=== PATIENT | male | born 1980 | race Caucasian/White ===

== ENCOUNTER 2020-05-07 02:21 | Emergency (ER) | payer OTHER ==
[2020-05-07 02:29] VITALS: BP 142/92; PULSE 74; RESP 22; TEMP 98.6
[2020-05-07] MEDS ORDERED: ACET/COD 300 MG/30 MG STARTER PACK 6 TAB BTL PO STA (02:42)
[2020-05-07] MEDS ORDERED: KETOROLAC 15 MG/ML 1 ML VIAL IM STA (02:42)
--- NOTE | 2020-05-07 02:54 | ED ---
Upper Extremity HPI - General Chief Complaint: Extremity Injury, Upper Stated Complaint: Rt shoulder pain Time Seen by Provider: 05/07/20 02:35 Source: patient, family Mode of arrival: ambulatory Limitations: no limitations - History of Present Illness Initial Comments: 39 year-old male patient presents to the emergency department for evaluation of increased right shoulder pain. Patient states he had a dislocation on 04/26/20 and has been having pain since. He states that tonight while at work he suddenly started having worse pain. States that he has been wearing the sling and not using it much. Denies numbness or tingling to the hand. He denies any new injury. States that he has not been able to get his pain medications filled due to his working hours. Has not been able to follow up with orthopedics because he is waiting for a referral. Patient denies any headache, neck pain, back pain, chest pain, shortness of breath, dizziness, weakness, abdominal pain, nausea, vomiting, or difficulties with bowel movements or urination. - Related Data Home Medications Medication Instructions Recorded Confirmed Acetaminophen Tab [Tylenol Tab] 1,500 mg PO Q6HR PRN 03/18/20 03/18/20 Dm/Acetaminophen/Doxylamine [Vicks 30 ml PO Q8H PRN 03/18/20 03/18/20 Nyquil Cold-Flu Liquid] Previous Rx's Medication Instructions Recorded Ondansetron Odt [Zofran Odt] 4 mg PO Q8HR PRN #20 tab 03/18/20 Allergies Allergy/AdvReac Type Severity Reaction Status Date / Time hydromorphone [From Dilaudid] Allergy Rash/Hives Verified 05/07/20 02:29 meperidine [From Demerol] Allergy Rash/Hives Verified 05/07/20 02:29 Review of Systems ROS Statement: Those systems with pertinent positive or pertinent negative responses have been documented in the HPI. ROS Other: All systems not noted in ROS Statement are negative. Past Medical History Additional Past Medical History / Comment(s): multiple dislocation of rt shoulder History of Any Multi-Drug Resistant Organisms: None Reported Past Surgical History: Orthopedic Surgery Additional Past Surgical History / Comment(s): rt shoulder Past Psychological History: No Psychological Hx Reported Smoking Status: Never smoker Past Alcohol Use History: None Reported Past Drug Use History: None Reported General Exam Limitations: no limitations General appearance: alert, in no apparent distress, other (This is a well- developed, well-nourished adult male patient in no acute distress. Vital signs upon presentation are temperature 98.6F, pulse 74, respirations 22, blood pressure 142/92, pulse ox 97% on room air.) Respiratory exam: Present: normal lung sounds bilaterally. Absent: respiratory distress, wheezes, rales, rhonchi, stridor Cardiovascular Exam: Present: regular rate, normal rhythm, normal heart sounds. Absent: systolic murmur, diastolic murmur, rubs, gallop, clicks Extremities exam: Present: normal inspection, tenderness (Right shoulder), normal capillary refill, other (Skin to the right arm is pink, warm, dry. Cap refills less than 3 seconds. Radial pulses 2)). Absent: full ROM (decreased due to pain), pedal edema, joint swelling, calf tenderness Neurological exam: Present: alert, oriented X3, CN II-XII intact Psychiatric exam: Present: normal affect, normal mood Skin exam: Present: warm, dry, intact, normal color. Absent: rash Course Vital Signs 05/07/20 02:25 Temperature 98.6 F Pulse Rate 74 Respiratory 22 Rate Blood Pressure 142/92 O2 Sat by Pulse 97 Oximetry Medical Decision Making - Medical Decision Making 39-year-old male patient presents to the emergency department today for evaluation of pain to the right shoulder. Patient had a dislocation on 06/2020 and did have successful reduction. Has not yet been able to follow-up with orthopedics due to referral issues also has not picked up his prescription from the pharmacy for pain. Patient states his shoulder started to hurt worse tonight. Physical examination is unremarkable. He has good neurovascular status. X-rays negative for acute abnormalities. He will be discharged after receiving pain medication in the emergency department. He is instructed to follow-up is as possible with orthopedics. We did discuss range of motion of the shoulder while using the sling to prevent frozen shoulder. Return parameters were discussed in detail. He verbalizes understanding and agrees with this plan. - Radiology Data Radiology results: report reviewed, image reviewed Two-view x-ray of the right shoulder is obtained. Report was reviewed in its entirety. Impression by Dr. Elmore shows no acute osseous abnormalities. Disposition Clinical Impression: Shoulder pain, right Disposition: HOME SELF-CARE Condition: Good Instructions (If sedation given, give patient instructions): Shoulder Pain (ED) Additional Instructions: Take medications as directed. Follow-up with your primary care physician and product development specialist for further evaluation as soon as possible. Return to the emergency department for any new, worsening, or concerning symptoms. Is patient prescribed a controlled substance at d/c from ED?: No Referrals: Huma Soria MD [Primary Care Provider] - 1-2 days Time of Disposition: 03:23
--- NOTE | 2020-05-07 03:14 | XR ---
EXAM: XR Right Shoulder Complete, 2 or More Views CLINICAL HISTORY: ITS.REASON XR Reason: Right shoulder pain TECHNIQUE: Two or more views of the right shoulder. COMPARISON: 04/26/2020 FINDINGS: Bones/joints: No acute fracture. No dislocation. Arthroplasty hardware. Soft tissues: Unremarkable. IMPRESSION: No acute osseous abnormalities.
== END 2020-05-07 03:37 | disposition home or self-care (01) ==
LOC: EC 02:21 → MERGE 02:21 → EC 03:37
DX: M25.511 Pain in right shoulder (principal); Z88.5 Allergy status to narcotic agent
CPT/HCPCS: 73030; 99283; 96372; J1885

== ENCOUNTER → 2020-08-06 | Outpatient (CLI) | payer OTHER ==
--- NOTE | 2020-08-06 12:54 | ECHOS ---
STRESS ECHOCARDIOGRAM LUMASON: N/A Vial INDICATIONS: Chest pain. MEDICATIONS: BASELINE HEART RATE: 89 BASELINE BLOOD PRESSURE: 130/73 MAXIMUM HEART RATE: 154 MAXIMUM BLOOD PRESSURE: 175/98 85% MPHR: 153 100% MPHR: 180 METS: 10 MAXIMUM STAGE REACHED: IV TOTAL EXERCISE TIME: 9 minutes CLINICAL INFORMATION: Baseline EKG shows sinus rhythm, normal axis, normal intervals. Patient exercised on Jean-Claude protocol for a total of 9 minutes achieving 10 METs, 85% of predicted maximal heart rate without chest pain or diagnostic ST-segment depression. Baseline echo shows normal left ventricular size, wall motion and systolic function. Postexercise, there is normal hyperdynamic response of all segments of myocardium noted. CONCLUSIONS: 1. Good exercise tolerance. 2. Negative stress test by EKG criteria. 3. Negative stress echo. MMODL / IJN: [id number] /
== END | disposition home or self-care (01) ==
LOC: RADNMMAIN 09:47 → MERGE 10:00
PROVIDERS: ATTEND Family Medicine
DX: R07.9 Chest pain, unspecified (principal)
CPT/HCPCS: 93351

== ENCOUNTER → 2020-08-18 | Outpatient (CLI) | payer OTHER ==
--- NOTE | 2020-08-18 15:03 | US ---
EXAMINATION TYPE: US abdomen complete DATE OF EXAM: 08/18/2020 COMPARISON: NONE CLINICAL HISTORY: Hepatic colic w/o cholangitis K80.50. RUQ pain, nausea and bloating x 1 month EXAM MEASUREMENTS: Liver Length: 14.7 cm Gallbladder Wall: 0.3 cm CBD: 0.3 cm Spleen: 11.1 cm Right Kidney: 9.9 x 6.1 x 4.8 cm Left Kidney: 10.6 x 5.7 x 5.6 cm Pancreas: obscured by overlying midline bowel gas Liver: limited visualization, scanned intercostally Gallbladder: 1.8cm stone Evidence for sonographic Wharton's sign: no CBD: visualized portions wnl Spleen: wnl Right Kidney: wnl Left Kidney: wnl Upper IVC: limited visualization Abd Aorta: prox portion obscured by overlying midline bowel gas, mid and distal appear wnl The visualized liver is heterogeneously hyperechoic. Evaluation for focal masses suboptimal due to th e heterogeneity. The intrahepatic portion of the IVC and visualized mid and distal abdominal aorta a re within normal limits. There is large shadowing 1.8 cm calculus. No pericholecystic fluid or abno rmal gallbladder wall thickening. Common bile duct is within normal limits. Suboptimal evaluation of pancreas on initial images saved due to shadowing from overlying bowel gas. The spleen is unremarkab le. Kidneys are symmetric and free of hydronephrosis. No renal lesions are seen on images saved. IMPRESSION: Large gallstone without secondary ultrasound evidence for acute cholecystitis. Heterogene ous hyperechoic appearance of liver is likely on basis of diffuse fatty infiltration.
== END | disposition home or self-care (01) ==
LOC: RADUSWWP 14:06
PROVIDERS: ATTEND Family Medicine
DX: K80.20 Calculus of gallbladder without cholecystitis without obstruction (principal)
CPT/HCPCS: 76700

== ENCOUNTER → 2020-08-25 | Outpatient (CLI) | payer OTHER ==
--- NOTE | 2020-08-25 16:30 | NM ---
EXAMINATION TYPE: NM hepatobiliary w EF DATE OF EXAM: 08/25/2020 COMPARISON: Abdominal ultrasound 08/18/2020 HISTORY: Hepatic colic with cholangitis TECHNIQUE: After the intravenous administration of 4.86 mCi Tc 99m Mebrofenin hepatobiliary scintigra phy is performed. Immediate images post injection. FINDINGS: There is satisfactory initial accumulation of tracer by the liver. The gallbladder is visualized wit hin 6 minutes. The small bowel activity is noted within extending minutes. At one hour 8 ounces of oral ensure plus is given to mimic CCK and gallbladder ejection fraction is calculated at 75 %, in th e normal range. Therefore there is no scintigraphic evidence of cystic or common bile duct obstructi on, no acute or chronic cholecystitis, and no evidence of biliary dyskinesia. IMPRESSION: Exam is within normal limits.
== END | disposition home or self-care (01) ==
LOC: RADNMMAIN 12:52
PROVIDERS: ATTEND Family Medicine
DX: K80.30 Calculus of bile duct with cholangitis, unspecified, without obstruction (principal)
CPT/HCPCS: 78226; A9537

== ENCOUNTER → 2020-09-08 | Outpatient (CLI) | payer OTHER | END | disposition home or self-care (01) | LOC: LABPAT 10:10 | PROVIDERS: ATTEND Surgery | DX: Z01.818 Encounter for other preprocedural examination (principal); Z11.52 Encounter for screening for COVID-19 | CPT/HCPCS: 93005; U0003; C9803; U0005 ==

== ENCOUNTER 2020-09-10 11:54 | Emergency (ER) | payer OTHER ==
[2020-09-10 12:03] VITALS: RESP 18; TEMP 97.7
[2020-09-10] MEDS ORDERED: MORPHINE SULFATE 4 MG/ML SYRINGE IV STA (13:26)
--- NOTE | 2020-09-10 13:28 | ED ---
General Adult HPI - General Chief complaint: Abdominal Pain Stated complaint: Chest Pain, Abd Pain Time Seen by Provider: 09/10/20 13:14 Source: patient Mode of arrival: ambulatory Limitations: no limitations - History of Present Illness Initial comments: Dictation was produced using [email or web address] dictation software. please excuse any grammatical, word or spelling errors. This patient was cared for during a federal and state declared state of emergenc y secondary to Covid 19 Chief Complaint: 39-year-old male with past medical history of gallstone presents with gallstone pain. History of Present Illness: It is a 39-year-old male he was recently diagnosed with a large gallstone. 5 days he is scheduled to have a laparoscopic cholecystectomy performed by Dr. Beltran. Patient for the last 2-3 days has been having increasing pain to his right upper quadrant. His pain rates up into his chest. Call his primary care doctor and PCP told to come to the emergency department. Patient denies any fever. He had some eggs prior to the onset of his symptoms. Denies any chills or any other constitutional symptoms. The ROS documented in this emergency department record has been reviewed and confirmed by me. Those systems with pertinent positive or negative responses have been documented in the HPI. All other systems are other negative and/or noncontributory. PHYSICAL EXAM: General Impression: Alert and oriented x3, not in acute distress HEENT: Normocephalic atraumatic, extra-ocular movements intact, pupils equal and reactive to light bilaterally, mucous membranes moist. Cardiovascular: Heart regular rate and rhythm Chest: Able to complete full sentences, no retractions, no tachypnea Abdomen: abdomen soft, non-tender, non-distended, no organomegaly, negative Wharton sign Musculoskeletal: Pulses present and equal in all extremities, no peripheral edema Motor: no focal deficits noted Neurological: CN II-XII grossly intact, no focal motor or sensory deficits noted Skin: Intact with no visualized rashes Psych: Normal affect and mood ED course: 39-year-old male presents to emergency department for symptomatic cholelithiasis. Vital signs upon arrival are within acceptable limits. Laboratory evaluation obtained showing no acute processes. No concern for acute cholecystitis or choledocholithiasis.. Patient appears improved. Patient will be discharged. Clinical presentation consistent with symptomatic cholelithiasis. - Related Data Home Medications Medication Instructions Recorded Confirmed Acetaminophen Tab [Tylenol Tab] 1,500 mg PO Q6HR PRN 03/18/20 03/18/20 Dm/Acetaminophen/Doxylamine [Vicks 30 ml PO Q8H PRN 03/18/20 03/18/20 Nyquil Cold-Flu Liquid] Previous Rx's Medication Instructions Recorded Ondansetron Odt [Zofran Odt] 4 mg PO Q8HR PRN #20 tab 03/18/20 Allergies Allergy/AdvReac Type Severity Reaction Status Date / Time hydromorphone [From Dilaudid] Allergy Rash/Hives Verified 09/10/20 12:03 meperidine [From Demerol] Allergy Rash/Hives Verified 09/10/20 12:03 Review of Systems ROS Statement: Those systems with pertinent positive or pertinent negative responses have been documented in the HPI. ROS Other: All systems not noted in ROS Statement are negative. Past Medical History Additional Past Medical History / Comment(s): multiple dislocation of rt vishnu ulder History of Any Multi-Drug Resistant Organisms: None Reported Past Surgical History: Orthopedic Surgery Additional Past Surgical History / Comment(s): rt shoulder Past Psychological History: No Psychological Hx Reported Smoking Status: Never smoker Past Alcohol Use History: None Reported Past Drug Use History: None Reported General Exam Limitations: no limitations Course Vital Signs 09/10/20 12:00 Temperature 97.7 F Pulse Rate 92 Respiratory 18 Rate Blood Pressure 137/100 O2 Sat by Pulse 95 Oximetry Medical Decision Making - Lab Data Result diagrams: 09/10/20 13:29 09/10/20 13:29 Lab Results 09/10/20 09/10/20 Range/Units 13:29 13:29 WBC 8.7 (3.8-10.6) k/uL RBC 5.06 (4.30-5.90) m/uL Hgb 15.8 (13.0-17.5) gm/dL Hct 45.5 (39.0-53.0) % MCV 90.0 (80.0-100.0) fL MCH 31.2 (25.0-35.0) pg MCHC 34.6 (31.0-37.0) g/dL RDW 12.7 (11.5-15.5) % Plt Count 256 (150-450) k/uL MPV 7.4 Neutrophils % 62 % Lymphocytes % 27 % Monocytes % 6 % Eosinophils % 2 % Basophils % 1 % Neutrophils # 5.4 (1.3-7.7) k/uL Lymphocytes # 2.4 (1.0-4.8) k/uL Monocytes # 0.5 (0-1.0) k/uL Eosinophils # 0.2 (0-0.7) k/uL Basophils # 0.1 (0-0.2) k/uL Sodium 140 (137-145) mmol/L Potassium 4.7 (3.5-5.1) mmol/L Chloride 105 (98-107) mmol/L Carbon Dioxide 26 (22-30) mmol/L Anion Gap 9 mmol/L BUN 14 (9-20) mg/dL Creatinine 0.80 (0.66-1.25) mg/dL Est GFR (CKD-EPI)AfAm >90 (>60 ml/min/1.73 sqM) Est GFR (CKD-EPI)NonAf >90 (>60 ml/min/1.73 sqM) Glucose 86 (74-99) mg/dL Calcium 10.0 (8.4-10.2) mg/dL Total Bilirubin 0.2 (0.2-1.3) mg/dL AST 23 (17-59) U/L ALT 34 (4-49) U/L Alkaline Phosphatase 58 (38-126) U/L Total Protein 7.3 (6.3-8.2) g/dL Albumin 4.4 (3.5-5.0) g/dL Lipase 227 (23-300) U/L Disposition Clinical Impression: Cholelithiasis Disposition: HOME SELF-CARE Condition: Good Is patient prescribed a controlled substance at d/c from ED?: No Referrals: Huma Soria MD [Primary Care Provider] - 1-2 days Time of Disposition: 14:28
[2020-09-10 13:52] LABS: Basophils # (A) 0.1 k/uL (0-0.2); Basophils % (A) 1 %; Eosinophils # (A) 0.2 k/uL (0-0.7); Eosinophils % (A) 2 %; HCT 45.5 % (39.0-53.0); HGB 15.8 gm/dL (13.0-17.5); Lymphocytes # (A) 2.4 k/uL (1.0-4.8); Lymphocytes % (A) 27 %; MCH 31.2 pg (25.0-35.0); MCHC 34.6 g/dL (31.0-37.0); Mean Platelet Volume 7.4; Monocytes # (A) 0.5 k/uL (0-1.0); Monocytes % (A) 6 %; Neutrophils # (A) 5.4 k/uL (1.3-7.7); Neutrophils % (A) 62 %; Platelet Count 256 k/uL (150-450); RBC 5.06 m/uL (4.30-5.90); RDW 12.7 % (11.5-15.5); WBC 8.7 k/uL (3.8-10.6)
[2020-09-10 13:56] LABS: ALT 34 U/L (4-49); AST 23 U/L (17-59); African American GFR (CKD) >90 (>60 ml/min/1.73 sqM); Albumin 4.4 g/dL (3.5-5.0); Alkaline Phosphatase 58 U/L (38-126); Anion Gap 9 mmol/L; Blood Urea Nitrogen 14 mg/dL (9-20); Carbon Dioxide 26 mmol/L (22-30); Chloride 105 mmol/L (98-107); Glucose 86 mg/dL (74-99); Lipase 227 U/L (23-300); Non-African American GFR(CKD) >90 (>60 ml/min/1.73 sqM); Potassium 4.7 mmol/L (3.5-5.1); Sodium 140 mmol/L (137-145); Total Bilirubin 0.2 mg/dL (0.2-1.3); Total Protein 7.3 g/dL (6.3-8.2)
[2020-09-10] MEDS ORDERED: ACET/COD 300 MG/30 MG STARTER PACK 6 TAB BTL PO STA (14:36)
--- NOTE | 2020-09-10 14:57 | ED ---
Medical Decision Making - Lab Data Result diagrams: 09/10/20 13:29 09/10/20 13:29 Lab Results 09/10/20 09/10/20 Range/Units 13:29 13:29 WBC 8.7 (3.8-10.6) k/uL RBC 5.06 (4.30-5.90) m/uL Hgb 15.8 (13.0-17.5) gm/dL Hct 45.5 (39.0-53.0) % MCV 90.0 (80.0-100.0) fL MCH 31.2 (25.0-35.0) pg MCHC 34.6 (31.0-37.0) g/dL RDW 12.7 (11.5-15.5) % Plt Count 256 (150-450) k/uL MPV 7.4 Neutrophils % 62 % Lymphocytes % 27 % Monocytes % 6 % Eosinophils % 2 % Basophils % 1 % Neutrophils # 5.4 (1.3-7.7) k/uL Lymphocytes # 2.4 (1.0-4.8) k/uL Monocytes # 0.5 (0-1.0) k/uL Eosinophils # 0.2 (0-0.7) k/uL Basophils # 0.1 (0-0.2) k/uL Sodium 140 (137-145) mmol/L Potassium 4.7 (3.5-5.1) mmol/L Chloride 105 (98-107) mmol/L Carbon Dioxide 26 (22-30) mmol/L Anion Gap 9 mmol/L BUN 14 (9-20) mg/dL Creatinine 0.80 (0.66-1.25) mg/dL Est GFR (CKD-EPI)AfAm >90 (>60 ml/min/1.73 sqM) Est GFR (CKD-EPI)NonAf >90 (>60 ml/min/1.73 sqM) Glucose 86 (74-99) mg/dL Calcium 10.0 (8.4-10.2) mg/dL Total Bilirubin 0.2 (0.2-1.3) mg/dL AST 23 (17-59) U/L ALT 34 (4-49) U/L Alkaline Phosphatase 58 (38-126) U/L Total Protein 7.3 (6.3-8.2) g/dL Albumin 4.4 (3.5-5.0) g/dL Lipase 227 (23-300) U/L Disposition Clinical Impression: Cholelithiasis Disposition: HOME SELF-CARE Condition: Good Instructions (If sedation given, give patient instructions): Gallstones (ED) Is patient prescribed a controlled substance at d/c from ED?: No Referrals: Huma Soria MD [Primary Care Provider] - 1-2 days
[2020-09-10 15:05] VITALS: BP 116/87; PULSE 78
== END 2020-09-10 15:06 | disposition home or self-care (01) ==
LOC: EC 11:54
DX: K80.20 Calculus of gallbladder without cholecystitis without obstruction (principal); Z88.5 Allergy status to narcotic agent
CPT/HCPCS: 36415; 80053; 83690; 85025; 99284; 96374; J2270; 93005

== ENCOUNTER 2020-09-15 11:04 | Day surgery (SDC) | payer OTHER ==
[2020-09-10 15:44] VITALS: BMI 36.5
[~2020-09-15 11:04] MED LIST: DEXAMETHASONE SOD PHOSPHATE 4 MG/ML 1 ML VIAL IV ONE; HEPARIN SODIUM,PORCINE/PF 5,000 UNIT/0.5 ML SYRINGE SQ PRN; LACTATED RINGERS 1,000 ML IV SCH; LIDOCAINE 1% (10MG/ML) FOR IV START INTRADERMA PRN; MIDAZOLAM 2 MG/2 ML VIAL IV PRN
[2020-09-15 11:30] VITALS: RESP 16
[2020-09-15] MEDS ORDERED: LIDOCAINE 1% (10MG/ML) FOR IV START INTRADERMA ONE (11:45)
[2020-09-15] MEDS: ONDANSETRON 4 MG/2 ML VIAL IVP ONE ×2 (11:59→13:54)
[2020-09-15] MEDS ORDERED: GLYCOPYRROLATE 0.2 MG/ML 2 ML VIAL ONE (12:04)
[2020-09-15] MEDS ORDERED: fentaNYL (PF) 50 MCG/ML 2 ML AMP ONE (12:04)
[2020-09-15] MEDS ORDERED: INDOCYANINE GREEN 25 MG VIAL IV ONE (12:04)
[2020-09-15] MEDS ORDERED: PROPOFOL 10 MG/ML 20 ML VIAL IV ONE (12:04)
[2020-09-15] MEDS ORDERED: LIDOCAINE 1% INJ 10MG/ML (20 ML MDV) ONE (12:04)
[2020-09-15] MEDS ORDERED: MIDAZOLAM 2 MG/2 ML VIAL ONE (12:04)
[2020-09-15] MEDS ORDERED: ROCURONIUM 10 MG/ML (5 ML VIAL) IV ONE (12:04)
[2020-09-15] MEDS ORDERED: KETOROLAC 15 MG/ML 1 ML VIAL ONE (12:04)
[2020-09-15] MEDS ORDERED: SUCCINYLCHOLINE CHLORIDE 100 MG/5 ML SYR IV ONE (12:04)
[2020-09-15] MEDS ORDERED: NEOSTIGMINE 1 MG/ML 10 ML VIAL ONE (12:04)
[2020-09-15] MEDS ORDERED: LIDOCAINE 1%-EPI 1:100,000 20 ML VIAL SQ ONE (12:22)
--- NOTE | 2020-09-15 13:25 | P.OP ---
Date of Procedure: 09/15/20 Preoperative Diagnosis: Symptomatic cholelithiasis Postoperative Diagnosis: Symptomatic cholelithiasis Procedure(s) Performed: Robotic cholecystectomy Anesthesia: KENYON Surgeon: Erica Beltran Pathology: other (Gallbladder and contents) Condition: stable Disposition: same day Indications for Procedure: 40-year-old male presented to the surgery clinic with complaints of right upper quadrant pain, on workup he was found to have cholelithiasis. Based on clinical picture, he was diagnosed with symptomatically cholelithiasis. He has opted for robotic cholecystectomy. Risks, benefits and alternatives were provided to the patient. He did provide consent prior to attending the operating suite. Operative Findings: Cholelithiasis Description of Procedure: The patient is brought into the operating suite and placed in supine position on the operating table. Sedation was provided by anesthesia and the patient underwent endotracheal intubation. The patient was then prepped and draped in regular sterile fashion. An infra umbilical incision was made dissection was carried to the fascia. The fascia was incised in 8 mm trocar was placed. Pneumoperitoneum was achieved. Once pneumoperitoneum was achieved, the patient was placed in appropriate position of reverse Trendelenburg and rotated to the left. 3 additional 8 mm trochars were placed. 2 were placed in the right lower quadrant and one was placed in the left upper quadrant. The robot was then docked. The gallbladder was grasped and elevated and dissection was carried along the infundibulum, revealing both the cystic duct and cystic artery. Both the cystic duct and cystic artery were skeletonized. The cystic duct was clearly visualized using ICG technology. 2 clips were placed proximally and the cystic duct and one was placed distally and the cystic duct was ligated. 2 cl ips were placed proximally on the artery and 2 clips were placed distally and the cystic artery was ligated. Hemostasis was noted to be maintained and cautery was used to dissect the gallbladder from the gallbladder fossa. The gallbladder was then placed in an Endo Catch bag and removed from the abdomen. Copious muss of suction and irrigation were used in the right upper quadrant. Hemostasis was noted to be maintained. At this point, the infraumbilical incision site fascia was closed using 0 Vicryl suture under direct visualization using a Isael-Jassi device. Pneumoperitoneum was then released and all ports removed from the abdomen. All skin incisions were closed with 4-0 Vicryl subcuticular suture. The patient was awakened in the operating suite and taken to postanesthesia care unit in stable condition.
[2020-09-15 13:28] VITALS: TEMP 97.3
[2020-09-15] MEDS ORDERED: LACTATED RINGERS 1,000 ML IV ONE (13:32)
[2020-09-15] MEDS: fentaNYL (PF) 50 MCG/ML 2 ML AMP IVP ONE ×4 (13:51→14:17)
[2020-09-15] MEDS ORDERED: diphenhydrAMINE 50 MG/ML 1 ML VIAL IVP ONE (14:19)
[2020-09-15] MEDS ORDERED: SIMETHICONE 40 MG/0.6 ML DROPS 2,000 MG/30 ML BOTTLE PO ONE (15:10)
[2020-09-15 17:25] VITALS: BP 136/79; PULSE 72
== END 2020-09-15 17:51 | disposition home or self-care (01) ==
LOC: OR 11:04
PROVIDERS: ATTEND Surgery
DX: K80.10 Calculus of gallbladder with chronic cholecystitis without obstruction (principal); Z88.5 Allergy status to narcotic agent; Z91.040 Latex allergy status; E78.00 Pure hypercholesterolemia, unspecified
CPT/HCPCS: 47562; S2900; 88304

== ENCOUNTER 2020-11-19 04:44 | Emergency (ER) | payer OTHER ==
[2020-11-19 04:51] VITALS: PULSE 75; TEMP 97.9
--- NOTE | 2020-11-19 05:06 | ED ---
Back Pain HPI - General Chief Complaint: Back Pain/Injury Stated Complaint: Lower Back Pain Time Seen by Provider: 11/19/20 04:46 Source: patient, RN notes reviewed, old records reviewed Limitations: no limitations - History of Present Illness Initial Comments: 40 male to the ER for evaluation of recurrent back injury. Patient has some pain down his right leg. History of back surgery and fusion. Injury occurred at work with heavy lifting. Patient is without fevers, bleeding he may be urinating more than normal. No modifying factors for symptoms at home no loss of bowel or bladder. Patient is able to amply without difficulty MD Complaint: back pain, back injury -: hour(s) Similar Symptoms Previously: Yes Place: home Radiation: none Severity: severe Severity scale (1-10): 8 Quality: sharp Consistency: constant Improves With: none Worsens With: none Context: while lifting, turning/twisting Associated Symptoms: denies other symptoms - Related Data Previous Rx's Medication Instructions Recorded HYDROcodone/APAP 5-325MG [[place] 1 tab PO Q6HR PRN 3 Days #12 tab 09/15/20 5-325] Ibuprofen [Motrin] 600 mg PO Q8HR PRN #24 tab 09/15/20 Allergies Allergy/AdvReac Type Severity Reaction Status Date / Time hydromorphone [From Dilaudid] Allergy Rash/Hives Verified 11/19/20 04:51 latex Allergy Rash/Hives Verified 11/19/20 04:51 meperidine [From Demerol] Allergy Rash/Hives Verified 11/19/20 04:51 Review of Systems ROS Statement: Those systems with pertinent positive or pertinent negative responses have been documented in the HPI. ROS Other: All systems not noted in ROS Statement are negative. Past Medical History Additional Past Medical History / Comment(s): multiple dislocation of rt shoulder, back pain History of Any Multi-Drug Resistant Organisms: None Reported Past Surgical History: Back Surgery Additional Past Surgical History / Comment(s): rt shoulder Past Psychological History: No Psychological Hx Reported Smoking Status: Never smoker Past Alcohol Use History: None Reported Past Drug Use History: None Reported General Exam Limitations: no limitations General appearance: alert, in no apparent distress Head exam: Present: atraumatic, normocephalic, normal inspection Eye exam: Present: normal appearance, PERRL, EOMI. Absent: scleral icterus, conjunctival injection, periorbital swelling ENT exam: Present: normal exam, mucous membranes moist Neck exam: Present: normal inspection. Absent: tenderness, meningismus, lymphadenopathy Respiratory exam: Present: normal lung sounds bilaterally. Absent: respiratory distress, wheezes, rales, rhonchi, stridor Cardiovascular Exam: Present: regular rate, normal rhythm, normal heart sounds. Absent: systolic murmur, diastolic murmur, rubs, gallop, clicks GI/Abdominal exam: Present: soft, normal bowel sounds. Absent: distended, tenderness, guarding, rebound, rigid Extremities exam: Present: normal inspection, full ROM, normal capillary refill. Absent: tenderness, pedal edema, joint swelling, calf tenderness Back exam: Present: normal inspection Neurological exam: Present: alert, oriented X3, CN II-XII intact Psychiatric exam: Present: normal affect, normal mood Skin exam: Present: warm, dry, intact, normal color. Absent: rash Course Vital Signs 11/19/20 04:46 Temperature 97.9 F Pulse Rate 75 Respiratory 20 Rate Blood Pressure 151/91 O2 Sat by Pulse 100 Oximetry - Reevaluation(s) Reevaluation #1: 11/19/20 05:59 Medical record is reviewed Reevaluation #2: 11/19/20 05:59 Patient's back pain is improved Reevaluation #3: 11/19/20 06:00 Patient is informed of results and questions have been answered Medical Decision Making - Medical Decision Making 40 male to the ER for evaluation of acute on chronic back pain. Back pain improved currently, Motrin and Tylenol pain at home when he can be discharged home - Lab Data Lab Results 11/19/20 Range/Units 05:36 POC Glucose (mg/dL) 97 (75-99) mg/dL POC Glu Resort Host ID Gwendolyn Matson - Radiology Data Radiology results: report reviewed (X-ray lumbar spine is negative for traumatic injury, prior surgery looks in place), image reviewed Disposition Clinical Impression: Mechanical back pain, Strain of lumbar region, Sciatica, Lumbar radiculopathy Disposition: HOME SELF-CARE Condition: Good Instructions (If sedation given, give patient instructions): Acute Low Back Pain (ED) Is patient prescribed a controlled substance at d/c from ED?: No Referrals: Huma Soria MD [Primary Care Provider] - 1-2 days Ciara Singer DO [Doctor of Osteopathic Medicine] - 1-2 days
[2020-11-19] MEDS ORDERED: ACET/COD 300 MG/30 MG STARTER PACK 6 TAB BTL PO STA (05:12)
[2020-11-19] MEDS ORDERED: Acetaminophen-Codeine 300-30mg TAB PO STA (05:12)
[2020-11-19] MEDS ORDERED: dexAMETHasone 2 MG TAB PO STA (05:12)
[2020-11-19] MEDS ORDERED: IBUPROFEN 600 MG STARTER PACK 4 TAB BTL PO STA (05:12)
[2020-11-19] MEDS ORDERED: KETOROLAC 15 MG/ML 1 ML VIAL IM STA (05:12)
[2020-11-19 05:37] LABS: Glucose,Whole Blood 97 mg/dL (75-99)
--- NOTE | 2020-11-19 05:37 | XR ---
EXAMINATION TYPE: XR lumbar spine 2 or 3V DATE OF EXAM: 11/19/2020 COMPARISON: NONE HISTORY: Low back pain TECHNIQUE: 3 views FINDINGS: Lumbar vertebra have normal alignment. There is posterior fusion surgery at L5-S1 with disc prosthesis. There is no compression fracture. Sacroiliac joints are intact. I see no bony destructiv e process. IMPRESSION: Previous surgery. No acute abnormality of the lumbar spine. No fracture.
[2020-11-19 06:42] VITALS: BP 124/88; RESP 16
== END 2020-11-19 06:42 | disposition home or self-care (01) ==
LOC: EC 04:44
DX: S39.012A Strain of muscle, fascia and tendon of lower back, initial encounter (principal); X50.0XXA Overexertion from strenuous movement or load, initial encounter; Y99.0 Civilian activity done for income or pay
CPT/HCPCS: 36415; 72100; 99283; 96372; J8540; J1885

== ENCOUNTER 2020-11-22 14:12 | Emergency (ER) | payer OTHER ==
[2020-11-22 14:16] VITALS: TEMP 97.8
[2020-11-22] MEDS ORDERED: diphenhydrAMINE 50 MG/ML 1 ML VIAL IM STA (14:45)
[2020-11-22] MEDS ORDERED: HYDROmorphone 1 MG/ML 1 ML SYRINGE IM STA (14:45)
[2020-11-22] MEDS ORDERED: LIDOCAINE 5% PATCH TOPICAL STA (14:48)
--- NOTE | 2020-11-22 15:36 | ED ---
Back Pain HPI - General Chief Complaint: Back Pain/Injury Stated Complaint: Revisit Back Pain, Diarrhea Time Seen by Provider: 11/22/20 14:20 Source: patient Limitations: no limitations - History of Present Illness Initial Comments: 40-year-old male presents to the emergency department with a chief complaint of back pain. He reports history of chronic back pain with fusion of L5 and S1. States he was here several days ago with the same back pain which she believes is secondary to strain while he is at work. States the pain is located in the right lumbosacral region with radiation along the posterior aspect of her right lower extremity. States his symptoms improved while he was here but then they began to return. States is also developed one episode of diarrhea but no nausea or vomiting or abdominal pain. He denies any fevers or chills. Denies any saddle anesthesia, urinary retention with overflow or bowel incontinence. - Related Data Home Medications Medication Instructions Recorded Confirmed Cyclobenzaprine [Flexeril] 10 mg PO BID PRN 11/22/20 11/22/20 dexAMETHasone [Dexamethasone] 4 mg PO BID 11/22/20 11/22/20 Allergies Allergy/AdvReac Type Severity Reaction Status Date / Time hydromorphone [From Dilaudid] Allergy Rash/Hives Verified 11/22/20 16:12 latex Allergy Rash/Hives Verified 11/22/20 16:12 meperidine [From Demerol] Allergy Rash/Hives Verified 11/22/20 16:12 Review of Systems ROS Statement: Those systems with pertinent positive or pertinent negative responses have been documented in the HPI. ROS Other: All systems not noted in ROS Statement are negative. Past Medical History Additional Past Medical History / Comment(s): multiple dislocation of rt shoulder, back pain History of Any Multi-Drug Resistant Organisms: None Reported Past Surgical History: Back Surgery Additional Past Surgical History / Comment(s): rt shoulder Past Psychological History: No Psychological Hx Reported Smoking Status: Never smoker Past Alcohol Use History: None Reported Past Drug Use History: None Reported General Exam Limitations: no limitations General appearance: alert, in no apparent distress Head exam: Present: atraumatic, normocephalic, normal inspection Eye exam: Present: normal appearance, PERRL, EOMI Pupils: Present: normal accommodation ENT exam: Present: normal exam, normal oropharynx, mucous membranes moist Neck exam: Present: normal inspection, full ROM. Absent: tenderness Respiratory exam: Present: normal lung sounds bilaterally. Absent: respiratory distress, wheezes, rales, rhonchi, stridor, chest wall tenderness, accessory muscle use Cardiovascular Exam: Present: regular rate, normal rhythm, normal heart sounds. Absent: systolic murmur Extremities exam: Present: normal inspection, full ROM, normal capillary refill. Absent: tenderness Back exam: Present: normal inspection, full ROM, paraspinal tenderness (Right- sided paraspinal tenderness in the lumbar sacral region.). Absent: tenderness, CVA tenderness (R), CVA tenderness (L), muscle spasm Neurological exam: Present: alert, oriented X3, normal gait Psychiatric exam: Present: normal affect, normal mood Skin exam: Present: warm, dry, intact, normal color Course Vital Signs 11/22/20 11/22/20 11/22/20 14:13 15:24 16:49 Temperature 97.8 F Pulse Rate 92 83 82 Respiratory 16 18 16 Rate Blood Pressure 148/90 134/84 134/78 O2 Sat by Pulse 100 97 98 Oximetry Medical Decision Making - Medical Decision Making 40-year-old male presents to the emergency department with a chief complaint of back pain. On physical examination, right-sided paraspinal tenderness in the lumbosacral region with radiating to the right lower leg. Likely sciatica type symptoms. This is acute on chronic back pain. No cauda equina. Patient was given analgesia and a Lidoderm patch. On Reevaluation, he reports improvement in symptoms. CT imaging of the lumbar spine shows no acute findings. I will discharge the patient with Tylenol 3 starter pack. Advised to follow-up with an cardiac specialist. Return parameters were thoroughly discussed patient is understanding and agreeable. Case discussed with physician. Disposition Clinical Impression: Mechanical back pain, Strain of lumbar region Disposition: HOME SELF-CARE Condition: Stable Instructions (If sedation given, give patient instructions): Acute Low Back Pain (ED) Additional Instructions: Follow with cardiac specialist. Return to emergency department if symptoms worsen. Is patient prescribed a controlled substance at d/c from ED?: No Referrals: Huma Soria MD [Primary Care Provider] - 1-2 days Galo Powers DO [Doctor of Osteopathic Medicine] - 1-2 days Time of Disposition: 16:32
--- NOTE | 2020-11-22 16:20 | CT ---
EXAMINATION TYPE: CT lumbar spine wo con DATE OF EXAM: 11/22/2020 3:10 PM COMPARISON: Lumbar spine radiograph 11/19/2020 HISTORY: Low back pain, no injury. History of L5-S1 fusion. CT DLP: 1625.6 mGycm Automated exposure control for dose reduction was used. TECHNIQUE: Unenhanced CT of the lumbar spine was performed. Bone and soft tissue window settings are submitted as well as coronal and sagittal reconstructions. Postsurgical changes consistent with posterior fusion at L5-S1 with intervertebral disc spacer. Lumba r vertebral body heights are maintained. Mild multilevel degenerative changes with anterior osteophyt es and Schmorl's nodes most pronounced in the upper lumbar and lower thoracic spines. L1-L2: Normal disc space height. No disc herniation protrusion or central stenosis. No facet joint arthropathy. No evidence for foraminal encroachment. L2-L3: Normal disc space height. No disc herniation protrusion or central stenosis. No facet joint arthropathy. No evidence for foraminal encroachment. L3-L4: Normal disc space height. No disc herniation protrusion or central stenosis. No facet joint arthropathy. No evidence for foraminal encroachment. L4-L5: Normal disc space height. Mild disc bulge. No central stenosis. No facet joint arthropathy. No evidence for foraminal encroachment. L5-S1: Intervertebral disc spacer is present. No disc herniation protrusion or central stenosis. No facet joint arthropathy. No evidence for foraminal encroachment. IMPRESSION: 1. Posterior fusion L5-S1 with intervertebral disc spacer. Hardware appears intact. 2. No acute fracture or traumatic subluxation. 3. No spinal canal stenosis or neural foraminal narrowing.
[2020-11-22] MEDS ORDERED: ACET/COD 300 MG/30 MG STARTER PACK 6 TAB BTL PO STA (16:31)
[2020-11-22 16:50] VITALS: BP 134/78; PULSE 82; RESP 16
== END 2020-11-22 16:45 | disposition home or self-care (01) ==
LOC: EC 14:12
DX: S39.012A Strain of muscle, fascia and tendon of lower back, initial encounter (principal); X58.XXXA Exposure to other specified factors, initial encounter
CPT/HCPCS: 93005; 72131; 99283; J1200; J1170

== ENCOUNTER 2020-11-25 15:49 | Inpatient (IN) | payer OTHER ==
[2020-11-25] MEDS ORDERED: NITROGLYCERIN OINT 1 INCH/GM PACKET TOPICAL STA (17:12)
[2020-11-25] MEDS ORDERED: MORPHINE SULFATE 2 MG/ML SYRINGE IVP STA (17:12)
[2020-11-25] MEDS ORDERED: ASPIRIN 81 MG PO STA (17:12)
[2020-11-25 17:28] LABS: Basophils # (A) 0.1 k/uL (0-0.2); Basophils % (A) 0 %; Eosinophils # (A) 0.1 k/uL (0-0.7); Eosinophils % (A) 0 %; HCT 47.9 % (39.0-53.0); Lymphocytes # (A) 1.9 k/uL (1.0-4.8); Lymphocytes % (A) 12 %; MCH 31.4 pg (25.0-35.0); MCHC 33.4 g/dL (31.0-37.0); MCV 93.9 fL (80.0-100.0); Monocytes # (A) 0.6 k/uL (0-1.0); Monocytes % (A) 4 %; Neutrophils # (A) 12.9 k/uL (1.3-7.7); Neutrophils % (A) 83 %; Platelet Count 356 k/uL (150-450); RDW 14.2 % (11.5-15.5); WBC 15.6 k/uL (3.8-10.6)
[2020-11-25 17:32] LABS: ALT 36 U/L (4-49); AST 30 U/L (17-59); African American GFR (CKD) >90 (>60 ml/min/1.73 sqM); Albumin 4.1 g/dL (3.5-5.0); Alkaline Phosphatase 59 U/L (38-126); Anion Gap 9 mmol/L; Blood Urea Nitrogen 23 mg/dL (9-20); Calcium 9.5 mg/dL (8.4-10.2); Carbon Dioxide 22 mmol/L (22-30); Chloride 103 mmol/L (98-107); Glucose 121 mg/dL (74-99); Magnesium 2.2 mg/dL (1.6-2.3); Non-African American GFR(CKD) >90 (>60 ml/min/1.73 sqM); Potassium 4.8 mmol/L (3.5-5.1); Sodium 134 mmol/L (137-145); Total Bilirubin 0.3 mg/dL (0.2-1.3)
--- NOTE | 2020-11-25 17:32 | ED ---
General Adult HPI - General Chief complaint: Chest Pain Stated complaint: Chest Pain Time Seen by Provider: 11/25/20 16:00 Source: patient, RN notes reviewed, old records reviewed Mode of arrival: wheelchair Limitations: no limitations - History of Present Illness Initial comments: This is a 40-year-old male presents emergency Department stating since this morning he's been having left-sided chest pain. Patient states it feels like someone sitting on his chest per patient also states he is a little bit short of breath. Patient denies any diaphoretic episodes. Patient states the pain is radiating down his left arm.. Patient states she's been dealing with pre- significant lower back pain on the right side he is diagnosed with sciatica and that is also not allowing him to sleep very well but he is here today because of the chest pain. Patient states this pain is increased with movement and it is difficult to get a comfortable position. Patient states chest pain however is not associated with any movement. Patient denies being a diabetic and high blood pressure or high cholesterol. Patient denies any smoking history patient is a family history of heart disease. Patient denies abdominal pain patient denies nausea vomiting diarrhea. Patient denies reproducible pain. Patient states he had a job for about a month where he was doing a lot of heavy lifting because his back injury they let him go. Patient denies headache patient denies numbness weakness. - Related Data Home Medications Medication Instructions Recorded Confirmed Cyclobenzaprine [Flexeril] 10 mg PO BID PRN 11/22/20 11/25/20 dexAMETHasone [Dexamethasone] 4 mg PO BID 11/22/20 11/25/20 Allergies Allergy/AdvReac Type Severity Reaction Status Date / Time hydromorphone [From Dilaudid] Allergy Rash/Hives Verified 11/25/20 17:53 latex Allergy Rash/Hives Verified 11/25/20 17:53 meperidine [From Demerol] Allergy Rash/Hives Verified 11/25/20 17:53 Review of Systems ROS Statement: Those systems with pertinent positive or pertinent negative responses have been documented in the HPI. ROS Other: All systems not noted in ROS Statement are negative. Past Medical History Past Medical History: No Reported History Additional Past Medical History / Comment(s): multiple dislocation of rt shoulder, back pain History of Any Multi-Drug Resistant Organisms: None Reported Past Surgical History: Back Surgery, Orthopedic Surgery Additional Past Surgical History / Comment(s): rt shoulder Past Psychological History: No Psychological Hx Reported Smoking Status: Never smoker Past Alcohol Use History: None Reported Past Drug Use History: None Reported General Exam - General Exam Comments Initial Comments: GENERAL: Patient is well-developed and well-nourished. Patient is nontoxic and well- hydrated and is in mild distress. ENT: Neck is soft and supple. No significant lymphadenopathy is noted. Oropharynx is clear. Moist mucous membranes. Neck has full range of motion without eliciting any pain. EYES: The sclera were anicteric and conjunctiva were pink and moist. Extraocular movements were intact and pupils were equal round and reactive to light. Eyelids were unremarkable. PULMONARY: Unlabored respirations. Good breath sounds bilaterally. No audible rales rhonchi or wheezing was noted. CARDIOVASCULAR: There is a regular rate and rhythm without any murmurs gallops or rubs. ABDOMEN: Soft and nontender with normal bowel sounds. SKIN: Skin is clear with no lesions or rashes and otherwise unremarkable. NEUROLOGIC: Patient is alert and oriented x3. Cranial nerves II through XII are grossly intact. Motor and sensory are also intact. Normal speech, volume and content. Symmetrical smile. MUSCULOSKELETAL: Normal extremities with adequate strength and full range of motion. No lower extremity swelling or edema. No calf tenderness. LYMPHATICS: No significant lymphadenopathy is noted PSYCHIATRIC: Normal psychiatric evaluation. Limitations: no limitations Course Vital Signs 11/25/20 11/25/20 15:57 18:49 Temperature 98.0 F Pulse Rate 94 86 Respiratory 20 16 Rate Blood Pressure 123/84 120/80 O2 Sat by Pulse 96 99 Oximetry Medical Decision Making - Medical Decision Making EKG shows normal sinus rhythm at 86 bpm [place] interval is 172 QRS is 74 QT interval 340 QTC is 406 per patient's EKG shows no ST segment elevation or depression. Chest x-ray shows no acute abnormality. I will begin the room to reevaluate the patient he continued to state that he was having both lower back pain and chest pain in the chest pain was radiating down his left arm. Patient appeared to be very anxious I gave him an Ativan as well as Toradol this point time. I spoke with Dr. Quiroga he agreed to admit the patient admitted the patient wrote admitting orders. - Lab Data Result diagrams: 11/25/20 17:14 11/25/20 17:14 Lab Results 11/25/20 11/25/20 11/25/20 Range/Units 17:14 17:14 17:14 WBC 15.6 H (3.8-10.6) k/uL RBC 5.10 (4.30-5.90) m/uL Hgb 16.0 (13.0-17.5) gm/dL Hct 47.9 (39.0-53.0) % MCV 93.9 (80.0-100.0) fL MCH 31.4 (25.0-35.0) pg MCHC 33.4 (31.0-37.0) g/dL RDW 14.2 (11.5-15.5) % Plt Count 356 (150-450) k/uL MPV 7.0 Neutrophils % 83 % Lymphocytes % 12 % Monocytes % 4 % Eosinophils % 0 % Basophils % 0 % Neutrophils # 12.9 H (1.3-7.7) k/uL Lymphocytes # 1.9 (1.0-4.8) k/uL Monocytes # 0.6 (0-1.0) k/uL Eosinophils # 0.1 (0-0.7) k/uL Basophils # 0.1 (0-0.2) k/uL PT 10.6 (9.0-12.0) sec INR 1.0 (<1.2) APTT 22.7 (22.0-30.0) sec Sodium 134 L (137-145) mmol/L Potassium 4.8 (3.5-5.1) mmol/L Chloride 103 (98-107) mmol/L Carbon Dioxide 22 (22-30) mmol/L Anion Gap 9 mmol/L BUN 23 H (9-20) mg/dL Creatinine 0.79 (0.66-1.25) mg/dL Est GFR (CKD-EPI)AfAm >90 (>60 ml/min/1.73 sqM) Est GFR (CKD-EPI)NonAf >90 (>60 ml/min/1.73 sqM) Glucose 121 H (74-99) mg/dL Calcium 9.5 (8.4-10.2) mg/dL Magnesium 2.2 (1.6-2.3) mg/dL Total Bilirubin 0.3 (0.2-1.3) mg/dL AST 30 (17-59) U/L ALT 36 (4-49) U/L Alkaline Phosphatase 59 (38-126) U/L Troponin I (0.000-0.034) ng/mL Total Protein 7.0 (6.3-8.2) g/dL Albumin 4.1 (3.5-5.0) g/dL 11/25/20 Range/Units 17:14 WBC (3.8-10.6) k/uL RBC (4.30-5.90) m/uL Hgb (13.0-17.5) gm/dL Hct (39.0-53.0) % MCV (80.0-100.0) fL MCH (25.0-35.0) pg MCHC (31.0-37.0) g/dL RDW (11.5-15.5) % Plt Count (150-450) k/uL MPV Neutrophils % % Lymphocytes % % Monocytes % % Eosinophils % % Basophils % % Neutrophils # (1.3-7.7) k/uL Lymphocytes # (1.0-4.8) k/uL Monocytes # (0-1.0) k/uL Eosinophils # (0-0.7) k/uL Basophils # (0-0.2) k/uL PT (9.0-12.0) sec INR (<1.2) APTT (22.0-30.0) sec Sodium (137-145) mmol/L Potassium (3.5-5.1) mmol/L Chloride (98-107) mmol/L Carbon Dioxide (22-30) mmol/L Anion Gap mmol/L BUN (9-20) mg/dL Creatinine (0.66-1.25) mg/dL Est GFR (CKD-EPI)AfAm (>60 ml/min/1.73 sqM) Est GFR (CKD-EPI)NonAf (>60 ml/min/1.73 sqM) Glucose (74-99) mg/dL Calcium (8.4-10.2) mg/dL Magnesium (1.6-2.3) mg/dL Total Bilirubin (0.2-1.3) mg/dL AST (17-59) U/L ALT (4-49) U/L Alkaline Phosphatase (38-126) U/L Troponin I <0.012 (0.000-0.034) ng/mL Total Protein (6.3-8.2) g/dL Albumin (3.5-5.0) g/dL Disposition Clinical Impression: Chest pain, Sciatica Disposition: ADMITTED IP TO THIS HOSP Referrals: Huma Soria MD [Primary Care Provider] - 1-2 days Time of Disposition: 19:20
[2020-11-25 17:33] LABS: Partial Thromboplastin Time 22.7 sec (22.0-30.0); Prothrombin Time 10.6 sec (9.0-12.0)
--- NOTE | 2020-11-25 18:01 | XR ---
EXAMINATION TYPE: XR chest 2V DATE OF EXAM: 11/25/2020 COMPARISON: NONE HISTORY: Chest pain TECHNIQUE: FINDINGS: Heart and mediastinum are normal. There is some small linear density in the left midlung an d apparent left lung surgery. There is no evidence of a pulmonary mass. There is no pleural effusion. There are no hilar masses. There is right shoulder prosthesis. IMPRESSION: No active cardiopulmonary disease. There is some minimal scarring or subsegmental atelect asis in the left lung without change compared to chest CT scan of 03/18/2020.
[2020-11-25] MEDS ORDERED: LORazepam 2 MG/ML INJ IV STA (19:03)
[2020-11-25] MEDS ORDERED: KETOROLAC 15 MG/ML 1 ML VIAL IVP STA (19:03)
[2020-11-25] MEDS ORDERED: NITROGLYCERIN SL TABS 0.4 MG TAB SUBLINGUAL PRN (19:22)
[2020-11-25] MEDS ORDERED: MORPHINE SULFATE 4 MG/ML SYRINGE IVP STA (20:13)
[2020-11-25] MEDS: MORPHINE SULFATE 2 MG/ML SYRINGE IVP PRN (22:14)
[2020-11-26] MEDS: NITROGLYCERIN OINT 1 INCH/GM PACKET TOPICAL SCH ×2 (01:46→08:24)
[2020-11-26] MEDS: MORPHINE SULFATE 2 MG/ML SYRINGE IVP PRN (02:27)
[2020-11-26] MEDS: MORPHINE SULFATE 4 MG/ML SYRINGE IVP PRN ×5 (05:04→23:35)
--- NOTE | 2020-11-26 05:12 | CT ---
EXAMINATION TYPE: CT angio chest DATE OF EXAM: 11/26/2020 COMPARISON: 11/16/2019 HISTORY: Chest pain CT DLP: 595.3 mGycm Automated exposure control for dose reduction was used. CONTRAST: Performed with IV Contrast, patient injected with 100 mL of Isovue 370. There are 3-D post processed images. The lungs are clear of consolidation. There is some mild atelectasis left posterior lung base. There is no pleural effusion. There is no pericardial effusion. Heart size is normal. There is no mediastin al adenopathy. There are no hilar masses. Thoracic aorta is intact. There is no evidence of aneurysm or dissection. There is no evidence of filling defect in the pulmonary arteries. The thoracic spine is intact. Sternum is intact. There is small hiatal hernia. IMPRESSION: No evidence of pulmonary embolism. There is some mild scarring and atelectasis left lung base similar to old exam. No suspicious pulmonary mass. Normal heart.
[2020-11-26] MEDS ORDERED: ASPIRIN 325 MG TAB PO SCH (09:00)
--- NOTE | 2020-11-26 09:58 | CONS ---
CONSULTATION ATTENDING PHYSICIAN: Dr. Soria. HISTORY OF PRESENT ILLNESS: Mr. Collier is a 40-year-old male with no cardiac history who presented with chest heaviness on the left side. The discomfort has been going on throughout the day yesterday, respirophasic in pattern and positional. He has a history of back discomfort and prior fusion. He has underwent a stress echocardiogram in July of this year that revealed no evidence of inducible ischemia with preserved left ventricular size and systolic function. The patient's activity is limited at times because of his back. Because of the persistent symptoms, he came into the emergency room. He continues to have discomfort in the chest. The discomfort continues to have the same pattern, respirophasic and positional. He has some tingling in the left arm. He has no prior history of myocardial infarction, angina pectoris, or documented congestive heart failure. He has no clear PND, orthopnea, or peripheral edema. His coronary risk factors negative for smoking or diabetes mellitus. He is not hypertensive. He has no history of documented hyperlipidemia. MEDICATION: His medications at home include: Dexamethasone and Flexeril. REVIEW OF SYSTEMS: RESPIRATORY system: He has no documented history of asthma, emphysema or bronchitis. GI system: No recent GI bleeding. No peptic ulcer disease. system: No dysuria or hematuria. NERVOUS SYSTEM: No stroke or seizure. PHYSICAL EXAMINATION: He is a 40-year-old male, alert, oriented, in no apparent distress. Blood pressure 115/80 with a heart rate in the 70s. HEAD: Normocephalic. Eyes sclerae anicteric. NECK: Good carotid upstroke. No bruit. No jugular venous distention. LUNGS: Clear to auscultation. HEART: Regular rate and rhythm S1, S2. No S3. No S4. No murmur or rub. ABDOMEN: Soft, nontender. Positive bowel sounds. No megaly. EXTREMITIES: No edema. Intact distal pulses. Chest discomfort reproducible by palpation and change with position as well as deep breathing. LAB DATA: Lab data revealed troponin less than 0.012 for 3 samples. BUN and creatinine 23 and 0.79. Hemoglobin of 16, white blood cell of 15.6. EKG revealed a sinus mechanism, normal axis and intervals, QS in the 3 and AVF that was noted in the past, unchanged with RS prime. His CT angiogram of the chest that revealed no evidence of pulmonary embolism. IMPRESSION: 1. Chest discomfort, has atypical features for ischemic heart disease probably noncardiac with recent stress echocardiogram that revealed no evidence of inducible ischemia. 2. Musculoskeletal chest discomfort. RECOMMENDATIONS: From the cardiac standpoint, I see no evidence to suggest acute coronary syndrome in view of the most recent stress test. I see no indication to undergo any further cardiac workup at this time. We will see him on as-needed basis. Please feel free to call us for any questions. MMODL / IJN: [id number] /
[2020-11-26] MEDS: LEVOFLOXACIN 500MG-D5W PMX 500 MG in DEXTROSE/WATER 1 100ML.BAG IVPB SCH (11:13)
[2020-11-26 11:16] LABS: Chol/HDL Ratio 3.19; LDL Cholesterol,Calculated 88.4 mg/dL (0.0-131.0); VLDL Calculation 38.6 mg/dL (5.00-40.00)
[2020-11-26] MEDS: KETOROLAC 15 MG/ML 1 ML VIAL IVP SCH ×3 (12:38→23:31)
[2020-11-26] MEDS: metroNIDAZOLE-NS PMX 500 MG in SALINE 1 100ML.BAG IVPB SCH ×3 (12:40→23:31)
--- NOTE | 2020-11-26 13:04 | P.HPIM ---
History of Present Illness H&P Date: 11/26/20 HISTORY OF PRESENT ILLNESS This is a 40-year-old male patient of Dr. Soria with past medical history of chronic back pain with lumbar fusion 4 years ago. He was seen in the ER on November 19 and November 22 for back pain and diarrhea. On November 19, back x-ray showed no acute abnormalities of the lumbar spine. CAT scan of the lumbar spine on November 22 revealed posterior fusion L5-S1 with intravertebral disc spacer. Hardware appears intact. No acute fracture or traumatic subluxation. No spinal canal stenosis or neural foraminal narrowing. Patient was given Tylenol 3 and dex amethasone. Patient now presented on November 25 due to chest pain that was on the left side radiating to his left shoulder and arm as well as left upper quadrant bulge. Patient states he cannot get his left arm to relax. He contacted Dr. Soria and had an EKG done that showed changes and patient was sent into the ER. He states he was up crying all night due to pain. Regarding diarrhea, he has estrada d this for 7 days. He denies any blood in his stools. He denies any sick contacts he states that every time he eats or drinks something or goes right through him. He does relate to being under a lot of stress. Patient did undergo stress echocardiogram in July of this year which revealed no evidence of inducible ischemia with preserved left ventricular size and systolic function. Patient presented to [facility] emergency center. He was afebrile, heart rate in the 80s and 90s, blood pressure 123/84, pulse ox 96% on room air. EKG was a sinus rhythm. WBC 15.6, hemoglobin 16, platelet count 356. Sodium 134, potassium 4.8, chloride 103, CO2 22, BUN 23 and creatinine 0.79. Blood sugar 121. Magnesium 2.2, liver function tests were normal. Troponins negative on 3 draws. Triglycerides 193, cholesterol 185, LDL 88, HDL 58. Chest x-ray showed no cardiopulmonary disease. CTA of the chest was negative for pulmonary embolism. Mild scarring and atelectasis in the left lung base similar to old exam. No suspicious pulmonary mass. Normal heart. Patient has been seen by cardiology and was atypical chest pain for heart disease, while musculoskeletal chest pain and cardiology has signed off. Due to patient's left upper quadrant tenderness and ongoing diarrhea for 1 week, CT of the abdomen and pelvis ordered which is delayed until tomorrow due to earlier contrast. Patient started on IV antibiotics for suspected colitis REVIEW OF SYSTEMS Constitutional: No fever, no chills, no night sweats. No weight change. No weakness, fatigue or lethargy. No daytime sleepiness. EENT: No headache. No blurred vision or double vision, no loss of vision. No loss of Hearing, no ringing in the ears, no dizziness. No nasal drainage or congestion. No epistaxis. No sore throat. Lungs: No shortness of breath, cough, no sputum production. No wheezing. Cardiovascular: Reports chest pain, no lower extremity edema. No palpitations. No paroxysmal nocturnal dyspnea. No orthopnea. No lightheadedness or dizziness. No syncopal episodes. Abdominal: Reports abdominal pain. No nausea, vomiting. Reports diarrhea. No constipation. No bloody or tarry stools. Reports loss of appetite. Genitourinary: No dysuria, increased frequency, urgency. No urinary retention. Musculoskeletal: No myalgias. No muscle weakness, no gait dysfunction, no frequ ent falls. No back pain. No neck pain. Integumentary: No wounds, no lesions. No rash or pruritus. No unusual bruising. No change in hair or nails. Neurologic: No aphasia. No facial droop. No change in mentation. No head injury. No headache. No paralysis. No paresthesia. Psychiatric: No depression. Reports anxiety. No mood swings. Endocrine: No abnormal blood sugars. No weight change. No excessive sweating or thirst. No cold intolerance. SOCIAL HISTORY Patient is a lifelong nonsmoker, no illicit drug use, marijuana use or alcohol use. Patient is and lives alone. FAMILY HISTORY Mother at age 59 from lupus. Patient does not know his father. Patient has one brother with autoimmune disorder. Patient does not have any sisters. PHYSICAL EXAMINATION Gen: This carlie 40-year-old obese male seen sitting on the ER stretcher, eating eggs but states he does not have any appetite. EENT: Head is atraumatic, normocephalic. Pupils equal, round. Sclerae is anicteric. NECK: Supple. No JVD. No lymphadenopathy. No thyromegaly. LUNGS: Clear to auscultation. No wheezes or rhonchi. No intercostal retractions. HEART: Regular rate and rhythm. No murmur. ABDOMEN: Soft. Bowel sounds are present. No masses. Low left rib and left upper quadrant tenderness. EXTREMITIES: No pedal edema. No calf tenderness. NEUROLOGICAL: Patient is awake, alert and oriented x3. Cranial nerves 2 through 12 are grossly intact. ASSESSMENT AND PLAN 1. left upper quadrant pain and tenderness with diarrhea, possible colitis. Patient started on Levaquin 500 mg IV piggyback daily and Flagyl 500 mg every 8 hours, continue morphine as needed for pain, Zofran as needed for nausea, CT of the abdomen and pelvis with contrast tomorrow. Toradol 15 mg IV push every 6 hours as needed for pain control. 2. Chest pain, musculoskeletal. Cardiology consult appreciated. Cardiology has signed off. 3. Chronic low back pain with previous lumbar fusion. Continue Flexeril 10 mg twice daily as needed. 4. Leukocytosis most likely secondary to steroid use. Repeat CBC tomorrow. 5. Generalized anxiety disorder. 6. GI prophylaxis. Protonix 40 mg IV push daily. 7. DVT prophylaxis. Lovenox daily. Patient will be admitted to the hospital for a minimum of 2 night stay. DISCHARGE PLAN Home. Impression and plan of care have been directed as dictated by the signing physician. Madhuri Steele nurse practitioner acting as scribe for signing physician. Past Medical History Past Medical History: No Reported History Additional Past Medical History / Comment(s): multiple dislocation of rt shoulder, back pain History of Any Multi-Drug Resistant Organisms: None Reported Past Surgical History: Back Surgery, Orthopedic Surgery Additional Past Surgical History / Comment(s): rt shoulder Past Psychological History: No Psychological Hx Reported Smoking Status: Never smoker Past Alcohol Use History: None Reported Past Drug Use History: None Reported Medications and Allergies Home Medications Medication Instructions Recorded Confirmed Type Cyclobenzaprine [Flexeril] 10 mg PO BID PRN 11/22/20 11/25/20 History dexAMETHasone [Dexamethasone] 4 mg PO BID 11/22/20 11/25/20 History Allergies Allergy/AdvReac Type Severity Reaction Status Date / Time hydromorphone [From Dilaudid] Allergy Rash/Hives Verified 11/25/20 17:53 latex Allergy Rash/Hives Verified 11/25/20 17:53 meperidine [From Demerol] Allergy Rash/Hives Verified 11/25/20 17:53 Physical Exam Vitals: Vital Signs Temp Pulse Resp BP Pulse Ox 11/26/20 09:09 73 18 115/85 98 11/26/20 06:28 96.9 F L 60 16 122/73 96 11/26/20 05:03 65 16 131/87 95 11/26/20 01:49 71 16 112/80 97 11/25/20 20:12 130/79 11/25/20 20:02 131/84 11/25/20 19:56 82 16 115/83 94 L 11/25/20 18:49 86 16 120/80 99 11/25/20 15:57 98.0 F 94 20 123/84 96 Intake and Output 11/25/20 11/26/20 11/26/20 22:59 06:59 14:59 Other: Weight 111.13 kg Results CBC & Chem 7: 11/25/20 17:14 11/25/20 17:14 Labs: Abnormal Lab Results - Last 24 Hours (Table) 11/25/20 11/25/20 Range/Units 17:14 17:14 WBC 15.6 H (3.8-10.6) k/uL Neutrophils # 12.9 H (1.3-7.7) k/uL Sodium 134 L (137-145) mmol/L BUN 23 H (9-20) mg/dL Glucose 121 H (74-99) mg/dL
[2020-11-26] MEDS: CYCLOBENZAPRINE 10 MG TAB PO PRN (16:55)
[2020-11-26] MEDS: HYDROcodone/APAP 5-325MG 1 EACH TAB PO PRN (20:42)
[2020-11-26] MEDS ORDERED: dexAMETHasone 4 MG TAB PO SCH (21:00)
[2020-11-27] MEDS: HYDROcodone/APAP 5-325MG 1 EACH TAB PO PRN ×3 (04:22→20:58)
[2020-11-27] MEDS: MORPHINE SULFATE 4 MG/ML SYRINGE IVP PRN ×4 (04:23→19:27)
[2020-11-27] MEDS: KETOROLAC 15 MG/ML 1 ML VIAL IVP SCH ×4 (05:51→23:22)
[2020-11-27 07:26] LABS: African American GFR (CKD) >90 (>60 ml/min/1.73 sqM); Blood Urea Nitrogen 24 mg/dL (9-20); Non-African American GFR(CKD) >90 (>60 ml/min/1.73 sqM)
[2020-11-27] MEDS: ASPIRIN 81 MG PO SCH (07:41)
[2020-11-27] MEDS: CYCLOBENZAPRINE 10 MG TAB PO PRN (07:41)
[2020-11-27] MEDS: ENOXAPARIN 40 MG/0.4 ML SYRINGE SQ SCH (07:42)
[2020-11-27] MEDS: metroNIDAZOLE-NS PMX 500 MG in SALINE 1 100ML.BAG IVPB SCH ×3 (07:42→23:22)
[2020-11-27] MEDS: PANTOPRAZOLE 40 MG/10 ML VIAL IVP SCH (07:42)
[2020-11-27] MEDS: IOPAMIDOL CONTRAST (ORAL USE) VIAL PO PRN ×2 (09:08→10:09)
[2020-11-27] MEDS: LEVOFLOXACIN 500MG-D5W PMX 500 MG in DEXTROSE/WATER 1 100ML.BAG IVPB SCH (09:10)
[2020-11-27] MEDS: ONDANSETRON 4 MG/2 ML VIAL IVP PRN ×3 (09:17→21:48)
[2020-11-27 11:47] LABS: Appearance,Urine Clear (Clear); Bilirubin,Urine Negative (Negative); Blood,Urine Negative (Negative); Color,Urine Yellow; Glucose,Urine (UA) Negative (Negative); Ketones,Urine Negative (Negative); Leukocyte Esterase,Urine Negative (Negative); Nitrite,Urine Negative (Negative); Protein,Urine Negative (Negative); Urobilinogen,Urine <2.0 mg/dL (<2.0)
[2020-11-27 11:50] LABS: Specific Gravity,Urine >1.050 (1.001-1.035)
--- NOTE | 2020-11-27 15:09 | CT ---
EXAMINATION TYPE: CT abdomen pelvis w con DATE OF EXAM: 11/27/2020 COMPARISON: 03/18/2020 HISTORY: 40-year-old male LUQ pain, tenderness, diarrhea. TECHNIQUE: Contiguous axial scanning of the abdomen and pelvis following administration of 100 ml Iso fara 300 IV contrast. Delayed images through the kidneys and coronal/sagittal reconstructions perform ed. CT DLP: 2036 mGycm Automated exposure control for dose reduction was used. FINDINGS: Heart normal size without pericardial effusion. Some surgical material noted at the GE junction. There appears to be a moderate-sized hiatal hernia. Left posterior thoracotomy change. Some surgical material here. Subpleural areas of strandy atelectas is/scarring of the lung bases, particularly on the left. More focal nodular area posterolateral left base, axial image 13 measures 2.1 x 1.1 cm, unchanged from 03/18/2020 suggesting some probable scarri ng. No pleural effusion. Liver enlarged at 18.6 cm. Diffuse low-attenuation. Portal venous system is patent. No biliary ductal dilatation. Gallbladder surgically absent. Adrenal glands, kidneys, spleen, pancreas within normal limits. No dilated small bowel, free fluid, or free air. No mesenteric or retroperitoneal lymphadenopathy. Mild overall stool burden. No pericolonic inflammatory change. Bladder is urine distended. Prostate gland measures 3.5 cm wide. No abnormal fluid collection in the pelvis or pelvic lymphadenopathy. Bones: Post surgical change of L5-S1 posterior and interbody fusion. IMPRESSION: 1. THERE IS A MODERATE-SIZED HIATAL HERNIA. POSSIBLE SURGICAL MATERIAL AT THE GE JUNCTION. QUERY A FA ILED GILL FUNDOPLICATION. 2. HEPATOMEGALY (18.6 CM) WITH HEPATIC STEATOSIS. 3. REDEMONSTRATED LEFT LOWER POSTERIOR THORACOTOMY CHANGE WITH SOME UNDERLYING PLEURAL PARENCHYMAL SC ARRING.
--- NOTE | 2020-11-27 15:10 | P.PN ---
Subjective Progress Note Date: 11/27/20 HISTORY OF PRESENT ILLNESS This is a 40-year-old male patient of Dr. Soria with past medical history of chronic back pain with lumbar fusion 4 years ago. He was seen in the ER on November 19 and November 22 for back pain and diarrhea. On November 19, back x-ray showed no acute abnormalities of the lumbar spine. CAT scan of the lumbar spine on November 22 revealed posterior fusion L5-S1 with intravertebral disc spacer. Hardware appears intact. No acute fracture or traumatic subluxation. No spinal canal stenosis or neural foraminal narrowing. Patient was given Tylenol 3 and dexamethasone. Patient now presented on November 25 due to chest pain that was on the left side radiating to his left shoulder and arm as well as left upper quadrant bulge. Patient states he cannot get his left arm to relax. He contacted Dr. Soria and had an EKG done that showed changes and patient was sent into the ER. He states he was up crying all night due to pain. Regarding diarrhea, he has had this for 7 days. He denies any blood in his stools. He denies any sick contacts he states that every time he eats or drinks something or goes right through him. He does relate to being under a lot of stress. Patient did undergo stress echocardiogram in July of this year which revealed no evidence of inducible ischemia with preserved left ventricular size and systolic function. Patient presented to [facility] emergency center. He was afebrile, heart rate in the 80s and 90s, blood pressure 123/84, pulse ox 96% on room air. EKG was a sinus rhythm. WBC 15.6, hemoglobin 16, platelet count 356. Sodium 134, potassium 4.8, chloride 103, CO2 22, BUN 23 and creatinine 0.79. Blood sugar 121. Magnesium 2.2, liver function tests were normal. Troponins negative on 3 draws. Triglycerides 193, cholesterol 185, LDL 88, HDL 58. Chest x-ray showed no cardiopulmonary disease. CTA of the chest was negative for pulmonary embolism. Mild scarring and atelectasis in the left lung base similar to old exam. No suspicious pulmonary mass. Normal heart. Patient has been seen by cardiology and was atypical chest pain for heart disease, while musculoskeletal chest pain and cardiology has signed off. Due to patient's left upper quadrant tenderness and ongoing diarrhea for 1 week, CT of the abdomen and pelvis ordered which is delayed until tomorrow due to earlier contrast. Patient started on IV antibiotics for suspected colitis 11/27: Patient states that his left upper quadrant abdominal pain is not any better. His last bowel movement was before he came into the hospital. MiraLAX started daily. CAT scan of the abdomen and pelvis will be completed today. Repeat blood work reveals BUN 24 and creatinine 0.75. Repeat CBC and CMP ordered for tomorrow. Patient has been afebrile, heart rate 74, blood pressure 133/85, pulse ox 95% on room air. REVIEW OF SYSTEMS Constitutional: No fever, no chills, no night sweats. No weight change. No weakness, fatigue or lethargy. No daytime sleepiness. EENT: No headache. No blurred vision or double vision, no loss of vision. No loss of Hearing, no ringing in the ears, no dizziness. No nasal drainage or congestion. No epistaxis. No sore throat. Lungs: No shortness of breath, cough, no sputum production. No wheezing. Cardiovascular: Reports chest pain, no lower extremity edema. No palpitations. No paroxysmal nocturnal dyspnea. No orthopnea. No lightheadedness or dizziness. No syncopal episodes. Abdominal: Reports abdominal pain 10 years. No nausea, vomiting. Reports diarrhea. No constipation. No bloody or tarry stools. Reports loss of appetite. Genitourinary: No dysuria, increased frequency, urgency. No urinary retention. Musculoskeletal: No myalgias. No muscle weakness, no gait dysfunction, no frequent falls. No back pain. No neck pain. Integumentary: No wounds, no lesions. No rash or pruritus. No unusual bruising. No change in hair or nails. Neurologic: No aphasia. No facial droop. No change in mentation. No head injury. No headache. No paralysis. No paresthesia. Psychiatric: No depression. Reports anxiety. No mood swings. Endocrine: No abnormal blood sugars. No weight change. No excessive sweating or thirst. No cold intolerance. PHYSICAL EXAMINATION Gen: This carlie 40-year-old obese male seen sitting on the ER stretcher, eating eggs but states he does not have any appetite. EENT: Head is atraumatic, normocephalic. Pupils equal, round. Sclerae is anicteric. NECK: Supple. No JVD. No lymphadenopathy. No thyromegaly. LUNGS: Clear to auscultation. No wheezes or rhonchi. No intercostal retractions. HEART: Regular rate and rhythm. No murmur. ABDOMEN: Soft. Bowel sounds are present. No masses. Low left rib and left upper quadrant tenderness. EXTREMITIES: No pedal edema. No calf tenderness. NEUROLOGICAL: Patient is awake, alert and oriented x3. Cranial nerves 2 through 12 are grossly intact. ASSESSMENT AND PLAN 1. left upper quadrant pain and tenderness with diarrhea, possible colitis. Co ntinue Levaquin 500 mg IV piggyback daily and Flagyl 500 mg every 8 hours, continue morphine as needed for pain, Zofran as needed for nausea, CT of the abdomen and pelvis with contrast today. Toradol 15 mg IV push every 6 hours as needed for pain control. 2. Chest pain, musculoskeletal. Cardiology consult appreciated. Cardiology has signed off. 3. Chronic low back pain with previous lumbar fusion. Continue Flexeril 10 mg twice daily as needed. 4. Leukocytosis most likely secondary to steroid use. Repeat CBC tomorrow. 5. Generalized anxiety disorder. 6. GI prophylaxis. Protonix 40 mg IV push daily. 7. DVT prophylaxis. Lovenox daily. DISCHARGE PLAN Home. Impression and plan of care have been directed as dictated by the signing physician. Madhuri Steele nurse practitioner acting as scribe for signing physician. Past Medical History Objective - Vital Signs Vital signs: Vital Signs Temp 97.9 F 11/27/20 05:00 Pulse 74 11/27/20 05:00 Resp 18 11/27/20 05:00 BP 133/85 11/27/20 05:00 Pulse Ox 95 11/27/20 05:00 Intake & Output 11/26/20 11/27/20 11/27/20 18:59 06:59 18:59 Intake Total 1080 Balance 1080 Weight 111.13 kg Intake: Intake, IV Titration 100 Amount metroNIDAZOLE-NS PMX 500 100 mg In Saline 1 100ml.bag @ 100 mls/hr IVPB Q8HR SANDI Rx#:[id number] Oral 980 Other: # Voids 1 2 - Labs CBC & Chem 7: 11/25/20 17:14 11/27/20 06:28 Labs: Abnormal Lab Results - Last 24 Hours (Table) 08/04/21 08/06/21 Range/Units 16:16 06:28 BUN 24 H (9-20) mg/dL Triglycerides 193.0 H (0.0-149.0) mg/dL
[2020-11-27] MEDS: polyethylene glycoL 3350 17 GM POWD.PACK PO SCH (17:41)
[2020-11-28] MEDS: MORPHINE SULFATE 4 MG/ML SYRINGE IVP PRN (02:31)
[2020-11-28] MEDS: KETOROLAC 15 MG/ML 1 ML VIAL IVP SCH ×4 (05:33→23:30)
[2020-11-28 07:07] LABS: HCT 49.2 % (39.0-53.0); HGB 16.3 gm/dL (13.0-17.5); MCH 31.6 pg (25.0-35.0); MCHC 33.1 g/dL (31.0-37.0); MCV 95.5 fL (80.0-100.0); Mean Platelet Volume 6.7; Platelet Count 224 k/uL (150-450); RBC 5.15 m/uL (4.30-5.90)
[2020-11-28] MEDS: ENOXAPARIN 40 MG/0.4 ML SYRINGE SQ SCH (08:34)
[2020-11-28] MEDS: PANTOPRAZOLE 40 MG/10 ML VIAL IVP SCH (08:37)
[2020-11-28] MEDS: metroNIDAZOLE-NS PMX 500 MG in SALINE 1 100ML.BAG IVPB SCH ×3 (08:37→23:31)
[2020-11-28] MEDS: ASPIRIN 81 MG PO SCH (08:38)
[2020-11-28] MEDS: HYDROcodone/APAP 5-325MG 1 EACH TAB PO PRN ×3 (08:38→21:16)
[2020-11-28] MEDS: polyethylene glycoL 3350 17 GM POWD.PACK PO SCH (08:39)
--- NOTE | 2020-11-28 10:26 | P.GSCN ---
History of Present Illness Consult date: 11/28/20 History of present illness: 40-year-old male presented to the emergency department with complaints of left- sided chest pain and left arm numbness. Concern was for cardiac issue. Patient also complained of left upper quadrant abdominal pain. Denied any significant nausea or vomiting. He has been nothing by mouth and states that he is hungry at this time. On workup, patient did have a CT of the abdomen and pelvis. This did reveal a hiatal hernia with possible failed previous Hunter fundoplication. After discussion with the patient, the patient states that he did have a paraesophageal hernia repaired approximately 6 or 7 years ago in [facility]. He states this was done through a posterior approach. He does not recall the physician that did perform this. He states that at that time, this was performed secondary to significant hernia that involved 'stomach in his chest and wrapped around the esophagus'. Review of Systems All systems: negative Past Medical History Past Medical History: No Reported History Additional Past Medical History / Comment(s): multiple dislocation of rt shoulder, back pain History of Any Multi-Drug Resistant Organisms: None Reported Past Surgical History: Back Surgery, Orthopedic Surgery Additional Past Surgical History / Comment(s): rt shoulder Past Psychological History: No Psychological Hx Reported Smoking Status: Never smoker Past Alcohol Use History: None Reported Past Drug Use History: None Reported - Past Family History Mother Additional Family Medical History / Comment(s): lupus, Father History Unknown: Yes Brother(s) Additional Family Medical History / Comment(s): autoimmune disorder Medications and Allergies Home Medications Medication Instructions Recorded Confirmed Type Cyclobenzaprine [Flexeril] 10 mg PO BID PRN 11/22/20 11/25/20 History dexAMETHasone [Dexamethasone] 4 mg PO BID 11/22/20 11/25/20 History Allergies Allergy/AdvReac Type Severity Reaction Status Date / Time hydromorphone [From Dilaudid] Allergy Rash/Hives Verified 11/25/20 17:53 latex Allergy Rash/Hives Verified 11/25/20 17:53 meperidine [From Demerol] Allergy Rash/Hives Verified 11/25/20 17:53 Surgical - Exam Osteopathic Statement: *. No significant issues noted on an osteopathic structural exam other than those noted in the History and Physical/Consult. Vital Signs Temp Pulse Resp BP Pulse Ox 98.0 F 94 20 123/84 96 11/25/20 15:57 11/25/20 15:57 11/25/20 15:57 11/25/20 15:57 11/25/20 15:57 - General well developed, well nourished, no distress - Eyes normal ocular movement - ENT no hearing loss - Neck trachea midline - Respiratory normal respiratory effort - Abdomen Abdomen: soft, non tender - Psychiatric oriented to time, oriented to person, oriented to place Results - Labs 11/28/20 06:18 11/27/20 06:28 Abnormal Lab Results - Last 24 Hours (Table) 11/27/20 Range/Units 11:05 Ur Specific [place] >1.050 H (1.001-1.035) Microbiology - Last 24 Hours (Table) 11/27/20 18:20 Stool Culture - Preliminary Stool Assessment and Plan Plan: 40-year-old male with complaints of left upper quadrant and left chest pain. On abdominal workup, patient appears to have a recurrent hiatal hernia with failed previous repair. After further discussion with the patient, does appear that he did have a repair 6 or 7 years ago. Due to failed repair, I would recommend a foregut specialist for further evaluation and repair as an outpatient. Currently there is no evidence of strangulation of the stomach or any nausea or vomiting. I would recommend pain control and outpatient follow-up for evaluation for repeat Hunter fundoplication with a foregut specialist in the [facility] area.
[2020-11-28 10:36] LABS: African American GFR (CKD) 107.9 (60.0-200.0); Albumin 4.2 g/dL (3.80-4.90); Albumin/Globulin Ratio 1.62 (1.60-3.17); Anion Gap 7.5 mmol/L (4.00-12.00); Calcium 8.8 mg/dL (8.7-10.3); Carbon Dioxide 28.5 mmol/L (21.6-31.8); Globulin 2.6 g/dL (1.6-3.3); Non-African American GFR(CKD) 93.1 (60.0-200.0); Potassium 4.1 mmol/L (3.5-5.5); Total Bilirubin 0.9 mg/dL (0.3-1.2); Total Protein 6.8 g/dL (6.2-8.2)
--- NOTE | 2020-11-28 11:51 | P.PN ---
Subjective Progress Note Date: 11/28/20 HISTORY OF PRESENT ILLNESS This is a 40-year-old male patient of Dr. Soria with past medical history of chronic back pain with lumbar fusion 4 years ago. He was seen in the ER on November 19 and November 22 for back pain and diarrhea. On November 19, back x-ray showed no acute abnormalities of the lumbar spine. CAT scan of the lumbar spine on November 22 revealed posterior fusion L5-S1 with intravertebral disc spacer. Hardware appears intact. No acute fracture or traumatic subluxation. No spinal canal stenosis or neural foraminal narrowing. Patient was given Tylenol 3 and dexamethasone. Patient now presented on November 25 due to chest pain that was on the left side radiating to his left shoulder and arm as well as left upper quadrant bulge. Patient states he cannot get his left arm to relax. He contacted Dr. Soria and had an EKG done that showed changes and patient was sent into the ER. He states he was up crying all night due to pain. Regarding diarrhea, he has had this for 7 days. He denies any blood in his stools. He denies any sick contacts he states that every time he eats or drinks something or goes right through him. He does relate to being under a lot of stress. Patient did undergo stress echocardiogram in July of this year which revealed no evidence of inducible ischemia with preserved left ventricular size and systolic function. Patient presented to [facility] emergency center. He was afebrile, heart rate in the 80s and 90s, blood pressure 123/84, pulse ox 96% on room air. EKG was a sinus rhythm. WBC 15.6, hemoglobin 16, platelet count 356. Sodium 134, potassium 4.8, chloride 103, CO2 22, BUN 23 and creatinine 0.79. Blood sugar 121. Magnesium 2.2, liver function tests were normal. Troponins negative on 3 draws. Triglycerides 193, cholesterol 185, LDL 88, HDL 58. Chest x-ray showed no cardiopulmonary disease. CTA of the chest was negative for pulmonary embolism. Mild scarring and atelectasis in the left lung base similar to old exam. No suspicious pulmonary mass. Normal heart. Patient has been seen by cardiology and was atypical chest pain for heart disease, while musculoskeletal chest pain and cardiology has signed off. Due to patient's left upper quadrant tenderness and ongoing diarrhea for 1 week, CT of the abdomen and pelvis ordered which is delayed until tomorrow due to earlier contrast. Patient started on IV antibiotics for suspected colitis 11/27: Patient states that his left upper quadrant abdominal pain is not any better. His last bowel movement was before he came into the hospital. MiraLAX started daily. CAT scan of the abdomen and pelvis will be completed today. Repeat blood work reveals BUN 24 and creatinine 0.75. Repeat CBC and CMP ordered for tomorrow. Patient has been afebrile, heart rate 74, blood pressure 133/85, pulse ox 95% on room air. 11/28: Continues to have significant amount of left upper quadrant pain. Still has not had a bowel movement. CT of the abdomen and pelvis impression: Moderate size hiatal hernia. Possible surgical material at the GE junction. Possible failed Hunter fundoplication. Hepatomegaly 18.6 cm's with hepatic steatosis. Redemonstrated left lower posterior thoracotomy change with some underlying pleural parenchymal scarring. Surgical consult ordered. Discussed with the patient that he may need to be transferred if surgical intervention is required. REVIEW OF SYSTEMS Constitutional: No fever, no chills, no night sweats. No weight change. No weakness, fatigue or lethargy. No daytime sleepiness. EENT: No headache. No blurred vision or double vision, no loss of vision. No loss of Hearing, no ringing in the ears, no dizziness. No nasal drainage or congestion. No epistaxis. No sore throat. Lungs: No shortness of breath, cough, no sputum production. No wheezing. Cardiovascular: Reports chest pain, no lower extremity edema. No palpitations. No paroxysmal nocturnal dyspnea. No orthopnea. No lightheadedness or dizziness. No syncopal episodes. Abdominal: Reports abdominal pain 10 years. No nausea, vomiting. Reports diarrhea. No constipation. No bloody or tarry stools. Reports loss of appetite. Genitourinary: No dysuria, increased frequency, urgency. No urinary retention. Musculoskeletal: No myalgias. No muscle weakness, no gait dysfunction, no frequent falls. No back pain. No neck pain. Integumentary: No wounds, no lesions. No rash or pruritus. No unusual bruising. No change in hair or nails. Neurologic: No aphasia. No facial droop. No change in mentation. No head injury. No headache. No paralysis. No paresthesia. Psychiatric: No depression. Reports anxiety. No mood swings. Endocrine: No abnormal blood sugars. No weight change. No excessive sweating or thirst. No cold intolerance. PHYSICAL EXAMINATION Gen: This carlie 40-year-old obese male seen sitting on the ER stretcher, eating eggs but states he does not have any appetite. EENT: Head is atraumatic, normocephalic. Pupils equal, round. Sclerae is anicteric. NECK: Supple. No JVD. No lymphadenopathy. No thyromegaly. LUNGS: Clear to auscultation. No wheezes or rhonchi. No intercostal retractions. HEART: Regular rate and rhythm. No murmur. ABDOMEN: Soft. Bowel sounds are present. No masses. Low left rib and left upper quadrant tenderness. EXTREMITIES: No pedal edema. No calf tenderness. NEUROLOGICAL: Patient is awake, alert and oriented x3. Cranial nerves 2 through 12 are grossly intact. ASSESSMENT AND PLAN 1. left upper quadrant pain and tenderness with diarrhea, possible colitis. Continue Levaquin 500 mg IV piggyback daily and Flagyl 500 mg every 8 hours, continue morphine as needed for pain, Zofran as needed for nausea, CT of the abdomen and pelvis ulcer noted above. Consult surgery.. Toradol 15 mg IV push every 6 hours as needed for pain control. 2. Chest pain, musculoskeletal. Cardiology consult appreciated. Cardiology has signed off. 3. Chronic low back pain with previous lumbar fusion. Continue Flexeril 10 mg twice daily as needed. 4. Leukocytosis most likely secondary to steroid use. Repeat CBC tomorrow. 5. Generalized anxiety disorder. 6. GI prophylaxis. Protonix 40 mg IV push daily. 7. DVT prophylaxis. Lovenox daily. DISCHARGE PLAN Home. Impression and plan of care have been directed as dictated by the signing physician. Shanthi Lopes nurse practitioner acting as scribe for signing physician. Objective - Vital Signs Vital signs: Vital Signs Temp 97.9 F 11/28/20 04:09 Pulse 71 11/28/20 04:09 Resp 18 11/28/20 04:09 BP 136/82 11/28/20 04:09 Pulse Ox 95 11/28/20 04:09 Intake & Output 11/27/20 11/28/20 11/28/20 18:59 06:59 18:59 Intake Total 100 Output Total 200 Balance -100 Intake: Intake, IV Titration 100 Amount metroNIDAZOLE-NS PMX 500 100 mg In Saline 1 100ml.bag @ 100 mls/hr IVPB Q8HR [facility] Rx#:[id number] Output: Emesis 200 Other: # Voids 2 1 - Labs CBC & Chem 7: 11/28/20 06:18 11/28/20 06:18 Labs: Abnormal Lab Results - Last 24 Hours (Table) 11/27/20 11/28/20 Range/Units 11:05 06:18 AST 190 H (14-35) U/L ALT 401 H (10-49) U/L Alkaline Phosphatase 136 H (41-126) U/L Ur Specific [place] >1.050 H (1.001-1.035) Microbiology - Last 24 Hours (Table) 11/27/20 18:20 Stool Culture - Preliminary Stool
[2020-11-28] MEDS: LEVOFLOXACIN 500MG-D5W PMX 500 MG in DEXTROSE/WATER 1 100ML.BAG IVPB SCH (11:54)
[2020-11-28] MEDS: OFLOXACIN 0.3% OPHTH DROPS 5 ML BOTTLE LEFT EYE SCH (21:17)
[2020-11-28] MEDS: OFLOXACIN 0.3% OPHTH DROPS 5 ML BOTTLE RIGHT EYE SCH (21:17)
[2020-11-29 04:26] VITALS: BP 112/73; PULSE 66; RESP 16; TEMP 98
[2020-11-29] MEDS: HYDROcodone/APAP 5-325MG 1 EACH TAB PO PRN (04:30)
[2020-11-29] MEDS: KETOROLAC 15 MG/ML 1 ML VIAL IVP SCH (05:50)
[2020-11-29] MEDS: PANTOPRAZOLE 40 MG/10 ML VIAL IVP SCH (08:40)
[2020-11-29] MEDS: OFLOXACIN 0.3% OPHTH DROPS 5 ML BOTTLE RIGHT EYE SCH (08:40)
[2020-11-29] MEDS: polyethylene glycoL 3350 17 GM POWD.PACK PO SCH (08:40)
[2020-11-29] MEDS: OFLOXACIN 0.3% OPHTH DROPS 5 ML BOTTLE LEFT EYE SCH (08:41)
[2020-11-29] MEDS: metroNIDAZOLE-NS PMX 500 MG in SALINE 1 100ML.BAG IVPB SCH (08:41)
[2020-11-29] MEDS: ASPIRIN 81 MG PO SCH (08:41)
[2020-11-29] MEDS: ENOXAPARIN 40 MG/0.4 ML SYRINGE SQ SCH (08:41)
--- NOTE | 2020-11-29 10:00 | P.PN ---
Subjective Progress Note Date: 11/29/20 Patient seen and examined at bedside. Still complains of some left upper quadrant soreness. Somewhat improved from yesterday. Tolerating diet. Objective - Vital Signs Vital signs: Vital Signs Temp 98.0 F 11/29/20 04:26 Pulse 66 11/29/20 04:26 Resp 16 11/29/20 04:26 BP 112/73 11/29/20 04:26 Pulse Ox 96 11/29/20 04:26 Intake & Output 11/28/20 11/29/20 11/29/20 18:59 06:59 18:59 Intake Total 100 Balance 100 Intake: Intake, IV Titration 100 Amount metroNIDAZOLE-NS PMX 500 100 mg In Saline 1 100ml.bag @ 100 mls/hr IVPB Q8HR [facility] Rx#:[id number] Other: # Voids 1 2 # Bowel Movements 0 - Constitutional General appearance: Present: cooperative, no acute distress - Gastrointestinal Gastrointestinal Comment(s): Soft, nontender, nondistended, no rebound, no guarding - Psychiatric Psychiatric: Present: A&O x's 3 - Labs CBC & Chem 7: 11/28/20 06:18 11/28/20 06:18 Labs: Abnormal Lab Results - Last 24 Hours (Table) 11/28/20 Range/Units 06:18 AST 190 H (14-35) U/L ALT 401 H (10-49) U/L Alkaline Phosphatase 136 H (41-126) U/L Assessment and Plan Plan: 40-year-old male with recurrent hiatal hernia. She is surgically stable for discharge. He will require referral to foregut specialist based on the recurrent hiatal hernia and significant discomfort. My office consent this referral up for him this week. He is to call the office to set this up. Patient was agreeable with the plan.
--- NOTE | 2020-11-29 11:32 | P.DS ---
Providers Date of admission: 11/26/20 09:37 Attending physician: Judy Quiroga MD Consults: 11/25/20 19:22 Consult Physician Urgent Consulting Provider: [facility] Consult Reason/Comments: Chest pain Do you want consulting provider notified?: Yes 11/28/20 08:33 Consult Physician Routine Consulting Provider: Erica Beltran Consult Reason/Comments: abd pain, failed annamarie Do you want consulting provider notified?: Yes Primary care physician: Huma Soria [facility] Course: This is a 40-year-old male patient of Dr. Soria with past medical history of chronic back pain with lumbar fusion 4 years ago. He was seen in the ER on November 19 and November 22 for back pain and diarrhea. On November 19, back x-ray showed no acute abnormalities of the lumbar spine. CAT scan of the lumbar spine on November 22 revealed posterior fusion L5-S1 with intravertebral disc spacer. Hardware appears intact. No acute fracture or traumatic subluxation. No spinal canal stenosis or neural foraminal narrowing. Patient was given Tylenol 3 and dexamethasone. Patient now presented on November 25 due to chest pain that was on the left side radiating to his left shoulder and arm as well as left upper quadrant bulge. Patient states he cannot get his left arm to relax. He contacted Dr. Soria and had an EKG done that showed changes and patient was sent into the ER. He states he was up crying all night due to pain. Regarding diarrhea, he has had this for 7 days. He denies any blood in his stools. He denies any sick contacts he states that every time he eats or drinks something or goes right through him. He does relate to being under a lot of stress. Patient did undergo stress echocardiogram in July of this year which revealed no evidence of inducible ischemia with preserved left ventricular size and systolic function. Patient presented to [facility] emergency center. He was afebrile, heart rate in the 80s and 90s, blood pressure 123/84, pulse ox 96% on room air. EKG was a sinus rhythm. WBC 15.6, hemoglobin 16, platelet count 356. Sodium 134, potassium 4.8, chloride 103, CO2 22, BUN 23 and creatinine 0.79. Blood sugar 121. Magnesium 2.2, liver function tests were normal. Troponins negative on 3 draws. Triglycerides 193, cholesterol 185, LDL 88, HDL 58. Chest x-ray showed no cardiopulmonary disease. CTA of the chest was negative for pulmonary embolism. Mild scarring and atelectasis in the left lung base similar to old exam. No suspicious pulmonary mass. Normal heart. Patient has been seen by cardiology and was atypical chest pain for heart disease, while musculoskeletal chest pain and cardiology has signed off. Due to patient's left upper quadrant tenderness and ongoing diarrhea for 1 week, CT of the abdomen and pelvis ordered which is delayed until tomorrow due to earlier contrast. Patient started on IV antibiotics for suspected colitis 11/27: Patient states that his left upper quadrant abdominal pain is not any better. His last bowel movement was before he came into the hospital. MiraLAX started daily. CAT scan of the abdomen and pelvis will be completed today. Repeat blood work reveals BUN 24 and creatinine 0.75. Repeat CBC and CMP ordered for tomorrow. Patient has been afebrile, heart rate 74, blood pressure 133/85, pulse ox 95% on room air. 11/28: Continues to have significant amount of left upper quadrant pain. Still has not had a bowel movement. CT of the abdomen and pelvis impression: Moderate size hiatal hernia. Possible surgical material at the GE junction. Possible failed Hunter fundoplication. Hepatomegaly 18.6 cm's with hepatic steatosis. Redemonstrated left lower posterior thoracotomy change with some underlying pleural parenchymal scarring. Surgical consult ordered. Discussed with the patient that he may need to be transferred if surgical intervention is required. 11/29: Patient states that he is feeling better. He will follow-up in outpatient setting for surgical intervention to help with his pain and discomfort. Questions were answered. Patient has no complaint or concerns at this time. Discharge diagnosis 1. left upper quadrant pain and tenderness with diarrhea, possible colitis. 2. Chest pain, musculoskeletal. 3. Chronic low back pain with previous lumbar fusion. 4. Leukocytosis most likely secondary to steroid use. 5. Generalized anxiety disorder. DISCHARGE disposition: Home. Impression and plan of care have been directed as dictated by the signing physician. Shanthi Lopes nurse practitioner acting as scribe for signing physician. Plan - Discharge Summary Discharge Rx Participant: No New Discharge Prescriptions: New Pantoprazole Sodium [Protonix] 20 mg PO DAILY #30 tablet.dr Ceballos Cyclobenzaprine [Flexeril] 10 mg PO BID PRN PRN Reason: Pain dexAMETHasone [Dexamethasone] 4 mg PO BID Discharge Medication List Cyclobenzaprine [Flexeril] 10 mg PO BID PRN 11/22/20 [History] dexAMETHasone [Dexamethasone] 4 mg PO BID 11/22/20 [History] Pantoprazole Sodium [Protonix] 20 mg PO DAILY #30 tablet. 11/29/20 [Rx] Follow up Appointment(s)/Referral(s): Huma Soria MD [Primary Care Provider] - 1-2 days Erica Beltran DO [Doctor of Osteopathic Medicine] - As Needed (Call for referral to foregut specialist)
== END 2020-11-29 12:20 | disposition home or self-care (01) | DRG 392 ==
LOC: EC 15:49 → 6NMEDSUR 19:24 → OBSVTOIN 11-26 09:37 → 5NMEDONC 11-26 11:09
PROVIDERS: ADMIT Internal Medicine; ATTEND Internal Medicine
DX: K52.9 Noninfective gastroenteritis and colitis, unspecified (principal); G89.29 Other chronic pain; Z98.1 Arthrodesis status; T38.0X5A Adverse effect of glucocorticoids and synthetic analogues, initial encounter; D72.829 Elevated white blood cell count, unspecified; F41.1 Generalized anxiety disorder; K44.9 Diaphragmatic hernia without obstruction or gangrene; M54.40 Lumbago with sciatica, unspecified side
CPT/HCPCS: 36415; 71046; 71275; 74177; 80053; 80061; 81003; 82565; 83735; 84484; 84520; 85025; 85027; 85379; 85610; 85730; 87045; 87046; 87324; 93005

== ENCOUNTER → 2020-12-01 | Outpatient (CLI) | payer OTHER ==
[2020-12-01 14:37] LABS: Basophils # (A) 0.04 X 10*3/uL (0.00-0.10); Basophils % (A) 0.4 %; Eosinophils # (A) 0.14 X 10*3/uL (0.04-0.35); Eosinophils % (A) 1.3 %; HCT 50.5 % (39.6-50.0); Lymphocytes # (A) 2.28 X 10*3/uL (0.90-5.00); Lymphocytes % (A) 21.7 %; MCH 30.2 pg (27.0-32.0); MCHC 31.7 g/dL (32.0-37.0); MCV 95.3 fL (80.0-97.0); Mean Platelet Volume 10.1 fL (9.5-12.2); Monocytes # (A) 0.95 X 10*3/uL (0.20-1.00); Neutrophils # (A) 7.03 X 10*3/uL (1.80-7.70); Neutrophils % (A) 66.9 %; Platelet Count 253 X 10*3/uL (140-440); RDW 14.1 % (11.5-14.5); WBC 10.51 X 10*3/uL (4.50-10.00)
[2020-12-01 16:07] LABS: Hepatitis A Antibody IgM Non-Reactive (Non-Reactive); Hepatitis B Core IgM Non-Reactive (Non-Reactive); Hepatitis B Surface Antigen Non-Reactive (Non-Reactive); Hepatitis C IgG Antibody Non-Reactive (Non-Reactive)
[2020-12-01 16:29] LABS: Erythrocyte Sedimentation Rate 12 mm/Hr (0-15)
[2020-12-01 21:26] LABS: African American GFR (CKD) 122.5 (60.0-200.0); Albumin 4.4 g/dL (3.80-4.90); Albumin/Globulin Ratio 1.63 (1.60-3.17); BUN/Creat Ratio 15.56 Ratio (12.00-20.00); C Reactive Protein 1.1 mg/dL (0.0-0.8); Calcium 9.8 mg/dL (8.7-10.3); Globulin 2.7 g/dL (1.6-3.3); Non-African American GFR(CKD) 105.7 (60.0-200.0); Potassium 4.6 mmol/L (3.5-5.5); Total Bilirubin 0.3 mg/dL (0.3-1.2); Total Protein 7.1 g/dL (6.2-8.2)
== END | disposition home or self-care (01) ==
LOC: LABWHC1 10:39
PROVIDERS: ATTEND Family Medicine
DX: N18.2 Chronic kidney disease, stage 2 (mild) (principal); R16.0 Hepatomegaly, not elsewhere classified; R74.01 Elevation of levels of liver transaminase levels
CPT/HCPCS: 36415; 80053; 80074; 82306; 82607; 83690; 85025; 85652; 86038; 86039; 86140

== ENCOUNTER → 2020-12-03 | Outpatient (CLI) | payer OTHER ==
--- NOTE | 2020-12-03 11:22 | XR ---
EXAMINATION TYPE: XR ribs bilateral DATE OF EXAM: 12/03/2020 COMPARISON: NONE HISTORY: Left lateral rib pain TECHNIQUE: 8 views of the ribs were obtained bilaterally FINDINGS: Severe arthropathy of the left shoulder. Postsurgical clips overlying the left chest. Posts urgical change involving the right shoulder rib cage grossly intact. IMPRESSION: No acute osseous abnormality.
== END | disposition home or self-care (01) ==
LOC: RADXRMAIN 10:27
PROVIDERS: ATTEND Family Medicine
DX: R07.81 Pleurodynia (principal)
CPT/HCPCS: 71110

== ENCOUNTER 2020-12-07 12:32 | Observation (INO) | payer OTHER ==
[2020-12-07] MEDS ORDERED: SODIUM CHLORIDE 0.9% 500 ML 500 ML IV STA (13:23)
[2020-12-07] MEDS ORDERED: PANTOPRAZOLE 40 MG/10 ML VIAL IVP STA (13:23)
[2020-12-07] MEDS ORDERED: MAG HYDROX/AL HYDROX/SIMETH 30 ML, HYOSCYAMINE ELIXIR 10 ML, LIDOCAINE VISCOUS 2% 10 ML PO STA ×3 (13:26)
--- NOTE | 2020-12-07 13:30 | ED ---
General Adult HPI - General Chief complaint: Chest Pain Stated complaint: Chest pain, ISMAEL Time Seen by Provider: 12/07/20 13:14 Source: patient, RN notes reviewed, old records reviewed Mode of arrival: wheelchair Limitations: no limitations - History of Present Illness Initial comments: 40-year-old male with central chest pain. Symptoms have been ongoing for the past several days. He was seen by his primary care physician and sent to the emergency department for evaluation. He states he has a known hiatal hernia and has had increased central chest burning however he also has sharp pain with inspiration. He has had some episodes of vomiting. He reports mild dyspnea. No fever. No cough. - Related Data Home Medications Medication Instructions Recorded Confirmed Cyclobenzaprine [Flexeril] 10 mg PO BID PRN 11/22/20 11/25/20 dexAMETHasone [Dexamethasone] 4 mg PO BID 11/22/20 11/25/20 Previous Rx's Medication Instructions Recorded Pantoprazole Sodium [Protonix] 20 mg PO DAILY #30 tablet. 11/29/20 Allergies Allergy/AdvReac Type Severity Reaction Status Date / Time hydromorphone [From Dilaudid] Allergy Rash/Hives Verified 12/07/20 12:38 latex Allergy Rash/Hives Verified 12/07/20 12:38 meperidine [From Demerol] Allergy Rash/Hives Verified 12/07/20 12:38 Review of Systems ROS Statement: Those systems with pertinent positive or pertinent negative responses have been documented in the HPI. ROS Other: All systems not noted in ROS Statement are negative. Past Medical History Past Medical History: No Reported History Additional Past Medical History / Comment(s): multiple dislocation of rt shoulder, back pain History of Any Multi-Drug Resistant Organisms: None Reported Past Surgical History: Back Surgery, Orthopedic Surgery Additional Past Surgical History / Comment(s): rt shoulder Past Psychological History: No Psychological Hx Reported Smoking Status: Never smoker Past Alcohol Use History: None Reported Past Drug Use History: None Reported - Past Family History Mother Additional Family Medical History / Comment(s): lupus, Father History Unknown: Yes Brother(s) Additional Family Medical History / Comment(s): autoimmune disorder General Exam Limitations: no limitations General appearance: alert, in no apparent distress Head exam: Present: atraumatic, normocephalic Eye exam: Present: normal appearance, PERRL Neck exam: Present: normal inspection. Absent: tenderness, meningismus Respiratory exam: Present: normal lung sounds bilaterally. Absent: respiratory distress, wheezes Cardiovascular Exam: Present: normal rhythm, tachycardia GI/Abdominal exam: Present: soft. Absent: distended, tenderness, guarding Extremities exam: Present: normal inspection, normal capillary refill. Absent: pedal edema, calf tenderness Neurological exam: Present: alert, oriented X3, CN II-XII intact. Absent: motor sensory deficit Psychiatric exam: Present: normal affect, normal mood Skin exam: Present: warm, dry, intact. Absent: cyanosis, diaphoretic Course Vital Signs 12/07/20 12/07/20 12/07/20 12:35 13:38 15:00 Temperature 98 F Pulse Rate 107 H 102 H Pulse Rate [ 95 Press Tender ] Respiratory 18 18 Rate Blood Pressure 142/95 117/76 O2 Sat by Pulse 93 L 100 Oximetry EKG Findings - EKG Comments: EKG Findings:: EKG: Sinus tachycardia, rate of 102, DE interval 164, QRS duration 84, QTC [address] segment elevation Medical Decision Making - Medical Decision Making 40-year-old male history of hiatal hernia, presenting with epigastric pain and chest pain. Patient apparently had been seen by general surgery and was awaiting a referral to an outside hospital for possible surgical management of hiatal hernia. Due to his insurance he is unable to be seen by these specialists. I discussed case with Dr. Beltran was seen the patient previously also I discussed case with Dr. Kirkland who will admit this patient for evaluation. He does recommend CT of the chest and pelvis with both IV and oral contrast. This order has been placed. Patient will be admitted to Dr. marion's service for surgical evaluation. - Lab Data Result diagrams: 12/07/20 13:37 12/07/20 13:37 Lab Results 12/07/20 12/07/20 12/07/20 Range/Units 13:37 13:37 13:37 WBC 7.1 (3.8-10.6) k/uL RBC 4.99 (4.30-5.90) m/uL Hgb 15.9 (13.0-17.5) gm/dL Hct 47.6 (39.0-53.0) % MCV 95.3 (80.0-100.0) fL MCH 31.9 (25.0-35.0) pg MCHC 33.4 (31.0-37.0) g/dL RDW 14.0 (11.5-15.5) % Plt Count 271 (150-450) k/uL MPV 7.5 Neutrophils % 61 % Lymphocytes % 26 % Monocytes % 8 % Eosinophils % 2 % Basophils % 1 % Neutrophils # 4.4 (1.3-7.7) k/uL Lymphocytes # 1.9 (1.0-4.8) k/uL Monocytes # 0.6 (0-1.0) k/uL Eosinophils # 0.2 (0-0.7) k/uL Basophils # 0.1 (0-0.2) k/uL PT 9.4 (9.0-12.0) sec INR 0.9 (<1.2) APTT 23.5 (22.0-30.0) sec D-Dimer 0.21 (<0.60) mg/L FEU Sodium 139 (137-145) mmol/L Potassium 4.3 (3.5-5.1) mmol/L Chloride 105 (98-107) mmol/L Carbon Dioxide 25 (22-30) mmol/L Anion Gap 9 mmol/L BUN 17 (9-20) mg/dL Creatinine 0.76 (0.66-1.25) mg/dL Est GFR (CKD-EPI)AfAm >90 (>60 ml/min/1.73 sqM) Est GFR (CKD-EPI)NonAf >90 (>60 ml/min/1.73 sqM) Glucose 80 (74-99) mg/dL Calcium 9.7 (8.4-10.2) mg/dL Magnesium 2.0 (1.6-2.3) mg/dL Total Bilirubin 0.2 (0.2-1.3) mg/dL AST 30 (17-59) U/L ALT 39 (4-49) U/L Alkaline Phosphatase 66 (38-126) U/L Troponin I (0.000-0.034) ng/mL NT-Pro-B Natriuret Pep pg/mL Total Protein 7.2 (6.3-8.2) g/dL Albumin 4.3 (3.5-5.0) g/dL Lipase 185 (23-300) U/L 12/07/20 12/07/20 Range/Units 13:37 13:37 WBC (3.8-10.6) k/uL RBC (4.30-5.90) m/uL Hgb (13.0-17.5) gm/dL Hct (39.0-53.0) % MCV (80.0-100.0) fL MCH (25.0-35.0) pg MCHC (31.0-37.0) g/dL RDW (11.5-15.5) % Plt Count (150-450) k/uL MPV Neutrophils % % Lymphocytes % % Monocytes % % Eosinophils % % Basophils % % Neutrophils # (1.3-7.7) k/uL Lymphocytes # (1.0-4.8) k/uL Monocytes # (0-1.0) k/uL Eosinophils # (0-0.7) k/uL Basophils # (0-0.2) k/uL PT (9.0-12.0) sec INR (<1.2) APTT (22.0-30.0) sec D-Dimer (<0.60) mg/L FEU Sodium (137-145) mmol/L Potassium (3.5-5.1) mmol/L Chloride (98-107) mmol/L Carbon Dioxide (22-30) mmol/L Anion Gap mmol/L BUN (9-20) mg/dL Creatinine (0.66-1.25) mg/dL Est GFR (CKD-EPI)AfAm (>60 ml/min/1.73 sqM) Est GFR (CKD-EPI)NonAf (>60 ml/min/1.73 sqM) Glucose (74-99) mg/dL Calcium (8.4-10.2) mg/dL Magnesium (1.6-2.3) mg/dL Total Bilirubin (0.2-1.3) mg/dL AST (17-59) U/L ALT (4-49) U/L Alkaline Phosphatase (38-126) U/L Troponin I <0.012 (0.000-0.034) ng/mL NT-Pro-B Natriuret Pep <11 pg/mL Total Protein (6.3-8.2) g/dL Albumin (3.5-5.0) g/dL Lipase (23-300) U/L Disposition Clinical Impression: Chest pain, Hiatal hernia Disposition: ADMITTED IP TO THIS HOSP Condition: Stable Is patient prescribed a controlled substance at d/c from ED?: No Referrals: Huma Soria MD [Primary Care Provider] - 1-2 days Decision to Admit Reason: Admit from EC Decision Date: 12/07/20 Decision Time: 16:12
[2020-12-07 13:48] LABS: Basophils # (A) 0.1 k/uL (0-0.2); Basophils % (A) 1 %; Eosinophils # (A) 0.2 k/uL (0-0.7); Eosinophils % (A) 2 %; HCT 47.6 % (39.0-53.0); HGB 15.9 gm/dL (13.0-17.5); Lymphocytes # (A) 1.9 k/uL (1.0-4.8); Lymphocytes % (A) 26 %; MCH 31.9 pg (25.0-35.0); MCHC 33.4 g/dL (31.0-37.0); MCV 95.3 fL (80.0-100.0); Mean Platelet Volume 7.5; Monocytes # (A) 0.6 k/uL (0-1.0); Monocytes % (A) 8 %; Neutrophils # (A) 4.4 k/uL (1.3-7.7); Neutrophils % (A) 61 %; Platelet Count 271 k/uL (150-450); RBC 4.99 m/uL (4.30-5.90); WBC 7.1 k/uL (3.8-10.6)
[2020-12-07 14:01] LABS: ALT 39 U/L (4-49); AST 30 U/L (17-59); African American GFR (CKD) >90 (>60 ml/min/1.73 sqM); Albumin 4.3 g/dL (3.5-5.0); Alkaline Phosphatase 66 U/L (38-126); Anion Gap 9 mmol/L; Blood Urea Nitrogen 17 mg/dL (9-20); Calcium 9.7 mg/dL (8.4-10.2); Carbon Dioxide 25 mmol/L (22-30); Chloride 105 mmol/L (98-107); Glucose 80 mg/dL (74-99); Lipase 185 U/L (23-300); Non-African American GFR(CKD) >90 (>60 ml/min/1.73 sqM); Potassium 4.3 mmol/L (3.5-5.1); Sodium 139 mmol/L (137-145); Total Bilirubin 0.2 mg/dL (0.2-1.3); Total Protein 7.2 g/dL (6.3-8.2)
--- NOTE | 2020-12-07 14:17 | XR ---
EXAMINATION TYPE: XR chest 2V DATE OF EXAM: 12/07/2020 COMPARISON: 12/03/2020 HISTORY: 40-year-old male chest pain TECHNIQUE: AP and lateral views FINDINGS: Partially visualized reversed right shoulder arthroplasty. Heart upper limits of normal size. Stable curvilinear scarring or atelectasis left lower lung. No consolidation or pleural effusion. IMPRESSION: No acute cardiopulmonary process.
[2020-12-07 14:38] LABS: INR 0.9 (<1.2); Partial Thromboplastin Time 23.5 sec (22.0-30.0); Prothrombin Time 9.4 sec (9.0-12.0)
[2020-12-07] MEDS ORDERED: MORPHINE SULFATE 4 MG/ML SYRINGE IVP STA (15:17)
[2020-12-07] MEDS ORDERED: SODIUM CHLORIDE 0.9% 1,000 ML IV ONE (16:09)
[2020-12-07] MEDS ORDERED: IOPAMIDOL CONTRAST (ORAL USE) VIAL PO PRN (16:10)
[2020-12-07] MEDS ORDERED: NALOXONE 0.4 MG/ML 1 ML VIAL IV PRN (16:13)
[2020-12-07] MEDS: SODIUM CHLORIDE 0.9% 1,000 ML IV SCH (17:38)
[2020-12-07] MEDS ORDERED: CYCLOBENZAPRINE 10 MG TAB PO PRN (18:17)
[2020-12-07] MEDS ORDERED: traMADol 50 MG TAB PO PRN (18:17)
--- NOTE | 2020-12-07 18:19 | P.HPIM ---
History of Present Illness H&P Date: 12/07/20 Chief Complaint: Chest pain with burning sensation, THIS DICTATION IS FOR A MEDICAL CONSULT DOCUMENT This is a 40-year-old male patient of Dr. Soria with past medical history of chronic back pain with lumbar fusion 4 years ago. He was seen in the ER on November 19 and November 22 for back pain and diarrhea. On November 19, back x-ray showed no acute abnormalities of the lumbar spine. CAT scan of the lumbar spine on November 22 revealed posterior fusion L5-S1 with intravertebral disc spacer. Hardware appears intact. No acute fracture or traumatic subluxation. No spinal canal stenosis or neural foraminal narrowing. Patient was given Tylenol 3 and dex amethasone. Patient now presented on November 25 due to chest pain that was on the left side radiating to his left shoulder and arm as well as left upper quadrant bulge. Patient states he cannot get his left arm to relax. He contacted Dr. Soria and had an EKG done that showed changes and patient was sent into the ER. He states he was up crying all night due to pain. Regarding diarrhea, he has estrada d this for 7 days. He denies any blood in his stools. He denies any sick contacts he states that every time he eats or drinks something or goes right through him. He does relate to being under a lot of stress. Patient did undergo stress echocardiogram in July of this year which revealed no evidence of inducible ischemia with preserved left ventricular size and systolic function. He was last admitted, 11/26/2020, for left upper quadrant pain, tenderness or diarrhea, possible colitis, patient was started on anti-bike at that time, and cardiology has been seen the patient, with atypical symptoms, they have signed off. He was seen by Dr. Ceja at that time secondary to abnormal CAT scan, that shows a large hiatal hernia, with possible failed AV his Hunter fundoplication, with surgical material that probably has been left behind, he does have a paraesophageal hernia there. Approximate 6-7 years ago in [facility]. He was done through a posterior approach, based on recommendation from Dr. Beltran ,he needs to be in a tertiary facility, however based on the insurance company, this cannot be done as it is out of network, hence the patient comes into the emergency room, with instructions to be seen for a follow-up with another surgical opinion, Dr. Kirkland has accepted this patient. Review of Systems Constitutional: Reports as per HPI, Reports chronic pain Cardiovascular: Reports as per HPI Respiratory: Reports as per HPI, Denies congestion, Denies cough, Denies cough with sputum, Denies dyspnea, Denies excessive sputum, Denies hemoptysis, Denies home oxygen, Denies pain, Denies pain on inspiration, Denies pleurisy, Denies respiratory infections, Denies sleep apnea, Denies snoring, Denies wheezing Gastrointestinal: Reports abdominal pain, Reports bloating, Reports dyspepsia, Reports early satiety, Reports indigestion Genitourinary: Reports as per HPI, Denies decreased libido, Denies difficulties fathering child, Denies discharge, Denies dysuria, Denies erectile dysfunction, Denies flank pain, Denies genital pain, Denies genital sores, Denies hematuria, Denies impotence, Denies incontinence, Denies kidney stones, Denies nocturia, Denies polyuria, Denies testicular lump, Denies testicular pain, Denies urinary frequency, Denies urinary hesitancy, Denies urinary retention Musculoskeletal: Reports as per HPI, Denies arm numbness/tingling, Denies atrophy, Denies fractures, Denies frequent falls, Denies gait dysfunction, Denies hot joints, Denies leg numbness/tingling, Denies limitation of motion, Denies loss of height, Denies low back pain, Denies morning stiffness, Denies muscle cramps, Denies muscle weakness, Denies myalgias, Denies neck pain, Denies neck stiffness, Denies prior amputations, Denies redness of joints, Denies shooting arm pain, Denies shooting leg pain Integumentary: Reports as per HPI, Denies acne, Denies boils, Denies brittle nails, Denies change in hair/nails, Denies color changes, Denies darkening of skin, Denies depigmentation, Denies dryness, Denies foot/leg ulcers, Denies growths, Denies hirsutism, Denies lesions, Denies onychomycosis, Denies pruritus, Denies rash, Denies sores, Denies striae, Denies unusual bruising, Denies wounds Neurological: Reports as per HPI, Denies ataxia, Denies balance difficulties, Denies change in mentation, Denies headaches, Denies loss of vision, Denies memory loss, Denies sensory deficit, Denies syncope, Denies transient paralysis Psychiatric: Reports as per HPI, Reports change in sleep habits, Denies anhedonia, Denies hallucinations, Denies irritability Endocrine: Reports as per HPI Hematologic/Lymphatic: Reports as per HPI, Denies thrombophilia Allergic/Immunologic: Reports as per HPI, Denies persistent infections Past Medical History Past Medical History: No Reported History Additional Past Medical History / Comment(s): multiple dislocation of rt shoulder, back pain History of Any Multi-Drug Resistant Organisms: None Reported Past Surgical History: Back Surgery, Orthopedic Surgery Additional Past Surgical History / Comment(s): rt shoulder Past Psychological History: No Psychological Hx Reported Smoking Status: Never smoker Past Alcohol Use History: None Reported Past Drug Use History: None Reported - Past Family History Mother Additional Family Medical History / Comment(s): lupus, Father History Unknown: Yes Brother(s) Additional Family Medical History / Comment(s): autoimmune disorder Medications and Allergies Home Medications Medication Instructions Recorded Confirmed Type Cyclobenzaprine [Flexeril] 10 mg PO BID PRN 11/22/20 12/07/20 History Pantoprazole Sodium [Protonix] 20 mg PO DAILY #30 tablet. 11/29/20 12/07/20 Rx Temazepam [Restoril] 30 mg PO HS 12/07/20 12/07/20 History traMADol HCL 50 mg PO TID PRN 12/07/20 12/07/20 History Allergies Allergy/AdvReac Type Severity Reaction Status Date / Time hydromorphone [From Dilaudid] Allergy Rash/Hives Verified 12/07/20 16:23 latex Allergy Rash/Hives Verified 12/07/20 16:23 meperidine [From Demerol] Allergy Rash/Hives Verified 12/07/20 16:23 Physical Exam Vitals: Vital Signs Temp Pulse Pulse Resp BP Pulse Ox 12/07/20 16:47 93 20 129/88 99 12/07/20 15:00 102 H 18 117/76 100 12/07/20 13:38 95 12/07/20 12:35 98 F 107 H 18 142/95 93 L Intake and Output 12/07/20 12/07/20 12/07/20 06:59 14:59 22:59 Other: Weight 108.862 kg - Constitutional General appearance: cooperative, no acute distress - EENT Eyes: EOMI, PERRLA, normal appearance ENT: NA/AT, normal oropharynx - Neck Neck: normal ROM - Respiratory Respiratory: bilateral: CTA, negative: diminished, dullness, rales - Cardiovascular Rhythm: regular Heart sounds: normal: S1, S2 Abnormal Heart Sounds: no systolic murmur, no diastolic murmur, no rub, no S3 Gallop, no S4 Gallop, no click, no other - Gastrointestinal General gastrointestinal: normal bowel sounds, soft - Integumentary Integumentary: decreased turgor, normal - Neurologic Neurologic: CNII-XII intact - Musculoskeletal Musculoskeletal: gait normal, strength equal bilaterally - Psychiatric Psychiatric: A&O x's 3, appropriate affect, intact judgment & insight Results CBC & Chem 7: 12/07/20 13:37 12/07/20 13:37 Labs: Laboratory Results WBC 7.1 k/uL (3.8-10.6) 12/07/20 13:37 RBC 4.99 m/uL (4.30-5.90) 12/07/20 13:37 Hgb 15.9 gm/dL (13.0-17.5) 12/07/20 13:37 Hct 47.6 % (39.0-53.0) 12/07/20 13:37 MCV 95.3 fL (80.0-100.0) 12/07/20 13:37 MCH 31.9 pg (25.0-35.0) 12/07/20 13:37 MCHC 33.4 g/dL (31.0-37.0) 12/07/20 13:37 RDW 14.0 % (11.5-15.5) 12/07/20 13:37 Plt Count 271 k/uL (150-450) 12/07/20 13:37 MPV 7.5 12/07/20 13:37 Neutrophils % 61 % 12/07/20 13:37 Lymphocytes % 26 % 12/07/20 13:37 Monocytes % 8 % 12/07/20 13:37 Eosinophils % 2 % 12/07/20 13:37 Basophils % 1 % 12/07/20 13:37 Neutrophils # 4.4 k/uL (1.3-7.7) 12/07/20 13:37 Lymphocytes # 1.9 k/uL (1.0-4.8) 12/07/20 13:37 Monocytes # 0.6 k/uL (0-1.0) 12/07/20 13:37 Eosinophils # 0.2 k/uL (0-0.7) 12/07/20 13:37 Basophils # 0.1 k/uL (0-0.2) 12/07/20 13:37 PT 9.4 sec (9.0-12.0) 12/07/20 13:37 INR 0.9 (<1.2) 12/07/20 13:37 APTT 23.5 sec (22.0-30.0) 12/07/20 13:37 D-Dimer 0.21 mg/L FEU (<0.60) 12/07/20 13:37 Sodium 139 mmol/L (137-145) 12/07/20 13:37 Potassium 4.3 mmol/L (3.5-5.1) 12/07/20 13:37 Chloride 105 mmol/L (98-107) 12/07/20 13:37 Carbon Dioxide 25 mmol/L (22-30) 12/07/20 13:37 Anion Gap 9 mmol/L 12/07/20 13:37 BUN 17 mg/dL (9-20) 12/07/20 13:37 Creatinine 0.76 mg/dL (0.66-1.25) 12/07/20 13:37 Est GFR (CKD-EPI)AfAm >90 (>60 ml/min/1.73 sqM) 12/07/20 13:37 Est GFR (CKD-EPI)NonAf >90 (>60 ml/min/1.73 sqM) 12/07/20 13:37 Glucose 80 mg/dL (74-99) 12/07/20 13:37 Calcium 9.7 mg/dL (8.4-10.2) 12/07/20 13:37 Magnesium 2.0 mg/dL (1.6-2.3) 12/07/20 13:37 Total Bilirubin 0.2 mg/dL (0.2-1.3) 12/07/20 13:37 AST 30 U/L (17-59) 12/07/20 13:37 ALT 39 U/L (4-49) 12/07/20 13:37 Alkaline Phosphatase 66 U/L (38-126) 12/07/20 13:37 Troponin I <0.012 ng/mL (0.000-0.034) 12/07/20 13:37 NT-Pro-B Natriuret Pep <11 pg/mL 12/07/20 13:37 Total Protein 7.2 g/dL (6.3-8.2) 12/07/20 13:37 Albumin 4.3 g/dL (3.5-5.0) 12/07/20 13:37 Lipase 185 U/L (23-300) 12/07/20 13:37 Assessment and Plan Plan: 1. Persistent atypical chest pain, with dyspepsia, Large hiatal hernia, with abnormal CT on 11/27/2020, findings shows some surgical material noted in the GE junction, with a moderate size hiatal hernia. There is a left posterior thoracotomy change, was seen by surgery during that last admission in November 27 however he was referred to see a tertiary care gut specialist, the [facility], now presents to the emergency room, with a second opinion for which Dr. Mcguire has accepted the patient for evaluation. Patient most likely will need an EGD, to evaluate the surgical material that is noted in the CAT scan, and possibly repair of a failed lap Hunter, 2. Hepatomegaly, most likely secondary to fatty liver, liver function test is normal, lipase is normal adrenals and spleen and pancreas are within normal limits, 3. Multiple skeletal pain from injuries in the past, chronic pain, she does have back pain, and multiple dislocation of the right shoulder history of back surgery and orthopedic surgery, currently on Flexeril, and tramadol 50 4. Moderate hiatal hernia, increase Protonix to 40 mg daily, check for H. pylori stool exam lipase normal 5. GI prophylaxis, with Protonix 40 DVT prophylaxis with early ambulation
[2020-12-07] MEDS: MORPHINE SULFATE 4 MG/ML SYRINGE IV PRN (19:31)
--- NOTE | 2020-12-07 19:57 | CT ---
EXAMINATION TYPE: CT ChestAbdPelvis w con DATE OF EXAM: 12/07/2020 COMPARISON: CT abdomen pelvis 11/27/2020. CT chest 11/26/2020 HISTORY: epigastric pain CT DLP: 2345.6 mGycm Automated exposure control for dose reduction was used. CONTRAST: Performed with IV Contrast, patient injected with 100 mL of Isovue 300. Images obtained from the thoracic inlet to the floor the pelvis with IV contrast. There is some mild reticular interstitial infiltrate and atelectasis at the lung bases. Heart size is normal. There is no mediastinal adenopathy. Thoracic aorta is intact. There are no hilar masses. The re is no pericardial effusion. There is paraesophageal hiatal hernia. Liver and spleen are intact. The bile ducts are not dilated. T here is no pancreatic mass. Gallbladder appears absent. There is no adrenal mass. Kidneys show satisfactory contrast opacification. There is no hydronephrosi s. Ureters are not dilated. There is no retroperitoneal adenopathy. Delayed images show normal renal excretion. Bladder distends smoothly. There is no inguinal hernia. There is no free fluid in the pelv is. There is no mesenteric edema. There is no ascites or free air. There is no bowel obstruction. There a ppears to BE clips from appendectomy. The thoracic and lumbar vertebra appear intact. There is no compression fracture. Sternum is intact. There is posterior fusion surgery at L5-S1. The hip joints appear intact. There is no evidence of rib fracture. There is right shoulder prosthesis. There is apparent old osteotomy of the posterior left mid rib. IMPRESSION: There is some mild interstitial infiltrate and atelectasis at the lung bases that appears slightly in creased compared to old exam. Old left side thoracotomy noted. No acute abnormality within the abdomen pelvis. Hiatal hernia noted. Abdomen pelvis not significantly different than old exam.
[2020-12-07] MEDS: TEMAZEPAM 15 MG CAP PO SCH (21:42)
[2020-12-07] MEDS: PANTOPRAZOLE 40 MG/10 ML VIAL IVP SCH (23:04)
[2020-12-08] MEDS: MORPHINE SULFATE 4 MG/ML SYRINGE IV PRN ×5 (00:23→22:00)
[2020-12-08] MEDS: ONDANSETRON 4 MG/2 ML VIAL IVP PRN ×3 (01:38→22:07)
[2020-12-08] MEDS: SODIUM CHLORIDE 0.9% 1,000 ML IV SCH ×2 (05:59→20:04)
[2020-12-08] MEDS: PANTOPRAZOLE 40 MG/10 ML VIAL IVP SCH ×2 (07:43→22:00)
[2020-12-08] MEDS ORDERED: NON FORMULARY DRUG (Pantoprazole Sodium [Protonix] 20 MG Tablet.Dr) PO SCH (09:00)
--- NOTE | 2020-12-08 12:04 | P.GSHP ---
History of Present Illness H&P Date: 12/08/20 Chief Complaint: Abdominal pain, nausea This a 40-year-old male who was admitted to the emergency room with complaints of abdominal pain and nausea. Patient has a previous history of diaphragmatic hernia repair performed prostate 6 years ago [facility]. Patient had a recurrent hiatal hernia. He is had a recent hospital admission. The patient's had a CAT scan performed showed shows no unsteady obstruction or gastric obstruction related to his hiatal hernia. Past Medical History Past Medical History: No Reported History Additional Past Medical History / Comment(s): multiple dislocation of rt shoulder, back pain History of Any Multi-Drug Resistant Organisms: None Reported Past Surgical History: Back Surgery, Orthopedic Surgery Additional Past Surgical History / Comment(s): rt shoulder Past Anesthesia/Blood Transfusion Reactions: No Reported Reaction Past Psychological History: No Psychological Hx Reported Smoking Status: Never smoker Past Alcohol Use History: None Reported Past Drug Use History: None Reported - Past Family History Mother Additional Family Medical History / Comment(s): lupus, Father History Unknown: Yes Brother(s) Additional Family Medical History / Comment(s): autoimmune disorder Medications and Allergies Home Medications Medication Instructions Recorded Confirmed Type Cyclobenzaprine [Flexeril] 10 mg PO BID PRN 11/22/20 12/07/20 History Pantoprazole Sodium [Protonix] 20 mg PO DAILY #30 tablet. 11/29/20 12/07/20 Rx Temazepam [Restoril] 30 mg PO HS 12/07/20 12/07/20 History traMADol HCL 50 mg PO TID PRN 12/07/20 12/07/20 History Allergies Allergy/AdvReac Type Severity Reaction Status Date / Time hydromorphone [From Dilaudid] Allergy Rash/Hives Verified 12/07/20 16:23 latex Allergy Rash/Hives Verified 12/07/20 16:23 meperidine [From Demerol] Allergy Rash/Hives Verified 12/07/20 16:23 Surgical - Exam Vital Signs Temp Pulse Resp BP Pulse Ox 98 F 107 H 18 142/95 93 L 12/07/20 12:35 12/07/20 12:35 12/07/20 12:35 12/07/20 12:35 12/07/20 12:35 - General well developed, well nourished, no distress - Eyes PERRL - ENT normal pinna - Neck no masses - Respiratory normal expansion - Cardiovascular Rhythm: regular - Abdomen Abdomen: soft, non tender Results - Labs 12/07/20 13:37 12/07/20 13:37 Diabetes panel 12/07/20 Range/Units 13:37 Sodium 139 (137-145) mmol/L Potassium 4.3 (3.5-5.1) mmol/L Chloride 105 (98-107) mmol/L Carbon Dioxide 25 (22-30) mmol/L BUN 17 (9-20) mg/dL Creatinine 0.76 (0.66-1.25) mg/dL Glucose 80 (74-99) mg/dL Calcium 9.7 (8.4-10.2) mg/dL AST 30 (17-59) U/L ALT 39 (4-49) U/L Alkaline Phosphatase 66 (38-126) U/L Total Protein 7.2 (6.3-8.2) g/dL Albumin 4.3 (3.5-5.0) g/dL Calcium panel 12/07/20 Range/Units 13:37 Calcium 9.7 (8.4-10.2) mg/dL Albumin 4.3 (3.5-5.0) g/dL Pituitary panel 12/07/20 Range/Units 13:37 Sodium 139 (137-145) mmol/L Potassium 4.3 (3.5-5.1) mmol/L Chloride 105 (98-107) mmol/L Carbon Dioxide 25 (22-30) mmol/L BUN 17 (9-20) mg/dL Creatinine 0.76 (0.66-1.25) mg/dL Glucose 80 (74-99) mg/dL Calcium 9.7 (8.4-10.2) mg/dL Adrenal panel 12/07/20 Range/Units 13:37 Sodium 139 (137-145) mmol/L Potassium 4.3 (3.5-5.1) mmol/L Chloride 105 (98-107) mmol/L Carbon Dioxide 25 (22-30) mmol/L BUN 17 (9-20) mg/dL Creatinine 0.76 (0.66-1.25) mg/dL Glucose 80 (74-99) mg/dL Calcium 9.7 (8.4-10.2) mg/dL Total Bilirubin 0.2 (0.2-1.3) mg/dL AST 30 (17-59) U/L ALT 39 (4-49) U/L Alkaline Phosphatase 66 (38-126) U/L Total Protein 7.2 (6.3-8.2) g/dL Albumin 4.3 (3.5-5.0) g/dL Assessment and Plan Assessment: History of hiatal hernia. Patient will undergo EGD tomorrow.
--- NOTE | 2020-12-08 16:55 | P.PN ---
Subjective Progress Note Date: 12/08/20 This is a 40-year-old male patient of Dr. Soria with past medical history of chronic back pain with lumbar fusion 4 years ago. He was seen in the ER on November 19 and November 22 for back pain and diarrhea. On November 19, back x-ray showed no acute abnormalities of the lumbar spine. CAT scan of the lumbar spine on November 22 revealed posterior fusion L5-S1 with intravertebral disc spacer. Hardware appears intact. No acute fracture or traumatic subluxation. No spinal canal stenosis or neural foraminal narrowing. Patient was given Tylenol 3 and dexamethasone. Patient now presented on November 25 due to chest pain that was on the left side radiating to his left shoulder and arm as well as left upper quadr ant bulge. Patient states he cannot get his left arm to relax. He contacted Dr. Soria and had an EKG done that showed changes and patient was sent into the ER. He states he was up crying all night due to pain. Regarding diarrhea, he has had this for 7 days. He denies any blood in his stools. He denies any sick contacts he states that every time he eats or drinks something or goes right through him. He does relate to being under a lot of stress. Patient did undergo stress echocardiogram in July of this year which revealed no evidence of inducible ischemia with preserved left ventricular size and systolic function. He was last admitted, 11/26/2020, for left upper quadrant pain, tenderness or diarrhea, possible colitis, patient was started on anti-bike at that time, and cardiology has been seen the patient, with atypical symptoms, they have signed off. He was seen by Dr. Ceja at that time secondary to abnormal CAT scan, that shows a large hiatal hernia, with possible failed AV his Hunter fundoplication, with surgical material that probably has been left behind, he does have a paraesophageal hernia there. Approximate 6-7 years ago in [facility]. He was done through a posterior approach, based on recommendation from Dr. Beltran ,he needs to be in a tertiary facility, however based on the insurance company, this cannot be done as it is out of network, hence the patient comes into the emergency room, with instructions to be seen for a follow-up with another surgical opinion, Dr. Kirkland has accepted this patient. 12/08. Patient is to undergo esophagram today, and an EGD tomorrow, by Dr. Kirkland, patient has vomiting episodes today, still without any food, still on liquid diet, however vomiting is without any food intake, epigastric and left rib cage pain, no melena and hematochezia, no fever, no cough. CAT scan reviewed with the patient, Objective - Vital Signs Vital signs: Vital Signs Temp 98.6 F 12/08/20 12:55 Pulse 82 12/08/20 12:55 Resp 16 12/08/20 12:55 BP 121/80 12/08/20 12:55 Pulse Ox 96 12/08/20 12:55 Intake & Output 12/07/20 12/08/20 12/08/20 18:59 06:59 18:59 Weight 108.862 kg Other: Voiding Method Toilet # Voids 1 3 # Bowel Movements 0 - Constitutional General appearance: Present: cooperative, no acute distress - EENT Eyes: Present: EOMI, PERRLA, dentition normal, normal appearance ENT: Present: NA/AT, normal oropharynx - Neck Neck: Present: normal ROM - Respiratory Respiratory: bilateral: CTA, negative: diminished, dullness - Cardiovascular Rhythm: regular Heart sounds: normal: S1, S2 Abnormal Heart Sounds: Absent: systolic murmur, diastolic murmur, rub, S3 Gallop, S4 Gallop, click, other - Gastrointestinal General gastrointestinal: Present: normal bowel sounds, soft - Integumentary Integumentary: Present: normal, normal turgor - Neurologic Neurologic: Present: CNII-XII intact - Musculoskeletal Musculoskeletal: Present: gait normal, strength equal bilaterally - Psychiatric Psychiatric: Present: A&O x's 3, appropriate affect, intact judgment & insight - Labs CBC & Chem 7: 12/07/20 13:37 12/07/20 13:37 Assessment and Plan Plan: 1. Persistent atypical chest pain, with dyspepsia, Large hiatal hernia, intractable vomiting with abnormal CT on 11/27/2020, findings shows some surgical material noted in the GE junction, with a moderate size hiatal hernia. There is a left posterior thoracotomy change, was seen by surgery during that last admission in November 27 however he was referred to see a tertiary care gut specialist, the insurance disallowed these, now presents to the emergency room, with a second opinion for which Dr. Kirkland has accepted the patient for evaluation. Patient most likely will need an EGD, to evaluate the surgical material that is noted in the CAT scan, and possibly repair of a failed lap Hunter,. EGD scheduled for 12/09, pending esophagram performed 817 2. Hepatomegaly, most likely secondary to fatty liver, liver function test is normal, lipase is normal adrenals and spleen and pancreas are within normal limits, 3. Multiple skeletal pain from injuries in the past, chronic pain, she does have back pain, and multiple dislocation of the right shoulder history of back surgery and orthopedic surgery, currently on Flexeril, and tramadol 50 4. Moderate hiatal hernia, increase Protonix to 40 mg daily, check for H. pylori stool exam lipase normal 5. GI prophylaxis, with Protonix 40 DVT prophylaxis with early ambulation
--- NOTE | 2020-12-08 17:14 | FL ---
EXAMINATION TYPE: FL UGI w esophagus DATE OF EXAM: 12/08/2020 COMPARISON: Correlation CT 12/07/2020 HISTORY: 40-year-old male paraesophageal hernia. Patient with history of hiatal hernia repair 5 years ago with recent recurrence of symptoms. TECHNIQUE: A double contrast esophagram and UGI study is performed. A total of 2 minutes 14 seconds of fluoroscopic time was utilized during procedure and 59 images obta ined. FINDINGS The esophagus shows normal course, caliber, and motility. No abnormal filling defect or mucosal lesio n is seen. There is a moderate-sized hiatal hernia which seems to surround the distal esophagus. No abnormal parish rowing to the passage of contrast. Reflux could not be elicited with Valsalva or positional maneuvers . The stomach shows normal distensibility, peristalsis, and mucosal folds. No evidence of any mass or ulcer disease. The duodenal bulb, sweep, and proximal small bowel loops are unremarkable. IMPRESSION: Moderate sized hiatal hernia which appears to surround the distal esophagus. Possible moderate-sized herniation of a partially intact wrap. Clinically correlate. No other specific abnormality seen.
[2020-12-08] MEDS: TEMAZEPAM 15 MG CAP PO SCH (22:00)
[2020-12-09] MEDS: MORPHINE SULFATE 4 MG/ML SYRINGE IV PRN ×5 (04:40→23:51)
[2020-12-09] MEDS: PANTOPRAZOLE 40 MG/10 ML VIAL IVP SCH ×2 (08:18→20:06)
[2020-12-09] MEDS: SODIUM CHLORIDE 0.9% 1,000 ML IV SCH ×2 (08:18→20:08)
[2020-12-09] MEDS: ONDANSETRON 4 MG/2 ML VIAL IVP PRN ×3 (08:23→23:51)
--- NOTE | 2020-12-09 13:36 | P.PN ---
Progress Note - Text Progress Note Date: 12/09/20 Patient name stable. His esophagram shows evidence of a paraesophageal hiatal hernia. On exam her lesser stable abdomen soft. The endoscopy unit is delayed today. He'll have his EGD scheduled in the a.m.
[2020-12-09] MEDS: TEMAZEPAM 15 MG CAP PO SCH (20:06)
[2020-12-09 21:02] VITALS: RESP 17
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
[2020-12-10 02:11] VITALS: TEMP 97.9
[2020-12-10] MEDS: MORPHINE SULFATE 4 MG/ML SYRINGE IV PRN ×2 (04:25→07:55)
[2020-12-10] MEDS: ONDANSETRON 4 MG/2 ML VIAL IVP PRN (05:54)
[2020-12-10] MEDS: PANTOPRAZOLE 40 MG/10 ML VIAL IVP SCH (08:01)
[2020-12-10] MEDS: SODIUM CHLORIDE 0.9% 1,000 ML IV SCH (08:01)
[2020-12-10 08:29] VITALS: BP 133/86; PULSE 73
[2020-12-10] MEDS ORDERED: IV FLUID CONTINUATION 800 ML IV ONE (11:55)
[2020-12-10] MEDS ORDERED: PROPOFOL 10 MG/ML 20 ML VIAL IV ONE (11:55)
[2020-12-10] MEDS ORDERED: LIDOCAINE 1% INJ 10MG/ML (20 ML MDV) ONE (11:55)
--- NOTE | 2020-12-10 12:10 | P.OP ---
Date of Procedure: 12/10/20 Preoperative Diagnosis: GERD Hiatal hernia Postoperative Diagnosis: gerd Paraesophageal hernia Anesthesia: MAC Surgeon: Lobito Kirkland Pathology: other (Esophagitis antrum) Condition: stable Description of Procedure: The patient's placed on the endoscopy table in the lateral position. He received IV sedation. The gastroscope placed oropharynx passed in the esophagus into the stomach. Scope was placed through the pylorus. The first second portion of the duodenum appeared normal. Scope was then brought back the antrum was mildly inflamed. A biopsies performed. Scope was then retroflexed remainder stomach appeared normal. There was a hiatal hernia seen. There was evidence of paraesophageal hiatal hernia with stomach up against esophagus. The scope was then brought back slowly GE junction this was at 38 L. The distal esophagus. Inflamed. Biopsies performed. The proximal esophagus. Normal. Scope withdrawn for patient.
--- NOTE | 2020-12-10 12:11 | P.DS ---
Providers Date of admission: 12/07/20 16:17 Expected date of discharge: 12/10/20 Attending physician: Lobito Kirkland Consults: 12/08/20 11:47 Consult Physician Routine Consulting Provider: Huma Soria Consult Reason/Comments: medical management Do you want consulting provider notified?: Already Contacted Primary care physician: Huma Soria [facility] Course: Is a 40-year-old male who was admitted through the [facility] complaints of dysphagia and GERD. Patient's a known paraesophageal hernia. Patient was admitted receive fluid hydration. He underwent. Patient was discharged home after tolerating full liquid diet. He'll follow-up the office Procedures: EGD Patient Condition at Discharge: Stable Plan - Discharge Summary Discharge Rx Participant: Yes New Discharge Prescriptions: New Ondansetron HCl [Zofran] 4 mg PO Q8H PRN #40 tab PRN Reason: Nausea And Vomiting Citalopram Hydrobromide [CeleXA] 20 mg PO DAILY #30 tab Scopolamine [Scopolamine 1 MG/72 HR patch] 1 patch TRANSDERM Q72H #5 patch Sucralfate [Carafate] 1 gm PO ACHS #120 tablet HYDROcodone/APAP 7.5-325MG [Mackay 7.5-325] 1 tab PO Q4-6H PRN #9 tab PRN Reason: Pain Control Continue traMADol HCL 50 mg PO TID PRN PRN Reason: Pain Cyclobenzaprine [Flexeril] 10 mg PO BID PRN PRN Reason: Pain Temazepam [Restoril] 30 mg PO HS Changed Pantoprazole Sodium [Protonix] 40 mg PO DAILY #30 tablet.dr Discharge Medication List Cyclobenzaprine [Flexeril] 10 mg PO BID PRN 11/22/20 [History] Temazepam [Restoril] 30 mg PO HS 12/07/20 [History] traMADol HCL 50 mg PO TID PRN 12/07/20 [History] Citalopram Hydrobromide [CeleXA] 20 mg PO DAILY #30 tab 12/09/20 [Rx] Ondansetron HCl [Zofran] 4 mg PO Q8H PRN #40 tab 12/09/20 [Rx] Scopolamine [Scopolamine 1 MG/72 HR patch] 1 patch TRANSDERM Q72H #5 patch 12/09/20 [Rx] HYDROcodone/APAP 7.5-325MG [Mackay 7.5-325] 1 tab PO Q4-6H PRN #9 tab 12/10/20 [Rx] Pantoprazole Sodium [Protonix] 40 mg PO DAILY #30 tablet.dr 12/10/20 [Rx] Sucralfate [Carafate] 1 gm PO ACHS #120 tablet 12/10/20 [Rx] Follow up Appointment(s)/Referral(s): Huma Soria MD [Primary Care Provider] - 1-2 days Lobito Kirkland MD [STAFF PHYSICIAN] - 1 Week Discharge Disposition: HOME SELF-CARE
== END 2020-12-10 13:02 | disposition home or self-care (01) ==
LOC: EC 12:32 → 6NMEDSUR 16:17
PROVIDERS: ADMIT Surgery; ATTEND Surgery
DX: K44.9 Diaphragmatic hernia without obstruction or gangrene (principal); R13.10 Dysphagia, unspecified; Z79.899 Other long term (current) drug therapy; K21.9 Gastro-esophageal reflux disease without esophagitis; G89.29 Other chronic pain
CPT/HCPCS: 43239; 96376 ×4; 96361 ×5; 96375 ×2; 96374; 99285; 36415; 93005; 85379; 88305; 83880; 80053; 83690; 83735; 84484; 85025; 85610; 85730; 84145; 74240; 71046; 71260; 74177; G0378 ×4; J2270 ×4; J2405 ×3; J2001; J2704; C9113 ×4; Q9967

== ENCOUNTER 2020-12-24 14:51 | Inpatient (IN) | payer OTHER ==
[2020-12-24] MEDS ORDERED: KETOROLAC 15 MG/ML 1 ML VIAL IVP STA (15:25)
[2020-12-24] MEDS ORDERED: ASPIRIN 81 MG PO STA (15:25)
--- NOTE | 2020-12-24 15:29 | ED ---
Chest Pain HPI - General Chief Complaint: Chest Pain Stated Complaint: Chest Pain Time Seen by Provider: 12/24/20 15:15 Source: patient, RN notes reviewed Mode of arrival: ambulatory Limitations: no limitations - History of Present Illness Initial Comments: $1 yo male with a history of hiatal hernia presents with C/O sharp chest this started 3 days ago he also states it feels like someone sitting on his chest radiates up into his neck to his left arm and across his chest he states nothing seems make it better deep breathing makes it worse he does state he has a hiatal hernia which is scheduled for repair soon. No history of heart disease he's a nonsmoker. No cough or phlegm production no fevers chills sweats. He states she's been having decreased oral intake for the past couple days. No other complaints or modifying factors MD Complaint: chest pain - Related Data Home Medications Medication Instructions Recorded Confirmed Cyclobenzaprine [Flexeril] 10 mg PO BID PRN 11/22/20 12/24/20 Temazepam [Restoril] 30 mg PO HS 12/07/20 12/24/20 traMADol HCL 50 mg PO TID PRN 12/07/20 12/24/20 Dicyclomine [Bentyl] 10 mg PO TID PRN 12/24/20 12/24/20 Pantoprazole Sodium [Protonix] 20 mg PO DAILY 12/24/20 12/24/20 Previous Rx's Medication Instructions Recorded Citalopram Hydrobromide [CeleXA] 20 mg PO DAILY #30 tab 12/09/20 Ondansetron HCl [Zofran] 4 mg PO Q8H PRN #40 tab 12/09/20 Sucralfate [Carafate] 1 gm PO ACHS #120 tablet 12/10/20 Allergies Allergy/AdvReac Type Severity Reaction Status Date / Time hydromorphone [From Dilaudid] Allergy Rash/Hives Verified 12/24/20 17:17 latex Allergy Rash/Hives Verified 12/24/20 17:17 meperidine [From Demerol] Allergy Rash/Hives Verified 12/24/20 17:17 Review of Systems ROS Statement: Those systems with pertinent positive or pertinent negative responses have been documented in the HPI. ROS Other: All systems not noted in ROS Statement are negative. EKG Findings - EKG Results: EKG: interpreted by MARGARITO, sinus rhythm (Sinus rhythm tachycardia rate of 103. Interval 170 QRS duration 82 daily since QTC 324/424 RS are prime or QR pattern in V1 may suggest right ventricular conduction delay nonspecific inferior configuration) Past Medical History Past Medical History: No Reported History Additional Past Medical History / Comment(s): multiple dislocation of rt shoulder, back pain History of Any Multi-Drug Resistant Organisms: None Reported Past Surgical History: Back Surgery, Orthopedic Surgery Additional Past Surgical History / Comment(s): rt shoulder Past Anesthesia/Blood Transfusion Reactions: No Reported Reaction Past Psychological History: No Psychological Hx Reported Smoking Status: Never smoker Past Alcohol Use History: None Reported Past Drug Use History: None Reported - Past Family History Mother Additional Family Medical History / Comment(s): lupus, Father History Unknown: Yes Brother(s) Additional Family Medical History / Comment(s): autoimmune disorder General Exam - General Exam Comments Initial Comments: This is a well-nourished awake alert oriented times female Limitations: no limitations General appearance: alert, anxious, in distress Head exam: Present: atraumatic, normocephalic, normal inspection Eye exam: Present: normal appearance, PERRL, EOMI. Absent: scleral icterus, conjunctival injection, periorbital swelling ENT exam: Present: normal exam, mucous membranes moist Neck exam: Present: normal inspection, full ROM, other (No stridor JVD or bruits). Absent: tenderness, meningismus, lymphadenopathy Respiratory exam: Present: normal lung sounds bilaterally. Absent: respiratory distress, wheezes, rales, rhonchi, stridor Cardiovascular Exam: Present: regular rate, normal rhythm, normal heart sounds. Absent: systolic murmur, diastolic murmur, rubs, gallop, clicks GI/Abdominal exam: Present: soft, normal bowel sounds. Absent: distended, tenderness, guarding, rebound, rigid Extremities exam: Present: normal inspection, full ROM, normal capillary refill. Absent: tenderness, pedal edema, joint swelling, calf tenderness Back exam: Present: normal inspection Neurological exam: Present: alert, oriented X3, CN II-XII intact Psychiatric exam: Present: normal affect, normal mood Skin exam: Present: warm, dry, intact, normal color. Absent: rash Course Vital Signs 12/24/20 12/24/20 12/24/20 15:04 15:30 16:23 Temperature 98.3 F 98.2 F Pulse Rate 104 H 98 91 Respiratory 18 19 16 Rate Blood Pressure 113/76 120/86 116/81 O2 Sat by Pulse 96 94 L 95 Oximetry - Reevaluation(s) Reevaluation #1: 12/24/20 16:13 Discussed with the patient regarding his reported ALLERGY to hydromorphone and meperidine reveals that he has some blotchiness to his skin when he had no shortness breath no overt rashes no difficulty breathing no edema no hives. He was just cautioned about using this in the future. His doctor at the time. Chest Pain MDM - MDM Imaging reviewed no acute findings. Patient had initially no relief from medications given and later given nitroglycerin with some improvement in his pain. I did discuss findings the patient will be admitted for inpatient evaluation of chest pain. Case is discussed with Dr. Barcenas Disposition Clinical Impression: Chest pain, Unstable angina pectoris, Hiatal hernia Disposition: ADMITTED IP TO THIS HOSP Condition: Fair
--- NOTE | 2020-12-24 15:41 | XR ---
EXAMINATION TYPE: XR chest 2V DATE OF EXAM: 12/24/2020 COMPARISON: Chest x-ray and CT December 07, 2020 HISTORY: Chest pain after vomiting. TECHNIQUE: Frontal and lateral views of the chest are obtained. FINDINGS: Persistent left basilar opacity favoring scarring and/or atelectasis. Right lung is clear . No pleural effusion or pneumothorax seen bilaterally. The cardiac silhouette size is stable and wit hin normal limits. Small slice periesophageal hernia noted retrocardiac region confirmed on CT. Surgi lea change right humeral head is redemonstrated. IMPRESSION: Chronic changes without new suspicious acute pulmonary process.
[2020-12-24 15:42] LABS: Basophils # (A) 0.1 k/uL (0-0.2); Basophils % (A) 1 %; Eosinophils # (A) 0.2 k/uL (0-0.7); Eosinophils % (A) 2 %; HCT 44.6 % (39.0-53.0); HGB 15.3 gm/dL (13.0-17.5); Lymphocytes # (A) 2.4 k/uL (1.0-4.8); Lymphocytes % (A) 30 %; MCH 31.6 pg (25.0-35.0); MCHC 34.2 g/dL (31.0-37.0); MCV 92.2 fL (80.0-100.0); Mean Platelet Volume 6.9; Monocytes # (A) 0.5 k/uL (0-1.0); Monocytes % (A) 6 %; Neutrophils # (A) 4.7 k/uL (1.3-7.7); Neutrophils % (A) 59 %; Platelet Count 337 k/uL (150-450); RBC 4.83 m/uL (4.30-5.90); RDW 13.2 % (11.5-15.5); WBC 7.9 k/uL (3.8-10.6)
[2020-12-24 15:55] LABS: ALT 34 U/L (4-49); AST 30 U/L (17-59); African American GFR (CKD) >90 (>60 ml/min/1.73 sqM); Albumin 4.3 g/dL (3.5-5.0); Alkaline Phosphatase 66 U/L (38-126); Anion Gap 9 mmol/L; Blood Urea Nitrogen 11 mg/dL (9-20); Calcium 9.6 mg/dL (8.4-10.2); Carbon Dioxide 23 mmol/L (22-30); Chloride 105 mmol/L (98-107); Creatine Kinase 64 U/L (55-170); Glucose 94 mg/dL (74-99); Lipase 229 U/L (23-300); Non-African American GFR(CKD) >90 (>60 ml/min/1.73 sqM); Potassium 4.3 mmol/L (3.5-5.1); Sodium 137 mmol/L (137-145); Total Bilirubin 0.2 mg/dL (0.2-1.3); Total Protein 7.1 g/dL (6.3-8.2)
[2020-12-24 16:08] LABS: INR 0.9 (<1.2); Partial Thromboplastin Time 23.8 sec (22.0-30.0); Prothrombin Time 9.7 sec (9.0-12.0)
[2020-12-24] MEDS ORDERED: fentaNYL (PF) 50 MCG/ML 2 ML AMP IV STA (16:12)
[2020-12-24] MEDS ORDERED: NITROGLYCERIN SL TABS 0.4 MG TAB SUBLINGUAL STA (16:20)
[2020-12-24] MEDS ORDERED: NITROGLYCERIN SL TABS 0.4 MG TAB SUBLINGUAL PRN (17:10)
[2020-12-24] MEDS ORDERED: HEPARIN SODIUM 1,000 UN/ML (10ML VL) IV ONE (17:10)
[2020-12-24] MEDS ORDERED: ONDANSETRON 4 MG TAB PO PRN (17:12)
[2020-12-24] MEDS ORDERED: CYCLOBENZAPRINE 10 MG TAB PO PRN (17:12)
[2020-12-24] MEDS ORDERED: HYDROcodone/APAP 7.5-325MG 1 EACH TAB PO PRN (17:12)
[2020-12-24] MEDS ORDERED: traMADol 50 MG TAB PO PRN (17:12)
[2020-12-24] MEDS ORDERED: HEPARIN SOD,PORK IN 0.45% NACL 25,000 UNIT in 0.45% NACL 1 250ML.BAG IV SCH (17:15)
[2020-12-24] MEDS: SUCRALFATE 1 GM TAB PO SCH ×2 (19:56→20:40)
[2020-12-24] MEDS: NITROGLYCERIN OINT 1 INCH/GM PACKET TOPICAL SCH (19:59)
[2020-12-24] MEDS: HYDROcodone/APAP 10-325MG 1 EACH TAB PO PRN (20:41)
[2020-12-24] MEDS ORDERED: TEMAZEPAM 30 MG CAP PO SCH (21:00)
[2020-12-24] MEDS ORDERED: DICYCLOMINE 10 MG CAP PO PRN (21:30)
[2020-12-25] MEDS: NITROGLYCERIN OINT 1 INCH/GM PACKET TOPICAL SCH ×2 (01:12→06:07)
[2020-12-25] MEDS: HYDROcodone/APAP 10-325MG 1 EACH TAB PO PRN (02:17)
[2020-12-25 05:05] LABS: HCT 44.4 % (39.0-53.0); HGB 14.8 gm/dL (13.0-17.5); MCH 31.4 pg (25.0-35.0); MCHC 33.3 g/dL (31.0-37.0); MCV 94.2 fL (80.0-100.0); Mean Platelet Volume 7.1; Platelet Count 275 k/uL (150-450); RBC 4.71 m/uL (4.30-5.90); WBC 10.7 k/uL (3.8-10.6)
[2020-12-25 05:15] LABS: ALT 38 U/L (4-49); AST 36 U/L (17-59); African American GFR (CKD) >90 (>60 ml/min/1.73 sqM); Albumin/Globulin Ratio 1.4; Alkaline Phosphatase 72 U/L (38-126); Anion Gap 6 mmol/L; Blood Urea Nitrogen 15 mg/dL (9-20); Calcium 9.4 mg/dL (8.4-10.2); Carbon Dioxide 25 mmol/L (22-30); Chloride 105 mmol/L (98-107); Globulin 2.8 g/dL; Glucose 106 mg/dL (74-99); Non-African American GFR(CKD) >90 (>60 ml/min/1.73 sqM); Potassium 4.2 mmol/L (3.5-5.1); Sodium 136 mmol/L (137-145); Total Bilirubin 0.3 mg/dL (0.2-1.3); Total Protein 6.8 g/dL (6.3-8.2)
[2020-12-25] MEDS ORDERED: HEPARIN SODIUM 1,000 UN/ML (10ML VL) IV PRN (05:26)
[2020-12-25] MEDS ORDERED: PANTOPRAZOLE 40 MG TABLET PO SCH ×2 (07:30→09:00)
[2020-12-25] MEDS: IOPAMIDOL CONTRAST (ORAL USE) VIAL PO PRN ×2 (08:34→09:38)
[2020-12-25] MEDS ORDERED: bisacodyL 10 MG SUPP RECTAL STA (08:51)
[2020-12-25] MEDS ORDERED: SCOPOLAMINE 1.5MG/72HR PATCH TRANSDERM SCH (09:00)
[2020-12-25] MEDS ORDERED: ATORVASTATIN 80 MG TAB PO SCH (09:00)
[2020-12-25] MEDS ORDERED: ASPIRIN 325 MG TAB PO SCH (09:00)
[2020-12-25] MEDS: MORPHINE SULFATE 2 MG/ML SYRINGE IVP PRN ×4 (09:05→23:06)
[2020-12-25] MEDS: ONDANSETRON 4 MG/2 ML VIAL IVP PRN ×2 (09:05→18:20)
[2020-12-25] MEDS: PANTOPRAZOLE 40 MG/10 ML VIAL IVP SCH (09:06)
--- NOTE | 2020-12-25 10:37 | CT ---
EXAMINATION TYPE: CT ChestAbdPelvis w con DATE OF EXAM: 12/25/2020 COMPARISON: 12/07/2020 HISTORY: Left sided upper abdominal and chest pain CT DLP: 2437 mGycm CONTRAST: CT scan of the chest, abdomen and pelvis is performed with Oral Contrast and with IV Contrast, patien t injected with 100 mL of Isovue 300. CT Chest: LUNGS: Thoracotomy changes redemonstrated left lower lobe pleural-parenchymal thickening. No signific ant change appreciated. The lungs are otherwise clear. No pulmonary nodule or mass is detected. No p leural effusion or CT evidence of interstitial lung disease. MEDIASTINUM: Thoracic aorta is of normal caliber. The heart is not enlarged. No evidence for media stinal mass or adenopathy. HILAR STRUCTURES: No evidence for mass. No hilar adenopathy is appreciated. OTHER: No significant abnormality. CONTRAST CT ABDOMEN AND PELVIS FINDINGS: LIVER/GB: The gallbladder is surgically absent. Hepatomegaly with hepatic steatosis. No space occupying hepatic lesion. Biliary tree is of normal lea iber. PANCREAS: No inflammation. No distinct mass. SPLEEN: No splenic enlargement. No lesion seen. ADRENALS: No nodule. No thickening. KIDNEYS/BLADDER: No hydronephrosis. No nephrolithiasis. No distinct renal mass. BOWEL: Normal appendix. Normal bowel caliber. No inflammation. Moderate fixed hiatal hernia redemon strated. Surgical clips noted. GENITAL ORGANS: No gross abnormality. LYMPH NODES: No greater than 1cm abdominal or pelvic lymph nodes are appreciated. AORTA: No significant abnormality. OSSEOUS STRUCTURES: Postoperative changes lumbar spine. OTHER: No significant additional abnormality is seen. IMPRESSION: 1. No significant change in virtually prior study. 2. Moderate fixed hiatal hernia. 3. Thoracotomy changes left lower lobe. 4. Hepatomegaly with hepatic steatosis.
[2020-12-25] MEDS: SUCRALFATE 1 GM TAB PO SCH ×4 (10:52→20:43)
[2020-12-25] MEDS: CITALOPRAM HYDROBROMIDE 20 MG TAB PO SCH (10:52)
--- NOTE | 2020-12-25 11:38 | P.CRDCN ---
History of Present Illness Consult date: 12/25/20 History of present illness: HISTORY OF PRESENT ILLNESS: This is a 40-year-old male with a past medical history significant for recent diagnosis of paraesophageal hernia and obesity. 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 We have been asked to see the patient in consultation for chest pain. Patient examined at the bedside. Patient states the last 3 weeks he has been having intermittent chest disco mfort. He denies any radiation of the pain or any shortness of breath. He reports generalized malaise. He states he has been nauseated and has a difficult time eating. EKG reveals sinus tachycardia with no signs of acute ischemia Chest xray chronic changes without new suspicious acute pulmonary process Laboratory data: WBC 10.7. Hemoglobin 14.8. Platelet count 275. D-dimer 0.40. Sodium 136. Potassium 4.2. BUN 15. Creatinine 0.92. Magnesium 2.0. Current home cardiac medications include none REVIEW OF SYSTEMS: At the time of my exam: CONSTITUTIONAL: Denies fever or chills. HEENT: Denies blurred vision, vision changes, or eye pain. Denies hemoptysis CARDIOVASCULAR: Denies chest pain. Denies orthopnea. Denies PND. Denies palpitations RESPIRATORY: Denies shortness of breath. GASTROINTESTINAL: Denies abdominal pain. Denies nausea or vomiting. HEMATOLOGIC: Denies bleeding disorders. GENITOURINARY: Denies any blood in urine. SKIN: Denies pruitis. Denies rash. PHYSICAL EXAM: VITAL SIGNS: Reviewed. GENERAL: Well-developed in no acute distress. HEENT: Head is normocephalic. Pupils are equal, round. Sclerae anicteric. Mucous membranes of the mouth are moist. Neck supple. No JVD or thyromegaly LUNGS: Respirations even and unlabored. Lungs essentially clear to auscultation bilaterally. HEART: Regular rate and rhythm. S1 and S2 heard. ABDOMEN: Soft. Nondistended. Nontender. EXTREMITIES: Normal range of motion. No clubbing or cyanosis. Peripheral pulses intact. No lower extremity edema NEUROLOGIC: Awake and alert. Oriented x 3. ASSESSMENT: Chest pain, atypical, troponin negative 3 Paraesophageal hernia Obesity PLAN: An acute coronary event has been ruled out Obtain 2-D echo to assess cardiac structure and function Discontinue IV heparin and Nitropaste Gen. surgery consulted for further evaluation Further recommendations pending patient course Nurse practitioner note has been reviewed by physician. Signing provider agrees with the documented findings, assessment, and plan of care. Past Medical History Past Medical History: No Reported History Additional Past Medical History / Comment(s): multiple dislocation of rt shoulder, back pain History of Any Multi-Drug Resistant Organisms: None Reported Past Surgical History: Back Surgery, Orthopedic Surgery Additional Past Surgical History / Comment(s): rt shoulder Past Anesthesia/Blood Transfusion Reactions: No Reported Reaction Past Psychological History: No Psychological Hx Reported Smoking Status: Never smoker Past Alcohol Use History: None Reported Past Drug Use History: None Reported - Past Family History Mother Additional Family Medical History / Comment(s): lupus, Father History Unknown: Yes Brother(s) Additional Family Medical History / Comment(s): autoimmune disorder Medications and Allergies Home Medications Medication Instructions Recorded Confirmed Type Cyclobenzaprine [Flexeril] 10 mg PO BID PRN 11/22/20 12/24/20 History Temazepam [Restoril] 30 mg PO HS 12/07/20 12/24/20 History traMADol HCL 50 mg PO TID PRN 12/07/20 12/24/20 History Citalopram Hydrobromide [CeleXA] 20 mg PO DAILY #30 tab 12/09/20 12/24/20 Rx Ondansetron HCl [Zofran] 4 mg PO Q8H PRN #40 tab 12/09/20 12/24/20 Rx Sucralfate [Carafate] 1 gm PO ACHS #120 tablet 12/10/20 12/24/20 Rx Dicyclomine [Bentyl] 10 mg PO TID PRN 12/24/20 12/24/20 History Pantoprazole Sodium [Protonix] 20 mg PO DAILY 12/24/20 12/24/20 History Allergies Allergy/AdvReac Type Severity Reaction Status Date / Time hydromorphone [From Dilaudid] Allergy Rash/Hives Verified 12/24/20 17:17 latex Allergy Rash/Hives Verified 12/24/20 17:17 meperidine [From Demerol] Allergy Rash/Hives Verified 12/24/20 17:17 Physical Exam Vitals: Vital Signs Temp Pulse Pulse Resp BP BP Pulse Ox 12/25/20 07:00 98.1 F 73 20 100/61 90 L 12/25/20 02:25 97.4 F L 88 16 115/70 96 12/25/20 02:00 16 12/24/20 20:03 98.3 F 84 16 117/83 97 12/24/20 19:04 98.2 F 78 16 128/74 94 L 12/24/20 19:00 87 16 127/94 94 L 12/24/20 17:00 87 16 120/74 93 L 12/24/20 16:23 98.2 F 91 16 116/81 95 12/24/20 15:30 98 19 120/86 94 L 12/24/20 15:04 98.3 F 104 H 18 113/76 96 Intake and Output 12/24/20 12/25/20 12/25/20 22:59 06:59 14:59 Intake Total 123.488 Balance 123.488 Intake: Intake, IV Titration 123.488 Amount Heparin Sod,Pork in 0.45% 123.488 NaCl 25,000 unit In 0.45 % NaCl 1 250ml.bag @ 8. 998 UNITS/KG/HR 9.999 mls /hr IV .Q24H [facility] Rx#: [id number] Other: Voiding Method Toilet # Voids 2 2 Weight 111.13 kg Results 12/25/20 04:35 12/25/20 04:35 Cardiac Enzymes 12/24/20 12/24/20 12/24/20 Range/Units 15:28 15:28 19:35 AST 30 (17-59) U/L Troponin I <0.012 <0.012 (0.000-0.034) ng/mL 12/24/20 12/25/20 Range/Units 22:38 04:35 AST 36 (17-59) U/L Troponin I <0.012 (0.000-0.034) ng/mL Coagulation 12/24/20 12/25/20 Range/Units 15:28 04:35 PT 9.7 (9.0-12.0) sec APTT 23.8 29.0 (22.0-30.0) sec CBC 12/24/20 12/25/20 Range/Units 15:28 04:35 WBC 7.9 10.7 H (3.8-10.6) k/uL RBC 4.83 4.71 (4.30-5.90) m/uL Hgb 15.3 14.8 (13.0-17.5) gm/dL Hct 44.6 44.4 (39.0-53.0) % Plt Count 337 275 (150-450) k/uL Comprehensive Metabolic Panel 12/24/20 12/25/20 Range/Units 15:28 04:35 Sodium 137 136 L (137-145) mmol/L Potassium 4.3 4.2 (3.5-5.1) mmol/L Chloride 105 105 (98-107) mmol/L Carbon Dioxide 23 25 (22-30) mmol/L BUN 11 15 (9-20) mg/dL Creatinine 0.80 0.92 (0.66-1.25) mg/dL Glucose 94 106 H (74-99) mg/dL Calcium 9.6 9.4 (8.4-10.2) mg/dL AST 30 36 (17-59) U/L ALT 34 38 (4-49) U/L Alkaline Phosphatase 66 72 (38-126) U/L Total Protein 7.1 6.8 (6.3-8.2) g/dL Albumin 4.3 4.0 (3.5-5.0) g/dL Current Medications Generic Name Dose Route Start Last Admin Trade Name Freq PRN Reason Stop Dose Admin Hydrocodone Bitart/Acetaminophen 1 each 12/24/20 17:12 12/24/20 17:53 Hydrocodone/Apap 7.5-325mg 1 Each Tab PO 1 each Q4H PRN Administration Pain Control Hydrocodone Bitart/Acetaminophen 1 each 12/24/20 20:24 12/25/20 02:17 Hydrocodone/Apap 10-325mg 1 Each Tab PO 1 each Q6HR PRN Administration Pain Aspirin 325 mg 12/25/20 09:00 Aspirin 325 Mg Tab PO DAILY SANDI Atorvastatin Calcium 80 mg 12/25/20 09:00 Atorvastatin 80 Mg Tab PO DAILY SANDI Citalopram Hydrobromide 20 mg 12/25/20 09:00 Citalopram Hydrobromide 20 Mg Tab PO DAILY SANDI Cyclobenzaprine HCl 10 mg 12/24/20 17:12 Cyclobenzaprine 10 Mg Tab PO BID PRN Pain Dicyclomine HCl 10 mg 12/24/20 21:30 Dicyclomine 10 Mg Cap PO TID PRN IBS Heparin Sodium (Porcine) 0 unit 12/25/20 05:26 12/25/20 06:10 Heparin Sodium 1,000 Un/Ml (10ml Vl) IV 4,000 unit PER PROTOCOL PRN Administration Low PTT Protocol Heparin Sodium/Sodium Chloride 250 mls @ 9.999 mls/hr 12/24/20 17:15 12/25/20 06:11 25,000 unit/ Sodium Chloride IV 11.998 units/kg/hr .Q24H SANDI 13.333 mls/hr Titration Protocol 8.998 UNITS/KG/HR Iopamidol 30 ml 12/25/20 08:16 12/25/20 08:34 Iopamidol Contrast (Oral Use) Vial PO 12/26/20 08:17 30 ml Q60M PRN Administration CT Scan Morphine Sulfate 2 mg 12/25/20 08:52 Morphine Sulfate 2 Mg/Ml Syringe IVP Q4HR PRN Pain/Discomfort Nitroglycerin 0.4 mg 12/24/20 17:10 Nitroglycerin Sl Tabs 0.4 Mg Tab SUBLINGUAL Q5M PRN Chest Pain Nitroglycerin 1 inch 12/24/20 18:00 12/25/20 06:07 Nitroglycerin Oint 1 Inch/Gm Packet TOPICAL Not Given Q6HR SANDI Ondansetron HCl 4 mg 12/24/20 17:12 12/25/20 02:30 Ondansetron 4 Mg Tab PO 4 mg Q8H PRN Administration Nausea And Vomiting Ondansetron HCl 4 mg 12/25/20 08:52 Ondansetron 4 Mg/2 Ml Vial IVP Q6HR PRN Nausea And Vomiting Pantoprazole Sodium 40 mg 12/25/20 09:00 Pantoprazole 40 Mg/10 Ml Vial IVP DAILY SANDI Scopolamine 1 patch 12/25/20 09:00 Scopolamine 1.5mg/72hr Patch TRANSDERM Q72H SANDI Sucralfate 1 gm 12/24/20 17:30 12/24/20 20:40 Sucralfate 1 Gm Tab PO Not Given ACHS SANDI Temazepam 30 mg 12/24/20 21:00 12/24/20 20:41 Temazepam 30 Mg Cap PO 30 mg HS SANDI Administration Tramadol HCl 50 mg 12/24/20 17:12 Tramadol 50 Mg Tab PO TID PRN Pain Intake and Output 12/24/20 12/25/20 12/25/20 22:59 06:59 14:59 Intake Total 123.488 Balance 123.488 Intake: Intake, IV Titration 123.488 Amount Heparin Sod,Pork in 0.45% 123.488 NaCl 25,000 unit In 0.45 % NaCl 1 250ml.bag @ 8. 998 UNITS/KG/HR 9.999 mls /hr IV .Q24H [facility] Rx#: [id number] Other: Voiding Method Toilet # Voids 2 2 Weight 111.13 kg 12/25/20 04:35 12/25/20 04:35
--- NOTE | 2020-12-25 12:41 | ECHOF ---
Referral Reason:Chest pain MEASUREMENTS -------- HEIGHT: 172.7 cm WEIGHT: 111.1 kg BP: IVSd: 0.8 cm (0.6 - 1.1) LVIDd: 4.5 cm (3.9 - 5.3) LVPWd: 0.9 cm (0.6 - 1.1) EDV(Teich): 91 ml IVSs: 1.4 cm LVIDs: 2.6 cm LVPWs: 1.4 cm %IVS Thck: 70 % ESV(Teich): 25 ml EF(Teich): 73 % %FS: 42 % SV(Teich): 66 ml RVIDd: 3.7 cm (< 3.3) Ao Diam: 3.3 cm (2.0 - 3.7) LA Diam: 3.9 cm (2.7 - 3.8) AV Cusp: 2.0 cm (1.5 - 2.6) EPSS: 0.6 cm MV E Mason: 0.64 m/s MV DecT: 238 ms MV Dec [place]: 2.7 m/s MV A Mason: 0.78 m/s MV E/A Ratio: 0.82 MV PHT: 69 ms TR Vmax: 1.55 m/s TR maxP.56 mmHg RAP: 5.00 mmHg RVSP: 14.56 mmHg MV EF SLOPE: 75.23 mm/s (70 - 150) MV EXCURSION: 14.92 mm (> 18.000) FINDINGS -------- Sinus rhythm. This was a technically good study. The left ventricular size is normal. There is borderline concentric left ventricular hypertrophy. Overall left ventricular systolic function is low-normal with, an EF between 50 - 55 %. The right ventricle is moderate to severely enlarged. The left atrial size is normal. The right atrial size is normal. The aortic valve is trileaflet, and appears structurally normal. No aortic stenosis or regurgitation. Mild mitral regurgitation is present. Mild tricuspid regurgitation present. Right ventricular systolic pressure is normal at < 35 mmHg. There is no pulmonic regurgitation present. The aortic root size is normal. There is no pericardial effusion. CONCLUSIONS -------- 1. The left ventricular size is normal. 2. There is borderline concentric left ventricular hypertrophy. 3. Overall left ventricular systolic function is low-normal with, an EF between 50 - 55 %. 4. The right ventricle is moderate to severely enlarged. 5. The left atrial size is normal. 6. The right atrial size is normal. 7. The aortic valve is trileaflet, and appears structurally normal. No aortic stenosis or regurgitati on. 8. Mild mitral regurgitation is present. 9. Mild tricuspid regurgitation present. 10. The aortic root size is normal. 11. There is no pericardial effusion. CHIEF MEDICAL DIRECTOR: Ale Enciso RDCS
[2020-12-25] MEDS: SODIUM CHLORIDE 0.9% 1,000 ML IV SCH ×2 (13:55→20:44)
--- NOTE | 2020-12-25 13:59 | P.GSCN ---
History of Present Illness Consult date: 12/25/20 History of present illness: CHIEF COMPLAINT: Epigastric pain HISTORY OF PRESENT ILLNESS: This is a 40-year-old male with a known history of diaphragmatic hernia repair that was completed at [facility] about 6 years ago. He has a known recurrent hiatal hernia. Patient also has a prior history of a cholecystectomy. Patient presented to the hospital complaints of epigastric abdominal pain and chest pain. His troponins were negative 3 sets. He's been seen by a cardiology is no evidence of any acute coronary event. They discontinue patient's IV heparin. Surgical services consult in regards to patient's epigastric abdominal pain and nausea and vomiting. Patient reports that he is feeling bloated has had recurrent nausea and vomiting. It was sc heduled for a Hunter fundoplication next Monday with Dr. lin outpatient. Patient has computed tomography scan of the chest abdomen and pelvis showing no significant change. Moderate fixed hiatal hernia. Thoracotomy changes left lower lobe. Hepatomegaly with hepatic steatosis. Patient denies any fever chills or sweats. Denies any change in bowel movements. Patient seen and examined with Dr. lin PAST MEDICAL HISTORY: See list. PAST SURGICAL HISTORY: See list. MEDICATIONS: See list. ALLERGIES: See list. SOCIAL HISTORY: No illicit drug use. REVIEW OF SYSTEMS: CONSTITUTIONAL: Denies fever or chills. HEENT: Denies blurred vision, vision changes, or eye pain. Denies hemoptysis CARDIOVASCULAR: Denies chest pain or pressure. RESPIRATORY: No shortness of breath. GASTROINTESTINAL: See HPI for pertinent findings HEMATOLOGIC: Denies bleeding disorders. GENITOURINARY: Denies any blood in urine or increased urinary frequency. SKIN: Denies pruitis. Denies rash. PHYSICAL EXAM: VITAL SIGNS: Reviewed GENERAL: Well-developed in no acute distress. HEENT: No sclera icterus. Extraocular movements grossly intact. Moist buccal mucosa. Head is atraumatic, normocephalic. No nasal drainage. ABDOMEN: Soft. Obese. Nondistended. Tenderness epigastric area NEUROLOGIC: Alert and oriented. Cranial nerves II through XII grossly intact. LABORATORY DATA: WBC 10.7 hemoglobin 14.8 platelets 275 D-dimer 0.40 sodium 136 potassium 4.2 creatinine 0.92 Magnesium 2.0 LFTs are normal troponins negative 3 Lipase 229 IMAGING: computed tomography scan as stated above ASSESSMENT: 1. Abdominal pain 2. Recurrent hiatal hernia 3. Prior history of diaphragmatic hernia repair a [facility] PLAN: -Start patient on full liquid diet -Initially ordered a gastric emptying study. Unfortunately per nuc med study cannot be completed until Monday -Continue conservative management -Continue IV fluids -Continue antiemetics -Patient scheduled for a Hunter fundoplication next Monday outpatient with Dr. lin Thank you for this consultation Physician [employer] Director note has been reviewed by physician. Signing provider agrees with the documented findings, assessment, and plan of care. Past Medical History Past Medical History: No Reported History Additional Past Medical History / Comment(s): multiple dislocation of rt shoulder, back pain History of Any Multi-Drug Resistant Organisms: None Reported Past Surgical History: Back Surgery, Orthopedic Surgery Additional Past Surgical History / Comment(s): rt shoulder Past Anesthesia/Blood Transfusion Reactions: No Reported Reaction Past Psychological History: No Psychological Hx Reported Smoking Status: Never smoker Past Alcohol Use History: None Reported Past Drug Use History: None Reported - Past Family History Mother Additional Family Medical History / Comment(s): lupus, Father History Unknown: Yes Brother(s) Additional Family Medical History / Comment(s): autoimmune disorder Medications and Allergies Home Medications Medication Instructions Recorded Confirmed Type Cyclobenzaprine [Flexeril] 10 mg PO BID PRN 11/22/20 12/24/20 History Temazepam [Restoril] 30 mg PO HS 12/07/20 12/24/20 History traMADol HCL 50 mg PO TID PRN 12/07/20 12/24/20 History Citalopram Hydrobromide [CeleXA] 20 mg PO DAILY #30 tab 12/09/20 12/24/20 Rx Ondansetron HCl [Zofran] 4 mg PO Q8H PRN #40 tab 12/09/20 12/24/20 Rx Sucralfate [Carafate] 1 gm PO ACHS #120 tablet 12/10/20 12/24/20 Rx Dicyclomine [Bentyl] 10 mg PO TID PRN 12/24/20 12/24/20 History Pantoprazole Sodium [Protonix] 20 mg PO DAILY 12/24/20 12/24/20 History Allergies Allergy/AdvReac Type Severity Reaction Status Date / Time hydromorphone [From Dilaudid] Allergy Rash/Hives Verified 12/24/20 17:17 latex Allergy Rash/Hives Verified 12/24/20 17:17 meperidine [From Demerol] Allergy Rash/Hives Verified 12/24/20 17:17 Surgical - Exam Vital Signs Temp Pulse Resp BP Pulse Ox 98.3 F 104 H 18 113/76 96 12/24/20 15:04 12/24/20 15:04 12/24/20 15:04 12/24/20 15:04 12/24/20 15:04 Results - Labs 12/25/20 04:35 12/25/20 04:35 Abnormal Lab Results - Last 24 Hours (Table) 12/25/20 12/25/20 Range/Units 04:35 04:35 WBC 10.7 H (3.8-10.6) k/uL Sodium 136 L (137-145) mmol/L Glucose 106 H (74-99) mg/dL Diabetes panel 12/24/20 12/25/20 Range/Units 15:28 04:35 Sodium 137 136 L (137-145) mmol/L Potassium 4.3 4.2 (3.5-5.1) mmol/L Chloride 105 105 (98-107) mmol/L Carbon Dioxide 23 25 (22-30) mmol/L BUN 11 15 (9-20) mg/dL Creatinine 0.80 0.92 (0.66-1.25) mg/dL Glucose 94 106 H (74-99) mg/dL Calcium 9.6 9.4 (8.4-10.2) mg/dL AST 30 36 (17-59) U/L ALT 34 38 (4-49) U/L Alkaline Phosphatase 66 72 (38-126) U/L Total Protein 7.1 6.8 (6.3-8.2) g/dL Albumin 4.3 4.0 (3.5-5.0) g/dL Calcium panel 12/24/20 12/25/20 Range/Units 15:28 04:35 Calcium 9.6 9.4 (8.4-10.2) mg/dL Albumin 4.3 4.0 (3.5-5.0) g/dL Pituitary panel 12/24/20 12/25/20 Range/Units 15:28 04:35 Sodium 137 136 L (137-145) mmol/L Potassium 4.3 4.2 (3.5-5.1) mmol/L Chloride 105 105 (98-107) mmol/L Carbon Dioxide 23 25 (22-30) mmol/L BUN 11 15 (9-20) mg/dL Creatinine 0.80 0.92 (0.66-1.25) mg/dL Glucose 94 106 H (74-99) mg/dL Calcium 9.6 9.4 (8.4-10.2) mg/dL Adrenal panel 12/24/20 12/25/20 Range/Units 15:28 04:35 Sodium 137 136 L (137-145) mmol/L Potassium 4.3 4.2 (3.5-5.1) mmol/L Chloride 105 105 (98-107) mmol/L Carbon Dioxide 23 25 (22-30) mmol/L BUN 11 15 (9-20) mg/dL Creatinine 0.80 0.92 (0.66-1.25) mg/dL Glucose 94 106 H (74-99) mg/dL Calcium 9.6 9.4 (8.4-10.2) mg/dL Total Bilirubin 0.2 0.3 (0.2-1.3) mg/dL AST 30 36 (17-59) U/L ALT 34 38 (4-49) U/L Alkaline Phosphatase 66 72 (38-126) U/L Total Protein 7.1 6.8 (6.3-8.2) g/dL Albumin 4.3 4.0 (3.5-5.0) g/dL
--- NOTE | 2020-12-25 14:38 | P.HPIM ---
History of Present Illness H&P Date: 12/25/20 HISTORY OF PRESENT ILLNESS This is a 40-year-old male patient of Dr. Soria with past medical history of chronic back pain with lumbar fusion 4 years ago. Patient with history of diaphragmatic hernia repair that was completed at [facility] 6 years ago and is known to have recurrent hiatal hernia with plan for surgical intervention on January [address] Kirkland. Patient presented to hospital with epigastric pain and chest pain. Troponins of the negative on 3 draws. Patient has been seen by cardiology who an acute coronary syndrome has been ruled out. Heparin drip was subsequently discontinued. Consult in place with general surgery regarding abdominal pain. Dulcolax suppository has been ordered but patient is refusing. He denies having any fever, no cough. Pain is in the epigastric area. He has not been eating and is complaints of vomiting. Patient presented to [facility] emergency center. He was afebrile, heart rate 104, blood pressure 113/76, pulse ox 96% on room air. EKG sinus tachycardia with no acute ST changes. CBC was unremarkable. D-dimer 0.4. CMP all within normal limits. Troponin negative on 3 draws. Lipase 229. Chest x-ray showed no cardiopulmonary disease. CAT scan of the chest abdomen and pelvis revealed no significant change. Moderate fixed hiatal hernia. Thoracotomy changes in the left lower lobe. Hepatomegaly with hepatic steatosis. Echocardiogram reveals EF of 50-55% with borderline concentric left hypertrophy, mild mitral regurgitation, mild tricuspid regurgitation.. Patient has been seen by cardiology and was atypical chest pain for heart disease, and cardiology has signed off. Patient admitted to the [facility] floor. REVIEW OF SYSTEMS Constitutional: No fever, no chills, no night sweats. No weight change. No weakness, fatigue or lethargy. No daytime sleepiness. EENT: No headache. No blurred vision or double vision, no loss of vision. No loss of Hearing, no ringing in the ears, no dizziness. No nasal drainage or congestion. No epistaxis. No sore throat. Lungs: No shortness of breath, cough, no sputum production. No wheezing. Cardiovascular: Reports chest pain, no lower extremity edema. No palpitations. No paroxysmal nocturnal dyspnea. No orthopnea. No lightheadedness or dizziness. No syncopal episodes. Abdominal: Reports abdominal pain. No nausea, vomiting. Reports diarrhea. No constipation. No bloody or tarry stools. Reports loss of appetite. Genitourinary: No dysuria, increased frequency, urgency. No urinary retention. Musculoskeletal: No myalgias. No muscle weakness, no gait dysfunction, no frequent falls. No back pain. No neck pain. Integumentary: No wounds, no lesions. No rash or pruritus. No unusual br uising. No change in hair or nails. Neurologic: No aphasia. No facial droop. No change in mentation. No head injury. No headache. No paralysis. No paresthesia. Psychiatric: No depression. Reports anxiety. No mood swings. Endocrine: No abnormal blood sugars. No weight change. No excessive sweating or thirst. No cold intolerance. SOCIAL HISTORY Patient is a lifelong nonsmoker, no illicit drug use, marijuana use or alcohol use. Patient is and lives alone. FAMILY HISTORY Mother at age 59 from lupus. Patient does not know his father. Patient has one brother with autoimmune disorder. Patient does not have any sisters. PHYSICAL EXAMINATION Gen: This carlie 40-year-old obese male seen sitting on the ER stretcher, eating eggs but states he does not have any appetite. EENT: Head is atraumatic, normocephalic. Pupils equal, round. Sclerae is anicteric. NECK: Supple. No JVD. No lymphadenopathy. No thyromegaly. LUNGS: Clear to auscultation. No wheezes or rhonchi. No intercostal retractions. HEART: Regular rate and rhythm. No murmur. ABDOMEN: Soft. Bowel sounds are present. No masses. Upper quadrantnt tenderness. EXTREMITIES: No pedal edema. No calf tenderness. NEUROLOGICAL: Patient is awake, alert and oriented x3. Cranial nerves 2 through 12 are grossly intact. ASSESSMENT AND PLAN 1. Abdominal pain with recurrent hiatal hernia with previous history of di aphragmatic hernia repair at [facility]. General surgery consult, Dulcolax suppository was refused by the patient, gastric emptying study ordered, full liquid diet. Continue tramadol 50 mg 3 times daily as needed, morphine 2 mg IV push every 4 hours as needed for pain, Zofran as needed for nausea, scopolamine patch for nausea and vomiting. Continue incentive spirometry to reduce incidence of atelectasis and hospital acquired pneumonia. 2. Chest pain, musculoskeletal. Cardiology consult appreciated. Cardiology has signed off. 3. Chronic low back pain with previous lumbar fusion. Continue Flexeril 10 mg twice daily as needed. 4. Generalized anxiety disorder. 5. GI prophylaxis. Protonix 40 mg IV push daily. 6. DVT prophylaxiHeparin subcu. Patient will be admitted to the hospital for a minimum of 2 night stay. DISCHARGE PLAN Home. Impression and plan of care have been directed as dictated by the signing physician. Madhuri Steele nurse practitioner acting as scribe for signing physician. Past Medical History Past Medical History: No Reported History Additional Past Medical History / Comment(s): multiple dislocation of rt shoulder, back pain History of Any Multi-Drug Resistant Organisms: None Reported Past Surgical History: Back Surgery, Orthopedic Surgery Additional Past Surgical History / Comment(s): rt shoulder Past Anesthesia/Blood Transfusion Reactions: No Reported Reaction Past Psychological History: No Psychological Hx Reported Smoking Status: Never smoker Past Alcohol Use History: None Reported Past Drug Use History: None Reported - Past Family History Mother Additional Family Medical History / Comment(s): lupus, Father History Unknown: Yes Brother(s) Additional Family Medical History / Comment(s): autoimmune disorder Medications and Allergies Home Medications Medication Instructions Recorded Confirmed Type Cyclobenzaprine [Flexeril] 10 mg PO BID PRN 11/22/20 12/24/20 History Temazepam [Restoril] 30 mg PO HS 12/07/20 12/24/20 History traMADol HCL 50 mg PO TID PRN 12/07/20 12/24/20 History Citalopram Hydrobromide [CeleXA] 20 mg PO DAILY #30 tab 12/09/20 12/24/20 Rx Ondansetron HCl [Zofran] 4 mg PO Q8H PRN #40 tab 12/09/20 12/24/20 Rx Sucralfate [Carafate] 1 gm PO ACHS #120 tablet 12/10/20 12/24/20 Rx Dicyclomine [Bentyl] 10 mg PO TID PRN 12/24/20 12/24/20 History Pantoprazole Sodium [Protonix] 20 mg PO DAILY 12/24/20 12/24/20 History Allergies Allergy/AdvReac Type Severity Reaction Status Date / Time hydromorphone [From Dilaudid] Allergy Rash/Hives Verified 12/24/20 17:17 latex Allergy Rash/Hives Verified 12/24/20 17:17 meperidine [From Demerol] Allergy Rash/Hives Verified 12/24/20 17:17 Physical Exam Vitals: Vital Signs Temp Pulse Pulse Resp BP BP Pulse Ox 12/25/20 07:00 98.1 F 73 20 100/61 90 L 12/25/20 02:25 97.4 F L 88 16 115/70 96 12/25/20 02:00 16 12/24/20 20:03 98.3 F 84 16 117/83 97 12/24/20 19:04 98.2 F 78 16 128/74 94 L 12/24/20 19:00 87 16 127/94 94 L 12/24/20 17:00 87 16 120/74 93 L 12/24/20 16:23 98.2 F 91 16 116/81 95 12/24/20 15:30 98 19 120/86 94 L 12/24/20 15:04 98.3 F 104 H 18 113/76 96 Intake and Output 12/24/20 12/25/20 12/25/20 22:59 06:59 14:59 Intake Total 123.488 Balance 123.488 Intake: Intake, IV Titration 123.488 Amount Heparin Sod,Pork in 0.45% 123.488 NaCl 25,000 unit In 0.45 % NaCl 1 250ml.bag @ 8. 998 UNITS/KG/HR 9.999 mls /hr IV .Q24H [facility] Rx#: [id number] Other: Voiding Method Toilet # Voids 2 2 Weight 111.13 kg Results CBC & Chem 7: 12/25/20 04:35 12/25/20 04:35 Labs: Abnormal Lab Results - Last 24 Hours (Table) 12/25/20 12/25/20 Range/Units 04:35 04:35 WBC 10.7 H (3.8-10.6) k/uL Sodium 136 L (137-145) mmol/L Glucose 106 H (74-99) mg/dL Thrombosis Risk Factor Assmnt - Choose All That Apply Any of the Below Risk Factors Present?: Yes Each Factor Represents 1 point: Age 41-60 years, Obesity (BMI >25) Other Risk Factors: No Other congenital or acquired thrombophilia - If yes, enter type in comment: No Thrombosis Risk Factor Assessment Total Risk Factor Score: 2 Thrombosis Risk Factor Assessment Level: Low Risk
[2020-12-25] MEDS: TEMAZEPAM 15 MG CAP PO SCH (20:43)
[2020-12-25] MEDS: HEPARIN SODIUM,PORCINE/PF 5,000 UNIT/0.5 ML SYRINGE SQ SCH (20:44)
[2020-12-26 02:10] LABS: Chol/HDL Ratio 7.69; Cholesterol 200 mg/dL (0-200); LDL Cholesterol,Calculated 117.2 mg/dL (0.0-131.0)
[2020-12-26] MEDS: MORPHINE SULFATE 2 MG/ML SYRINGE IVP PRN ×5 (03:22→22:03)
[2020-12-26] MEDS: PANTOPRAZOLE 40 MG/10 ML VIAL IVP SCH (08:09)
[2020-12-26] MEDS: SUCRALFATE 1 GM TAB PO SCH ×4 (08:09→22:03)
[2020-12-26] MEDS: CITALOPRAM HYDROBROMIDE 20 MG TAB PO SCH (08:09)
[2020-12-26] MEDS: HEPARIN SODIUM,PORCINE/PF 5,000 UNIT/0.5 ML SYRINGE SQ SCH ×2 (08:10→22:02)
[2020-12-26] MEDS: SODIUM CHLORIDE 0.9% 1,000 ML IV SCH ×2 (09:03→22:09)
[2020-12-26] MEDS: ONDANSETRON 4 MG/2 ML VIAL IVP PRN (11:22)
--- NOTE | 2020-12-26 14:18 | P.PN ---
Subjective Progress Note Date: 12/26/20 HISTORY OF PRESENT ILLNESS This is a 40-year-old male patient of Dr. Soria with past medical history of chronic back pain with lumbar fusion 4 years ago. Patient with history of di aphragmatic hernia repair that was completed at [facility] 6 years ago and is known to have recurrent hiatal hernia with plan for surgical intervention on January [address] Kirkland. Patient presented to hospital with epigastric pain and chest pain. Troponins of the negative on 3 draws. Patient has been seen by cardiology who an acute coronary syndrome has been ruled out. Heparin drip was subsequently discontinued. Consult in place with general surgery regarding abdominal pain. Dulcolax suppository has been ordered but patient is refusing. He denies having any fever, no cough. Pain is in the epigastric area. He has not been eating and is complaints of vomiting. Patient presented to [facility] emergency center. He was afebrile, heart rate 104, blood pressure 113/76, pulse ox 96% on room air. EKG sinus tachycardia with no acute ST changes. CBC was unremarkable. D-dimer 0.4. CMP all within normal limits. Troponin negative on 3 draws. Lipase 229. Chest x-ray showed no cardiopulmonary disease. CAT scan of the chest abdomen and pelvis revealed no significant change. Moderate fixed hiatal hernia. Thoracotomy changes in the left lower lobe. Hepatomegaly with hepatic steatosis. Echocardiogram reveals EF of 50-55% with borderline concentric left hypertrophy, mild mitral regurgitation, mild tricuspid regurgitation.. Patient has been seen by cardiology and was atypical chest pain for heart disease, and cardiology has signed off. Patient admitted to the [facility] floor. 12/26 patient is much better, however she requires scopolamine patches morphine for pain control, he is on Carafate as well as IV Protonix 40, his eating ice cream instead, we'll going to offer him ensure gel surgery has requested gastric emptying time, unfortunately this will be done next Monday, as nothing would be done this weekend. Patient has options of going home earlier, with scopolamine patches, and Carafate. His Diego patches with 4 patch would be $23, patient cannot afford the previous remy of $87. We'll plan for discharge in a.m., with outpatient nuclear medicine gastric emptying time, and outpatient surgery with Dr. Cee scheduled REVIEW O F SYSTEMS Constitutional: No fever, no chills, no night sweats. No weight change. No weakness, fatigue or lethargy. No daytime sleepiness. EENT: No headache. No blurred vision or double vision, no loss of vision. No loss of Hearing, no ringing in the ears, no dizziness. No nasal drainage or congestion. No epistaxis. No sore throat. Lungs: No shortness of breath, cough, no sputum production. No wheezing. Cardiovascular: Reports chest pain, no lower extremity edema. No palpitations. No paroxysmal nocturnal dyspnea. No orthopnea. No lightheadedness or d izziness. No syncopal episodes. Abdominal: Reports abdominal pain. No nausea, vomiting. Reports diarrhea. No constipation. No bloody or tarry stools. Reports loss of appetite. Genitourinary: No dysuria, increased frequency, urgency. No urinary retention. Musculoskeletal: No myalgias. No muscle weakness, no gait dysfunction, no frequent falls. No back pain. No neck pain. Integumentary: No wounds, no lesions. No rash or pruritus. No unusual bruising. No change in hair or nails. Neurologic: No aphasia. No facial droop. No change in mentation. No head injury. No headache. No paralysis. No paresthesia. Psychiatric: No depression. Reports anxiety. No mood swings. Endocrine: No abnormal blood sugars. No weight change. No excessive sweating or thirst. No cold intolerance. Objective - Vital Signs Vital signs: Vital Signs Temp 98.0 F 12/26/20 07:00 Pulse 82 12/26/20 07:00 Resp 14 12/26/20 07:00 BP 112/73 12/26/20 07:00 Pulse Ox 98 12/26/20 07:00 Intake & Output 12/25/20 12/26/20 12/26/20 18:59 06:59 18:59 Output Total 60 Balance -60 Output: Emesis 60 Other: Voiding Method Toilet Toilet # Voids 1 - Constitutional General appearance: Present: cooperative, obese - EENT Eyes: Present: EOMI, PERRLA, dentition normal - Neck Neck: Present: normal ROM - Respiratory Respiratory: bilateral: CTA, negative: diminished - Cardiovascular Rhythm: regular Heart sounds: normal: S1 - Gastrointestinal General gastrointestinal: Present: normal bowel sounds, soft - Integumentary Integumentary: Present: decreased turgor, normal - Neurologic Neurologic: Present: CNII-XII intact - Musculoskeletal Musculoskeletal: Present: gait normal, strength equal bilaterally, left sided weakness - Psychiatric Psychiatric: Present: A&O x's 3, appropriate affect, intact judgment & insight - Labs CBC & Chem 7: 12/25/20 04:35 12/25/20 04:35 Labs: Abnormal Lab Results - Last 24 Hours (Table) 12/25/20 Range/Units 04:35 Triglycerides 284.0 H (0.0-149.0) mg/dL VLDL Cholesterol, Calc 56.80 H (5.00-40.00) mg/dL HDL Cholesterol 26.0 L (40.0-60.0) mg/dL Assessment and Plan Plan: ASSESSMENT AND PLAN 1. Abdominal pain with recurrent hiatal hernia with previous history of diaphragmatic hernia repair at [facility]. General surgery consult, Dulcolax suppository was refused by the patient, gastric emptying study ordered, full liquid diet. Continue tramadol 50 mg 3 times daily as needed, morphine 2 mg IV push every 4 hours as needed for pain, Zofran as needed for nausea, scopolamine patch for nausea and vomiting. Continue incentive spirometry to reduce incidence of atelectasis and hospital acquired pneumonia and ensure, good Rx cost for scopolamine patch discussed with patient, 2. Chest pain, musculoskeletal. Cardiology consult appreciated. Cardiology has signed off. 3. Chronic low back pain with previous lumbar fusion. Continue Flexeril 10 mg twice daily as needed. 4. Generalized anxiety disorder. 5. GI prophylaxis. Protonix 40 mg IV push daily. 6. DVT prophylaxiHeparin subcu. Patient will be admitted to the hospital for a minimum of 2 night stay. DISCHARGE PLAN Home.
--- NOTE | 2020-12-26 15:24 | P.PN ---
Subjective Progress Note Date: 12/26/20 CHIEF COMPLAINT: Epigastric pain HISTORY OF PRESENT ILLNESS: The patient is a 40-year-old male presents with recurrent hiatal hernia and now presents with epigastric abdominal pain. He still reports pressure unchanged from yesterday. ROS: No fevers or chills. No new chest pain. No productive sputum PHYSICAL EXAM: VITAL SIGNS: Reviewed CONSTITUTIONAL: Well developed and in no acute distress. EYES: Conjuctivae without sclera icterus. Extraocular movements grossly intact. HEAD, EARS, NOSE, THROAT: Moist buccal mucosa. Head is atraumatic, normocephalic. Hears conversational speech. No nasal drainage. NECK: No gross thyroidomegaly. No jugular venous distention. RESPIRATORY: Non-labored respirations and equal bilateral excursions. CARDIOVASCULAR: Palpable 2+ radial pulses. Regular rate. Regular rhythm. ABDOMEN: Protuberant. No peritonitis. MUSCULOSKELETAL: No gross deformity of the lower extremities noted. No clubbing. No cyanosis. SKIN: Good skin turgor. Well perfused. NEUROLOGIC: Cranial nerves II through XII grossly intact. No focal or lateralizing signs. PSYCH: Appropriate affect. Alert and oriented to person, place and time. CLINICAL LABS: White blood cell count elevated 7.9-10.1. Hemoglobin normal 14.8. STUDIES: CT of the abdomen pelvis and appendix were reviewed demonstrating slipped Hunter fundoplasty. This is my independent interpretation. ASSESSMENT: 1. Recurrent hiatal hernia. PLAN: 1. Conservative management described 2. Dietary changes reviewed including avoiding straws and carbonated beverages. Objective - Vital Signs Vital signs: Vital Signs Temp 98.0 F 12/26/20 07:00 Pulse 82 12/26/20 07:00 Resp 14 12/26/20 07:00 BP 112/73 12/26/20 07:00 Pulse Ox 98 12/26/20 07:00 Intake & Output 12/25/20 12/26/20 12/26/20 18:59 06:59 18:59 Output Total 60 Balance -60 Output: Emesis 60 Other: Voiding Method Toilet Toilet # Voids 1 - Labs CBC & Chem 7: 12/25/20 04:35 12/25/20 04:35 Labs: Abnormal Lab Results - Last 24 Hours (Table) 12/25/20 Range/Units 04:35 Triglycerides 284.0 H (0.0-149.0) mg/dL VLDL Cholesterol, Calc 56.80 H (5.00-40.00) mg/dL HDL Cholesterol 26.0 L (40.0-60.0) mg/dL Assessment and Plan (1) Chest pain Current Visit: Yes Status: Acute Code(s): R07.9 - CHEST PAIN, UNSPECIFIED SNOMED Code(s): 60183567 (2) Hiatal hernia Current Visit: Yes Status: Acute Code(s): K44.9 - DIAPHRAGMATIC HERNIA WITHOUT OBSTRUCTION OR GANGRENE SNOMED Code(s): 89965428
[2020-12-26] MEDS: TEMAZEPAM 15 MG CAP PO SCH (22:03)
[2020-12-27] MEDS: MORPHINE SULFATE 2 MG/ML SYRINGE IVP PRN ×2 (03:11→07:49)
[2020-12-27] MEDS: SODIUM CHLORIDE 0.9% 1,000 ML IV SCH (05:39)
[2020-12-27 07:22] VITALS: BP 123/86; PULSE 60; RESP 14; TEMP 97.9
[2020-12-27] MEDS: PANTOPRAZOLE 40 MG/10 ML VIAL IVP SCH (07:49)
[2020-12-27] MEDS: SUCRALFATE 1 GM TAB PO SCH ×2 (07:50→11:49)
[2020-12-27] MEDS: HEPARIN SODIUM,PORCINE/PF 5,000 UNIT/0.5 ML SYRINGE SQ SCH (07:50)
[2020-12-27] MEDS: CITALOPRAM HYDROBROMIDE 20 MG TAB PO SCH (07:50)
[2020-12-27] MEDS: HYDROcodone/APAP 10-325MG 1 EACH TAB PO PRN (11:49)
--- NOTE | 2020-12-27 12:25 | P.PN ---
Subjective Progress Note Date: 12/27/20 CHIEF COMPLAINT: Epigastric pain HISTORY OF PRESENT ILLNESS: The patient is a 40-year-old male presents with recurrent hiatal hernia and now presents with epigastric abdominal pain. He reports his epigastric pain is unchanged but stable. No emesis noted. ROS: No fevers or chills. No new chest pain. No productive sputum PHYSICAL EXAM: VITAL SIGNS: Reviewed CONSTITUTIONAL: Well developed and in no acute distress. EYES: Conjuctivae without sclera icterus. Extraocular movements grossly intact. HEAD, EARS, NOSE, THROAT: Moist buccal mucosa. Head is atraumatic, normocephalic. Hears conversational speech. No nasal drainage. NECK: No gross thyroidomegaly. No jugular venous distention. RESPIRATORY: Non-labored respirations and equal bilateral excursions. CARDIOVASCULAR: Palpable 2+ radial pulses. Regular rate. Regular rhythm. ABDOMEN: Protuberant. No peritonitis. MUSCULOSKELETAL: No gross deformity of the lower extremities noted. No clubbing. No cyanosis. SKIN: Good skin turgor. Well perfused. NEUROLOGIC: Cranial nerves II through XII grossly intact. No focal or lateral izing signs. PSYCH: Appropriate affect. Alert and oriented to person, place and time. CLINICAL LABS: No new labs. ASSESSMENT: 1. Recurrent hiatal hernia. PLAN: 1. Surgical repair as outpatient 2. Although symptoms have note resolved, he is stable for discharge from a surgical standpoint 3. Dietary surveillance and counseling performed with non-carbonated beverages and avoiding straws 4. Increased weight, BMI 37.3 and morbid obesity puts him at increased risk for complications for surgical procedure. Objective - Vital Signs Vital signs: Vital Signs Temp 97.9 F 12/27/20 07:21 Pulse 60 12/27/20 07:21 Resp 14 12/27/20 07:21 BP 123/86 12/27/20 07:21 Pulse Ox 99 12/27/20 07:21 Intake & Output 12/26/20 12/27/20 12/27/20 18:59 06:59 18:59 Other: Voiding Method Toilet # Voids 3 - Labs CBC & Chem 7: 12/25/20 04:35 12/25/20 04:35 Assessment and Plan (1) Chest pain Current Visit: Yes Status: Acute Code(s): R07.9 - CHEST PAIN, UNSPECIFIED SNOMED Code(s): 91709340 (2) Hiatal hernia Current Visit: Yes Status: Acute Code(s): K44.9 - DIAPHRAGMATIC HERNIA WITHOUT OBSTRUCTION OR GANGRENE SNOMED Code(s): 29428228 (3) Morbid obesity due to excess calories Current Visit: Yes Status: Acute Code(s): E66.01 - MORBID (SEVERE) OBESITY DUE TO EXCESS CALORIES SNOMED Code(s): 450440269 (4) BMI 37.0-37.9, adult Current Visit: Yes Status: Acute Code(s): Z68.37 - BODY MASS INDEX [BMI] 37.0-37.9, ADULT SNOMED Code(s): 583020709
[2020-12-27] MEDS ORDERED: SCOPOLAMINE 1.5MG/72HR PATCH TRANSDERM STA (13:06)
--- NOTE | 2020-12-27 13:18 | P.DS ---
Providers Date of admission: 12/25/20 08:55 Expected date of discharge: 12/27/20 Attending physician: Darius Barcenas Consults: 12/24/20 17:10 Consult Physician Urgent Consulting Provider: Tyson Orozco Consult Reason/Comments: Chest pain Do you want consulting provider notified?: Yes 12/25/20 08:51 Consult Physician Routine Consulting Provider: Lobito Kirkland Consult Reason/Comments: esophageal hernia, abd pain Do you want consulting provider notified?: Yes Primary care physician: Huma Soria [facility] Course: HISTORY OF PRESENT ILLNESS This is a 40-year-old male patient of Dr. Soria with past medical history of chronic back pain with lumbar fusion 4 years ago. Patient with history of diaphragmatic hernia repair that was completed at [facility] 6 years ago and is known to have recurrent hiatal hernia with plan for surgical intervention on January [address] Kirkland. Patient presented to hospital with epigastric pain and chest pain. Troponins of the negative on 3 draws. Patient has been seen by cardiology who an acute coronary syndrome has been ruled out. Heparin drip was subsequently discontinued. Consult in place with general surgery regarding abdominal pain. Dulcolax suppository has been ordered but patient is refusing. He denies having any fever, no cough. Pain is in the epigastric area. He has not been eating and is complaints of vomiting. Patient presented to [facility] emergency center. He was afebrile, heart rate 104, blood pressure 113/76, pulse ox 96% on room air. EKG sinus tachycardia with no acute ST changes. CBC was unremarkable. D-dimer 0.4. CMP all within normal limits. Troponin negative on 3 draws. Lipase 229. Chest x-ray showed no cardiopulmonary disease. CAT scan of the chest abdomen and pelvis revealed no significant change. Moderate fixed hiatal hernia. Thoracotomy changes in the left lower lobe. Hepatomegaly with hepatic steatosis. Echocardiogram reveals EF of 50-55% with borderline concentric left hypertrophy, mild mitral regurgitation, mild tricuspid regurgitation.. Patient has been seen by cardiology and was atypical chest pain for heart disease, and cardiology has signed off. Patient admitted to the [facility] floor. 12/26 patient is much better, however she requires scopolamine patches morphine for pain control, he is on Carafate as well as IV Protonix 40, his eating ice cream instead, we'll going to offer him ensure gel surgery has requested gastric emptying time, unfortunately this will be done next Monday, as nothing would be done this . Patient has options of going home earlier, with scopolamine patches, and Carafate. His Diego patches with 4 patch would be $23, patient cannot afford the previous remy of $87. We'll plan for discharge in a.m., with outpatient nuclear medicine gastric emptying time, and outpatient surgery with Dr. Kirkland as scheduled 12/27: Patient is much better, he agrees on discharge today, his nausea and vomiting is controlled with scopolamine patch, a new patch will be replaced before discharge today, he also was given 12 pieces of [place] 10 for control of pain. He is going to have his nuclear medicine gastric emptying time on Monday as an outpatient, rather than inpatient. Follow-up with DrCarolann as outpatient, for esophageal surgery Dr Kirkland. Follow-up with Dr. Zamora, for the echocardiogram that noted moderate to severe right ventricular enlargement, has normal right ventricular systolic pressure no stenosis noted Final diagnosis 1. Abdominal pain with recurrent hiatal hernia with previous history of diaphragmatic hernia repair at [facility]. General surgery consult, Dulcolax suppository was refused by the patient, gastric emptying study ordered, full liquid diet. Continue tramadol 50 mg 3 times daily as needed, morphine 2 mg IV push every 4 hours as needed for pain, Zofran as needed for nausea, scopolamine patch for nausea and vomiting. Continue incentive spirometry to reduce incidence of atelectasis and hospital acquired pneumonia and ensure, good Rx cost for scopolamine patch discussed with patient, symptom control with scopolamine patch, [place] 12 pills given. Continue on Zofran, patient needs to call for refills if needed for Zofran. Continue Protonix, and Carafate 2. Chest pain, musculoskeletal. Cardiology consult appreciated. Cardiology has signed off. 3. Chronic low back pain with previous lumbar fusion. Continue Flexeril 10 mg twice daily as needed. 4. Generalized anxiety disorder. 5. Paraesophageal hernia, large, requiring surgery is scheduled this coming Monday, Dr. Kirkland 6. Moderate to severe right ventricular enlargement, without any stenosis, normal right ventricle systolic pressure, follow-up with Dr. sonia calle as outpatient 5. GI prophylaxis. Protonix 40 mg IV push daily. 6. DVT prophylaxiHeparin subcu. Patient will be admitted to the hospital for a minimum of 2 night stay. Patient Condition at Discharge: Fair Plan - Discharge Summary Discharge Rx Participant: No New Discharge Prescriptions: New Scopolamine 1.5MG/72Hr Patch [TransDerm Scop] 1 patch TRANSDERM Q72H #4 patch HYDROcodone/APAP 10-325MG [[place] 10-325] 1 each PO Q6HR PRN #12 tab PRN Reason: Pain Continue traMADol HCL 50 mg PO TID PRN PRN Reason: Pain Ondansetron HCl [Zofran] 4 mg PO Q8H PRN #40 tab PRN Reason: Nausea And Vomiting Citalopram Hydrobromide [CeleXA] 20 mg PO DAILY #30 tab Cyclobenzaprine [Flexeril] 10 mg PO BID PRN PRN Reason: Pain Temazepam [Restoril] 30 mg PO HS Sucralfate [Carafate] 1 gm PO ACHS #120 tablet Pantoprazole Sodium [Protonix] 20 mg PO DAILY Dicyclomine [Bentyl] 10 mg PO TID PRN PRN Reason: IBS Discharge Medication List Cyclobenzaprine [Flexeril] 10 mg PO BID PRN 11/22/20 [History] Temazepam [Restoril] 30 mg PO HS 12/07/20 [History] traMADol HCL 50 mg PO TID PRN 12/07/20 [History] Citalopram Hydrobromide [CeleXA] 20 mg PO DAILY #30 tab 12/09/20 [Rx] Ondansetron HCl [Zofran] 4 mg PO Q8H PRN #40 tab 12/09/20 [Rx] Sucralfate [Carafate] 1 gm PO ACHS #120 tablet 12/10/20 [Rx] Dicyclomine [Bentyl] 10 mg PO TID PRN 12/24/20 [History] Pantoprazole Sodium [Protonix] 20 mg PO DAILY 12/24/20 [History] HYDROcodone/APAP 10-325MG [[place] 10-325] 1 each PO Q6HR PRN #12 tab 12/27/20 [Rx] Scopolamine 1.5MG/72Hr Patch [TransDerm Scop] 1 patch TRANSDERM Q72H #4 patch 12/27/20 [Rx] Follow up Appointment(s)/Referral(s): Huma Soria MD [Primary Care Provider] - 1-2 days Darya Zamora MD [STAFF PHYSICIAN] - 1 Week (right ventricular mod to severe enlargement, normal rvsp) Lobito Kirkland MD [STAFF PHYSICIAN] - 1 Week Discharge Disposition: HOME SELF-CARE
== END 2020-12-27 13:43 | disposition home or self-care (01) | DRG 392 ==
LOC: EC 14:51 → 6NMEDSUR 17:10 → OBSVTOIN 12-25 08:55
PROVIDERS: ADMIT Internal Medicine Geriatric Medicine; ATTEND Internal Medicine Geriatric Medicine
DX: K44.9 Diaphragmatic hernia without obstruction or gangrene (principal); K76.0 Fatty (change of) liver, not elsewhere classified; E66.01 Morbid (severe) obesity due to excess calories; E66.9 Obesity, unspecified; R07.89 Other chest pain; I08.1 Rheumatic disorders of both mitral and tricuspid valves; F41.1 Generalized anxiety disorder; R00.0 Tachycardia, unspecified; G89.29 Other chronic pain; Z79.899 Other long term (current) drug therapy; Z90.49 Acquired absence of other specified parts of digestive tract; Z98.1 Arthrodesis status; Z68.37 Body mass index [BMI] 37.0-37.9, adult; Z88.5 Allergy status to narcotic agent; Z91.040 Latex allergy status; Z88.8 Allergy status to other drugs, medicaments and biological substances
CPT/HCPCS: 36415; 71046; 71260; 74177; 80053; 80061; 82550; 83690; 83735; 83880; 84484; 85025; 85027; 85379; 85610; 85730; 93005; 93306; 96374; 96375; 99285

== ENCOUNTER → 2020-12-30 | Outpatient (CLI) | payer OTHER ==
[2020-12-30 12:04] LABS: Basophils # (A) 0.1 k/uL (0-0.2); Basophils % (A) 1 %; Eosinophils # (A) 0.2 k/uL (0-0.7); Eosinophils % (A) 2 %; HCT 47.5 % (39.0-53.0); Lymphocytes # (A) 1.9 k/uL (1.0-4.8); Lymphocytes % (A) 20 %; MCH 31.5 pg (25.0-35.0); MCHC 33.7 g/dL (31.0-37.0); MCV 93.5 fL (80.0-100.0); Monocytes # (A) 0.5 k/uL (0-1.0); Monocytes % (A) 6 %; Neutrophils # (A) 6.7 k/uL (1.3-7.7); Neutrophils % (A) 71 %; Platelet Count 275 k/uL (150-450); RBC 5.08 m/uL (4.30-5.90); RDW 13.7 % (11.5-15.5); WBC 9.5 k/uL (3.8-10.6)
== END | disposition home or self-care (01) ==
LOC: LABPAT 10:40
PROVIDERS: ATTEND Surgery
DX: Z01.812 Encounter for preprocedural laboratory examination (principal); K21.00 Gastro-esophageal reflux disease with esophagitis, without bleeding
CPT/HCPCS: 36415; 85025

== ENCOUNTER 2021-01-01 08:10 | Observation (INO) | payer OTHER ==
[2020-12-30 14:21] VITALS: BMI 36.5
[~2021-01-01 08:10] MED LIST changes: +ACETAMINOPHEN TAB 500 MG TAB PO PRN; -LIDOCAINE 1% (10MG/ML) FOR IV START INTRADERMA PRN; +ONDANSETRON 4 MG/2 ML VIAL IVP ONE; +SCOPOLAMINE 1.5MG/72HR PATCH TRANSDERM ONE
--- NOTE | 2021-01-01 10:21 | P.GSHP ---
History of Present Illness H&P Date: 01/01/21 Chief Complaint: GERD, epigastric pain Is a 40-year-old male who's had chronic issues with epigastric pain and GERD. Patient previous hiatal hernia repair reverse [place] several years ago. Patient has had several admissions to the hospital due to epigastric pain and GERD symptoms patient is developed a recurrent hiatal hernia. He presents today for laparoscopic repair. Past Medical History Past Medical History: GERD/Reflux Additional Past Medical History / Comment(s): multiple dislocation of rt shoulder, hiatal hernia, hx migraines, IBS, EGD 12/07/20 History of Any Multi-Drug Resistant Organisms: None Reported Past Surgical History: Appendectomy, Back Surgery, Cholecystectomy, Orthopedic Surgery, Tonsillectomy Additional Past Surgical History / Comment(s): rt shoulder arthroscopy, left shoulder fusion, Past Anesthesia/Blood Transfusion Reactions: No Reported Reaction Smoking Status: Never smoker - Past Family History Mother Additional Family Medical History / Comment(s): lupus, Father History Unknown: Yes Brother(s) Additional Family Medical History / Comment(s): autoimmune disorder Medications and Allergies Home Medications Medication Instructions Recorded Confirmed Type Cyclobenzaprine [Flexeril] 10 mg PO BID PRN 11/22/20 12/30/20 History Temazepam [Restoril] 30 mg PO HS 12/07/20 12/30/20 History traMADol HCL 50 mg PO TID PRN 12/07/20 01/01/21 History Citalopram Hydrobromide [CeleXA] 20 mg PO DAILY #30 tab 12/09/20 01/01/21 Rx Ondansetron HCl [Zofran] 4 mg PO Q8H PRN #40 tab 12/09/20 12/30/20 Rx Sucralfate [Carafate] 1 gm PO ACHS #120 tablet 12/10/20 12/30/20 Rx Dicyclomine [Bentyl] 10 mg PO TID PRN 12/24/20 12/30/20 History Pantoprazole Sodium [Protonix] 20 mg PO DAILY 12/24/20 01/01/21 History HYDROcodone/APAP 10-325MG [[place] 1 each PO Q6HR PRN #12 tab 12/27/20 01/01/21 Rx 10-325] Allergies Allergy/AdvReac Type Severity Reaction Status Date / Time hydromorphone [From Dilaudid] Allergy Rash/Hives Verified 12/30/20 14:12 latex Allergy Rash/Hives Verified 12/30/20 14:12 meperidine [From Demerol] Allergy Rash/Hives Verified 12/30/20 14:12 Surgical - Exam Vital Signs Temp Pulse Resp BP Pulse Ox 98.4 F 90 18 137/81 97 01/01/21 09:10 01/01/21 09:10 01/01/21 09:10 01/01/21 09:10 01/01/21 09:10 - General well developed, well nourished, no distress - Eyes PERRL - ENT normal pinna - Neck no masses - Respiratory normal expansion - Cardiovascular Rhythm: regular - Abdomen Abdomen: soft, non tender Assessment and Plan Assessment: GERD Recurrent hiatal hernia We'll perform laparoscopic repair.
[2021-01-01] MEDS ORDERED: ROCURONIUM 10 MG/ML (5 ML VIAL) IV ONE (10:47)
[2021-01-01] MEDS ORDERED: GLYCOPYRROLATE 0.2 MG/ML 2 ML VIAL ONE (10:47)
[2021-01-01] MEDS ORDERED: fentaNYL (PF) 50 MCG/ML 2 ML AMP ONE (10:47)
[2021-01-01] MEDS ORDERED: MIDAZOLAM 2 MG/2 ML VIAL ONE (10:47)
[2021-01-01] MEDS ORDERED: KETAMINE 10 MG/ML 20 ML VIAL ONE (10:47)
[2021-01-01] MEDS ORDERED: SUCCINYLCHOLINE CHLORIDE 100 MG/5 ML SYR IV ONE (10:47)
[2021-01-01] MEDS ORDERED: PHENYLEPHRINE-0.9% NACL SYG 1,000 MCG/10 ML SYRINGE ONE (10:47)
[2021-01-01] MEDS ORDERED: NEOSTIGMINE 1 MG/ML 10 ML VIAL ONE (10:47)
[2021-01-01] MEDS ORDERED: PROPOFOL 10 MG/ML 20 ML VIAL IV ONE (10:47)
[2021-01-01] MEDS ORDERED: BUPIVACAINE (PF) 0.5% 30 ML VIAL SQ ONE (11:10)
[2021-01-01] MEDS ORDERED: HYDROmorphone 0.5 MG/0.5 ML SYRINGE IVP PRN (11:40)
[2021-01-01] MEDS ORDERED: LACTATED RINGERS 1,000 ML IV ONE ×2 (11:40→12:00)
[2021-01-01] MEDS ORDERED: ONDANSETRON 4 MG/2 ML VIAL IVP PRN (11:40)
[2021-01-01] MEDS ORDERED: NALOXONE 0.4 MG/ML 1 ML VIAL IV PRN (11:40)
[2021-01-01] MEDS ORDERED: oxyCODONE-APAP 5-325MG 1 EACH TAB PO PRN (11:40)
--- NOTE | 2021-01-01 11:40 | P.OP ---
Date of Procedure: 01/01/21 Preoperative Diagnosis: Recurrent hiatal hernia Postoperative Diagnosis: Dense adhesions Procedure(s) Performed: Labs Lysis of adhesions Anesthesia: KENYON Surgeon: Lobito Kirkland Estimated Blood Loss (ml): 5 Pathology: none sent Condition: stable Disposition: PACU Description of Procedure: The patient was placed on the operating table in the supine position. The patient received general anesthesia. And was placed in dorsal lithotomy position. The patient was prepped and draped in the usual sterile fashion. The skin incision sites were anesthetized with 1% local Xylocaine. The skin was incised in the left periumbilical area and then using a blade less 5 mm trocar under direct visualization panel cavity was entered. After adequate insufflation the laparoscope was then placed into the peritoneal cavity. Next a 5 mm trochars placed in the right epigastric position. Another 5 millimeter trocar the right lateral position. Another 5 millimeter trocar in the left lateral position a 5 mm trocar is placed in the left epigastric position. And then the initial 5 mm trocar was exchanged for a 10 mm trocar. The left lateral lobe liver was retracted. The hiatus was visualized. There were dense adhesions between the stomach and liver and stomach and left diaphragm. Approximately 20 minutes of operative time used to lyse adhesions. At this point decided to abort the case to avoid injury to the stomach. There is no injury of the stomach seen. The trochars withdrawn. Skin was closed interrupted 3-0 Monocryl suture.
[2021-01-01] MEDS: fentaNYL (PF) 50 MCG/ML 2 ML AMP IV PRN ×2 (12:21→12:32)
[2021-01-01] MEDS ORDERED: diphenhydrAMINE 50 MG/ML 1 ML VIAL IVP ONE (12:33)
[2021-01-01] MEDS: KETOROLAC 15 MG/ML 1 ML VIAL IVP SCH ×3 (12:33→23:30)
[2021-01-01] MEDS ORDERED: diphenhydrAMINE 50 MG/ML 1 ML VIAL ONE (12:34)
[2021-01-01] MEDS ORDERED: ALPRAZolam 0.5 MG TAB PO STA (13:50)
[2021-01-01] MEDS ORDERED: CYCLOBENZAPRINE 10 MG TAB PO PRN (13:56)
[2021-01-01] MEDS: MORPHINE SULFATE 2 MG/ML SYRINGE IVP PRN ×3 (14:58→23:37)
[2021-01-01] MEDS ORDERED: busPIRone HCl 10 MG TAB PO PRN (15:27)
[2021-01-01] MEDS ORDERED: busPIRone HCl 10 MG TAB PO SCH (16:00)
[2021-01-01] MEDS: PANTOPRAZOLE 40 MG TABLET PO SCH (16:26)
[2021-01-01] MEDS: CITALOPRAM HYDROBROMIDE 20 MG TAB PO SCH (16:26)
[2021-01-01] MEDS: SUCRALFATE 1 GM TAB PO SCH ×2 (16:26→19:01)
[2021-01-01] MEDS ORDERED: TEMAZEPAM 15 MG CAP PO SCH (21:00)
[2021-01-02] MEDS: MORPHINE SULFATE 2 MG/ML SYRINGE IVP PRN ×2 (04:40→09:16)
[2021-01-02] MEDS: KETOROLAC 15 MG/ML 1 ML VIAL IVP SCH (05:41)
[2021-01-02] MEDS: PANTOPRAZOLE 40 MG TABLET PO SCH (07:29)
[2021-01-02] MEDS: SUCRALFATE 1 GM TAB PO SCH (07:29)
[2021-01-02] MEDS: CITALOPRAM HYDROBROMIDE 20 MG TAB PO SCH (07:29)
[2021-01-02 07:32] VITALS: BP 113/65; RESP 17; TEMP 97.4
[2021-01-02] MEDS ORDERED: ENOXAPARIN 40 MG/0.4 ML SYRINGE SQ SCH (09:00)
--- NOTE | 2021-01-02 10:07 | P.DS ---
Providers Date of admission: 01/02/21 01:05 Expected date of discharge: 01/02/21 Attending physician: Lobito Kirkland Consults: 01/01/21 11:40 Consult Physician Routine Consulting Provider: Huma Soria Consult Reason/Comments: Medical management Do you want consulting provider notified?: Yes Primary care physician: Huma Soria [facility] Course: Patient brought in the hospital yesterday for repair recurrent hiatal hernia. During the operation apparently too many adhesions were identified and the procedure was aborted. Patient was kept overnight for observation. Doing b [place] today. Pain is controlled. He would like to go home. We'll discharge. Plan - Discharge Summary Discharge Rx Participant: Yes New Discharge Prescriptions: No Action traMADol HCL 50 mg PO TID PRN PRN Reason: Pain Ondansetron HCl [Zofran] 4 mg PO Q8H PRN #40 tab PRN Reason: Nausea And Vomiting Citalopram Hydrobromide [CeleXA] 20 mg PO DAILY #30 tab HYDROcodone/APAP 10-325MG [[place] 10-325] 1 tab PO Q6HR PRN PRN Reason: Pain Cyclobenzaprine [Flexeril] 10 mg PO BID PRN PRN Reason: Pain Temazepam [Restoril] 30 mg PO HS Sucralfate [Carafate] 1 gm PO ACHS #120 tablet Pantoprazole Sodium [Protonix] 20 mg PO DAILY Dicyclomine [Bentyl] 10 mg PO TID PRN PRN Reason: IBS Discharge Medication List Cyclobenzaprine [Flexeril] 10 mg PO BID PRN 11/22/20 [History] Temazepam [Restoril] 30 mg PO HS 12/07/20 [History] traMADol HCL 50 mg PO TID PRN 12/07/20 [History] Citalopram Hydrobromide [CeleXA] 20 mg PO DAILY #30 tab 12/09/20 [Rx] Ondansetron HCl [Zofran] 4 mg PO Q8H PRN #40 tab 12/09/20 [Rx] Sucralfate [Carafate] 1 gm PO ACHS #120 tablet 12/10/20 [Rx] Dicyclomine [Bentyl] 10 mg PO TID PRN 12/24/20 [History] Pantoprazole Sodium [Protonix] 20 mg PO DAILY 12/24/20 [History] HYDROcodone/APAP 10-325MG [[place] 10-325] 1 tab PO Q6HR PRN 01/02/21 [History]
--- NOTE | 2021-01-02 10:42 | P.CONS ---
History of Present Illness - Reason for Consult Consult date: 01/02/21 Medical management - History of Present Illness HISTORY OF PRESENT ILLNESS This is a 40-year-old male patient of Dr. Soria with past medical history of chronic back pain with lumbar fusion 4 years ago. Patient with history of diaphragmatic hernia repair that was completed at [facility] 6 years ago and is known to have recurrent hiatal hernia with plan for surgical intervention on January [address] Kirkland. Patient underwent lysis of adhesions yesterday and has had no post-op complications. He complains of a little dry cough. No chest pain, shortness of breath, nausea/vomiting. He denies fever and chills. He states his abdominin is sore and he feels tired. Patient is tolerating clear liquid diet. Last BM yesterday morning. He is afebrile, HR 79, BP 113/65, PO 97% on room air. He is anticipating discharge home later today. Medication reconciliation reviewed. REVIEW OF SYSTEMS Constitutional: No fever, no chills, no night sweats. No weight change. No weakness, fatigue or lethargy. No daytime sleepiness. EENT: No headache. No blurred vision or double vision, no loss of vision. No loss of Hearing, no ringing in the ears, no dizziness. No nasal drainage or congestion. No epistaxis. No sore throat. Lungs: No shortness of breath, cough, no sputum production. No wheezing. Cardiovascular: Reports chest pain, no lower extremity edema. No palpitations. No paroxysmal nocturnal dyspnea. No orthopnea. No lightheadedness or dizziness. No syncopal episodes. Abdominal: Reports abdominal discomfort. No nausea, vomiting. Reports diarrhea. No constipation. No bloody or tarry stools. No loss of appetite. Genitourinary: No dysuria, increased frequency, urgency. No urinary retention. Musculoskeletal: No myalgias. No muscle weakness, no gait dysfunction, no frequent falls. No back pain. No neck pain. Integumentary: No wounds, no lesions. No rash or pruritus. No unusual bruising. No change in hair or nails. Neurologic: No aphasia. No facial droop. No change in mentation. No head injury. No headache. No paralysis. No paresthesia. Psychiatric: No depression. Reports anxiety. No mood swings. Endocrine: No abnormal blood sugars. No weight change. No excessive sweating or thirst. No cold intolerance. SOCIAL HISTORY Patient is a lifelong nonsmoker, no illicit drug use, marijuana use or alcohol use. Patient is and lives alone. FAMILY HISTORY Mother at age 59 from lupus. Patient does not know his father. Patient has one brother with autoimmune disorder. Patient does not have any sisters. PHYSICAL EXAMINATION Gen: This carlie 40-year-old obese male seen resting in bed in no acute distress. EENT: Head is atraumatic, normocephalic. Pupils equal, round. Sclerae is anicteric. NECK: Supple. No JVD. No lymphadenopathy. No thyromegaly. LUNGS: Clear to auscultation. No wheezes or rhonchi. No intercostal retra ctions. HEART: Regular rate and rhythm. No murmur. ABDOMEN: Soft. Bowel sounds are present. No masses. Surgical sutures sites show no signs of infection EXTREMITIES: No pedal edema. No calf tenderness. NEUROLOGICAL: Patient is awake, alert and oriented x3. Cranial nerves 2 through 12 are grossly intact. ASSESSMENT AND PLAN 1. Abdominal pain with recurrent hiatal hernia with previous history of diaphragmatic hernia repair at [facility] status post lysis of adhesions, postop day #1. No postop complications. Patient is cleared for discharge by medicine. Patient has been on Protonix and Carafate, Bentyl. 2. Chronic low back pain with previous lumbar fusion. Continue Flexeril 10 mg twice daily as needed. 4. Generalized anxiety disorder. Continue citalopram 20 mg daily. 5. GI prophylaxis. Protonix 40 mg IV push daily. 6. DVT prophylaxiHeparin subcu. DISCHARGE PLAN Home. Impression and plan of care have been directed as dictated by the signing physician. Madhuri Steele nurse practitioner acting as scribe for signing physician. Past Medical History Past Medical History: GERD/Reflux Additional Past Medical History / Comment(s): multiple dislocation of rt shoulder, hiatal hernia, hx migraines, IBS, EGD 12/07/20 History of Any Multi-Drug Resistant Organisms: None Reported Past Surgical History: Appendectomy, Back Surgery, Cholecystectomy, Orthopedic Surgery, Tonsillectomy Additional Past Surgical History / Comment(s): rt shoulder arthroscopy, left shoulder fusion, Past Anesthesia/Blood Transfusion Reactions: No Reported Reaction Past Psychological History: No Psychological Hx Reported Smoking Status: Never smoker Past Alcohol Use History: None Reported Past Drug Use History: None Reported - Past Family History Mother Additional Family Medical History / Comment(s): lupus, Father History Unknown: Yes Brother(s) Additional Family Medical History / Comment(s): autoimmune disorder Medications and Allergies Home Medications Medication Instructions Recorded Confirmed Type Cyclobenzaprine [Flexeril] 10 mg PO BID PRN 11/22/20 01/02/21 History Temazepam [Restoril] 30 mg PO HS 12/07/20 01/02/21 History traMADol HCL 50 mg PO TID PRN 12/07/20 01/02/21 History Citalopram Hydrobromide [CeleXA] 20 mg PO DAILY #30 tab 12/09/20 01/02/21 Rx Ondansetron HCl [Zofran] 4 mg PO Q8H PRN #40 tab 12/09/20 01/02/21 Rx Sucralfate [Carafate] 1 gm PO ACHS #120 tablet 12/10/20 01/02/21 Rx Dicyclomine [Bentyl] 10 mg PO TID PRN 12/24/20 01/02/21 History Pantoprazole Sodium [Protonix] 20 mg PO DAILY 12/24/20 01/02/21 History HYDROcodone/APAP 10-325MG [[place] 1 tab PO Q6HR PRN 01/02/21 01/02/21 History 10-325] Allergies Allergy/AdvReac Type Severity Reaction Status Date / Time hydromorphone [From Dilaudid] Allergy Rash/Hives Verified 12/30/20 14:12 latex Allergy Rash/Hives Verified 12/30/20 14:12 meperidine [From Demerol] Allergy Rash/Hives Verified 12/30/20 14:12 Physical Exam Vitals: Vital Signs Temp Pulse Pulse Resp BP Pulse Ox 01/02/21 07:00 97.4 F L 79 17 113/65 97 01/02/21 01:25 98.2 F 71 16 113/70 94 L 01/01/21 19:08 97.9 F 94 18 110/71 96 01/01/21 14:00 79 15 01/01/21 13:25 98.0 F 79 18 119/74 98 01/01/21 13:02 84 16 121/64 92 L 01/01/21 12:47 91 16 111/59 95 01/01/21 12:32 74 18 122/57 94 L 01/01/21 12:17 82 18 124/64 100 01/01/21 12:01 82 18 120/70 100 01/01/21 11:50 98.5 F 81 16 131/78 100 01/01/21 09:10 98.4 F 90 18 137/81 97 Intake and Output 01/01/21 01/02/21 01/02/21 22:59 06:59 14:59 Other: Voiding Method Toilet Toilet # Voids 1 1
[2021-01-02 10:44] VITALS: PULSE 81
== END 2021-01-02 11:15 | disposition home or self-care (01) ==
LOC: OR 08:10 → 6NMEDSUR 11:41 → OR 01-02 01:05 → 6NMEDSUR 01-02 01:05
PROVIDERS: ADMIT Surgery; ATTEND Surgery
DX: K21.9 Gastro-esophageal reflux disease without esophagitis (principal); K66.0 Peritoneal adhesions (postprocedural) (postinfection); K44.9 Diaphragmatic hernia without obstruction or gangrene; R05 Cough; G89.29 Other chronic pain; M54.5 Low back pain; F41.1 Generalized anxiety disorder; G43.909 Migraine, unspecified, not intractable, without status migrainosus; K58.9 Irritable bowel syndrome, unspecified; Z79.899 Other long term (current) drug therapy; Z88.5 Allergy status to narcotic agent; Z91.040 Latex allergy status; Z98.1 Arthrodesis status; Z90.49 Acquired absence of other specified parts of digestive tract; Z87.39 Personal history of other diseases of the musculoskeletal system and connective tissue; Z98.890 Other specified postprocedural states; Z84.89 Family history of other specified conditions
CPT/HCPCS: 87635; 43280; 49329; G0378; J2250; J1200; J1100; J2710; J0690; J2405; J1650; J3010; J2270 ×2; J1885 ×2; J2370; J0330; J2704; J1644

== ENCOUNTER 2021-01-04 17:00 | Observation (INO) | payer OTHER ==
[2021-01-04] MEDS ORDERED: HYDROmorphone 1 MG/ML 1 ML SYRINGE IVP STA (17:33)
[2021-01-04] MEDS ORDERED: ONDANSETRON 4 MG/2 ML VIAL IVP STA (17:33)
[2021-01-04] MEDS ORDERED: FAMOTIDINE 20 MG/2 ML VIAL IV STA (17:33)
[2021-01-04] MEDS ORDERED: SUCRALFATE 1 GM TAB PO STA (17:34)
[2021-01-04] MEDS ORDERED: BARIUM SULFATE 450 ML ORAL.SUSP BOTTLE PO PRN (17:34)
[2021-01-04] MEDS ORDERED: MORPHINE SULFATE 4 MG/ML SYRINGE IVP STA ×3 (17:36→20:08)
--- NOTE | 2021-01-04 17:38 | ED ---
General Adult HPI - General Chief complaint: Chest Pain Stated complaint: Chest pain Time Seen by Provider: 01/04/21 17:30 Source: patient, RN notes reviewed Mode of arrival: ambulatory Limitations: no limitations - History of Present Illness Initial comments: Patient is a pleasant 40-year-old male presenting to the emergency Department with complaints of chest and abdominal discomfort. Onset of symptoms was Monday. Patient has chronic symptoms similar to this secondary to hiatal hernia. Patient did have a Hunter fundoplication done 6 years ago. Patient was going to have revision done Monday. They did go in for surgery however patient had too much scar tissue and they were unable to complete surgery. Patient has had discomfort since that time. Discomfort is similar to his chronic pain however more intense than normal. Discomfort is currently 10/10. At some nausea and vomiting. Decreased oral intake. - Related Data Home Medications Medication Instructions Recorded Confirmed Cyclobenzaprine [Flexeril] 10 mg PO BID PRN 11/22/20 01/04/21 Temazepam [Restoril] 30 mg PO HS 12/07/20 01/04/21 traMADol HCL 50 mg PO TID PRN 12/07/20 01/04/21 Dicyclomine [Bentyl] 10 mg PO TID PRN 12/24/20 01/04/21 Pantoprazole Sodium [Protonix] 20 mg PO DAILY 12/24/20 01/04/21 HYDROcodone/APAP 10-325MG [[place] 1 tab PO Q6HR PRN 01/02/21 01/04/21 10-325] Previous Rx's Medication Instructions Recorded Citalopram Hydrobromide [CeleXA] 20 mg PO DAILY #30 tab 12/09/20 Ondansetron HCl [Zofran] 4 mg PO Q8H PRN #40 tab 12/09/20 Sucralfate [Carafate] 1 gm PO ACHS #120 tablet 12/10/20 Allergies Allergy/AdvReac Type Severity Reaction Status Date / Time hydromorphone [From Dilaudid] Allergy Rash/Hives Verified 01/04/21 17:25 latex Allergy Rash/Hives Verified 01/04/21 17:25 meperidine [From Demerol] Allergy Rash/Hives Verified 01/04/21 17:25 Review of Systems ROS Statement: Those systems with pertinent positive or pertinent negative responses have been documented in the HPI. ROS Other: All systems not noted in ROS Statement are negative. Constitutional: Denies: fever Eyes: Denies: eye pain ENT: Denies: ear pain Respiratory: Denies: dyspnea Cardiovascular: Reports: as per HPI Endocrine: Denies: fatigue Gastrointestinal: Reports: as per HPI, abdominal pain, nausea, vomiting Genitourinary: Denies: dysuria Musculoskeletal: Denies: back pain Skin: Denies: rash Neurological: Denies: weakness Past Medical History Past Medical History: GERD/Reflux Additional Past Medical History / Comment(s): multiple dislocation of rt shoulder, hiatal hernia, hx migraines, IBS, EGD 12/07/20 History of Any Multi-Drug Resistant Organisms: None Reported Past Surgical History: Appendectomy, Back Surgery, Cholecystectomy, Orthopedic Surgery, Tonsillectomy Additional Past Surgical History / Comment(s): rt shoulder arthroscopy, left shoulder fusion, Past Anesthesia/Blood Transfusion Reactions: No Reported Reaction Past Psychological History: No Psychological Hx Reported Smoking Status: Never smoker Past Alcohol Use History: None Reported Past Drug Use History: None Reported - Past Family History Mother Additional Family Medical History / Comment(s): lupus, Father History Unknown: Yes Brother(s) Additional Family Medical History / Comment(s): autoimmune disorder General Exam Limitations: no limitations General appearance: alert, in no apparent distress Head exam: Present: normocephalic Eye exam: Present: normal appearance Neck exam: Present: normal inspection Respiratory exam: Present: normal lung sounds bilaterally Cardiovascular Exam: Present: regular rate, normal rhythm Expanded Peripheral pulses: 2+: Radial (R), Radial (L), Posterior Tibialis (R), Posterior Tibialis (L) GI/Abdominal exam: Present: soft, tenderness (Mild diffuse tenderness). Absent: distended, guarding, rebound, rigid Extremities exam: Present: normal inspection. Absent: calf tenderness Neurological exam: Present: alert Psychiatric exam: Present: normal affect, normal mood Skin exam: Present: normal color Course Vital Signs 01/04/21 01/04/21 19:04 19:59 Temperature 98.5 F Pulse Rate 89 95 Respiratory 18 18 Rate Blood Pressure 123/80 122/86 O2 Sat by Pulse 96 97 Oximetry EKG Findings - EKG Comments: EKG Findings:: Normal sinus rhythm with a rate of 86. AR 182. QRS 84. QT 342. QTC 409. Left axis. Inferior Q waves. No acute ST change. Medical Decision Making - Medical Decision Making Patient reevaluated and still appears uncomfortable. Patient requests further pain medication. Patient updated on results and plan. Case was discussed with Dr. Sainz, who will admit covering for Dr. Soria. She would like consults with Dr. Kirkland as well as cardiology. - Lab Data Result diagrams: 01/04/21 18:00 01/04/21 18:00 Lab Results 01/04/21 01/04/21 01/04/21 Range/Units 18:00 18:00 18:00 WBC 9.1 (3.8-10.6) k/uL RBC 4.90 (4.30-5.90) m/uL Hgb 15.7 (13.0-17.5) gm/dL Hct 44.9 (39.0-53.0) % MCV 91.6 (80.0-100.0) fL MCH 32.0 (25.0-35.0) pg MCHC 34.9 (31.0-37.0) g/dL RDW 12.9 (11.5-15.5) % Plt Count 261 (150-450) k/uL MPV 7.2 Neutrophils % 59 % Lymphocytes % 30 % Monocytes % 7 % Eosinophils % 2 % Basophils % 1 % Neutrophils # 5.3 (1.3-7.7) k/uL Lymphocytes # 2.8 (1.0-4.8) k/uL Monocytes # 0.7 (0-1.0) k/uL Eosinophils # 0.2 (0-0.7) k/uL Basophils # 0.1 (0-0.2) k/uL PT 9.7 (9.0-12.0) sec INR 0.9 (<1.2) APTT 22.4 (22.0-30.0) sec Sodium 139 (137-145) mmol/L Potassium 4.1 (3.5-5.1) mmol/L Chloride 103 (98-107) mmol/L Carbon Dioxide 25 (22-30) mmol/L Anion Gap 11 mmol/L BUN 15 (9-20) mg/dL Creatinine 0.87 (0.66-1.25) mg/dL Est GFR (CKD-EPI)AfAm >90 (>60 ml/min/1.73 sqM) Est GFR (CKD-EPI)NonAf >90 (>60 ml/min/1.73 sqM) Glucose 137 H (74-99) mg/dL Calcium 9.9 (8.4-10.2) mg/dL Magnesium 2.1 (1.6-2.3) mg/dL Total Bilirubin 0.3 (0.2-1.3) mg/dL AST 33 (17-59) U/L ALT 48 (4-49) U/L Alkaline Phosphatase 70 (38-126) U/L Troponin I (0.000-0.034) ng/mL Total Protein 7.0 (6.3-8.2) g/dL Albumin 4.2 (3.5-5.0) g/dL Amylase 58 (30-110) U/L Lipase 177 (23-300) U/L 01/04/21 Range/Units 18:00 WBC (3.8-10.6) k/uL RBC (4.30-5.90) m/uL Hgb (13.0-17.5) gm/dL Hct (39.0-53.0) % MCV (80.0-100.0) fL MCH (25.0-35.0) pg MCHC (31.0-37.0) g/dL RDW (11.5-15.5) % Plt Count (150-450) k/uL MPV Neutrophils % % Lymphocytes % % Monocytes % % Eosinophils % % Basophils % % Neutrophils # (1.3-7.7) k/uL Lymphocytes # (1.0-4.8) k/uL Monocytes # (0-1.0) k/uL Eosinophils # (0-0.7) k/uL Basophils # (0-0.2) k/uL PT (9.0-12.0) sec INR (<1.2) APTT (22.0-30.0) sec Sodium (137-145) mmol/L Potassium (3.5-5.1) mmol/L Chloride (98-107) mmol/L Carbon Dioxide (22-30) mmol/L Anion Gap mmol/L BUN (9-20) mg/dL Creatinine (0.66-1.25) mg/dL Est GFR (CKD-EPI)AfAm (>60 ml/min/1.73 sqM) Est GFR (CKD-EPI)NonAf (>60 ml/min/1.73 sqM) Glucose (74-99) mg/dL Calcium (8.4-10.2) mg/dL Magnesium (1.6-2.3) mg/dL Total Bilirubin (0.2-1.3) mg/dL AST (17-59) U/L ALT (4-49) U/L Alkaline Phosphatase (38-126) U/L Troponin I <0.012 (0.000-0.034) ng/mL Total Protein (6.3-8.2) g/dL Albumin (3.5-5.0) g/dL Amylase (30-110) U/L Lipase (23-300) U/L - Radiology Data Radiology results: report reviewed (Computed tomography scan of the chest abdomen and pelvis negative for pulmonary embolism. Hiatal hernia.) Disposition Clinical Impression: Chest pain, Hiatal hernia Disposition: ADMITTED IP TO THIS [facility] Is patient prescribed a controlled substance at d/c from ED?: No Referrals: Huma Soria MD [Primary Care Provider] - 1-2 days Decision Time: 20:06
[2021-01-04 18:14] LABS: Basophils # (A) 0.1 k/uL (0-0.2); Basophils % (A) 1 %; Eosinophils # (A) 0.2 k/uL (0-0.7); Eosinophils % (A) 2 %; HCT 44.9 % (39.0-53.0); HGB 15.7 gm/dL (13.0-17.5); Lymphocytes # (A) 2.8 k/uL (1.0-4.8); Lymphocytes % (A) 30 %; MCHC 34.9 g/dL (31.0-37.0); MCV 91.6 fL (80.0-100.0); Mean Platelet Volume 7.2; Monocytes # (A) 0.7 k/uL (0-1.0); Monocytes % (A) 7 %; Neutrophils # (A) 5.3 k/uL (1.3-7.7); Neutrophils % (A) 59 %; Platelet Count 261 k/uL (150-450); RDW 12.9 % (11.5-15.5); WBC 9.1 k/uL (3.8-10.6)
[2021-01-04 18:25] LABS: ALT 48 U/L (4-49); AST 33 U/L (17-59); African American GFR (CKD) >90 (>60 ml/min/1.73 sqM); Albumin 4.2 g/dL (3.5-5.0); Alkaline Phosphatase 70 U/L (38-126); Amylase 58 U/L (30-110); Anion Gap 11 mmol/L; Blood Urea Nitrogen 15 mg/dL (9-20); Calcium 9.9 mg/dL (8.4-10.2); Carbon Dioxide 25 mmol/L (22-30); Chloride 103 mmol/L (98-107); Glucose 137 mg/dL (74-99); INR 0.9 (<1.2); Lipase 177 U/L (23-300); Magnesium 2.1 mg/dL (1.6-2.3); Non-African American GFR(CKD) >90 (>60 ml/min/1.73 sqM); Partial Thromboplastin Time 22.4 sec (22.0-30.0); Potassium 4.1 mmol/L (3.5-5.1); Prothrombin Time 9.7 sec (9.0-12.0); Sodium 139 mmol/L (137-145); Total Bilirubin 0.3 mg/dL (0.2-1.3)
--- NOTE | 2021-01-04 19:17 | CT ---
EXAMINATION TYPE: CT angio chest DATE OF EXAM: 01/04/2021 COMPARISON: 11/26/2020 HISTORY: Chest and epigastric pain. Nausea. CT DLP: 703.9 mGycm Automated exposure control for dose reduction was used. CONTRAST: Performed with IV Contrast, patient injected with 100ml mL of Isovue 370. Images obtained from the thoracic inlet to the diaphragm with IV contrast. There are 3-D post process ed images. There is some mild atelectasis left lung base. There is no evidence of a pulmonary mass. There is no pleural effusion. There is no pericardial effusion. Heart size is normal. There is no mediastinal adenopathy. There are no hilar masses. Thoracic aorta is intact. There is no aneurysm or dissection. There is normal contrast opacification of the pulmonary arteries. There are n o filling defects. Thoracic vertebra appear intact. There is no compression fracture. Sternum is intact. IMPRESSION: No evidence of pulmonary embolism. There is some atelectasis left lung base similar to old exam. No s uspicious pulmonary mass.
--- NOTE | 2021-01-04 19:29 | CT ---
EXAMINATION TYPE: CT abdomen pelvis w con DATE OF EXAM: 01/04/2021 COMPARISON: 11/27/2020 and 12/25/2020 HISTORY: Chest and epigastric pain. Nausea. CT DLP: 1862.4 mGycm Automated exposure control for dose reduction was used. CONTRAST: Performed with IV Contrast, patient injected with 100ml mL of Isovue 370. Images obtained from the diaphragm to the floor the pelvis with oral and IV contrast. FINDINGS: There is some atelectasis at the left posterior lung base. Heart size is normal. There is no pleural effusion. There is no pericardial effusion. There is small hiatal hernia. There is paraesophageal hia kayla hernia. Liver spleen stomach pancreas appear intact. The bile ducts are not dilated. Gallbladder appears abse nt. There is no adrenal mass. Kidneys show satisfactory contrast opacification. There is no hydronephrosi s. Ureters are not dilated. There is no retroperitoneal adenopathy. Bladder distends smoothly. There is no inguinal hernia. There is no free fluid in the pelvis. There is no evidence of a pelvic mass. There is no mesenteric edema. There is no ascites or free air. There is no evidence of a bowel obstru ction. Appendix is not seen. There is metal artifact from posterior fusion surgery at L5-S1. Lumbar vertebra have normal alignment . There is no compression fracture. The bony pelvis appears intact. The hip joints are intact. IMPRESSION: Small hiatal hernia. No acute abnormality in the abdomen pelvis. Subsegmental atelectasis and scarrin g at the left posterior lung base. No significant change compared to old exam.
[2021-01-04] MEDS ORDERED: NITROGLYCERIN SL TABS 0.4 MG TAB SUBLINGUAL PRN (20:12)
[2021-01-04] MEDS ORDERED: ASPIRIN 81 MG PO STA (20:12)
[2021-01-04] MEDS: PANTOPRAZOLE 40 MG/10 ML VIAL IVP SCH (20:30)
[2021-01-05] MEDS: MORPHINE SULFATE 4 MG/ML SYRINGE IVP PRN ×2 (01:05→07:55)
[2021-01-05] MEDS: ONDANSETRON 4 MG/2 ML VIAL IVP PRN ×2 (01:07→09:34)
[2021-01-05] MEDS: NITROGLYCERIN OINT 1 INCH/GM PACKET TOPICAL SCH ×3 (01:07→12:41)
[2021-01-05] MEDS: PANTOPRAZOLE 40 MG/10 ML VIAL IVP SCH (07:54)
[2021-01-05 07:56] VITALS: RESP 16
--- NOTE | 2021-01-05 08:42 | P.CRDCN ---
History of Present Illness Consult date: 01/05/21 Chief complaint: Chest discomfort History of present illness: This is a 40-year-old gentleman who we consulted to see in the emergency department for further evaluation of epigastric discomfort. The patient few days ago underwent laparoscopic procedure attempted to do Niss[place] fundoplication but that was unsuccessful because of the scar tissue according to the patient. The patient presented complaining of epigastric discomfort was some extension of the discomfort to the abdomen as well as to the chest. He did vomit significantly. He denies any shortness of breath. No dizziness or lightheadedness or any feeling of heart racing or fluttering or presyncope or syncope. The EKG showed sinus rhythm without any significant ST or T-wave a bnormalities. The troponin was checked and came in to be unremarkable. He underwent a computed tomography scan of the abdomen which showed no acute abnormalities. The computed tomography scan also revealed small hiatal hernia. He underwent a computed tomography scan of the chest which came in to be unremarkable for pulmonary embolism and currently the patient is pain-free. On examination he does have mild epigastric and abdominal tenderness. Past Medical History Past Medical History: GERD/Reflux Additional Past Medical History / Comment(s): multiple dislocation of rt shoulder, hiatal hernia, hx migraines, IBS, EGD 12/07/20 History of Any Multi-Drug Resistant Organisms: None Reported Past Surgical History: Appendectomy, Back Surgery, Cholecystectomy, Orthopedic Surgery, Tonsillectomy Additional Past Surgical History / Comment(s): rt shoulder arthroscopy, left shoulder fusion, Past Anesthesia/Blood Transfusion Reactions: No Reported Reaction Past Psychological History: No Psychological Hx Reported Smoking Status: Never smoker Past Alcohol Use History: None Reported Past Drug Use History: None Reported - Past Family History Mother Additional Family Medical History / Comment(s): lupus, Father History Unknown: Yes Brother(s) Additional Family Medical History / Comment(s): autoimmune disorder Medications and Allergies Home Medications Medication Instructions Recorded Confirmed Type Cyclobenzaprine [Flexeril] 10 mg PO BID PRN 11/22/20 01/04/21 History Temazepam [Restoril] 30 mg PO HS 12/07/20 01/04/21 History traMADol HCL 50 mg PO TID PRN 12/07/20 01/04/21 History Citalopram Hydrobromide [CeleXA] 20 mg PO DAILY #30 tab 12/09/20 01/04/21 Rx Ondansetron HCl [Zofran] 4 mg PO Q8H PRN #40 tab 12/09/20 01/04/21 Rx Sucralfate [Carafate] 1 gm PO ACHS #120 tablet 12/10/20 01/04/21 Rx Dicyclomine [Bentyl] 10 mg PO TID PRN 12/24/20 01/04/21 History Pantoprazole Sodium [Protonix] 20 mg PO DAILY 12/24/20 01/04/21 History HYDROcodone/APAP 10-325MG [[place] 1 tab PO Q6HR PRN 01/02/21 01/04/21 History 10-325] Allergies Allergy/AdvReac Type Severity Reaction Status Date / Time hydromorphone [From Dilaudid] Allergy Rash/Hives Verified 01/04/21 17:25 latex Allergy Rash/Hives Verified 01/04/21 17:25 meperidine [From Demerol] Allergy Rash/Hives Verified 01/04/21 17:25 Physical Exam Vitals: Vital Signs Temp Pulse Resp BP Pulse Ox 01/05/21 07:55 98.5 F 66 16 103/57 95 01/05/21 05:00 98.3 F 86 18 112/65 96 01/05/21 00:54 98.3 F 89 18 132/91 96 01/04/21 19:59 98.5 F 95 18 122/86 97 01/04/21 19:04 89 18 123/80 96 Intake and Output 01/04/21 01/05/21 01/05/21 22:59 06:59 14:59 Other: Weight 111.13 kg - Constitutional General appearance: no acute distress - Respiratory Respiratory: bilateral: CTA - Cardiovascular Rhythm: regular Heart sounds: normal: S1, S2 Results 01/04/21 18:00 01/04/21 18:00 Cardiac Enzymes 01/04/21 01/04/21 01/04/21 Range/Units 18:00 18:00 21:25 AST 33 (17-59) U/L Troponin I <0.012 <0.012 (0.000-0.034) ng/mL 01/05/21 Range/Units 00:02 AST (17-59) U/L Troponin I <0.012 (0.000-0.034) ng/mL Coagulation 01/04/21 Range/Units 18:00 PT 9.7 (9.0-12.0) sec APTT 22.4 (22.0-30.0) sec CBC 01/04/21 Range/Units 18:00 WBC 9.1 (3.8-10.6) k/uL RBC 4.90 (4.30-5.90) m/uL Hgb 15.7 (13.0-17.5) gm/dL Hct 44.9 (39.0-53.0) % Plt Count 261 (150-450) k/uL Comprehensive Metabolic Panel 01/04/21 Range/Units 18:00 Sodium 139 (137-145) mmol/L Potassium 4.1 (3.5-5.1) mmol/L Chloride 103 (98-107) mmol/L Carbon Dioxide 25 (22-30) mmol/L BUN 15 (9-20) mg/dL Creatinine 0.87 (0.66-1.25) mg/dL Glucose 137 H (74-99) mg/dL Calcium 9.9 (8.4-10.2) mg/dL AST 33 (17-59) U/L ALT 48 (4-49) U/L Alkaline Phosphatase 70 (38-126) U/L Total Protein 7.0 (6.3-8.2) g/dL Albumin 4.2 (3.5-5.0) g/dL Current Medications Generic Name Dose Route Start Last Admin Trade Name Freq PRN Reason Stop Dose Admin Aspirin 325 mg 01/05/21 09:00 01/05/21 07:54 Aspirin 325 Mg Tab PO 325 mg DAILY SANDI Administration Barium Sulfate 450 ml 01/04/21 17:34 Barium Sulfate 450 Ml Oral.Susp Bottle PO 01/05/21 17:[address] Scan Morphine Sulfate 4 mg 01/04/21 20:24 01/05/21 07:55 Morphine Sulfate 4 Mg/Ml Syringe IVP 4 mg Q6HR PRN Administration Pain Nitroglycerin 0.4 mg 01/04/21 20:12 Nitroglycerin Sl Tabs 0.4 Mg Tab SUBLINGUAL Q5M PRN Chest Pain Nitroglycerin 1 inch 01/05/21 00:00 01/05/21 07:15 Nitroglycerin Oint 1 Inch/Gm Packet TOPICAL Not Given Q6HR SANDI Ondansetron HCl 4 mg 01/05/21 00:45 01/05/21 01:07 Ondansetron 4 Mg/2 Ml Vial IVP 4 mg Q6HR PRN Administration Nausea And Vomiting Pantoprazole Sodium 40 mg 01/04/21 20:15 01/05/21 07:54 Pantoprazole 40 Mg/10 Ml Vial IVP 40 mg DAILY SANDI Administration Intake and Output 01/04/21 01/05/21 01/05/21 22:59 06:59 14:59 Other: Weight 111.13 kg 01/04/21 18:00 01/04/21 18:00 Assessment and Plan Assessment: Assessment #1 epigastric discomfort #2 status post laparoscopic procedure Plan #1 acute coronary syndrome was ruled out #2 I will wait on any further cardiac workup at this point until we rule out any gastrointestinal etiology for his discomfort Thank you for allowing us participate in his care
[2021-01-05] MEDS ORDERED: ASPIRIN 325 MG TAB PO SCH (09:00)
[2021-01-05] MEDS ORDERED: CYCLOBENZAPRINE 10 MG TAB PO PRN (09:11)
[2021-01-05] MEDS ORDERED: DICYCLOMINE 10 MG CAP PO PRN (09:12)
[2021-01-05] MEDS ORDERED: HYDROcodone/APAP 10-325MG 1 EACH TAB PO PRN (09:12)
[2021-01-05] MEDS ORDERED: traMADol 50 MG TAB PO PRN (09:12)
[2021-01-05] MEDS ORDERED: SODIUM CHLORIDE 0.9% 1,000 ML IV SCH (09:45)
[2021-01-05] MEDS ORDERED: CITALOPRAM HYDROBROMIDE 20 MG TAB PO SCH (10:00)
[2021-01-05 11:28] LABS: Chol/HDL Ratio 4.09; LDL Cholesterol,Calculated 96.8 mg/dL (0.0-131.0); VLDL Calculation 39.2 mg/dL (5.00-40.00)
[2021-01-05 11:37] VITALS: TEMP 98
[2021-01-05] MEDS ORDERED: SUCRALFATE 1 GM TAB PO SCH (12:30)
[2021-01-05 12:49] VITALS: BP 113/81; PULSE 85
--- NOTE | 2021-01-05 13:02 | P.HPIM ---
History of Present Illness H&P Date: 01/05/21 HISTORY AND PHYSICAL AND DISCHARGE SUMMARY: HISTORY OF PRESENT ILLNESS This is a 40-year-old male patient of Dr. Soria with past medical history of chronic back pain with lumbar fusion 4 years ago. Patient with history of diaphragmatic hernia repair that was completed at [facility] 6 years ago and is known to have recurrent hiatal hernia with plan for surgical intervention on January [address] Kirkland but there were dense adhesions between the stomach and liver and stomach and left diaphragm and lysis of adhesions was performed and surgical intervention was aborted. Patient had no postop complications and was discharged home on the . He states once he was home he started vomiting can stop was unable to sleep and had severe pain. Pain is in the lower esophageal area and he states because of retching he has abdo lita pain in the middle. He denies any diarrhea. He states he has had no solid food since December 01. He is taking some fat shakes only according to the patient. He also states that he attempted to reach Dr. Soria regarding pain medication prescription and refills for Aurora 10 and tramadol but he did not hear back from the office. He states he has run out of his pain medications at home and did not have any refills. Patient presented to [facility] emergency and found to be afebrile, heart rate 89, blood pressure 123/80, pulse ox 96% on room air. EKG was a sinus rhythm with no acute ST changes. CBC was normal. Electrolytes and renal function normal. Blood sugar 137. Liver function tests were normal. Troponin negative on 3 draws. Lipase 177. Coronavirus not detected. Albumin 4.2. Triglycerides 196, LDL 180, HDL 44. CAT scan of the abdomen and pelvis with contrast revealed small hiatal hernia. No acute abnormality in the abdomen and pelvis. Subsegmental atelectasis and scarring at the left posterior lung base. No significant change. CT angios of the chest revealed no evidence of pulmonary embolism. Some atelectasis in the left lung base similar to old exam. No suspicious pulmonary mass. He has been seen by cardiology for epigastric discomfort and acute coronary syndrome has been ruled out. She has been seen by general surgery and started on clear liquid diet, plan to discharge if patient tolerates diet. REVIEW OF SYSTEMS Constitutional: No fever, no chills, no night sweats. No weight change. No weakness, fatigue or lethargy. No daytime sleepiness. EENT: No headache. No blurred vision or double vision, no loss of vision. No loss of Hearing, no ringing in the ears, no dizziness. No nasal drainage or con gestion. No epistaxis. No sore throat. Lungs: No shortness of breath, cough, no sputum production. No wheezing. Cardiovascular: Reports chest pain, no lower extremity edema. No palpitations. No paroxysmal nocturnal dyspnea. No orthopnea. No lightheadedness or dizziness. No syncopal episodes. Abdominal: Reports abdominal discomfort. No nausea, vomiting. Reports diarrhea. No constipation. No bloody or tarry stools. No loss of appetite. Genitourinary: No dysuria, increased frequency, urgency. No urinary retention. Musculoskeletal: No myalgias. No muscle weakness, no gait dysfunction, no frequent falls. No back pain. No neck pain. Integumentary: No wounds, no lesions. No rash or pruritus. No unusual bruising. No change in hair or nails. Neurologic: No aphasia. No facial droop. No change in mentation. No head injury. No headache. No paralysis. No paresthesia. Psychiatric: No depression. Reports anxiety. No mood swings. Endocrine: No abnormal blood sugars. No weight change. SOCIAL HISTORY Patient is a lifelong nonsmoker, no illicit drug use, marijuana use or alcohol use. Patient is and lives alone. FAMILY HISTORY Mother at age 59 from lupus. Patient does not know his father. Patient has one brother with autoimmune disorder. Patient does not have any sisters. PHYSICAL EXAMINATION Gen: This carlie 40-year-old obese male seen resting on ER stretcher in no acute d istress. EENT: Head is atraumatic, normocephalic. Pupils equal, round. Sclerae is anicteric. NECK: Supple. No JVD. No lymphadenopathy. No thyromegaly. LUNGS: Clear to auscultation. No wheezes or rhonchi. No intercostal retractions. HEART: Regular rate and rhythm. No murmur. ABDOMEN: Soft. Bowel sounds are present. No masses. Surgical sites show no signs of infection EXTREMITIES: No pedal edema. No calf tenderness. NEUROLOGICAL: Patient is awake, alert and oriented x3. Cranial nerves 2 through 12 are grossly intact. ASSESSMENT AND PLAN 1. Distal esophageal pain with recurrent hiatal hernia with previous history of diaphragmatic hernia repair at [facility] status post lysis of adhesions. Consult with Gen. surgery appreciated. Patient is started clear liquid diet and if tolerated, discharge home with planned follow-up with [facility]. 2. Epigastric discomfort. Cardiology consult appreciated. Acute coronary syndrome ruled out. 3. Chronic low back pain with previous lumbar fusion. Continue Flexeril 10 mg twice daily as needed. 4. Generalized anxiety disorder. Continue citalopram 20 mg daily. 5. GI prophylaxis. Protonix 40 mg IV push daily. 6. DVT prophylaxis. Early ambulation Discharge Medication List Cyclobenzaprine [Flexeril] 10 mg PO BID PRN 11/22/20 [History] Temazepam [Restoril] 30 mg PO HS 12/07/20 [History] traMADol HCL 50 mg PO TID PRN 12/07/20 [History] Citalopram Hydrobromide [CeleXA] 20 mg PO DAILY #30 tab 12/09/20 [Rx] Ondansetron HCl [Zofran] 4 mg PO Q8H PRN #40 tab 12/09/20 [Rx] Sucralfate [Carafate] 1 gm PO ACHS #120 tablet 12/10/20 [Rx] Dicyclomine [Bentyl] 10 mg PO TID PRN 12/24/20 [History] Pantoprazole Sodium [Protonix] 20 mg PO DAILY 12/24/20 [History] HYDROcodone/APAP 10-325MG [Aurora 10-325] 1 tab PO Q6HR PRN 01/02/21 [History] DISCHARGE PLAN Home. Impression and plan of care have been directed as dictated by the signing physician. Madhuri Steele nurse practitioner acting as scribe for signing physician. Past Medical History Past Medical History: GERD/Reflux Additional Past Medical History / Comment(s): multiple dislocation of rt shoulder, hiatal hernia, hx migraines, IBS, EGD 12/07/20 History of Any Multi-Drug Resistant Organisms: None Reported Past Surgical History: Appendectomy, Back Surgery, Cholecystectomy, Orthopedic Surgery, Tonsillectomy Additional Past Surgical History / Comment(s): rt shoulder arthroscopy, left shoulder fusion, Past Anesthesia/Blood Transfusion Reactions: No Reported Reaction Past Psychological History: No Psychological Hx Reported Smoking Status: Never smoker Past Alcohol Use History: None Reported Past Drug Use History: None Reported - Past Family History Mother Additional Family Medical History / Comment(s): lupus, Father History Unknown: Yes Brother(s) Additional Family Medical History / Comment(s): autoimmune disorder Medications and Allergies Home Medications Medication Instructions Recorded Confirmed Type Cyclobenzaprine [Flexeril] 10 mg PO BID PRN 11/22/20 01/04/21 History Temazepam [Restoril] 30 mg PO HS 12/07/20 01/04/21 History traMADol HCL 50 mg PO TID PRN 12/07/20 01/04/21 History Citalopram Hydrobromide [CeleXA] 20 mg PO DAILY #30 tab 12/09/20 01/04/21 Rx Ondansetron HCl [Zofran] 4 mg PO Q8H PRN #40 tab 12/09/20 01/04/21 Rx Sucralfate [Carafate] 1 gm PO ACHS #120 tablet 12/10/20 01/04/21 Rx Dicyclomine [Bentyl] 10 mg PO TID PRN 12/24/20 01/04/21 History Pantoprazole Sodium [Protonix] 20 mg PO DAILY 12/24/20 01/04/21 History HYDROcodone/APAP 10-325MG [A[place] 1 tab PO Q6HR PRN 01/02/21 01/04/21 History 10-325] Allergies Allergy/AdvReac Type Severity Reaction Status Date / Time hydromorphone [From Dilaudid] Allergy Rash/Hives Verified 01/04/21 17:25 latex Allergy Rash/Hives Verified 01/04/21 17:25 meperidine [From Demerol] Allergy Rash/Hives Verified 01/04/21 17:25 Physical Exam Vitals: Vital Signs Temp Pulse Resp BP Pulse Ox 01/05/21 07:55 98.5 F 66 16 103/57 95 01/05/21 05:00 98.3 F 86 18 112/65 96 01/05/21 00:54 98.3 F 89 18 132/91 96 01/04/21 19:59 98.5 F 95 18 122/86 97 01/04/21 19:04 89 18 123/80 96 Intake and Output 01/04/21 01/05/21 01/05/21 22:59 06:59 14:59 Other: Weight 111.13 kg Results CBC & Chem 7: 01/04/21 18:00 01/04/21 18:00 Labs: Abnormal Lab Results - Last 24 Hours (Table) 01/04/21 Range/Units 18:00 Glucose 137 H (74-99) mg/dL
--- NOTE | 2021-01-05 13:27 | P.GSCN ---
History of Present Illness Consult date: 01/05/21 Requesting physician: Judy Quiroga History of present illness: CHIEF COMPLAINT: Chest pain, nausea and vomiting HISTORY OF PRESENT ILLNESS: This is a 40-year-old male with a known history of diaphragmatic hernia repair that was completed at the [facility] about 6 years ago. He has a known recurrent hiatal hernia and was recently hospitalized and was scheduled to undergo Hutner fundoplication 01/01/2021. The patient had dense adhesions and therefore Hunter fundoplication was aborted, and the patient underwent lysis of his adhesions. The patient was discharged home on 01/02/2021. He returned back to the emergency department yesterday evening with complaints of chest pain which she states radiates to his shoulder, nausea and vomiting. Patient states he has had nausea and vomiting and unable to keep any food down for weeks. Patient denies feeling like anything is getting stuck, states that he just can't eat because every time he does he feels like it just sits in his stomach and comes back up. There is no pain with swallowing. Is having normal bowel movements. He is complaining of some sharp pain in his left upper quadrant. He did have an EGD done on 12/10/2020 that showed gastroesophag eal reflux disease and paraesophageal hernia. He he denies any coffee-ground emesis or hematemesis. States he is still having some chest discomfort which feels almost like a spasm. States the chest discomfort comes and any time at times he will get sweaty and feeling like his heart is racing. He denies any fevers or chills. He has been evaluated by cardiology and troponins have been negative. Cardiology reports acute coronary syndrome was ruled out. He underwent a CT of the abdomen and pelvis which shows a small hiatal hernia. No acute abnormality in the abdomen pelvis. Subsegmental atelectasis and scarring at the left posterior lung base. No significant change compared to old exam. Admitting labs WBC 9.1 hemoglobin 15.7 platelet count 261,000 INR 0.9 sodium 139 potassium 4.1 BUN 15 creatinine 0.87 glucose 137 albumin 4.2 amylase 58 lipase 177 PAST MEDICAL HISTORY: See list. PAST SURGICAL HISTORY: See list. MEDICATIONS: See list. ALLERGIES: See list. SOCIAL HISTORY: No illicit drug use. REVIEW OF SYSTEMS: CONSTITUTIONAL: Denies fever or chills. HEENT: Denies blurred vision, vision changes, or eye pain. Denies hemoptysis ENDOCRINE: Denies heat or cold intolerance. CARDIOVASCULAR: Denies chest pain or pressure. RESPIRATORY: No shortness of breath. GASTROINTESTINAL: Denies abdominal pain. Denies nausea or vomiting. NEURO: Denies history of seizures. PSYCH: No depression or suicidal ideation HEMATOLOGIC: Denies bleeding disorders. LYMPHATIC: The patient denies any lumps and bumps around the neck. GENITOURINARY: Denies any blood in urine or increased urinary frequency. MUSCULOSKELETAL: Denies myalgias. Denies joint swelling. Denies decreased range of motion beyond patients baseline. SKIN: Denies pruitis. Denies rash. PHYSICAL EXAM: VITAL SIGNS: Reviewed GENERAL: Well-developed in no acute distress. HEENT: No sclera icterus. Extraocular movements grossly intact. Moist buccal mucosa. Head is atraumatic, normocephalic. NECK: Supple without lymphadenopathy. CHEST: Non-labored respirations ABDOMEN: Soft. Obese. Nondistended Mild left upper quadrant tenderness. NEUROLOGIC: alert and oriented. . Cranial nerves II through XII grossly intact. SKIN: Well perfused. Good skin turgor. LABORATORY DATA: WBC 9.1 hemoglobin 15.7 platelet count 261,000 INR 0.9 Sodium 139 potassium 4.1 BUN 15 creatinine 0.87 glucose 137 Albumin 4.2 amylase 58 lipase 177 IMAGING: CT abdomen and pelvis shows small hiatal hernia. No acute abnormality in the abdomen and pelvis. Subsegmental atelectasis and scarring at the left posterior lung base. No significant change compared to old exam. ASSESSMENT: 1. Hiatal hernia 2. Nausea and vomiting 3. GERD 4. Status post recent lysis of adhesions, aborted Hunter fundoplication due to dense adhesions 5. Chest pain, cardiology on consult, acute coronary syndrome ruled out PLAN: -Started on clear liquid diet, advance as tolerated -No surgical intervention planned -Recommend patient follow up with [facility] as previously discussed -Continue Protonix for GI prophylaxis -Patient is cleared for discharge from Gen. surgery The impression and plan of care has been dictated as directed. Dr. Kirkland I performed a history and examination of this patient, discussed the same with the dictator. I agree with the dictator's note ,documented as a scribe. Any additional findings or plans will be noted. Past Medical History Past Medical History: GERD/Reflux Additional Past Medical History / Comment(s): multiple dislocation of rt shoulder, hiatal hernia, hx migraines, IBS, EGD 12/07/20 History of Any Multi-Drug Resistant Organisms: None Reported Past Surgical History: Appendectomy, Back Surgery, Cholecystectomy, Orthopedic Surgery, Tonsillectomy Additional Past Surgical History / Comment(s): rt shoulder arthroscopy, left shoulder fusion, Past Anesthesia/Blood Transfusion Reactions: No Reported Reaction Past Psychological History: No Psychological Hx Reported Smoking Status: Never smoker Past Alcohol Use History: None Reported Past Drug Use History: None Reported - Past Family History Mother Additional Family Medical History / Comment(s): lupus, Father History Unknown: Yes Brother(s) Additional Family Medical History / Comment(s): autoimmune disorder Medications and Allergies Home Medications Medication Instructions Recorded Confirmed Type Cyclobenzaprine [Flexeril] 10 mg PO BID PRN 11/22/20 01/04/21 History Temazepam [Restoril] 30 mg PO HS 12/07/20 01/04/21 History traMADol HCL 50 mg PO TID PRN 12/07/20 01/04/21 History Citalopram Hydrobromide [CeleXA] 20 mg PO DAILY #30 tab 12/09/20 01/04/21 Rx Ondansetron HCl [Zofran] 4 mg PO Q8H PRN #40 tab 12/09/20 01/04/21 Rx Sucralfate [Carafate] 1 gm PO ACHS #120 tablet 12/10/20 01/04/21 Rx Dicyclomine [Bentyl] 10 mg PO TID PRN 12/24/20 01/04/21 History Pantoprazole Sodium [Protonix] 20 mg PO DAILY 12/24/20 01/04/21 History HYDROcodone/APAP 10-325MG [[place] 1 tab PO Q6HR PRN 01/02/21 01/04/21 History 10-325] Allergies Allergy/AdvReac Type Severity Reaction Status Date / Time hydromorphone [From Dilaudid] Allergy Rash/Hives Verified 01/04/21 17:25 latex Allergy Rash/Hives Verified 01/04/21 17:25 meperidine [From Demerol] Allergy Rash/Hives Verified 01/04/21 17:25 Surgical - Exam Vital Signs Pulse Resp BP Pulse Ox 89 18 123/80 96 01/04/21 19:04 01/04/21 19:04 01/04/21 19:04 01/04/21 19:04 Results - Labs 01/04/21 18:00 01/04/21 18:00 Abnormal Lab Results - Last 24 Hours (Table) 01/04/21 01/05/21 Range/Units 18:00 05:03 Glucose 137 H (74-99) mg/dL Triglycerides 196.0 H (0.0-149.0) mg/dL Diabetes panel 01/04/21 01/05/21 Range/Units 18:00 05:03 Sodium 139 (137-145) mmol/L Potassium 4.1 (3.5-5.1) mmol/L Chloride 103 (98-107) mmol/L Carbon Dioxide 25 (22-30) mmol/L BUN 15 (9-20) mg/dL Creatinine 0.87 (0.66-1.25) mg/dL Glucose 137 H (74-99) mg/dL Calcium 9.9 (8.4-10.2) mg/dL AST 33 (17-59) U/L ALT 48 (4-49) U/L Alkaline Phosphatase 70 (38-126) U/L Total Protein 7.0 (6.3-8.2) g/dL Albumin 4.2 (3.5-5.0) g/dL Triglycerides 196.0 H (0.0-149.0) mg/dL HDL Cholesterol 44.0 (40.0-60.0) mg/dL Calcium panel 01/04/21 Range/Units 18:00 Calcium 9.9 (8.4-10.2) mg/dL Albumin 4.2 (3.5-5.0) g/dL Pituitary panel 01/04/21 Range/Units 18:00 Sodium 139 (137-145) mmol/L Potassium 4.1 (3.5-5.1) mmol/L Chloride 103 (98-107) mmol/L Carbon Dioxide 25 (22-30) mmol/L BUN 15 (9-20) mg/dL Creatinine 0.87 (0.66-1.25) mg/dL Glucose 137 H (74-99) mg/dL Calcium 9.9 (8.4-10.2) mg/dL Adrenal panel 01/04/21 Range/Units 18:00 Sodium 139 (137-145) mmol/L Potassium 4.1 (3.5-5.1) mmol/L Chloride 103 (98-107) mmol/L Carbon Dioxide 25 (22-30) mmol/L BUN 15 (9-20) mg/dL Creatinine 0.87 (0.66-1.25) mg/dL Glucose 137 H (74-99) mg/dL Calcium 9.9 (8.4-10.2) mg/dL Total Bilirubin 0.3 (0.2-1.3) mg/dL AST 33 (17-59) U/L ALT 48 (4-49) U/L Alkaline Phosphatase 70 (38-126) U/L Total Protein 7.0 (6.3-8.2) g/dL Albumin 4.2 (3.5-5.0) g/dL
[2021-01-05] MEDS ORDERED: TEMAZEPAM 30 MG CAP PO SCH (21:00)
[2021-01-06] MEDS ORDERED: PANTOPRAZOLE 40 MG TABLET PO SCH (09:00)
== END 2021-01-05 14:14 | disposition home or self-care (01) ==
LOC: EC 17:00 → 6NMEDSUR 20:12
PROVIDERS: ADMIT Internal Medicine; ATTEND Internal Medicine
DX: R07.89 Other chest pain (principal); K44.9 Diaphragmatic hernia without obstruction or gangrene; K21.9 Gastro-esophageal reflux disease without esophagitis; G43.909 Migraine, unspecified, not intractable, without status migrainosus; K58.9 Irritable bowel syndrome, unspecified; J98.11 Atelectasis; G89.29 Other chronic pain; M54.5 Low back pain; F41.1 Generalized anxiety disorder; J98.4 Other disorders of lung; Z79.899 Other long term (current) drug therapy; Z88.5 Allergy status to narcotic agent; Z91.040 Latex allergy status; Z90.49 Acquired absence of other specified parts of digestive tract; Z98.1 Arthrodesis status; Z98.890 Other specified postprocedural states; Z87.39 Personal history of other diseases of the musculoskeletal system and connective tissue; Z84.89 Family history of other specified conditions
CPT/HCPCS: 96376 ×2; 96374; 96375; 99285; 36415; 93005; 80061; 80053; 82150; 83690; 83735; 84484 ×2; 85025; 85610; 85730; 87635; 71275; 74177; G0378 ×2; J2270 ×2; J2405 ×2; C9113 ×2; Q9967

== ENCOUNTER 2021-01-17 10:09 | Emergency (ER) | payer OTHER ==
[2021-01-17 10:18] VITALS: TEMP 98.1
[2021-01-17] MEDS ORDERED: ONDANSETRON 4 MG/2 ML VIAL IVP STA ×2 (10:36→14:28)
[2021-01-17] MEDS ORDERED: SODIUM CHLORIDE 0.9% 1,000 ML IV STA (10:36)
[2021-01-17] MEDS ORDERED: MORPHINE SULFATE 4 MG/ML SYRINGE IV STA (10:36)
--- NOTE | 2021-01-17 10:46 | ED ---
General Adult HPI - General Chief complaint: Nausea/Vomiting/Diarrhea Stated complaint: Chest Pain/Vomiting Time Seen by Provider: 01/17/21 10:19 Source: patient Mode of arrival: wheelchair Limitations: no limitations - History of Present Illness Initial comments: This is a 40-year-old male with history of known hiatal hernia who presents to the emergency department with complaints of nausea, vomiting, epigastric and left upper quadrant abdominal pain. Patient states he has had symptoms since November, but the discomfort has been persistent since and he is now concerned about blood in emesis. States he noticed a few red streaks and dark f lecks in his emesis this morning. Denies dark stools or hematochezia; states he is not feeling dizzy or lightheaded. Reports consuming a liquid diet in effort to reduce food bulk but has not noticed any improvement. Does state that he is scheduled to see a provider at [facility] on January 26 for surgical evaluation - Related Data Home Medications Medication Instructions Recorded Confirmed Cyclobenzaprine [Flexeril] 10 mg PO BID PRN 11/22/20 01/17/21 Temazepam [Restoril] 30 mg PO HS 12/07/20 01/17/21 traMADol HCL 50 mg PO TID PRN 12/07/20 01/17/21 Dicyclomine [Bentyl] 10 mg PO TID PRN 12/24/20 01/17/21 Pantoprazole Sodium [Protonix] 20 mg PO DAILY 12/24/20 01/17/21 HYDROcodone/APAP 7.5-325MG [[place] 1 tab PO Q8H PRN 01/17/21 01/17/21 7.5-325] Isosorbide Mononitrate [Isosorbide 30 mg PO DAILY 01/17/21 01/17/21 Mononitrate ER] Previous Rx's Medication Instructions Recorded Citalopram Hydrobromide [CeleXA] 20 mg PO DAILY #30 tab 12/09/20 Ondansetron HCl [Zofran] 4 mg PO Q8H PRN #40 tab 12/09/20 Sucralfate [Carafate] 1 gm PO ACHS #120 tablet 12/10/20 Allergies Allergy/AdvReac Type Severity Reaction Status Date / Time hydromorphone [From Dilaudid] Allergy Rash/Hives Verified 01/17/21 10:18 latex Allergy Rash/Hives Verified 01/17/21 10:18 meperidine [From Demerol] Allergy Rash/Hives Verified 01/17/21 10:18 Review of Systems ROS Statement: Those systems with pertinent positive or pertinent negative responses have been documented in the HPI. ROS Other: All systems not noted in ROS Statement are negative. Past Medical History Past Medical History: GERD/Reflux Additional Past Medical History / Comment(s): multiple dislocation of rt shoulder, hiatal hernia, hx migraines, IBS History of Any Multi-Drug Resistant Organisms: None Reported Past Surgical History: Appendectomy, Back Surgery, Cholecystectomy, Orthopedic Surgery, Tonsillectomy Additional Past Surgical History / Comment(s): rt shoulder arthroscopy, left shoulder fusion, Past Anesthesia/Blood Transfusion Reactions: No Reported Reaction Past Psychological History: No Psychological Hx Reported Smoking Status: Never smoker Past Alcohol Use History: None Reported Past Drug Use History: None Reported - Past Family History Mother Additional Family Medical History / Comment(s): lupus, Father History Unknown: Yes Brother(s) Additional Family Medical History / Comment(s): autoimmune disorder General Exam Limitations: no limitations (Well-developed, well-nourished male in no acute distress) General appearance: alert, in no apparent distress ENT exam: Present: normal exam, mucous membranes moist Respiratory exam: Present: normal lung sounds bilaterally. Absent: respiratory distress, wheezes, rales, rhonchi, stridor Cardiovascular Exam: Present: regular rate, normal rhythm, normal heart sounds. Absent: systolic murmur, diastolic murmur, rubs, gallop, clicks GI/Abdominal exam: Present: soft, tenderness (Left upper quadrant along the low er rib border), normal bowel sounds. Absent: guarding, rebound, rigid Back exam: Present: normal inspection. Absent: CVA tenderness (L) Neurological exam: Present: alert, oriented X3, CN II-XII intact Psychiatric exam: Present: normal affect, normal mood Skin exam: Present: warm, dry, intact, normal color. Absent: rash Course Vital Signs 01/17/21 10:14 Temperature 98.1 F Pulse Rate 98 Respiratory 18 Rate Blood Pressure 119/86 O2 Sat by Pulse 95 Oximetry - Reevaluation(s) Reevaluation #1: 01/17/21 12:53 Patient reports nausea has improved but continues to have left upper quadrant pain; asking for additional pain treatment. Medical Decision Making - Medical Decision Making 40-year-old male with a history of hiatal hernia is evaluated for complaints of abdominal pain, nausea, and vomiting. Patient was concerned about having an episode of emesis with a red streak and was worried about bleeding. Patient is hemodynamically stable, his abdomen is soft with no rebound tenderness or guarding. Patient has had no episodes of vomiting while present in the department. Reports moderate improvement of pain and nausea with treatment. No significant lab abnormalities. Patient is instructed to keep his scheduled appointment at [facility]. Return parameters were discussed in detail patient verbalizes understanding. - Lab Data Result diagrams: 01/17/21 10:51 01/17/21 10:51 Lab Results 01/17/21 01/17/21 01/17/21 Range/Units 10:51 10:51 10:51 WBC 6.6 (3.8-10.6) k/uL RBC 4.83 (4.30-5.90) m/uL Hgb 14.9 (13.0-17.5) gm/dL Hct 44.1 (39.0-53.0) % MCV 91.4 (80.0-100.0) fL MCH 30.8 (25.0-35.0) pg MCHC 33.7 (31.0-37.0) g/dL RDW 13.0 (11.5-15.5) % Plt Count 271 (150-450) k/uL MPV 7.4 Neutrophils % 71 % Lymphocytes % 20 % Monocytes % 6 % Eosinophils % 1 % Basophils % 1 % Neutrophils # 4.7 (1.3-7.7) k/uL Lymphocytes # 1.4 (1.0-4.8) k/uL Monocytes # 0.4 (0-1.0) k/uL Eosinophils # 0.1 (0-0.7) k/uL Basophils # 0.0 (0-0.2) k/uL Sodium 140 (137-145) mmol/L Potassium 4.1 (3.5-5.1) mmol/L Chloride 107 (98-107) mmol/L Carbon Dioxide 22 (22-30) mmol/L Anion Gap 11 mmol/L BUN 12 (9-20) mg/dL Creatinine 0.73 (0.66-1.25) mg/dL Est GFR (CKD-EPI)AfAm >90 (>60 ml/min/1.73 sqM) Est GFR (CKD-EPI)NonAf >90 (>60 ml/min/1.73 sqM) Glucose 105 H (74-99) mg/dL Calcium 9.6 (8.4-10.2) mg/dL Total Bilirubin 0.8 (0.2-1.3) mg/dL AST 138 H (17-59) U/L ALT 64 H (4-49) U/L Alkaline Phosphatase 81 (38-126) U/L Total Protein 7.2 (6.3-8.2) g/dL Albumin 4.3 (3.5-5.0) g/dL Urine Color Yellow Urine Appearance Clear (Clear) Urine pH 5.5 (5.0-8.0) Ur Specific [place] 1.026 (1.001-1.035) Urine Protein Trace H (Negative) Urine Glucose (UA) Negative (Negative) Urine Ketones Negative (Negative) Urine Blood Negative (Negative) Urine Nitrite Negative (Negative) Urine Bilirubin Negative (Negative) Urine Urobilinogen <2.0 (<2.0) mg/dL Ur Leukocyte Esterase Negative (Negative) Disposition Clinical Impression: Abdominal pain, Nausea & vomiting Disposition: HOME SELF-CARE Condition: Stable Instructions (If sedation given, give patient instructions): Acute Nausea and Vomiting (ED), Abdominal Pain (ED) Additional Instructions: Continue bland diet and eat small frequent meals. Keep follow-up appointment at [facility] as scheduled. Return to the emergency department with any new, worsening, or concerning symptoms. Is patient prescribed a controlled substance at d/c from ED?: No Referrals: Huma Soria MD [Primary Care Provider] - 1-2 days Time of Disposition: 14:49
[2021-01-17] MEDS ORDERED: PANTOPRAZOLE 40 MG/10 ML VIAL IVP STA (10:49)
[2021-01-17 11:36] LABS: Basophils % (A) 1 %; Eosinophils # (A) 0.1 k/uL (0-0.7); Eosinophils % (A) 1 %; HCT 44.1 % (39.0-53.0); HGB 14.9 gm/dL (13.0-17.5); Lymphocytes # (A) 1.4 k/uL (1.0-4.8); Lymphocytes % (A) 20 %; MCH 30.8 pg (25.0-35.0); MCHC 33.7 g/dL (31.0-37.0); MCV 91.4 fL (80.0-100.0); Mean Platelet Volume 7.4; Monocytes # (A) 0.4 k/uL (0-1.0); Monocytes % (A) 6 %; Neutrophils # (A) 4.7 k/uL (1.3-7.7); Neutrophils % (A) 71 %; Platelet Count 271 k/uL (150-450); RBC 4.83 m/uL (4.30-5.90); WBC 6.6 k/uL (3.8-10.6)
[2021-01-17 11:48] LABS: ALT 64 U/L (4-49); AST 138 U/L (17-59); African American GFR (CKD) >90 (>60 ml/min/1.73 sqM); Albumin 4.3 g/dL (3.5-5.0); Alkaline Phosphatase 81 U/L (38-126); Anion Gap 11 mmol/L; Blood Urea Nitrogen 12 mg/dL (9-20); Calcium 9.6 mg/dL (8.4-10.2); Carbon Dioxide 22 mmol/L (22-30); Chloride 107 mmol/L (98-107); Glucose 105 mg/dL (74-99); Non-African American GFR(CKD) >90 (>60 ml/min/1.73 sqM); Potassium 4.1 mmol/L (3.5-5.1); Sodium 140 mmol/L (137-145); Total Bilirubin 0.8 mg/dL (0.2-1.3); Total Protein 7.2 g/dL (6.3-8.2)
[2021-01-17 12:37] LABS: Appearance,Urine Clear (Clear); Bilirubin,Urine Negative (Negative); Blood,Urine Negative (Negative); Color,Urine Yellow; Glucose,Urine (UA) Negative (Negative); Ketones,Urine Negative (Negative); Leukocyte Esterase,Urine Negative (Negative); Nitrite,Urine Negative (Negative); PH, Urine 5.5 (5.0-8.0); Protein,Urine Trace (Negative); Specific Gravity,Urine 1.026 (1.001-1.035); Urobilinogen,Urine <2.0 mg/dL (<2.0)
[2021-01-17] MEDS ORDERED: MAG HYDROX/AL HYDROX/SIMETH 30 ML, HYOSCYAMINE ELIXIR 10 ML, LIDOCAINE VISCOUS 2% 10 ML PO STA ×3 (12:52)
[2021-01-17] MEDS ORDERED: ONDANSETRON 4 MG ODT STARTER PACK 2 TAB BTL PO STA (14:29)
[2021-01-17 15:37] VITALS: BP 118/83; PULSE 87; RESP 20
== END 2021-01-17 15:37 | disposition home or self-care (01) ==
LOC: EC 10:09
DX: R10.12 Left upper quadrant pain (principal); R11.2 Nausea with vomiting, unspecified; K21.9 Gastro-esophageal reflux disease without esophagitis; Z91.040 Latex allergy status; Z88.5 Allergy status to narcotic agent; Z90.49 Acquired absence of other specified parts of digestive tract
CPT/HCPCS: 99284; 96374; 96375 ×2; 96376; 96361; 36415; 80053; 85025; 81003; J2270; J2405; S0119; C9113

== ENCOUNTER 2021-01-28 03:32 | Emergency (ER) | payer OTHER ==
[2021-01-28 03:39] VITALS: TEMP 98.4
[2021-01-28] MEDS ORDERED: PROCHLORPERAZINE INJ 10 MG/2 ML VIAL IVP STA (04:02)
[2021-01-28] MEDS ORDERED: SODIUM CHLORIDE 0.9% 1,000 ML IV STA (04:02)
[2021-01-28] MEDS ORDERED: PANTOPRAZOLE 40 MG/10 ML VIAL IVP STA (04:02)
[2021-01-28] MEDS ORDERED: MORPHINE SULFATE 4 MG/ML SYRINGE IVP STA (04:02)
[2021-01-28] MEDS ORDERED: diphenhydrAMINE 50 MG/ML 1 ML VIAL IVP STA (04:02)
--- NOTE | 2021-01-28 04:04 | ED ---
Recheck HPI - General Chief Complaint: Chest Pain Stated Complaint: Chest pain Time Seen by Provider: 01/28/21 03:32 Source: patient, RN notes reviewed, old records reviewed Mode of arrival: ambulatory Limitations: no limitations - History of Present Illness Initial Comments: This is a 40-year-old male with severe abdominal pain. Patient presents for r ecurrent evaluation regarding abdominal pain in for evaluation pain control. Patient has known history of significant hiatal hernia likely thoracic hiatal hernia with inability to pass both solids and liquids patient currently does have feeding tube is on a feeding tube. Having severe pain generalized pain bodyaches and pains MD Complaint: medication refill request -: days(s) Returns Today for: persistent/worsening pain related to initial visit Symptoms Since Prior Visit: worsening pain Associated Symptoms: none Treatments Prior to Arrival: Given Pain Meds on - Related Data Home Medications Medication Instructions Recorded Confirmed Cyclobenzaprine [Flexeril] 10 mg PO BID PRN 11/22/20 01/17/21 Temazepam [Restoril] 30 mg PO HS 12/07/20 01/17/21 traMADol HCL 50 mg PO TID PRN 12/07/20 01/17/21 Dicyclomine [Bentyl] 10 mg PO TID PRN 12/24/20 01/17/21 Pantoprazole Sodium [Protonix] 20 mg PO DAILY 12/24/20 01/17/21 HYDROcodone/APAP 7.5-325MG [Blain 1 tab PO Q8H PRN 01/17/21 01/17/21 7.5-325] Isosorbide Mononitrate [Isosorbide 30 mg PO DAILY 01/17/21 01/17/21 Mononitrate ER] Previous Rx's Medication Instructions Recorded Citalopram Hydrobromide [CeleXA] 20 mg PO DAILY #30 tab 12/09/20 Ondansetron HCl [Zofran] 4 mg PO Q8H PRN #40 tab 12/09/20 Sucralfate [Carafate] 1 gm PO ACHS #120 tablet 12/10/20 Allergies Allergy/AdvReac Type Severity Reaction Status Date / Time hydromorphone [From Dilaudid] Allergy Rash/Hives Verified 01/28/21 03:40 latex Allergy Rash/Hives Verified 01/28/21 03:40 meperidine [From Demerol] Allergy Rash/Hives Verified 01/28/21 03:40 Review of Systems ROS Statement: Those systems with pertinent positive or pertinent negative responses have been documented in the HPI. ROS Other: All systems not noted in ROS Statement are negative. Past Medical History Past Medical History: GERD/Reflux Additional Past Medical History / Comment(s): multiple dislocation of rt shoulder, hiatal hernia, hx migraines, IBS History of Any Multi-Drug Resistant Organisms: None Reported Past Surgical History: Appendectomy, Back Surgery, Cholecystectomy, Orthopedic Surgery, Tonsillectomy Additional Past Surgical History / Comment(s): rt shoulder arthroscopy, left shoulder fusion, Past Anesthesia/Blood Transfusion Reactions: No Reported Reaction Past Psychological History: No Psychological Hx Reported Smoking Status: Never smoker Past Alcohol Use History: None Reported Past Drug Use History: None Reported - Past Family History Mother Additional Family Medical History / Comment(s): lupus, Father History Unknown: Yes Brother(s) Additional Family Medical History / Comment(s): autoimmune disorder General Exam Limitations: no limitations General appearance: alert, in no apparent distress Head exam: Present: atraumatic, normocephalic, normal inspection Eye exam: Present: normal appearance, PERRL, EOMI. Absent: scleral icterus, conjunctival injection, periorbital swelling ENT exam: Present: normal exam, mucous membranes moist Neck exam: Present: normal inspection. Absent: tenderness, meningismus, lymphadenopathy Respiratory exam: Present: normal lung sounds bilaterally. Absent: respiratory distress, wheezes, rales, rhonchi, stridor Cardiovascular Exam: Present: regular rate, normal rhythm, normal heart sounds. Absent: systolic murmur, diastolic murmur, rubs, gallop, clicks GI/Abdominal exam: Present: soft, normal bowel sounds. Absent: distended, tenderness, guarding, rebound, rigid Extremities exam: Present: normal inspection, full ROM, normal capillary refill. Absent: tenderness, pedal edema, joint swelling, calf tenderness Back exam: Present: normal inspection Neurological exam: Present: alert, oriented X3, CN II-XII intact Psychiatric exam: Present: normal affect, normal mood Skin exam: Present: warm, dry, intact, normal color. Absent: rash Course Vital Signs 01/28/21 01/28/21 03:34 05:08 Temperature 98.4 F Pulse Rate 80 68 Respiratory 22 18 Rate Blood Pressure 123/78 123/82 O2 Sat by Pulse 96 98 Oximetry - Reevaluation(s) Reevaluation #1: 01/28/21 04:04 Record is reviewed Reevaluation #2: 01/28/21 05:30 Patient is currently feeling much improved Reevaluation #3: 01/28/21 05:30 Patient feels good for discharge home Medical Decision Making - Medical Decision Making 40 male DF for evaluation of acute on chronic pain. Pain is well-controlled currently. We'll continue follow-up as an outpatient regarding pain control - Lab Data Result diagrams: 01/28/21 04:06 01/28/21 04:06 Lab Results 01/28/21 01/28/21 Range/Units 04:06 04:06 WBC 7.0 (3.8-10.6) k/uL RBC 5.14 (4.30-5.90) m/uL Hgb 16.2 (13.0-17.5) gm/dL Hct 47.6 (39.0-53.0) % MCV 92.5 (80.0-100.0) fL MCH 31.4 (25.0-35.0) pg MCHC 34.0 (31.0-37.0) g/dL RDW 13.0 (11.5-15.5) % Plt Count 307 (150-450) k/uL MPV 7.8 Neutrophils % 48 % Lymphocytes % 38 % Monocytes % 8 % Eosinophils % 2 % Basophils % 1 % Neutrophils # 3.3 (1.3-7.7) k/uL Lymphocytes # 2.7 (1.0-4.8) k/uL Monocytes # 0.6 (0-1.0) k/uL Eosinophils # 0.1 (0-0.7) k/uL Basophils # 0.1 (0-0.2) k/uL Sodium 140 (137-145) mmol/L Potassium 4.3 (3.5-5.1) mmol/L Chloride 103 (98-107) mmol/L Carbon Dioxide 26 (22-30) mmol/L Anion Gap 11 mmol/L BUN 18 (9-20) mg/dL Creatinine 0.78 (0.66-1.25) mg/dL Est GFR (CKD-EPI)AfAm >90 (>60 ml/min/1.73 sqM) Est GFR (CKD-EPI)NonAf >90 (>60 ml/min/1.73 sqM) Glucose 98 (74-99) mg/dL Calcium 10.5 H (8.4-10.2) mg/dL Total Bilirubin 0.5 (0.2-1.3) mg/dL AST 28 (17-59) U/L ALT 38 (4-49) U/L Alkaline Phosphatase 81 (38-126) U/L Total Protein 7.9 (6.3-8.2) g/dL Albumin 4.6 (3.5-5.0) g/dL Amylase 68 (30-110) U/L Lipase 261 (23-300) U/L - Radiology Data Radiology results: report reviewed (X-ray KUB is negative for acute disease), image reviewed Disposition Clinical Impression: Chest pain, Abdominal pain, Nausea & vomiting Disposition: HOME SELF-CARE Condition: Good Instructions (If sedation given, give patient instructions): Abdominal Pain (ED) Is patient prescribed a controlled substance at d/c from ED?: No Referrals: Huma Soria MD [Primary Care Provider] - 1-2 days
[2021-01-28 04:15] LABS: Basophils # (A) 0.1 k/uL (0-0.2); Basophils % (A) 1 %; Eosinophils # (A) 0.1 k/uL (0-0.7); Eosinophils % (A) 2 %; HCT 47.6 % (39.0-53.0); HGB 16.2 gm/dL (13.0-17.5); Lymphocytes # (A) 2.7 k/uL (1.0-4.8); Lymphocytes % (A) 38 %; MCH 31.4 pg (25.0-35.0); MCV 92.5 fL (80.0-100.0); Mean Platelet Volume 7.8; Monocytes # (A) 0.6 k/uL (0-1.0); Monocytes % (A) 8 %; Neutrophils # (A) 3.3 k/uL (1.3-7.7); Neutrophils % (A) 48 %; Platelet Count 307 k/uL (150-450); RBC 5.14 m/uL (4.30-5.90)
--- NOTE | 2021-01-28 04:22 | XR ---
EXAMINATION TYPE: XR KUB DATE OF EXAM: 01/28/2021 COMPARISON: NONE HISTORY: Chest pain TECHNIQUE: 2 views upright FINDINGS: Bowel gas pattern is normal. There is no sign of intestinal obstruction or pneumoperitoneum . There is some contrast in the left colon. There is nasogastric tube probably in the fourth part of the duodenum. There is posterior fusion surgery in the lower lumbar spine. There is no evidence of ab dominal mass. I see no calcifications over the kidneys. IMPRESSION: Nonacute abdomen.
[2021-01-28 04:46] LABS: ALT 38 U/L (4-49); AST 28 U/L (17-59); African American GFR (CKD) >90 (>60 ml/min/1.73 sqM); Albumin 4.6 g/dL (3.5-5.0); Alkaline Phosphatase 81 U/L (38-126); Amylase 68 U/L (30-110); Anion Gap 11 mmol/L; Blood Urea Nitrogen 18 mg/dL (9-20); Calcium 10.5 mg/dL (8.4-10.2); Carbon Dioxide 26 mmol/L (22-30); Chloride 103 mmol/L (98-107); Glucose 98 mg/dL (74-99); Lipase 261 U/L (23-300); Non-African American GFR(CKD) >90 (>60 ml/min/1.73 sqM); Potassium 4.3 mmol/L (3.5-5.1); Sodium 140 mmol/L (137-145); Total Bilirubin 0.5 mg/dL (0.2-1.3); Total Protein 7.9 g/dL (6.3-8.2)
[2021-01-28 06:12] VITALS: BP 125/83; PULSE 78; RESP 16
== END 2021-01-28 05:55 | disposition home or self-care (01) ==
LOC: EC 03:32
DX: R07.9 Chest pain, unspecified (principal); R11.2 Nausea with vomiting, unspecified; R10.9 Unspecified abdominal pain; K21.9 Gastro-esophageal reflux disease without esophagitis; Z88.5 Allergy status to narcotic agent; Z79.899 Other long term (current) drug therapy; Z90.49 Acquired absence of other specified parts of digestive tract
CPT/HCPCS: 36415; 80053; 82150; 83690; 85025; 74018; 99285; 96374; 96375 ×3; 96361; J2270; J1200; J0780; C9113

== ENCOUNTER 2021-02-07 17:22 | Emergency (ER) | payer OTHER ==
--- NOTE | 2021-02-07 17:42 | ED ---
General Adult HPI - General Chief complaint: Chest Pain Stated complaint: chest pain Time Seen by Provider: 02/07/21 17:41 Source: patient Mode of arrival: ambulatory Limitations: no limitations - History of Present Illness Initial comments: Patient presents to the ED complaining of having constant chest heaviness radiating to his left jaw and left shoulder since last night. Patient also states that he has felt lightheaded today. Patient has a nasogastric feeding tube in place. Patient states that he has a large hiatal hernia, and he states that he had a feeding tube placed several weeks ago at [facility]. Patient states that for the past 4 days, any feedings that he puts down his feeding tube, he has been vomiting up. Patient states that he is not able to swallow anything by mouth. Patient denies trauma or injury, fever or chills, headache, focal neuro deficit, pleuritic pain, dyspnea, cough or cold symptoms, palpitations, syncope, abdominal pain, diarrhea or constipation, hematemesis, dysuria or urinary symptoms, leg or calf swelling or pain, or any other symptoms or complaints. - Related Data Home Medications Medication Instructions Recorded Confirmed Temazepam [Restoril] 30 mg PO HS 12/07/20 02/07/21 HYDROcodone/APAP [Pollock Elixir 15 ml PO Q6HR PRN 02/07/21 02/07/21 7.5-325Mg/15Ml] Metoclopramide HCl [Reglan] 10 mg PO QID 02/07/21 02/07/21 Previous Rx's Medication Instructions Recorded Sucralfate [Carafate] 1 gm PO ACHS #120 tablet 12/10/20 Allergies Allergy/AdvReac Type Severity Reaction Status Date / Time hydromorphone [From Dilaudid] Allergy Rash/Hives Verified 02/07/21 19:20 latex Allergy Rash/Hives Verified 02/07/21 19:20 meperidine [From Demerol] Allergy Rash/Hives Verified 02/07/21 19:20 Review of Systems ROS Statement: Those systems with pertinent positive or pertinent negative responses have been documented in the HPI. ROS Other: All systems not noted in ROS Statement are negative. Past Medical History Past Medical History: GERD/Reflux Additional Past Medical History / Comment(s): multiple dislocation of rt shoulder, hiatal hernia, hx migraines, IBS History of Any Multi-Drug Resistant Organisms: None Reported Past Surgical History: Appendectomy, Back Surgery, Cholecystectomy, Orthopedic Surgery, Tonsillectomy Additional Past Surgical History / Comment(s): rt shoulder arthroscopy, left shoulder fusion, Past Anesthesia/Blood Transfusion Reactions: No Reported Reaction Past Psychological History: No Psychological Hx Reported Smoking Status: Never smoker Past Alcohol Use History: None Reported Past Drug Use History: None Reported - Past Family History Mother Additional Family Medical History / Comment(s): lupus, Father History Unknown: Yes Brother(s) Additional Family Medical History / Comment(s): autoimmune disorder General Exam Limitations: no limitations General appearance: alert, in no apparent distress Head exam: Present: atraumatic, normocephalic Eye exam: Present: normal appearance, EOMI ENT exam: Present: mucous membranes moist, other (Right-sided nasogastric feeding tube is in place) Neck exam: Present: other (Regular is in midline) Respiratory exam: Present: normal lung sounds bilaterally. Absent: respiratory distress, wheezes, rales, rhonchi, stridor, chest wall tenderness Cardiovascular Exam: Present: regular rate, normal rhythm, normal heart sounds, other (Normal radial pulses bilaterally) GI/Abdominal exam: Present: soft, normal bowel sounds, other (Obese abdomen). Absent: distended, tenderness, guarding Extremities exam: Present: other (Negative Homans sign bilaterally). Absent: tenderness, pedal edema, calf tenderness Neurological exam: Present: alert, oriented X3. Absent: motor sensory deficit Psychiatric exam: Present: normal affect, normal mood Skin exam: Present: warm, dry, intact, normal color Course Vital Signs 02/07/21 02/07/21 02/07/21 17:27 18:57 20:00 Temperature 97.8 F Pulse Rate 78 70 61 Respiratory 18 18 20 Rate Blood Pressure 116/77 113/67 111/91 O2 Sat by Pulse 98 98 98 Oximetry 02/07/21 20:49 Temperature 98.3 F Pulse Rate 64 Respiratory 20 Rate Blood Pressure 105/64 O2 Sat by Pulse 97 Oximetry - Reevaluation(s) Reevaluation #1: 02/07/21 19:06 Case, H&P and test results were discussed with Dr. Soria who knows the patient very well. She states that there is nothing that we can do for his hiatal hernia here. She also states that the patient has been cleared by cardiology for his chest pain. She recommends transferring the patient to [facility] where the patient already has an appointment scheduled with CT surgery. She has no further recommendations at this time. 02/07/21 19:56 Case was discussed with the [facility] transfer center nurse. She states that they will call me back regarding transfer acceptance. 02/07/21 21:39 Case, H&P and test results were discussed with Dr. Mao (ED physician at [facility]) and Dr. Workman (thoracic surgeon at [facility]). Dr. Mao has accepted ambulance transfer to the [facility] ED, and Dr. Workman has agreed to see the patient in consultation. 02/07/21 21:46 Patient remains alert and breathing comfortably with a normal room air oxygen saturation. Patient is aware of his test results, and he agrees with ambulance transfer to the [facility] ED at this time. EKG Findings - EKG Comments: EKG Findings:: Normal sinus rhythm, ventricular rate of 85 bpm, no ectopy, normal [place] and QRS intervals, normal QT interval, normal axis, no ST or T-wave ab normality, no significant change when compared to 01/28/2021 EKG Medical Decision Making - Medical Decision Making Patient has normal and reassuring vital signs. Patient's EKG, labs and chest x- ray are fairly unremarkable. Patient had a normal stress echocardiogram done about 6 months ago. I do not think that the patient's chest pain is likely cardiac in etiology. I suspect that the patient's symptoms are all related to his hiatal hernia and GI issues. Given the patient's history and my discussion with Dr. Soria (patient's PCP), we felt it was best for the patient be transferred to [facility] for further evaluation and management. Patient was accepted for ambulance transfer to the [facility] ED by Dr. Mao. - Lab Data Result diagrams: 02/07/21 18:03 02/07/21 18:03 Lab Results 02/07/21 02/07/21 02/07/21 Range/Units 18:03 18:03 18:03 WBC 7.2 (3.8-10.6) k/uL RBC 5.20 (4.30-5.90) m/uL Hgb 16.2 (13.0-17.5) gm/dL Hct 47.7 (39.0-53.0) % MCV 91.7 (80.0-100.0) fL MCH 31.2 (25.0-35.0) pg MCHC 34.0 (31.0-37.0) g/dL RDW 13.3 (11.5-15.5) % Plt Count 277 (150-450) k/uL MPV 8.1 Neutrophils % 61 % Lymphocytes % 28 % Monocytes % 6 % Eosinophils % 2 % Basophils % 1 % Neutrophils # 4.4 (1.3-7.7) k/uL Lymphocytes # 2.0 (1.0-4.8) k/uL Monocytes # 0.5 (0-1.0) k/uL Eosinophils # 0.2 (0-0.7) k/uL Basophils # 0.0 (0-0.2) k/uL PT 9.9 (9.0-12.0) sec INR 0.9 (<1.2) APTT 23.4 (22.0-30.0) sec Sodium 140 (137-145) mmol/L Potassium 4.4 (3.5-5.1) mmol/L Chloride 106 (98-107) mmol/L Carbon Dioxide 23 (22-30) mmol/L Anion Gap 11 mmol/L BUN 19 (9-20) mg/dL Creatinine 0.83 (0.66-1.25) mg/dL Est GFR (CKD-EPI)AfAm >90 (>60 ml/min/1.73 sqM) Est GFR (CKD-EPI)NonAf >90 (>60 ml/min/1.73 sqM) Glucose 93 (74-99) mg/dL Calcium 10.1 (8.4-10.2) mg/dL Magnesium 2.2 (1.6-2.3) mg/dL Total Bilirubin 0.6 (0.2-1.3) mg/dL AST 36 (17-59) U/L ALT 55 H (4-49) U/L Alkaline Phosphatase 84 (38-126) U/L Troponin I (0.000-0.034) ng/mL NT-Pro-B Natriuret Pep pg/mL Total Protein 8.1 (6.3-8.2) g/dL Albumin 4.9 (3.5-5.0) g/dL Lipase 239 (23-300) U/L 02/07/21 02/07/21 Range/Units 18:03 18:03 WBC (3.8-10.6) k/uL RBC (4.30-5.90) m/uL Hgb (13.0-17.5) gm/dL Hct (39.0-53.0) % MCV (80.0-100.0) fL MCH (25.0-35.0) pg MCHC (31.0-37.0) g/dL RDW (11.5-15.5) % Plt Count (150-450) k/uL MPV Neutrophils % % Lymphocytes % % Monocytes % % Eosinophils % % Basophils % % Neutrophils # (1.3-7.7) k/uL Lymphocytes # (1.0-4.8) k/uL Monocytes # (0-1.0) k/uL Eosinophils # (0-0.7) k/uL Basophils # (0-0.2) k/uL PT (9.0-12.0) sec INR (<1.2) APTT (22.0-30.0) sec Sodium (137-145) mmol/L Potassium (3.5-5.1) mmol/L Chloride (98-107) mmol/L Carbon Dioxide (22-30) mmol/L Anion Gap mmol/L BUN (9-20) mg/dL Creatinine (0.66-1.25) mg/dL Est GFR (CKD-EPI)AfAm (>60 ml/min/1.73 sqM) Est GFR (CKD-EPI)NonAf (>60 ml/min/1.73 sqM) Glucose (74-99) mg/dL Calcium (8.4-10.2) mg/dL Magnesium (1.6-2.3) mg/dL Total Bilirubin (0.2-1.3) mg/dL AST (17-59) U/L ALT (4-49) U/L Alkaline Phosphatase (38-126) U/L Troponin I <0.012 (0.000-0.034) ng/mL NT-Pro-B Natriuret Pep 16 pg/mL Total Protein (6.3-8.2) g/dL Albumin (3.5-5.0) g/dL Lipase (23-300) U/L - Radiology Data Radiology results: report reviewed (Chest x-ray: Minimal scarring or atelectasis left lower lobe. There is improved aeration at the left lung is compared to old exam. Normal heart.) Disposition Clinical Impression: Chest pain, Vomiting Disposition: OTHER INSTITUTION NOT DEFINED Condition: Stable Is patient prescribed a controlled substance at d/c from ED?: No Referrals: Huma Soria MD [Primary Care Provider] - 1-2 days Time of Disposition: 21:42 - Out of Hospital Transfer - Req. Specs Out of Hospital Transfer - Requested Specifics: Other Emergency Center ([facility])
[2021-02-07] MEDS ORDERED: ONDANSETRON 4 MG/2 ML VIAL IVP STA ×2 (17:56→21:43)
[2021-02-07] MEDS ORDERED: SODIUM CHLORIDE 0.9% 1,000 ML IV STA (17:56)
[2021-02-07] MEDS ORDERED: MORPHINE SULFATE 4 MG/ML SYRINGE IV STA (17:56)
[2021-02-07 18:10] LABS: Basophils % (A) 1 %; Eosinophils # (A) 0.2 k/uL (0-0.7); Eosinophils % (A) 2 %; HCT 47.7 % (39.0-53.0); HGB 16.2 gm/dL (13.0-17.5); Lymphocytes % (A) 28 %; MCH 31.2 pg (25.0-35.0); MCV 91.7 fL (80.0-100.0); Mean Platelet Volume 8.1; Monocytes # (A) 0.5 k/uL (0-1.0); Monocytes % (A) 6 %; Neutrophils # (A) 4.4 k/uL (1.3-7.7); Neutrophils % (A) 61 %; Platelet Count 277 k/uL (150-450); RDW 13.3 % (11.5-15.5); WBC 7.2 k/uL (3.8-10.6)
[2021-02-07] MEDS: ASPIRIN 300 MG SUPP RECTAL STA (18:11)
[2021-02-07 18:23] LABS: INR 0.9 (<1.2)
[2021-02-07 18:24] LABS: ALT 55 U/L (4-49); AST 36 U/L (17-59); African American GFR (CKD) >90 (>60 ml/min/1.73 sqM); Albumin 4.9 g/dL (3.5-5.0); Alkaline Phosphatase 84 U/L (38-126); Anion Gap 11 mmol/L; Blood Urea Nitrogen 19 mg/dL (9-20); Calcium 10.1 mg/dL (8.4-10.2); Carbon Dioxide 23 mmol/L (22-30); Chloride 106 mmol/L (98-107); Glucose 93 mg/dL (74-99); Lipase 239 U/L (23-300); Magnesium 2.2 mg/dL (1.6-2.3); Non-African American GFR(CKD) >90 (>60 ml/min/1.73 sqM); Partial Thromboplastin Time 23.4 sec (22.0-30.0); Potassium 4.4 mmol/L (3.5-5.1); Prothrombin Time 9.9 sec (9.0-12.0); Sodium 140 mmol/L (137-145); Total Bilirubin 0.6 mg/dL (0.2-1.3); Total Protein 8.1 g/dL (6.3-8.2)
--- NOTE | 2021-02-07 18:46 | XR ---
EXAMINATION TYPE: XR chest 2V DATE OF EXAM: 02/07/2021 COMPARISON: December 24, 2020 HISTORY: Chest pain TECHNIQUE: FINDINGS: Heart and mediastinum are normal. Lungs are clear. Diaphragm is normal. There is small line ar density left lower lobe. There is right shoulder prosthesis. There are no hilar masses. There are chest leads. There is no evidence of pleural effusion. IMPRESSION: Minimal scarring or atelectasis left lower lobe. There is improved aeration of the left l jose j base compared to old exam. Normal heart.
[2021-02-07] MEDS ORDERED: KETOROLAC 15 MG/ML 1 ML VIAL IVP STA (20:41)
[2021-02-07 20:51] VITALS: RESP 20; TEMP 98.3
[2021-02-07 23:07] VITALS: BP 115/67; PULSE 63
[2021-02-07] MEDS ORDERED: MORPHINE SULFATE 2 MG/ML SYRINGE IVP STA (23:09)
== END 2021-02-08 00:05 | disposition other institution (70) ==
LOC: EC 17:22
DX: R07.9 Chest pain, unspecified (principal); R11.10 Vomiting, unspecified; R42 Dizziness and giddiness; K21.9 Gastro-esophageal reflux disease without esophagitis; K58.9 Irritable bowel syndrome, unspecified; Z20.822 Contact with and (suspected) exposure to COVID-19; Z79.899 Other long term (current) drug therapy; Z88.5 Allergy status to narcotic agent; Z90.49 Acquired absence of other specified parts of digestive tract; Z91.040 Latex allergy status
CPT/HCPCS: 36415; 93005; 83880; 80053; 83690; 83735; 84484; 85025; 85610; 85730; 87635; 71046; 99285; 96374; 96375 ×2; 96376 ×2; 96361 ×4; J2270 ×2; J2405; J1885

== ENCOUNTER 2021-05-23 17:48 | Emergency (ER) | payer OTHER ==
[2021-05-23 18:03] VITALS: RESP 18
[2021-05-23] MEDS ORDERED: ONDANSETRON 4 MG/2 ML VIAL IVP STA ×2 (18:17→21:05)
[2021-05-23] MEDS ORDERED: SODIUM CHLORIDE 0.9% 1,000 ML IV STA (18:17)
[2021-05-23] MEDS ORDERED: MORPHINE SULFATE 4 MG/ML SYRINGE IV STA (18:17)
--- NOTE | 2021-05-23 18:23 | ED ---
General Adult HPI - General Chief complaint: Extremity Injury, Upper Stated complaint: N/V,Chest Pain,Rt Shoulder Pain Time Seen by Provider: 05/23/21 18:12 Source: patient Mode of arrival: ambulatory Limitations: no limitations - History of Present Illness Initial comments: 40 year-old male patient presents to the emergency department for evaluation of right shoulder pain and vomiting. States that he started vomiting on Monday. States he has had very little to eat and drink since onset. Reports left upper quadrant pain. Did have hernia repair to the area in January 2021. States today his neighbor was helping him up from the floor by pulling on his arm when his shoulder dislocated. States that it has happened over 20 times in his life. States he is usually sedated to put in back in place. He denies any fever or chills. Denies diarrhea. States he is passing gas. Patient denies any recent rash, cough, shortness of breath, chest pain, back pain, numbness, tingling, dizziness, weakness, hematuria, dysuria, urinary urgency, urinary frequency, h eadache, visual changes, or any other complaints. - Related Data Home Medications Medication Instructions Recorded Confirmed Cyclobenzaprine [Flexeril] 5 mg PO TID PRN 05/23/21 05/23/21 traZODone HCL [Desyrel] 100 mg PO HS 05/23/21 05/23/21 Allergies Allergy/AdvReac Type Severity Reaction Status Date / Time hydromorphone [From Dilaudid] Allergy Rash/Hives Verified 05/23/21 19:01 latex Allergy Rash/Hives Verified 05/23/21 19:01 meperidine [From Demerol] Allergy Rash/Hives Verified 05/23/21 19:01 Review of Systems ROS Statement: Those systems with pertinent positive or pertinent negative responses have been documented in the HPI. ROS Other: All systems not noted in ROS Statement are negative. Past Medical History Past Medical History: GERD/Reflux Additional Past Medical History / Comment(s): multiple dislocation of rt shoulder, hiatal hernia, hx migraines, IBS History of Any Multi-Drug Resistant Organisms: None Reported Past Surgical History: Appendectomy, Back Surgery, Cholecystectomy, Orthopedic Surgery, Tonsillectomy Additional Past Surgical History / Comment(s): rt shoulder arthroscopy, left shoulder fusion, Past Anesthesia/Blood Transfusion Reactions: No Reported Reaction Past Psychological History: No Psychological Hx Reported Smoking Status: Never smoker Past Alcohol Use History: None Reported Past Drug Use History: None Reported - Past Family History Mother Additional Family Medical History / Comment(s): lupus, Father History Unknown: Yes Brother(s) Additional Family Medical History / Comment(s): autoimmune disorder General Exam Limitations: no limitations General appearance: alert, in no apparent distress, other (This is a well- developed, well-nourished adult male in no acute distress.) ENT exam: Present: normal exam, normal oropharynx, mucous membranes moist Respiratory exam: Present: normal lung sounds bilaterally. Absent: respiratory distress, wheezes, rales, rhonchi, stridor Cardiovascular Exam: Present: normal rhythm, tachycardia, normal heart sounds. Absent: systolic murmur, diastolic murmur, rubs, gallop, clicks GI/Abdominal exam: Present: soft, tenderness (Left upper quadrant), normal bowel sounds. Absent: distended, guarding, rebound, rigid Extremities exam: Present: normal inspection, full ROM, tenderness (Right shoulder), normal capillary refill, other (Skin to the right arm is pink, warm, dry. Cap refill less than 3 seconds. Radial pulse 2+.). Absent: pedal edema, joint swelling, calf tenderness Neurological exam: Present: alert, oriented X3, CN II-XII intact Psychiatric exam: Present: normal affect, normal mood Skin exam: Present: warm, dry, intact, normal color. Absent: rash Course Vital Signs 05/23/21 05/23/21 18:01 21:15 Temperature 98.4 F Pulse Rate 112 H 74 Respiratory 18 18 Rate Blood Pressure 137/79 124/87 O2 Sat by Pulse 97 98 Oximetry Medical Decision Making - Medical Decision Making 40 year-old male patient presents to the emergency department for evaluation of vomiting, left upper quadrant abdominal pain, and right shoulder pain. Had shoulder injury prior to coming in. Physical examination did reveal left upper quadrant tenderness. Right shoulder appears intact, no deformity, neurovascular status intact. Pt has history of recurrent right shoulder posterior dislocations. XRay shoulder was negative. Patient still unable to move the shoulder. Right shoulder CT negative, no sign of dislocation. Patient given sling. Labs did reveal elevated Lactic Acid at 3.4. CT abdomen and pelvis showed large hiatal hernia. I spoke with Dr. Moore from [place], who agreed with transfer. Patient is also agreeable. He had Hunter fundoplication with Dr. Workman at [facility] on 02/11/21. He will be transfer back to that facility. My attending Dr. Arcos. - Lab Data Result diagrams: 05/23/21 18:37 05/23/21 18:37 Lab Results 05/23/21 05/23/21 05/23/21 Range/Units 18:37 18:37 18:37 WBC 5.8 (3.8-10.6) k/uL RBC 4.95 (4.30-5.90) m/uL Hgb 13.2 (13.0-17.5) gm/dL Hct 42.3 (39.0-53.0) % MCV 85.5 (80.0-100.0) fL MCH 26.7 (25.0-35.0) pg MCHC 31.2 (31.0-37.0) g/dL RDW 14.5 (11.5-15.5) % Plt Count 295 (150-450) k/uL MPV 7.5 Neutrophils % 55 % Lymphocytes % 34 % Monocytes % 6 % Eosinophils % 2 % Basophils % 1 % Neutrophils # 3.2 (1.3-7.7) k/uL Lymphocytes # 2.0 (1.0-4.8) k/uL Monocytes # 0.3 (0-1.0) k/uL Eosinophils # 0.1 (0-0.7) k/uL Basophils # 0.0 (0-0.2) k/uL Hypochromasia Moderate Sodium 140 (137-145) mmol/L Potassium 4.1 (3.5-5.1) mmol/L Chloride 109 H (98-107) mmol/L Carbon Dioxide 23 (22-30) mmol/L Anion Gap 8 mmol/L BUN 15 (9-20) mg/dL Creatinine 0.87 (0.66-1.25) mg/dL Est GFR (CKD-EPI)AfAm >90 (>60 ml/min/1.73 sqM) Est GFR (CKD-EPI)NonAf >90 (>60 ml/min/1.73 sqM) Glucose 170 H (74-99) mg/dL Lactic Ac Sepsis Rflx Plasma Lactic Acid Jacob 3.7 H* (0.7-2.0) mmol/L Calcium 9.0 (8.4-10.2) mg/dL Total Bilirubin 0.3 (0.2-1.3) mg/dL AST 24 (17-59) U/L ALT 22 (4-49) U/L Alkaline Phosphatase 80 (38-126) U/L Total Protein 7.6 (6.3-8.2) g/dL Albumin 4.2 (3.5-5.0) g/dL Lipase 188 (23-300) U/L Coronavirus (PCR) (Not Detectd) 05/23/21 05/23/21 05/23/21 Range/Units 18:37 19:02 22:05 WBC (3.8-10.6) k/uL RBC (4.30-5.90) m/uL Hgb (13.0-17.5) gm/dL Hct (39.0-53.0) % MCV (80.0-100.0) fL MCH (25.0-35.0) pg MCHC (31.0-37.0) g/dL RDW (11.5-15.5) % Plt Count (150-450) k/uL MPV Neutrophils % % Lymphocytes % % Monocytes % % Eosinophils % % Basophils % % Neutrophils # (1.3-7.7) k/uL Lymphocytes # (1.0-4.8) k/uL Monocytes # (0-1.0) k/uL Eosinophils # (0-0.7) k/uL Basophils # (0-0.2) k/uL Hypochromasia Sodium (137-145) mmol/L Potassium (3.5-5.1) mmol/L Chloride (98-107) mmol/L Carbon Dioxide (22-30) mmol/L Anion Gap mmol/L BUN (9-20) mg/dL Creatinine (0.66-1.25) mg/dL Est GFR (CKD-EPI)AfAm (>60 ml/min/1.73 sqM) Est GFR (CKD-EPI)NonAf (>60 ml/min/1.73 sqM) Glucose (74-99) mg/dL Lactic Ac Sepsis Rflx Y Plasma Lactic Acid Jacob 2.0 (0.7-2.0) mmol/L Calcium (8.4-10.2) mg/dL Total Bilirubin (0.2-1.3) mg/dL AST (17-59) U/L ALT (4-49) U/L Alkaline Phosphatase (38-126) U/L Total Protein (6.3-8.2) g/dL Albumin (3.5-5.0) g/dL Lipase (23-300) U/L Coronavirus (PCR) Not Detected (Not Detectd) - Radiology Data Radiology results: report reviewed, image reviewed 3 views of the right shoulder obtained. Report was reviewed in its entirety. Impression by Dr. Hicks shows no acute abnormality of the right shoulder. No change. CT abdomen and pelvis with contrast was obtained. Report was reviewed in its entirety. Impression by Dr. Hicks shows large hiatal hernia that appears new compared to old exam of 01/04/2021. Otherwise negative computed tomography scan of the abdomen and pelvis. CT right shoulder without contrast was obtained. Report was reviewed in its e ntirety. Impression by Dr. Hicks shows cerebral prosthesis appears intact. No fracture seen. Specifically components appear to be in anatomic position. Disposition Clinical Impression: Large hiatal hernia, Intractable abdominal pain, Vomiting Disposition: OTHER INSTITUTION NOT DEFINED Condition: Serious Referrals: Huma Soria MD [Primary Care Provider] - 1-2 days - Out of Hospital Transfer - Req. Specs Out of Hospital Transfer - Requested Specifics: Other Emergency Center ([facility])
[2021-05-23 18:46] LABS: Basophils % (A) 1 %; Eosinophils # (A) 0.1 k/uL (0-0.7); Eosinophils % (A) 2 %; HCT 42.3 % (39.0-53.0); HGB 13.2 gm/dL (13.0-17.5); Hypochromasia Moderate; Lymphocytes % (A) 34 %; MCH 26.7 pg (25.0-35.0); MCHC 31.2 g/dL (31.0-37.0); MCV 85.5 fL (80.0-100.0); Mean Platelet Volume 7.5; Monocytes # (A) 0.3 k/uL (0-1.0); Monocytes % (A) 6 %; Neutrophils # (A) 3.2 k/uL (1.3-7.7); Neutrophils % (A) 55 %; Platelet Count 295 k/uL (150-450); RBC 4.95 m/uL (4.30-5.90); RDW 14.5 % (11.5-15.5); WBC 5.8 k/uL (3.8-10.6)
[2021-05-23 18:53] LABS: ALT 22 U/L (4-49); AST 24 U/L (17-59); African American GFR (CKD) >90 (>60 ml/min/1.73 sqM); Albumin 4.2 g/dL (3.5-5.0); Alkaline Phosphatase 80 U/L (38-126); Anion Gap 8 mmol/L; Blood Urea Nitrogen 15 mg/dL (9-20); Carbon Dioxide 23 mmol/L (22-30); Chloride 109 mmol/L (98-107); Glucose 170 mg/dL (74-99); Lipase 188 U/L (23-300); Non-African American GFR(CKD) >90 (>60 ml/min/1.73 sqM); Potassium 4.1 mmol/L (3.5-5.1); Sodium 140 mmol/L (137-145); Total Bilirubin 0.3 mg/dL (0.2-1.3); Total Protein 7.6 g/dL (6.3-8.2)
--- NOTE | 2021-05-23 19:27 | XR ---
EXAMINATION TYPE: XR shoulder complete RT DATE OF EXAM: 05/23/2021 COMPARISON: 05/07/2020 HISTORY: Shoulder pain TECHNIQUE: 3 views FINDINGS: There is right shoulder prosthesis. I see no fracture nor dislocation. Components appear in anatomic position. Scapula is intact. IMPRESSION: No acute abnormality of the right shoulder. No change.
[2021-05-23] MEDS ORDERED: MORPHINE SULFATE 4 MG/ML SYRINGE IVP STA ×2 (19:41→21:01)
--- NOTE | 2021-05-23 19:50 | CT ---
EXAMINATION TYPE: CT abdomen pelvis w con DATE OF EXAM: 05/23/2021 COMPARISON: 01/04/2021 HISTORY: abdominal pain, nausea, vomiting CT DLP: 2186.4 mGycm Automated exposure control for dose reduction was used. CONTRAST: Performed with IV Contrast, patient injected with 100 mL of Isovue 300. Images obtained from the diaphragm to the floor of the pelvis with IV contrast. There is some mild atelectasis left posterior lung base. Heart is enlarged. There is large hiatal her mike. Heart size is normal. There is no pericardial effusion. Liver and spleen are intact. The bile ducts are not dilated. Gallbladder appears absent. There is no evidence of pancreatic mass. There is no adrenal mass. Kidneys show satisfactory contrast opacification. There is no hydronephrosi s. Ureters are not dilated. Bladder distends smoothly. There is no inguinal hernia. There is no free fluid in the pelvis. There is no evidence of a pelvic mass. There is no mesenteric edema. There is no ascites or free air. There is no evidence of a bowel obstru ction. Appendix not seen. No sign of thickened appendix. The lumbar vertebrae have normal alignment. There is no compression fracture. There is posterior fusi on surgery at L5-S1. The bony pelvis is intact. The sacroiliac joints are intact. IMPRESSION: There is large hiatal hernia that appears new compared to old exam. Otherwise negative CT scan of the abdomen and pelvis.
--- NOTE | 2021-05-23 20:31 | CT ---
EXAMINATION TYPE: CT shoulder RT wo con DATE OF EXAM: 05/23/2021 COMPARISON: None HISTORY: right shoulder pain CT DLP: 611.9 mGycm Automated exposure control for dose reduction was used. Images were obtained from the top of the shoulder to the proximal shaft of the humerus without contra st. There is right shoulder prosthesis. Components appear to be in anatomic position. Exam limited by met al artifact. I see no focal bone destruction. There is no sign of any loosening. There is no evidence of a soft tissue mass. There is no pathologic fluid collection. There is some spurring on the inferi or humeral head. IMPRESSION: Shoulder prosthesis appears intact. No fracture seen.
[2021-05-23] MEDS ORDERED: SODIUM CHLORIDE 0.9% 1,000 ML IV ONE (20:36)
[2021-05-23] MEDS ORDERED: DIAZEPAM 5 MG/ML 2 ML INJ IVP STA (21:01)
[2021-05-23 22:54] VITALS: BP 119/80; PULSE 79; TEMP 97.7
[2021-05-23 22:57] LABS: Appearance,Urine Clear (Clear); Bilirubin,Urine Negative (Negative); Blood,Urine Negative (Negative); Color,Urine Light Yellow; Glucose,Urine (UA) Trace (Negative); Ketones,Urine Negative (Negative); Leukocyte Esterase,Urine Negative (Negative); Nitrite,Urine Negative (Negative); Protein,Urine Negative (Negative); Specific Gravity,Urine >1.050 (1.001-1.035); Urobilinogen,Urine <2.0 mg/dL (<2.0)
== END 2021-05-23 23:26 | disposition other institution (70) ==
LOC: EC 17:48
DX: K44.9 Diaphragmatic hernia without obstruction or gangrene (principal); R11.10 Vomiting, unspecified; K21.9 Gastro-esophageal reflux disease without esophagitis; Z20.822 Contact with and (suspected) exposure to COVID-19; Z88.1 Allergy status to other antibiotic agents; Z91.040 Latex allergy status; Z88.5 Allergy status to narcotic agent; Z90.49 Acquired absence of other specified parts of digestive tract
CPT/HCPCS: 99285; 96374; 96375 ×2; 96376 ×3; 96361 ×2; 36415; 80053; 83605; 83690; 85025; 81003; 87635; 73030; 74177; 73200; J2270; J3360; J2405; Q9967

== ENCOUNTER 2021-06-19 10:33 | Emergency (ER) | payer OTHER ==
[2021-06-19 10:42] VITALS: TEMP 98.7
[2021-06-19] MEDS: MORPHINE SULFATE 4 MG/ML SYRINGE IV STA (11:14)
[2021-06-19] MEDS: MAG HYDROX/AL HYDROX/SIMETH 30 ML, HYOSCYAMINE ELIXIR 10 ML, LIDOCAINE VISCOUS 2% 10 ML PO STA ×3 (11:14)
[2021-06-19] MEDS: PANTOPRAZOLE 40 MG/10 ML VIAL IVP STA (11:15)
--- NOTE | 2021-06-19 11:18 | ED ---
General Adult HPI - General Chief complaint: Abdominal Pain Stated complaint: Abdominal Pain Time Seen by Provider: 06/19/21 10:37 Source: patient Limitations: no limitations - History of Present Illness Initial comments: Dictation was produced using [employer] dictation software. please excuse any grammatical, word or spelling errors. Chief Complaint: 40-year-old male presents emergency department for abdominal pain and dysphagia History of Present Illness: Patient is a 40-year-old male he has past medical history of appendectomy back surgery and orthopedic surgery. Patient had hiatal hernia that was treated operatively. States that beginning of this month he had a procedure done by the [facility]. He states that he had a thoracic surgery perform a procedure were his stomach was cut out in order to remove a persistent hiatal hernia. At the same time he had a feeding tube placed. Patient states she's been doing fine over the last couple days however this morning he woke up with severe left upper quadrant abdominal pain. Pain is nonradiating. States it severe. Patient was seen here in emergency department on May 23 following left upper quadrant abdominal pain. Patient has any constitutional symptoms. States that the pain really affected and this morning prompting him to come to the emergency department via EMS. This morning he tried to drink some ensure however he is reports that he is terrified to consume any oral intake. The ROS documented in this emergency department record has been reviewed and confirmed by me. Those systems with pertinent positive or negative responses have been documented in the HPI. All other systems are other negative and/or noncontributory. PHYSICAL EXAM: General Impression: Alert and oriented x3, crying, acute distress secondary to pain HEENT: Normocephalic atraumatic, extra-ocular movements intact, pupils equal and reactive to light bilaterally, mucous membranes moist. Cardiovascular: Heart regular rate and rhythm Chest: Able to complete full sentences, no retractions, no tachypnea Abdomen: abdomen soft, surgical site is clean dry and intact, palpatory tenderness to the left lower quadrant, non-distended, no organomegaly Musculoskeletal: Pulses present and equal in all extremities, no peripheral edema Motor: no focal deficits noted Neurological: CN II-XII grossly intact, no focal motor or sensory deficits noted Skin: Intact with no visualized rashes Psych: Normal affect and mood ED course: 40-year-old male with recent abdominal surgery presents to the ER for left upper quadrant abdominal pain. Was evaluated for the same issue on May 23. He states that earlier this month he had a abdominal surgery to fix a hiatal hernia. Signs upon arrival shows heart rate of 112, respiratory rate 20 cumbersome vital signs within acceptable limits. Patient is tearful at the be dside saying that he is crying because it hurts too much. EKG interpretation: Ventricular rate 101, sinus tachycardia,. 167, QRS 77, QTC 369. No MO prolongation, no QTC prolongation, no ST or T-wave changes noted. EKG compared to 02/07/2021 showing no changes. Overall, this EKG is unremarkable Laboratory evaluation obtained. CBC within acceptable limits. Does have some thrombocytosis and microcytic anemia. Metabolic panel shows initial lactic acidosis 3.4. Rest metabolic panel is negative. Abdominal x-rays unremarkable. Patient given some analgesia however states that his pain is severe. CT of the abdomen and pelvis was obtained showing postoperative changes but there does appear to be a fluid collection which may present within the remnant of the stomach. There are inflammatory changes possible infection. Patient is given a dose of Zosyn. Patient will be transferred to [facility] with the procedure was performed by Dr. Workman. Spoke with Dr. Coppola who is willing to accept patients care for urinary ER transfer. Patient agreeable with plan. He is reevaluated bedside at 2:45 PM final be stable medical condition. His pain is improved with Dilaudid. - Related Data Home Medications Medication Instructions Recorded Confirmed Cyclobenzaprine [Flexeril] 5 mg PO BID PRN 05/23/21 06/19/21 traZODone HCL [Desyrel] 100 mg PO HS 05/23/21 06/19/21 Acetaminophen Tab [Tylenol Tab] 1,000 mg PO Q6HR 06/19/21 06/19/21 Gabapentin 300 mg PO BID 06/19/21 06/19/21 oxyCODONE HCL [OxyIR] 5 mg PO TID PRN 06/19/21 06/19/21 Allergies Allergy/AdvReac Type Severity Reaction Status Date / Time hydromorphone [From Dilaudid] Allergy Rash/Hives Verified 06/19/21 11:09 latex Allergy Rash/Hives Verified 06/19/21 11:09 meperidine [From Demerol] Allergy Rash/Hives Verified 06/19/21 11:09 Review of Systems ROS Statement: Those systems with pertinent positive or pertinent negative responses have been documented in the HPI. ROS Other: All systems not noted in ROS Statement are negative. Past Medical History Past Medical History: GERD/Reflux Additional Past Medical History / Comment(s): multiple dislocation of rt shoulder, hiatal hernia, hx migraines, IBS History of Any Multi-Drug Resistant Organisms: None Reported Past Surgical History: Appendectomy, Back Surgery, Cholecystectomy, Orthopedic Surgery, Tonsillectomy Additional Past Surgical History / Comment(s): rt shoulder arthroscopy, left shoulder fusion, Past Anesthesia/Blood Transfusion Reactions: No Reported Reaction Past Psychological History: No Psychological Hx Reported Smoking Status: Never smoker Past Alcohol Use History: None Reported Past Drug Use History: None Reported - Past Family History Mother Additional Family Medical History / Comment(s): lupus, Father History Unknown: Yes Brother(s) Additional Family Medical History / Comment(s): autoimmune disorder General Exam Limitations: no limitations Course Vital Signs 06/19/21 06/19/21 06/19/21 10:35 11:39 12:00 Temperature 98.7 F Pulse Rate 112 H 105 H 100 Respiratory 28 H 18 18 Rate Blood Pressure 135/83 102/71 117/77 O2 Sat by Pulse 96 94 L 97 Oximetry 06/19/21 14:00 Temperature Pulse Rate 78 Respiratory 18 Rate Blood Pressure 139/88 O2 Sat by Pulse 97 Oximetry Medical Decision Making - Lab Data Result diagrams: 06/19/21 11:08 06/19/21 11:08 Lab Results 06/19/21 06/19/21 06/19/21 Range/Units 11:08 11:08 11:08 WBC 7.1 (3.8-10.6) k/uL RBC 4.40 (4.30-5.90) m/uL Hgb 10.6 L (13.0-17.5) gm/dL Hct 34.7 L (39.0-53.0) % MCV 79.0 L D (80.0-100.0) fL MCH 24.1 L (25.0-35.0) pg MCHC 30.5 L (31.0-37.0) g/dL RDW 15.3 (11.5-15.5) % Plt Count 895 H D (150-450) k/uL MPV 7.0 Neutrophils % 70 % Lymphocytes % 20 % Monocytes % 7 % Eosinophils % 1 % Basophils % 0 % Neutrophils # 5.0 (1.3-7.7) k/uL Lymphocytes # 1.4 (1.0-4.8) k/uL Monocytes # 0.5 (0-1.0) k/uL Eosinophils # 0.0 (0-0.7) k/uL Basophils # 0.0 (0-0.2) k/uL Hypochromasia Marked Poikilocytosis Moderate Sodium 139 (137-145) mmol/L Potassium 5.0 (3.5-5.1) mmol/L Chloride 106 (98-107) mmol/L Carbon Dioxide 20 L (22-30) mmol/L Anion Gap 13 mmol/L BUN 17 (9-20) mg/dL Creatinine 1.05 (0.66-1.25) mg/dL Est GFR (CKD-EPI)AfAm >90 (>60 ml/min/1.73 sqM) Est GFR (CKD-EPI)NonAf 88 (>60 ml/min/1.73 sqM) Glucose 88 (74-99) mg/dL Lactic Ac Sepsis Rflx Plasma Lactic Acid Jacob 3.4 H* (0.7-2.0) mmol/L Calcium 9.8 (8.4-10.2) mg/dL Magnesium 2.0 (1.6-2.3) mg/dL Total Bilirubin 0.6 (0.2-1.3) mg/dL AST 29 (17-59) U/L ALT 21 (4-49) U/L Alkaline Phosphatase 201 H (38-126) U/L Total Protein 8.6 H (6.3-8.2) g/dL Albumin 4.3 (3.5-5.0) g/dL Lipase 368 H (23-300) U/L 06/19/21 06/19/21 Range/Units 11:59 14:15 WBC (3.8-10.6) k/uL RBC (4.30-5.90) m/uL Hgb (13.0-17.5) gm/dL Hct (39.0-53.0) % MCV (80.0-100.0) fL MCH (25.0-35.0) pg MCHC (31.0-37.0) g/dL RDW (11.5-15.5) % Plt Count (150-450) k/uL MPV Neutrophils % % Lymphocytes % % Monocytes % % Eosinophils % % Basophils % % Neutrophils # (1.3-7.7) k/uL Lymphocytes # (1.0-4.8) k/uL Monocytes # (0-1.0) k/uL Eosinophils # (0-0.7) k/uL Basophils # (0-0.2) k/uL Hypochromasia Poikilocytosis Sodium (137-145) mmol/L Potassium (3.5-5.1) mmol/L Chloride (98-107) mmol/L Carbon Dioxide (22-30) mmol/L Anion Gap mmol/L BUN (9-20) mg/dL Creatinine (0.66-1.25) mg/dL Est GFR (CKD-EPI)AfAm (>60 ml/min/1.73 sqM) Est GFR (CKD-EPI)NonAf (>60 ml/min/1.73 sqM) Glucose (74-99) mg/dL Lactic Ac Sepsis Rflx Y Plasma Lactic Acid Jacob 1.0 (0.7-2.0) mmol/L Calcium (8.4-10.2) mg/dL Magnesium (1.6-2.3) mg/dL Total Bilirubin (0.2-1.3) mg/dL AST (17-59) U/L ALT (4-49) U/L Alkaline Phosphatase (38-126) U/L Total Protein (6.3-8.2) g/dL Albumin (3.5-5.0) g/dL Lipase (23-300) U/L Disposition Clinical Impression: Post-op pain Disposition: OTHER INSTITUTION NOT DEFINED Condition: Fair Referrals: Huma Soria MD [Primary Care Provider] - 1-2 days - Out of Hospital Transfer - Req. Specs Out of Hospital Transfer - Requested Specifics: Other Emergency Center ([facility]
[2021-06-19 11:39] LABS: ALT 21 U/L (4-49); AST 29 U/L (17-59); African American GFR (CKD) >90 (>60 ml/min/1.73 sqM); Albumin 4.3 g/dL (3.5-5.0); Alkaline Phosphatase 201 U/L (38-126); Anion Gap 13 mmol/L; Blood Urea Nitrogen 17 mg/dL (9-20); Calcium 9.8 mg/dL (8.4-10.2); Carbon Dioxide 20 mmol/L (22-30); Chloride 106 mmol/L (98-107); Glucose 88 mg/dL (74-99); Lipase 368 U/L (23-300); Non-African American GFR(CKD) 88 (>60 ml/min/1.73 sqM); Sodium 139 mmol/L (137-145); Total Bilirubin 0.6 mg/dL (0.2-1.3); Total Protein 8.6 g/dL (6.3-8.2)
--- NOTE | 2021-06-19 11:43 | XR ---
Abdomen HISTORY: Pain Frontal view the abdomen on [address] 05/23/2021, KUB 01/28/2021 Postop changes are noted the lumbosacral junction status post posterior fusion. No evident bowel obst ruction or pneumoperitoneum, nonspecific gas-filled loops of bowel are present. Lung bases not entire ly included on exam. No evident pathologic calcification. Rib fracture is noted, question prior surge ry correlate. IMPRESSION: Nonspecific bowel gas pattern, follow-up as indicated on additional findings above
[2021-06-19 11:44] LABS: Basophils % (A) 0 %; Eosinophils % (A) 1 %; HCT 34.7 % (39.0-53.0); HGB 10.6 gm/dL (13.0-17.5); Hypochromasia Marked; Lymphocytes # (A) 1.4 k/uL (1.0-4.8); Lymphocytes % (A) 20 %; MCH 24.1 pg (25.0-35.0); MCHC 30.5 g/dL (31.0-37.0); Monocytes # (A) 0.5 k/uL (0-1.0); Monocytes % (A) 7 %; Neutrophils % (A) 70 %; Poikilocytosis Moderate; RDW 15.3 % (11.5-15.5); WBC 7.1 k/uL (3.8-10.6)
[2021-06-19 11:49] LABS: Platelet Count 895 k/uL (150-450)
[2021-06-19] MEDS: MORPHINE SULFATE 4 MG/ML SYRINGE IVP PRN (12:21)
[2021-06-19] MEDS: ONDANSETRON 4 MG/2 ML VIAL IVP STA ×2 (12:22→15:50)
[2021-06-19] MEDS: HYDROmorphone 1 MG/ML 1 ML SYRINGE IVP STA (14:07)
--- NOTE | 2021-06-19 14:37 | CT ---
EXAMINATION TYPE: CT abdomen pelvis w con DATE OF EXAM: 06/19/2021 COMPARISON: CT 05/23/2021 HISTORY: Abdominal pain CT DLP: 1580.6 mGycm Automated exposure control for dose reduction was used. TECHNIQUE: Helical acquisition of images from the lung bases through the pelvis have been completed. CONTRAST: Performed without Oral Contrast and with IV Contrast, patient injected with 100 ml mL of Isovue 300. FINDINGS: There is a and is believed to be gastric tube in place, some increased attenuation is prese nt within the subcutaneous fat along the tube and also adjacent to the stomach remnant at the inserti on, surgical clips are noted, patient shows extensive postoperative changes, there is a fluid collect ion which may represent the remnant of portion of patient's stomach within probable hiatal hernia, pe ripheral hyperdense foci likely represent clips. Within the upper abdomen there may been partial serina rectomy, gastric sleeve. LUNG BASES: Pleural air is suspected just lateral to the hiatal hernia, air density is also present along the ribs laterally this level, there are rib fractures present likely postsurgical. AORTA: No significant abnormality is appreciated. LIVER/GB: No significant abnormality is appreciated, gallbladder is not seen and may be surgically ab sent. PANCREAS: No significant abnormality is seen. SPLEEN: No significant abnormality is seen. ADRENALS: No significant abnormality is seen. KIDNEYS: No significant abnormality is seen. REPRODUCTIVE ORGANS: No significant abnormality is seen BOWEL: Postop changes are present without evident obstruction. FREE AIR: No Free Air visible. ASCITES: None visible. PELVIC ADENOPATHY: None visualized. RETROPERITONEAL ADENOPATHY: No Retroperitoneal Adenopathy visible. URINARY BLADDER: No significant abnormality is seen. OSSEOUS STRUCTURES: Postop changes are noted to the lumbar spine, there is some streak artifact pres ent rib fracture is noted at the eighth rib, there is been a partial resection posteriorly of the eig hth rib. IMPRESSION: POSTOP CHANGES. RETAINED FLUID IS PRESENT WITHIN WHAT MAY REPRESENT REMNANT OF PATIENT'S STOMACH, COR RELATE WITH PATIENT'S SURGICAL HISTORY. THERE ARE INFLAMMATORY CHANGES, CORRELATE FOR POSSIBLE INFECT ION. Postop changes include air density posterior to the left heart and lateral to the hiatal hernia which appears to be contained, no other evident pneumothorax, rib fractures as described, results dis cussed with referring clinician at the time of interpretation
[2021-06-19] MEDS: PIPERACILLIN-TAZOBACTAM 3.375 GM in SODIUM CHLORIDE 0.9% 100 ML IVPB STA (14:50)
[2021-06-19] MEDS: MORPHINE SULFATE 2 MG/ML SYRINGE IVP STA (15:49)
[2021-06-19 15:52] VITALS: BP 134/96; PULSE 96; RESP 16
== END 2021-06-19 16:00 | disposition other institution (70) ==
LOC: EC 10:33
DX: G89.18 Other acute postprocedural pain (principal); G43.909 Migraine, unspecified, not intractable, without status migrainosus
CPT/HCPCS: 36415; 93005; 80053; 83605; 83690; 83735; 85025; 87040; 74018; 74177; 99285; 96375 ×4; 96365; 96376 ×3; J2543; J2270 ×2; J2405; J1170; C9113; Q9967

== ENCOUNTER 2021-06-26 14:59 | Emergency (ER) | payer OTHER ==
[2021-06-26 15:04] VITALS: RESP 18; TEMP 98
[2021-06-26] MEDS ORDERED: SODIUM CHLORIDE 0.9% 1,000 ML IV STA ×3 (15:46→19:07)
[2021-06-26] MEDS ORDERED: METOCLOPRAMIDE 5 MG/ML 2 ML VIAL IVP STA ×2 (15:46→18:19)
[2021-06-26] MEDS ORDERED: HYDROmorphone 1 MG/ML 1 ML SYRINGE IVP STA ×2 (15:48→17:10)
[2021-06-26] MEDS ORDERED: diphenhydrAMINE 50 MG/ML 1 ML VIAL IVP STA (15:48)
--- NOTE | 2021-06-26 16:22 | ED ---
Nausea/Vomiting/Diarrhea HPI - General Chief complaint: Nausea/Vomiting/Diarrhea Stated complaint: abd /chest pain, vomiting, recent surgery Time Seen by Provider: 06/26/21 15:27 Source: patient, family, RN notes reviewed, old records reviewed Mode of arrival: wheelchair Limitations: no limitations - History of Present Illness Initial comments: 40-year-old male with a history of gastric bypass surgery early May of this year who had previously been in the hospital until 2 days ago who is back today with complaints of persistent nausea vomiting upper abdominal pain is sharp in nature he is having bowel movements and does state his urine is somewhat more concentrated than usual no overt fevers chills or sweats. He states he still has a feeding tube in place he is able take some nourishment by mouth however. Pain is moderate to severe. No other current complaints she states are similar with previous admissions here MD complaint: nausea, vomiting, abdominal pain - Related Data Home Medications Medication Instructions Recorded Confirmed traZODone HCL [Desyrel] 100 mg PO HS 05/23/21 06/26/21 Acetaminophen Tab [Tylenol Tab] 1,000 mg PO Q6H 06/19/21 06/26/21 Gabapentin 300 mg PO BID 06/19/21 06/26/21 oxyCODONE HCL [OxyIR] 10 mg PO Q4H 06/19/21 06/26/21 Famotidine [Pepcid] 20 mg PO Q12H 06/26/21 06/26/21 Ibuprofen [Motrin] 600 mg PO Q8H PRN 06/26/21 06/26/21 methocarbamoL [Robaxin] 500 mg PO Q6H PRN 06/26/21 06/26/21 Previous Rx's Medication Instructions Recorded Prochlorperazine [Compazine] 10 mg PO Q6H #10 tab 06/26/21 Allergies Allergy/AdvReac Type Severity Reaction Status Date / Time hydromorphone [From Dilaudid] Allergy Rash/Hives Verified 06/26/21 16:55 latex Allergy Rash/Hives Verified 06/26/21 16:55 meperidine [From Demerol] Allergy Rash/Hives Verified 06/26/21 16:55 Review of Systems ROS Statement: Those systems with pertinent positive or pertinent negative responses have been documented in the HPI. ROS Other: All systems not noted in ROS Statement are negative. Past Medical History Past Medical History: GERD/Reflux Additional Past Medical History / Comment(s): multiple dislocation of rt shoulder, hiatal hernia, hx migraines, IBS History of Any Multi-Drug Resistant Organisms: None Reported Past Surgical History: Appendectomy, Back Surgery, Cholecystectomy, Orthopedic Surgery, Tonsillectomy Additional Past Surgical History / Comment(s): rt shoulder arthroscopy, left shoulder fusion, Past Anesthesia/Blood Transfusion Reactions: No Reported Reaction Past Psychological History: No Psychological Hx Reported Smoking Status: Never smoker Past Alcohol Use History: None Reported Past Drug Use History: None Reported - Past Family History Mother Additional Family Medical History / Comment(s): lupus, Father History Unknown: Yes Brother(s) Additional Family Medical History / Comment(s): autoimmune disorder General Exam - General Exam Comments Initial Comments: This is a well-developed well-nourished awake alert oriented times 3 male Limitations: no limitations General appearance: alert, anxious Head exam: Present: atraumatic, normocephalic, normal inspection Eye exam: Present: normal appearance, PERRL, EOMI. Absent: scleral icterus, conjunctival injection, periorbital swelling ENT exam: Present: mucous membranes dry Neck exam: Present: normal inspection. Absent: tenderness, meningismus, lymphadenopathy Respiratory exam: Present: normal lung sounds bilaterally. Absent: respiratory distress, wheezes, rales, rhonchi, stridor Cardiovascular Exam: Present: regular rate, normal rhythm, normal heart sounds. Absent: systolic murmur, diastolic murmur, rubs, gallop, clicks GI/Abdominal exam: Present: soft, tenderness (Feeding tube in place wound demonstrate no evidence of dehiscence some mild tenderness palpation no overt guarding rebound), normal bowel sounds. Absent: distended, guarding, rebound, rigid Rectal exam: Present: deferred Extremities exam: Present: normal inspection, full ROM, normal capillary refill. Absent: tenderness, pedal edema, joint swelling, calf tenderness Back exam: Present: normal inspection Neurological exam: Present: alert, oriented X3, CN II-XII intact Psychiatric exam: Present: normal affect, normal mood Skin exam: Present: warm, dry, intact, normal color. Absent: rash Course Vital Signs 06/26/21 06/26/21 06/26/21 15:01 16:42 18:35 Temperature 98 F Pulse Rate 107 H 67 99 Respiratory 18 18 18 Rate Blood Pressure 125/82 109/74 120/83 O2 Sat by Pulse 100 98 98 Oximetry 06/26/21 19:26 Temperature Pulse Rate 98 Respiratory 18 Rate Blood Pressure 123/75 O2 Sat by Pulse 99 Oximetry Medical Decision Making - Medical Decision Making I did a long discussion with patient family patient was still having intractable nausea and some abdominal discomfort did discuss the case with Dr. Francis. Patient was be transferred to [facility] in [facility] he is known to be transferred he would said like to go home and try managing things at home until his appointment on Monday we did discuss return parameters and discussed medications he'll be placed on Compazine for nausea He did reiterate that he has not had any bleeding of any sort. Does have evidence of microcytic anemia. - Lab Data Result diagrams: 06/26/21 16:22 06/26/21 16:22 Lab Results 06/26/21 06/26/21 06/26/21 Range/Units 16:22 16:22 19:26 WBC 7.4 (3.8-10.6) k/uL RBC 3.84 L (4.30-5.90) m/uL Hgb 9.1 L D (13.0-17.5) gm/dL Hct 29.8 L (39.0-53.0) % MCV 77.6 L (80.0-100.0) fL MCH 23.6 L (25.0-35.0) pg MCHC 30.5 L (31.0-37.0) g/dL RDW 15.6 H (11.5-15.5) % Plt Count 273 (150-450) k/uL MPV 9.4 Neutrophils % 71 % Lymphocytes % 18 % Monocytes % 7 % Eosinophils % 2 % Basophils % 0 % Neutrophils # 5.2 (1.3-7.7) k/uL Lymphocytes # 1.4 (1.0-4.8) k/uL Monocytes # 0.5 (0-1.0) k/uL Eosinophils # 0.2 (0-0.7) k/uL Basophils # 0.0 (0-0.2) k/uL Hypochromasia Marked Poikilocytosis Moderate Microcytosis Slight Sodium 137 (137-145) mmol/L Potassium 4.4 (3.5-5.1) mmol/L Chloride 103 (98-107) mmol/L Carbon Dioxide 23 (22-30) mmol/L Anion Gap 11 mmol/L BUN 12 (9-20) mg/dL Creatinine 0.85 (0.66-1.25) mg/dL Est GFR (CKD-EPI)AfAm >90 (>60 ml/min/1.73 sqM) Est GFR (CKD-EPI)NonAf >90 (>60 ml/min/1.73 sqM) Glucose 92 (74-99) mg/dL Calcium 8.9 (8.4-10.2) mg/dL Magnesium 2.0 (1.6-2.3) mg/dL Total Bilirubin 0.4 (0.2-1.3) mg/dL AST 20 (17-59) U/L ALT 15 (4-49) U/L Alkaline Phosphatase 111 (38-126) U/L Creatine Kinase 36 L (55-170) U/L Total Protein 7.5 (6.3-8.2) g/dL Albumin 3.9 (3.5-5.0) g/dL Lipase 200 (23-300) U/L Urine Color Yellow Urine Appearance Clear (Clear) Urine pH 8.5 H (5.0-8.0) Ur Specific [place] >1.050 H (1.001-1.035) Urine Protein Trace H (Negative) Urine Glucose (UA) Negative (Negative) Urine Ketones 2+ H (Negative) Urine Blood Negative (Negative) Urine Nitrite Negative (Negative) Urine Bilirubin Negative (Negative) Urine Urobilinogen <2.0 (<2.0) mg/dL Ur Leukocyte Esterase Negative (Negative) - EKG Data -: EKG Interpreted by Me EKG shows normal: sinus rhythm EKG Comments: EKG shows sinus rhythm at 95. Interval 175 QRS oriental orthodox daily QT since QTC 304/356 possible right ventricular conduction delay no other findings seen - Radiology Data Radiology results: report reviewed (Review reviewed no evidence of acute processes patient does have a left lower lobe infiltrate which appears be stable also atelectasis and a slight amount of residual pneumothorax. Please see the complete report), image reviewed Disposition Clinical Impression: Dehydration, Nausea & vomiting, Abdominal pain Disposition: HOME SELF-CARE Condition: Stable Prescriptions: Prochlorperazine [Compazine] 10 mg PO Q6H #10 tab Is patient prescribed a controlled substance at d/c from ED?: No Referrals: Huma Soria MD [Primary Care Provider] - 1-2 days
[2021-06-26 16:38] LABS: ALT 15 U/L (4-49); AST 20 U/L (17-59); African American GFR (CKD) >90 (>60 ml/min/1.73 sqM); Albumin 3.9 g/dL (3.5-5.0); Alkaline Phosphatase 111 U/L (38-126); Anion Gap 11 mmol/L; Blood Urea Nitrogen 12 mg/dL (9-20); Calcium 8.9 mg/dL (8.4-10.2); Carbon Dioxide 23 mmol/L (22-30); Chloride 103 mmol/L (98-107); Creatine Kinase 36 U/L (55-170); Glucose 92 mg/dL (74-99); Lipase 200 U/L (23-300); Non-African American GFR(CKD) >90 (>60 ml/min/1.73 sqM); Potassium 4.4 mmol/L (3.5-5.1); Sodium 137 mmol/L (137-145); Total Bilirubin 0.4 mg/dL (0.2-1.3); Total Protein 7.5 g/dL (6.3-8.2)
--- NOTE | 2021-06-26 16:55 | XR ---
EXAMINATION TYPE: XR KUB DATE OF EXAM: 06/26/2021 COMPARISON: 06/19/2021 HISTORY: Pain TECHNIQUE: 2 views upright FINDINGS: There is no sign of intestinal obstruction or pneumoperitoneum. Fecal pattern is normal. Th ere is no evidence of a mass. There is some blunting of the left costophrenic angle. IMPRESSION: Nonacute abdomen. No change. pleural reaction left lung base.
--- NOTE | 2021-06-26 16:56 | XR ---
EXAMINATION TYPE: XR chest 2V DATE OF EXAM: 06/26/2021 COMPARISON: 02/07/2021 HISTORY: Chest pain TECHNIQUE: 2 views FINDINGS: There is some infiltrate and atelectasis left lower lobe and slight blunting left costophre hoa angle. Right lung is clear. No heart failure. Heart size is normal. There is right shoulder prost hesis. IMPRESSION: There is some infiltrate and atelectasis and pleural reaction left lower lobe which is mo stly new compared to old exam.
[2021-06-26 17:00] LABS: Basophils % (A) 0 %; Eosinophils # (A) 0.2 k/uL (0-0.7); Eosinophils % (A) 2 %; HCT 29.8 % (39.0-53.0); Hypochromasia Marked; Lymphocytes # (A) 1.4 k/uL (1.0-4.8); Lymphocytes % (A) 18 %; MCH 23.6 pg (25.0-35.0); MCHC 30.5 g/dL (31.0-37.0); MCV 77.6 fL (80.0-100.0); Mean Platelet Volume 9.4; Microcytosis Slight; Monocytes # (A) 0.5 k/uL (0-1.0); Monocytes % (A) 7 %; Neutrophils # (A) 5.2 k/uL (1.3-7.7); Neutrophils % (A) 71 %; Platelet Count 273 k/uL (150-450); Poikilocytosis Moderate; RBC 3.84 m/uL (4.30-5.90); RDW 15.6 % (11.5-15.5); WBC 7.4 k/uL (3.8-10.6)
[2021-06-26 17:03] LABS: HGB 9.1 gm/dL (13.0-17.5)
[2021-06-26] MEDS ORDERED: DICYCLOMINE 10 MG/ML 2 ML AMP IM STA (17:10)
[2021-06-26] MEDS ORDERED: IOPAMIDOL CONTRAST (ORAL USE) VIAL PO PRN (17:11)
--- NOTE | 2021-06-26 18:13 | CT ---
EXAMINATION TYPE: CT abdomen pelvis w con DATE OF EXAM: 06/26/2021 COMPARISON: 06/19/2021 HISTORY: recent gastric bypass sx, vomiting and pain CT DLP: 1780.2 mGycm Automated exposure control for dose reduction was used. CONTRAST: Performed with IV Contrast, patient injected with 100 mL of Isovue 300. There is some infiltrate or atelectasis left lung base. There is surgical clips from gastric bariatri c surgery with large hiatal hernia. Right lung base is clear. Heart size is normal. There is no peric ardial effusion. There is a 5 x 3 cm small pneumothorax adjacent to the left cardiac border and left lung base without much change compared to last exam. Liver and spleen are intact. The bile ducts are not dilated. There is no pancreatic mass. There is ga strostomy tube noted. There is no adrenal mass. Kidneys show satisfactory contrast opacification. The re is no hydronephrosis. Ureters are not dilated. There is no retroperitoneal adenopathy. Bladder dis tends smoothly. There is no inguinal hernia. Delayed images show normal renal excretion. There is no pelvic mass. There is no inguinal hernia. There is no free fluid in the pelvis. Small bowel pattern i s normal. There is no mesenteric edema. There is no ascites or free air. There is some mild fat stran ding in the anterior midline abdomen consistent with postsurgical changes in the omental fat. The lumbar vertebrae have normal alignment. There is posterior fusion surgery at L5-S1 with subtle ar tifact. There is narrowing of the L5-S1 disc space. Bony pelvis is intact. The hip joints are intact. Sacroiliac joints are intact. IMPRESSION: Gastrostomy or jejunostomy tube in good position. No evidence of a bowel obstruction. No free air. Mi ld anterior abdominal postsurgical changes. Abdomen pelvis not significantly different than last exam . No evidence of abdominal abscess. Stable infiltrate and atelectasis left lung base. Stable small left-sided pneumothorax at the left cardiac border.
[2021-06-26] MEDS ORDERED: fentaNYL (PF) 50 MCG/ML 2 ML AMP IV STA (19:07)
[2021-06-26] MEDS ORDERED: PROCHLORPERAZINE INJ 10 MG/2 ML VIAL IVP STA (19:08)
[2021-06-26 20:02] LABS: Appearance,Urine Clear (Clear); Bilirubin,Urine Negative (Negative); Blood,Urine Negative (Negative); Color,Urine Yellow; Glucose,Urine (UA) Negative (Negative); Ketones,Urine 2+ (Negative); Leukocyte Esterase,Urine Negative (Negative); Nitrite,Urine Negative (Negative); PH, Urine 8.5 (5.0-8.0); Protein,Urine Trace (Negative); Urobilinogen,Urine <2.0 mg/dL (<2.0)
[2021-06-26 20:10] LABS: Specific Gravity,Urine >1.050 (1.001-1.035)
[2021-06-26] MEDS ORDERED: PROCHLORPERAZINE 10 MG TAB PO STA (20:14)
[2021-06-26 20:17] VITALS: BP 145/55; PULSE 90
== END 2021-06-26 20:45 | disposition home or self-care (01) ==
LOC: EC 14:59
DX: E86.0 Dehydration (principal); R11.2 Nausea with vomiting, unspecified; R10.10 Upper abdominal pain, unspecified; K21.9 Gastro-esophageal reflux disease without esophagitis; Z79.899 Other long term (current) drug therapy
CPT/HCPCS: 36415; 93005; 80053; 82550; 83690; 83735; 85025; 81003; 71046; 74018; 74177; 99284; 96374; 96375 ×4; 96376; 96361 ×2; S0183; J1200; J0500; J0780; J2765; J3010; J1170; Q9967

== ENCOUNTER 2021-06-27 20:28 | Emergency (ER) | payer OTHER ==
[2021-06-27 20:32] VITALS: RESP 18; TEMP 99.9
[2021-06-27] MEDS ORDERED: SODIUM CHLORIDE 0.9% 1,000 ML IV STA (20:47)
[2021-06-27] MEDS ORDERED: PROCHLORPERAZINE INJ 10 MG/2 ML VIAL IVP STA (20:59)
[2021-06-27] MEDS ORDERED: MORPHINE SULFATE 4 MG/ML SYRINGE IVP STA ×2 (20:59→22:51)
[2021-06-27] MEDS ORDERED: diphenhydrAMINE 50 MG/ML 1 ML VIAL IVP STA (20:59)
--- NOTE | 2021-06-27 22:00 | ED ---
Abdominal Pain HPI - General Chief Complaint: Abdominal Pain Stated Complaint: Vomiting - revisit Time Seen by Provider: 06/27/21 20:45 Source: patient Mode of arrival: wheelchair Limitations: no limitations - History of Present Illness Initial Comments: Connor is a 40-year-old male who returns to the emergency department today for evaluation of persistent abdominal pain nausea and vomiting. Patient is a very complicated GI history. He had multiple evaluations last year for epigastric and chest pain, he was found to have a recurrent hiatal hernia possibly with some necrosis. He underwent surgery with Dr. Workman at the beginning of May at [facility]. At that time patient reports he had a partial gastrectomy with gastric bypass and had a J-tube placed. Patient has been doing to feed since that time to maintain nutrition. This is the patient's third visit this week for abdominal pain nausea vomiting. Patient reports he still passing gas last was earlier today but was dark in color and he is concerned he may have some bleeding stomach. Patient reports multiple episodes of nausea and vomiting and inability to maintain any oral intake. - Related Data Home Medications Medication Instructions Recorded Confirmed traZODone HCL [Desyrel] 100 mg PO HS 05/23/21 06/27/21 Acetaminophen Tab [Tylenol Tab] 1,000 mg PO Q6H 06/19/21 06/27/21 Gabapentin 300 mg PO BID 06/19/21 06/27/21 oxyCODONE HCL [OxyIR] 10 mg PO Q4H 06/19/21 06/27/21 Famotidine [Pepcid] 20 mg PO Q12H 06/26/21 06/27/21 Ibuprofen [Motrin] 600 mg PO Q8H PRN 06/26/21 06/27/21 methocarbamoL [Robaxin] 500 mg PO Q6H PRN 06/26/21 06/27/21 Previous Rx's Medication Instructions Recorded Prochlorperazine [Compazine] 10 mg PO Q6H #10 tab 06/26/21 Allergies Allergy/AdvReac Type Severity Reaction Status Date / Time hydromorphone [From Dilaudid] Allergy Rash/Hives Verified 06/27/21 21:36 latex Allergy Rash/Hives Verified 06/27/21 21:36 meperidine [From Demerol] Allergy Rash/Hives Verified 06/27/21 21:36 Review of Systems ROS Statement: Those systems with pertinent positive or pertinent negative responses have been documented in the HPI. ROS Other: All systems not noted in ROS Statement are negative. Past Medical History Past Medical History: GERD/Reflux Additional Past Medical History / Comment(s): multiple dislocation of rt shoulder, hiatal hernia, hx migraines, IBS History of Any Multi-Drug Resistant Organisms: None Reported Past Surgical History: Appendectomy, Back Surgery, Cholecystectomy, Orthopedic Surgery, Tonsillectomy Additional Past Surgical History / Comment(s): rt shoulder arthroscopy, left shoulder fusion, Past Anesthesia/Blood Transfusion Reactions: No Reported Reaction Past Psychological History: No Psychological Hx Reported Smoking Status: Never smoker Past Alcohol Use History: None Reported Past Drug Use History: None Reported - Past Family History Mother Additional Family Medical History / Comment(s): lupus, Father History Unknown: Yes Brother(s) Additional Family Medical History / Comment(s): autoimmune disorder General Exam - General Exam Comments Initial Comments: Physical Exam GENERAL: Appears uncomfortable, dehydrated HENT: Normocephalic, Atraumatic. EYES: PERRL, EOMI PULMONARY: Unlabored respirations. CARDIOVASCULAR: Tachycardic ABDOMEN: Well healing midline surgical incision PEG tube in place NABS Diffuse tenderness SKIN: Well healing surgical incision as noted above : Deferred NEUROLOGIC: Alert and oriented Normal speech MUSCULOSKELETAL: Moving all extremities with no apparent injury PSYCHIATRIC: No SI/HI Limitations: no limitations Course Vital Signs 06/27/21 06/27/21 20:30 23:22 Temperature 99.9 F H Pulse Rate 95 93 Respiratory 18 18 Rate Blood Pressure 130/78 113/82 O2 Sat by Pulse 97 100 Oximetry Medical Decision Making - Medical Decision Making Patient was seen and evaluated, history is obtained from patient and review of medical record Patient with no signs of obstruction he still passing gas and having bowel movements, patient has persistent vomiting of clear fluid but reports his stools are black. Labs are obtained patient has a continued down trended his hemoglobin Labs otherwise unremarkable X-ray with no signs of obstruction do not feel repeat CT is indicated as he had one yesterday Considering the patient's persistent nausea and vomiting and intractable abdominal pain I do feel he warrants admission to the hospital recommended transfer to [facility] for reevaluation by his surgeon and a GI team. Patient was agreeable to this today. Patient care was discussed with Dr. Rodriguez in the emergency department who accepts the transfer. - Lab Data Result diagrams: 06/27/21 21:28 06/27/21 21:28 Lab Results 06/27/21 06/27/21 06/27/21 Range/Units 21:28 21:28 22:00 WBC 7.8 (3.8-10.6) k/uL RBC 3.73 L (4.30-5.90) m/uL Hgb 8.8 L (13.0-17.5) gm/dL Hct 29.3 L (39.0-53.0) % MCV 78.6 L (80.0-100.0) fL MCH 23.7 L (25.0-35.0) pg MCHC 30.2 L (31.0-37.0) g/dL RDW 15.6 H (11.5-15.5) % Plt Count 324 (150-450) k/uL MPV 7.0 Neutrophils % 73 % Lymphocytes % 18 % Monocytes % 6 % Eosinophils % 1 % Basophils % 0 % Neutrophils # 5.6 (1.3-7.7) k/uL Lymphocytes # 1.4 (1.0-4.8) k/uL Monocytes # 0.5 (0-1.0) k/uL Eosinophils # 0.1 (0-0.7) k/uL Basophils # 0.0 (0-0.2) k/uL Hypochromasia Marked Poikilocytosis Slight Sodium 138 (137-145) mmol/L Potassium 4.0 (3.5-5.1) mmol/L Chloride 106 (98-107) mmol/L Carbon Dioxide 21 L (22-30) mmol/L Anion Gap 11 mmol/L BUN 10 (9-20) mg/dL Creatinine 0.80 (0.66-1.25) mg/dL Est GFR (CKD-EPI)AfAm >90 (>60 ml/min/1.73 sqM) Est GFR (CKD-EPI)NonAf >90 (>60 ml/min/1.73 sqM) Glucose 105 H (74-99) mg/dL Plasma Lactic Acid Jacob 1.8 (0.7-2.0) mmol/L Calcium 9.0 (8.4-10.2) mg/dL Total Bilirubin 0.3 (0.2-1.3) mg/dL AST 19 (17-59) U/L ALT 16 (4-49) U/L Alkaline Phosphatase 114 (38-126) U/L Total Protein 7.3 (6.3-8.2) g/dL Albumin 4.0 (3.5-5.0) g/dL Lipase 201 (23-300) U/L Disposition Clinical Impression: Abdominal pain, Anemia, Melena, Post-op pain, Nausea & vomiting Disposition: OTHER INSTITUTION NOT DEFINED Condition: Stable Referrals: Huma Soria MD [Primary Care Provider] - 1-2 days - Out of Hospital Transfer - Req. Specs Out of Hospital Transfer - Requested Specifics: Other Emergency Center ([facility])
[2021-06-27 22:02] LABS: Basophils % (A) 0 %; Eosinophils # (A) 0.1 k/uL (0-0.7); Eosinophils % (A) 1 %; HCT 29.3 % (39.0-53.0); HGB 8.8 gm/dL (13.0-17.5); Hypochromasia Marked; Lymphocytes # (A) 1.4 k/uL (1.0-4.8); Lymphocytes % (A) 18 %; MCH 23.7 pg (25.0-35.0); MCHC 30.2 g/dL (31.0-37.0); MCV 78.6 fL (80.0-100.0); Monocytes # (A) 0.5 k/uL (0-1.0); Monocytes % (A) 6 %; Neutrophils # (A) 5.6 k/uL (1.3-7.7); Neutrophils % (A) 73 %; Platelet Count 324 k/uL (150-450); Poikilocytosis Slight; RBC 3.73 m/uL (4.30-5.90); RDW 15.6 % (11.5-15.5); WBC 7.8 k/uL (3.8-10.6)
[2021-06-27 22:25] LABS: ALT 16 U/L (4-49); AST 19 U/L (17-59); African American GFR (CKD) >90 (>60 ml/min/1.73 sqM); Alkaline Phosphatase 114 U/L (38-126); Anion Gap 11 mmol/L; Blood Urea Nitrogen 10 mg/dL (9-20); Carbon Dioxide 21 mmol/L (22-30); Chloride 106 mmol/L (98-107); Glucose 105 mg/dL (74-99); Lipase 201 U/L (23-300); Non-African American GFR(CKD) >90 (>60 ml/min/1.73 sqM); Sodium 138 mmol/L (137-145); Total Bilirubin 0.3 mg/dL (0.2-1.3); Total Protein 7.3 g/dL (6.3-8.2)
--- NOTE | 2021-06-27 22:36 | XR ---
EXAMINATION TYPE: XR abdomen 1V DATE OF EXAM: 06/27/2021 COMPARISON: 06/26/2021 HISTORY: Abdominal pain nausea and vomiting TECHNIQUE: 2 views supine FINDINGS: 2 view supine were obtained. There is no sign of intestinal obstruction or pneumoperitoneum . Fecal pattern is normal. There is no evidence of a mass. There is lumbar spine fusion surgery. Ther e are no calcifications over the kidneys. There is normal-appearing gas in the descending colon. IMPRESSION: Nonacute abdomen. No adverse change.
[2021-06-27] MEDS ORDERED: FAMOTIDINE 20 MG/2 ML VIAL IV STA (22:51)
[2021-06-27] MEDS ORDERED: METOCLOPRAMIDE 5 MG/ML 2 ML VIAL IVP STA (22:54)
[2021-06-27 23:22] VITALS: BP 113/82; PULSE 93
== END 2021-06-28 00:22 | disposition other institution (70) ==
LOC: EC 20:28
DX: K92.1 Melena (principal); D64.9 Anemia, unspecified; G89.18 Other acute postprocedural pain; K21.9 Gastro-esophageal reflux disease without esophagitis; Z79.899 Other long term (current) drug therapy
CPT/HCPCS: 36415; 80053; 83605; 83690; 85025; 87635; 74018; 99285; 96374; 96375 ×4; 96376; 96361 ×2; J2270; J1200; J0780; J2765

== ENCOUNTER 2021-07-17 00:25 | Emergency (ER) | payer OTHER ==
[2021-07-17 00:32] VITALS: TEMP 97.9
[2021-07-17] MEDS ORDERED: SODIUM CHLORIDE 0.9% 1,000 ML IV STA ×2 (00:51)
[2021-07-17] MEDS ORDERED: ONDANSETRON 4 MG/2 ML VIAL IVP STA (00:51)
[2021-07-17] MEDS ORDERED: SODIUM CHLORIDE 0.9% 500 ML 500 ML IV STA ×2 (00:51→02:46)
--- NOTE | 2021-07-17 00:52 | ED ---
Nausea/Vomiting/Diarrhea HPI - General Chief complaint: Nausea/Vomiting/Diarrhea Stated complaint: Nausea, vomiting Time Seen by Provider: 07/17/21 00:51 Source: patient, RN notes reviewed, old records reviewed Mode of arrival: EMS Limitations: no limitations - History of Present Illness Initial comments: This is a 40-year-old male to the ER for evaluation. Patient presents today for evaluation regards to significant nausea vomiting abdominal pain. History of same. Patient has history of hiatal hernia surgery otherwise no recent travel history or sick contacts. He has significant nausea vomiting currently no fevers. Patient is recently of long inpatient hospitalization stay MD complaint: nausea, vomiting, abdominal pain -: days(s) Description of Vomiting: food contents, watery Associated Abdominal Pain: Yes Location: diffuse Radiation: none Quality: cramping, stabbing Consistency: constant Improves with: none Worsens with: eating, vomiting Context: history of abdominal surgery Associated Symptoms: loss of appetite, malaise, nausea/vomiting, weakness - Related Data Home Medications Medication Instructions Recorded Confirmed traZODone HCL [Desyrel] 100 mg PO HS 05/23/21 06/27/21 Acetaminophen Tab [Tylenol Tab] 1,000 mg PO Q6H 06/19/21 06/27/21 Gabapentin 300 mg PO BID 06/19/21 06/27/21 oxyCODONE HCL [OxyIR] 10 mg PO Q4H 06/19/21 06/27/21 Famotidine [Pepcid] 20 mg PO Q12H 06/26/21 06/27/21 Ibuprofen [Motrin] 600 mg PO Q8H PRN 06/26/21 06/27/21 methocarbamoL [Robaxin] 500 mg PO Q6H PRN 06/26/21 06/27/21 Previous Rx's Medication Instructions Recorded Prochlorperazine [Compazine] 10 mg PO Q6H #10 tab 06/26/21 Allergies Allergy/AdvReac Type Severity Reaction Status Date / Time hydromorphone [From Dilaudid] Allergy Rash/Hives Verified 06/27/21 21:36 latex Allergy Rash/Hives Verified 06/27/21 21:36 meperidine [From Demerol] Allergy Rash/Hives Verified 06/27/21 21:36 Review of Systems ROS Statement: Those systems with pertinent positive or pertinent negative responses have been documented in the HPI. ROS Other: All systems not noted in ROS Statement are negative. Past Medical History Past Medical History: GERD/Reflux Additional Past Medical History / Comment(s): multiple dislocation of rt shoulder, hiatal hernia, hx migraines, IBS History of Any Multi-Drug Resistant Organisms: None Reported Past Surgical History: Appendectomy, Back Surgery, Cholecystectomy, Orthopedic Surgery, Tonsillectomy Additional Past Surgical History / Comment(s): rt shoulder arthroscopy, left shoulder fusion, Past Anesthesia/Blood Transfusion Reactions: No Reported Reaction Past Psychological History: No Psychological Hx Reported Smoking Status: Never smoker Past Alcohol Use History: None Reported Past Drug Use History: None Reported - Past Family History Mother Additional Family Medical History / Comment(s): lupus, Father History Unknown: Yes Brother(s) Additional Family Medical History / Comment(s): autoimmune disorder General Exam General appearance: alert, in no apparent distress, anxious Head exam: Present: atraumatic, normocephalic, normal inspection Eye exam: Present: normal appearance, PERRL, EOMI. Absent: scleral icterus, conjunctival injection, periorbital swelling ENT exam: Present: normal exam, mucous membranes dry Neck exam: Present: normal inspection. Absent: tenderness, meningismus, lymphadenopathy Respiratory exam: Present: normal lung sounds bilaterally. Absent: respiratory distress, wheezes, rales, rhonchi, stridor Cardiovascular Exam: Present: normal rhythm, tachycardia, normal heart sounds. Absent: systolic murmur, diastolic murmur, rubs, gallop, clicks GI/Abdominal exam: Present: soft, normal bowel sounds. Absent: distended, tenderness, guarding, rebound, rigid Extremities exam: Present: normal inspection, full ROM, normal capillary refill. Absent: tenderness, pedal edema, joint swelling, calf tenderness Back exam: Present: normal inspection Neurological exam: Present: alert, oriented X3, CN II-XII intact Psychiatric exam: Present: normal affect, normal mood Skin exam: Present: warm, dry, intact, normal color. Absent: rash Course Vital Signs 07/17/21 07/17/21 07/17/21 00:27 03:50 05:35 Temperature 97.9 F Pulse Rate 103 H 88 80 Respiratory 18 16 18 Rate Blood Pressure 188/73 159/77 171/58 O2 Sat by Pulse 97 96 98 Oximetry - Reevaluation(s) Reevaluation #1: 07/17/21 04:44 medical record is reviewed Medical Decision Making - Medical Decision Making 40 male who was seen here in the ER for nausea vomiting abdominal pain. Reevaluation patient significant improved. Does have significant history of hiatal hernia with lung hospital admission. Patient just went to the point originally better currently not wanting recurrent admission. - Lab Data Result diagrams: 07/17/21 01:57 07/17/21 01:57 Lab Results 07/17/21 07/17/21 Range/Units 01:57 01:57 WBC 7.6 (3.8-10.6) k/uL RBC 4.76 (4.30-5.90) m/uL Hgb 12.1 L D (13.0-17.5) gm/dL Hct 39.1 (39.0-53.0) % MCV 82.0 (80.0-100.0) fL MCH 25.3 (25.0-35.0) pg MCHC 30.9 L (31.0-37.0) g/dL RDW 20.8 H (11.5-15.5) % Plt Count 487 H (150-450) k/uL MPV 7.7 Neutrophils % 87 % Lymphocytes % 8 % Monocytes % 4 % Eosinophils % 0 % Basophils % 0 % Neutrophils # 6.5 (1.3-7.7) k/uL Lymphocytes # 0.6 L (1.0-4.8) k/uL Monocytes # 0.3 (0-1.0) k/uL Eosinophils # 0.0 (0-0.7) k/uL Basophils # 0.0 (0-0.2) k/uL Hypochromasia Marked Anisocytosis Moderate Microcytosis Slight Sodium 140 (137-145) mmol/L Potassium 4.6 (3.5-5.1) mmol/L Chloride 106 (98-107) mmol/L Carbon Dioxide 19 L (22-30) mmol/L Anion Gap 15 mmol/L BUN 16 (9-20) mg/dL Creatinine 0.96 (0.66-1.25) mg/dL Est GFR (CKD-EPI)AfAm >90 (>60 ml/min/1.73 sqM) Est GFR (CKD-EPI)NonAf >90 (>60 ml/min/1.73 sqM) Glucose 144 H (74-99) mg/dL Calcium 10.1 (8.4-10.2) mg/dL Phosphorus 1.5 L (2.5-4.5) mg/dL Magnesium 1.8 (1.6-2.3) mg/dL Total Bilirubin 0.6 (0.2-1.3) mg/dL AST 34 (17-59) U/L ALT 24 (4-49) U/L Alkaline Phosphatase 97 (38-126) U/L Total Protein 8.5 H (6.3-8.2) g/dL Albumin 4.7 (3.5-5.0) g/dL Lipase 132 (23-300) U/L Disposition Clinical Impression: Nausea & vomiting, Abdominal pain Disposition: HOME SELF-CARE Condition: Fair Instructions (If sedation given, give patient instructions): Acute Nausea and Vomiting (ED), Abdominal Pain (ED) Is patient prescribed a controlled substance at d/c from ED?: No Referrals: Huma Soria MD [Primary Care Provider] - 1-2 days
[2021-07-17 02:09] LABS: Anisocytosis Moderate; Basophils % (A) 0 %; Eosinophils % (A) 0 %; HCT 39.1 % (39.0-53.0); Hypochromasia Marked; Lymphocytes # (A) 0.6 k/uL (1.0-4.8); Lymphocytes % (A) 8 %; MCH 25.3 pg (25.0-35.0); MCHC 30.9 g/dL (31.0-37.0); Mean Platelet Volume 7.7; Microcytosis Slight; Monocytes # (A) 0.3 k/uL (0-1.0); Monocytes % (A) 4 %; Neutrophils # (A) 6.5 k/uL (1.3-7.7); Neutrophils % (A) 87 %; Platelet Count 487 k/uL (150-450); RBC 4.76 m/uL (4.30-5.90); RDW 20.8 % (11.5-15.5); WBC 7.6 k/uL (3.8-10.6)
[2021-07-17 02:15] LABS: HGB 12.1 gm/dL (13.0-17.5)
[2021-07-17] MEDS ORDERED: MORPHINE SULFATE 4 MG/ML SYRINGE IVP STA (02:46)
[2021-07-17] MEDS ORDERED: PROCHLORPERAZINE INJ 10 MG/2 ML VIAL IVP STA (02:46)
[2021-07-17] MEDS ORDERED: LORazepam 2 MG/ML INJ IV STA (02:46)
[2021-07-17 02:53] LABS: ALT 24 U/L (4-49); AST 34 U/L (17-59); African American GFR (CKD) >90 (>60 ml/min/1.73 sqM); Albumin 4.7 g/dL (3.5-5.0); Alkaline Phosphatase 97 U/L (38-126); Anion Gap 15 mmol/L; Blood Urea Nitrogen 16 mg/dL (9-20); Calcium 10.1 mg/dL (8.4-10.2); Carbon Dioxide 19 mmol/L (22-30); Chloride 106 mmol/L (98-107); Glucose 144 mg/dL (74-99); Lipase 132 U/L (23-300); Magnesium 1.8 mg/dL (1.6-2.3); Non-African American GFR(CKD) >90 (>60 ml/min/1.73 sqM); Phosphorus 1.5 mg/dL (2.5-4.5); Potassium 4.6 mmol/L (3.5-5.1); Sodium 140 mmol/L (137-145); Total Bilirubin 0.6 mg/dL (0.2-1.3); Total Protein 8.5 g/dL (6.3-8.2)
[2021-07-17 05:36] VITALS: BP 171/58; PULSE 80; RESP 18
== END 2021-07-17 05:52 | disposition home or self-care (01) ==
LOC: EC 00:25
DX: R11.2 Nausea with vomiting, unspecified (principal); R10.84 Generalized abdominal pain; K21.9 Gastro-esophageal reflux disease without esophagitis; Z79.899 Other long term (current) drug therapy
CPT/HCPCS: 36415; 80053; 83690; 83735; 84100; 85025; 99284; 96374; 96375 ×3; 96361; J2060; J2270; J0780; J2405

== ENCOUNTER 2021-08-29 11:15 | Emergency (ER) | payer OTHER ==
[2021-08-29] MEDS ORDERED: MORPHINE SULFATE 4 MG/ML SYRINGE IV STA (12:10)
[2021-08-29] MEDS ORDERED: diphenhydrAMINE 50 MG/ML 1 ML VIAL IVP STA (12:10)
[2021-08-29] MEDS ORDERED: ONDANSETRON 4 MG/2 ML VIAL IVP STA ×2 (12:10→16:05)
[2021-08-29] MEDS ORDERED: SODIUM CHLORIDE 0.9% 1,000 ML IV STA (12:10)
--- NOTE | 2021-08-29 12:24 | ED ---
General Adult HPI - General Chief complaint: Nausea/Vomiting/Diarrhea Stated complaint: Vomiting Time Seen by Provider: 08/29/21 12:00 Source: patient Mode of arrival: ambulatory Limitations: no limitations - History of Present Illness Initial comments: This 40-year-old male presents emergency department with nausea and vomiting that began at 4:30 AM. Patient states he has a history of hiatal hernia repair and episodes of intractable nausea and vomiting. Patient states he does have a conventions assistant at [facility] which he did see 2-3 weeks ago when he was admitted inpatient. Patient states he is prescribed Oxy at home for pain, however he states he does not have any left. Patient states he does have generalized abdominal pain which is common when he gets the cyclical nausea and vomiting. Patient denies any radiation. Patient states the pain is 10/10. Patient denies any blood present in vomit. Patient states it was dark brown this morning when he was vomiting. Patient states he has vomited around 2 times per hour. Patient states his last bowel movement was 3 days ago. Patient states he did have an endoscopy sometime in 2021 which do not have any acute abnormalities. Patient states he has had a colonoscopy but states he is unsure when it was. Patient denies any chest pain, shortness breath, fever, change in bowel or bladder, change in vision, headache, lightheadedness, dizziness. Patient states his appetite was normal up until this morning when he woke up at 4 AM, he states appetite has decreased and is not very hungry since he has been vomiting. Patient states he is able to keep down some water. Patient requesting morphine and Zofran as soon as I entered the room. - Related Data Home Medications Medication Instructions Recorded Confirmed traZODone HCL [Desyrel] 100 mg PO HS 05/23/21 08/01/21 Acetaminophen Tab [Tylenol Tab] 1,000 mg PO Q6H PRN 06/19/21 08/01/21 Gabapentin 300 mg PO BID 06/19/21 08/01/21 oxyCODONE HCL [OxyIR] 5 mg PO TID 06/19/21 08/01/21 Famotidine [Pepcid] 20 mg PO Q12H 06/26/21 08/01/21 Ibuprofen [Motrin] 600 mg PO Q8H PRN 06/26/21 08/01/21 Cyclobenzaprine [Flexeril] 5 mg PO TID PRN 07/25/21 08/01/21 Ondansetron [Zofran] 4 mg PO Q8H PRN 07/25/21 08/01/21 OLANZapine [ZyPREXA] 5 mg PO HS 08/01/21 08/01/21 Allergies Allergy/AdvReac Type Severity Reaction Status Date / Time hydromorphone [From Dilaudid] Allergy Rash/Hives Verified 08/29/21 11:50 latex Allergy Rash/Hives Verified 08/29/21 11:50 meperidine [From Demerol] Allergy Rash/Hives Verified 08/29/21 11:50 Review of Systems ROS Statement: Those systems with pertinent positive or pertinent negative responses have been documented in the HPI. ROS Other: All systems not noted in ROS Statement are negative. Past Medical History Past Medical History: GERD/Reflux Additional Past Medical History / Comment(s): multiple dislocation of rt shoulder, hiatal hernia, hx migraines, IBS History of Any Multi-Drug Resistant Organisms: None Reported Past Surgical History: Appendectomy, Back Surgery, Cholecystectomy, Orthopedic Surgery, Tonsillectomy Additional Past Surgical History / Comment(s): rt shoulder arthroscopy, left shoulder fusion, hiatal hernia surgery. Peg tube Past Anesthesia/Blood Transfusion Reactions: No Reported Reaction Past Psychological History: No Psychological Hx Reported Smoking Status: Never smoker Past Alcohol Use History: None Reported Past Drug Use History: None Reported - Past Family History Mother Additional Family Medical History / Comment(s): lupus, Father History Unknown: Yes Brother(s) Additional Family Medical History / Comment(s): autoimmune disorder General Exam Limitations: no limitations General appearance: alert, in no apparent distress Head exam: Present: atraumatic, normocephalic, normal inspection Eye exam: Present: normal appearance, PERRL, EOMI. Absent: scleral icterus, conjunctival injection, periorbital swelling Pupils: Present: normal accommodation ENT exam: Present: normal exam, normal oropharynx, mucous membranes moist Neck exam: Present: normal inspection, full ROM. Absent: tenderness, meningismus, lymphadenopathy Respiratory exam: Present: normal lung sounds bilaterally. Absent: respiratory distress, wheezes, rales, rhonchi, stridor, chest wall tenderness Cardiovascular Exam: Present: regular rate, normal rhythm, normal heart sounds. Absent: systolic murmur, diastolic murmur, rubs, gallop, clicks GI/Abdominal exam: Present: soft, tenderness (Generalized abdominal discomfort in all quadrants), normal bowel sounds. Absent: distended, guarding, rebound, rigid Extremities exam: Present: normal inspection, full ROM, normal capillary refill. Absent: tenderness, pedal edema, joint swelling, calf tenderness Back exam: Present: full ROM. Absent: CVA tenderness (R), CVA tenderness (L), paraspinal tenderness, vertebral tenderness Neurological exam: Present: alert, oriented X3, CN II-XII intact, normal gait Psychiatric exam: Present: normal affect, normal mood Skin exam: Present: warm, dry, intact, normal color. Absent: rash Course Vital Signs 08/29/21 08/29/21 11:46 14:59 Temperature 97.6 F Pulse Rate 98 81 Respiratory 24 18 Rate Blood Pressure 120/76 131/68 O2 Sat by Pulse 100 98 Oximetry Medical Decision Making - Medical Decision Making This 40-year-old male presents emergency department with intractable nausea and vomiting that began at 4 AM this morning. Abdominal x-ray impression: Cannot exclude early or partial distal small bowel obstruction. Patient with a blood cells 11.4. COVID-19, influenza A/B negative. Spoke with Dr. Soria who suggested I transfer patient to Dr. Workman with [facility], where his conventions assistant is located. I spoke with Dr. Earl, ER physician who accepted patient. Patient agreed to be transferred to [facility] for further workup, evaluation and treatment. Patient transferred to [facility]. Discussed case in detail with my attending, . - Lab Data Result diagrams: 08/29/21 12:31 08/29/21 12:31 Lab Results 08/29/21 08/29/21 08/29/21 Range/Units 12:31 12:31 12:37 WBC 11.4 H (3.8-10.6) k/uL RBC 4.83 (4.30-5.90) m/uL Hgb 12.9 L (13.0-17.5) gm/dL Hct 42.0 (39.0-53.0) % MCV 87.0 (80.0-100.0) fL MCH 26.8 (25.0-35.0) pg MCHC 30.8 L (31.0-37.0) g/dL RDW 19.2 H (11.5-15.5) % Plt Count 333 (150-450) k/uL MPV 7.5 Neutrophils % 90 % Lymphocytes % 7 % Monocytes % 2 % Eosinophils % 1 % Basophils % 1 % Neutrophils # 10.2 H (1.3-7.7) k/uL Lymphocytes # 0.7 L (1.0-4.8) k/uL Monocytes # 0.3 (0-1.0) k/uL Eosinophils # 0.1 (0-0.7) k/uL Basophils # 0.1 (0-0.2) k/uL Hypochromasia Slight Anisocytosis Slight Microcytosis Slight Sodium 146 H (137-145) mmol/L Potassium 4.0 (3.5-5.1) mmol/L Chloride 110 H (98-107) mmol/L Carbon Dioxide 19 L (22-30) mmol/L Anion Gap 17 mmol/L BUN 13 (9-20) mg/dL Creatinine 0.84 (0.66-1.25) mg/dL Est GFR (CKD-EPI)AfAm >90 (>60 ml/min/1.73 sqM) Est GFR (CKD-EPI)NonAf >90 (>60 ml/min/1.73 sqM) Glucose 171 H (74-99) mg/dL Calcium 10.0 (8.4-10.2) mg/dL Total Bilirubin 0.6 (0.2-1.3) mg/dL AST 25 (17-59) U/L ALT 30 (4-49) U/L Alkaline Phosphatase 103 (38-126) U/L Total Protein 7.9 (6.3-8.2) g/dL Albumin 4.7 (3.5-5.0) g/dL Amylase 105 (30-110) U/L Lipase 82 (23-300) U/L Coronavirus (PCR) (Not Detectd) Influenza Type A RNA Not Detected (Not Detectd) Influenza Type B (PCR) Not Detected (Not Detectd) 08/29/21 Range/Units 12:37 WBC (3.8-10.6) k/uL RBC (4.30-5.90) m/uL Hgb (13.0-17.5) gm/dL Hct (39.0-53.0) % MCV (80.0-100.0) fL MCH (25.0-35.0) pg MCHC (31.0-37.0) g/dL RDW (11.5-15.5) % Plt Count (150-450) k/uL MPV Neutrophils % % Lymphocytes % % Monocytes % % Eosinophils % % Basophils % % Neutrophils # (1.3-7.7) k/uL Lymphocytes # (1.0-4.8) k/uL Monocytes # (0-1.0) k/uL Eosinophils # (0-0.7) k/uL Basophils # (0-0.2) k/uL Hypochromasia Anisocytosis Microcytosis Sodium (137-145) mmol/L Potassium (3.5-5.1) mmol/L Chloride (98-107) mmol/L Carbon Dioxide (22-30) mmol/L Anion Gap mmol/L BUN (9-20) mg/dL Creatinine (0.66-1.25) mg/dL Est GFR (CKD-EPI)AfAm (>60 ml/min/1.73 sqM) Est GFR (CKD-EPI)NonAf (>60 ml/min/1.73 sqM) Glucose (74-99) mg/dL Calcium (8.4-10.2) mg/dL Total Bilirubin (0.2-1.3) mg/dL AST (17-59) U/L ALT (4-49) U/L Alkaline Phosphatase (38-126) U/L Total Protein (6.3-8.2) g/dL Albumin (3.5-5.0) g/dL Amylase (30-110) U/L Lipase (23-300) U/L Coronavirus (PCR) Not Detected (Not Detectd) Influenza Type A RNA (Not Detectd) Influenza Type B (PCR) (Not Detectd) Disposition Clinical Impression: Intractable nausea and vomiting, Abdominal pain Disposition: OTHER INSTITUTION NOT DEFINED Condition: Serious Is patient prescribed a controlled substance at d/c from ED?: No Referrals: Huma Soria MD [Primary Care Provider] - 1-2 days - Out of Hospital Transfer - Req. Specs Out of Hospital Transfer - Requested Specifics: Other Emergency Center ([facility])
[2021-08-29 12:44] LABS: Anisocytosis Slight; Basophils # (A) 0.1 k/uL (0-0.2); Basophils % (A) 1 %; Eosinophils # (A) 0.1 k/uL (0-0.7); Eosinophils % (A) 1 %; HGB 12.9 gm/dL (13.0-17.5); Hypochromasia Slight; Lymphocytes # (A) 0.7 k/uL (1.0-4.8); Lymphocytes % (A) 7 %; MCH 26.8 pg (25.0-35.0); MCHC 30.8 g/dL (31.0-37.0); Mean Platelet Volume 7.5; Microcytosis Slight; Monocytes # (A) 0.3 k/uL (0-1.0); Monocytes % (A) 2 %; Neutrophils # (A) 10.2 k/uL (1.3-7.7); Neutrophils % (A) 90 %; Platelet Count 333 k/uL (150-450); RBC 4.83 m/uL (4.30-5.90); RDW 19.2 % (11.5-15.5); WBC 11.4 k/uL (3.8-10.6)
[2021-08-29 12:53] LABS: AST 25 U/L (17-59); African American GFR (CKD) >90 (>60 ml/min/1.73 sqM); Albumin 4.7 g/dL (3.5-5.0); Alkaline Phosphatase 103 U/L (38-126); Amylase 105 U/L (30-110); Anion Gap 17 mmol/L; Blood Urea Nitrogen 13 mg/dL (9-20); Carbon Dioxide 19 mmol/L (22-30); Chloride 110 mmol/L (98-107); Glucose 171 mg/dL (74-99); Lipase 82 U/L (23-300); Non-African American GFR(CKD) >90 (>60 ml/min/1.73 sqM); Sodium 146 mmol/L (137-145); Total Bilirubin 0.6 mg/dL (0.2-1.3); Total Protein 7.9 g/dL (6.3-8.2)
[2021-08-29 13:01] LABS: ALT 30 U/L (4-49)
--- NOTE | 2021-08-29 13:02 | XR ---
Abdomen. HISTORY: Nausea and vomiting. COMPARISON: 08/02/2021. 3 views of the abdomen were obtained including supine and upright views. FINDINGS: Lung bases are clear and there is no free air beneath the hemidiaphragms. Bowel gas pattern reveals suggestion of a few differential air-fluid levels without dilated loops of bowel. Findings could represent an early or partial distal small bowel obstruction. There are postsurgical changes in the lumbar spine at the L5-S1 level. There is multiple surgical sut ures in the left upper quadrant. No suspicious abdominal or pelvic calcifications are seen. Impression: Cannot exclude early or partial distal small bowel obstruction.
[2021-08-29 15:00] VITALS: RESP 18
[2021-08-29] MEDS ORDERED: METOCLOPRAMIDE 5 MG/ML 2 ML VIAL IVP STA (15:03)
[2021-08-29] MEDS ORDERED: HYDROmorphone 0.5 MG/0.5 ML SYRINGE IVP STA (15:04)
[2021-08-29 16:12] VITALS: BP 126/69; PULSE 78; TEMP 98.1
== END 2021-08-29 16:11 | disposition other institution (70) ==
LOC: EC 11:15
DX: R11.2 Nausea with vomiting, unspecified (principal); R10.9 Unspecified abdominal pain; K21.9 Gastro-esophageal reflux disease without esophagitis; Z88.5 Allergy status to narcotic agent; Z90.49 Acquired absence of other specified parts of digestive tract; Z91.040 Latex allergy status; Z20.822 Contact with and (suspected) exposure to COVID-19; Z98.890 Other specified postprocedural states; Z88.8 Allergy status to other drugs, medicaments and biological substances; Z79.899 Other long term (current) drug therapy
CPT/HCPCS: 99285; 96374; 96375; 96361; 36415; 80053; 82150; 83690; 85025; 87502; 87635; 74019; J2270; J1200; J2765; J2405; J1170

== ENCOUNTER 2021-10-17 17:12 | Emergency (ER) | payer OTHER ==
[2021-10-17 18:25] VITALS: TEMP 98
[2021-10-17] MEDS ORDERED: MORPHINE SULFATE 2 MG/ML SYRINGE IVP STA (19:52)
[2021-10-17] MEDS ORDERED: ONDANSETRON 4 MG/2 ML VIAL IVP STA ×2 (19:52→23:08)
[2021-10-17 21:22] LABS: Anisocytosis Slight; Basophils # (A) 0.1 k/uL (0-0.2); Basophils % (A) 1 %; Eosinophils # (A) 0.1 k/uL (0-0.7); Eosinophils % (A) 1 %; HGB 13.4 gm/dL (13.0-17.5); Lymphocytes # (A) 2.1 k/uL (1.0-4.8); Lymphocytes % (A) 26 %; MCH 28.1 pg (25.0-35.0); MCHC 31.8 g/dL (31.0-37.0); MCV 88.3 fL (80.0-100.0); Monocytes # (A) 0.5 k/uL (0-1.0); Monocytes % (A) 7 %; Neutrophils # (A) 5.4 k/uL (1.3-7.7); Neutrophils % (A) 65 %; Platelet Count 265 k/uL (150-450); RBC 4.76 m/uL (4.30-5.90); RDW 16.7 % (11.5-15.5); WBC 8.2 k/uL (3.8-10.6)
[2021-10-17] MEDS ORDERED: SODIUM CHLORIDE 0.9% 1,000 ML IV STA (21:27)
[2021-10-17 21:56] LABS: African American GFR (CKD) >90 (>60 ml/min/1.73 sqM); Anion Gap 11 mmol/L; Blood Urea Nitrogen 17 mg/dL (9-20); Calcium 9.2 mg/dL (8.4-10.2); Carbon Dioxide 22 mmol/L (22-30); Chloride 106 mmol/L (98-107); Glucose 119 mg/dL (74-99); Non-African American GFR(CKD) >90 (>60 ml/min/1.73 sqM); Potassium 3.9 mmol/L (3.5-5.1); Sodium 139 mmol/L (137-145)
--- NOTE | 2021-10-17 22:24 | ED ---
General Adult HPI - General Chief complaint: Recheck/Abnormal Lab/Rx Stated complaint: post feeding tube issues Time Seen by Provider: 10/17/21 19:37 Source: patient, RN notes reviewed Mode of arrival: ambulatory Limitations: no limitations - History of Present Illness Initial comments: 41-year-old male presents to the emergency department for evaluation of bleeding from site of PEG tube that was removed on Monday. Patient states he had been changing the dressing as directed in his discharge instructions and was having some amount of drainage. States this afternoon he developed a large amount of bleeding that site. Denies any injury or trauma to abdominal wall. Did not contact his surgeon prior to arrival. Complains of tenderness around the site and describes his pain "as if someone had repeatedly punched" him. Denies fever, chills, headache, chest pain, shortness of breath, difficulty breathing, nausea, vomiting, diarrhea, dysuria, trauma, or injury. - Related Data Home Medications Medication Instructions Recorded Confirmed traZODone HCL [Desyrel] 100 mg PO HS 05/23/21 08/01/21 Acetaminophen Tab [Tylenol Tab] 1,000 mg PO Q6H PRN 06/19/21 08/01/21 Gabapentin 300 mg PO BID 06/19/21 08/01/21 oxyCODONE HCL [OxyIR] 5 mg PO TID 06/19/21 08/01/21 Famotidine [Pepcid] 20 mg PO Q12H 06/26/21 08/01/21 Ibuprofen [Motrin] 600 mg PO Q8H PRN 06/26/21 08/01/21 Cyclobenzaprine [Flexeril] 5 mg PO TID PRN 07/25/21 08/01/21 Ondansetron [Zofran] 4 mg PO Q8H PRN 07/25/21 08/01/21 OLANZapine [ZyPREXA] 5 mg PO HS 08/01/21 08/01/21 Previous Rx's Medication Instructions Recorded Ondansetron Odt [Zofran Odt] 4 mg PO Q8HR PRN #10 tab 10/17/21 Allergies Allergy/AdvReac Type Severity Reaction Status Date / Time hydromorphone [From Dilaudid] Allergy Rash/Hives Verified 10/17/21 18:25 latex Allergy Rash/Hives Verified 10/17/21 18:25 meperidine [From Demerol] Allergy Rash/Hives Verified 10/17/21 18:25 Review of Systems ROS Statement: Those systems with pertinent positive or pertinent negative responses have been documented in the HPI. ROS Other: All systems not noted in ROS Statement are negative. Past Medical History Past Medical History: GERD/Reflux Additional Past Medical History / Comment(s): multiple dislocation of rt shoulder, hiatal hernia, hx migraines, IBS History of Any Multi-Drug Resistant Organisms: None Reported Past Surgical History: Appendectomy, Back Surgery, Cholecystectomy, Orthopedic Surgery, Tonsillectomy Additional Past Surgical History / Comment(s): rt shoulder arthroscopy, left shoulder fusion, hiatal hernia surgery. Peg tube Past Anesthesia/Blood Transfusion Reactions: No Reported Reaction Past Psychological History: No Psychological Hx Reported Smoking Status: Never smoker Past Alcohol Use History: None Reported Past Drug Use History: None Reported - Past Family History Mother Additional Family Medical History / Comment(s): lupus, Father History Unknown: Yes Brother(s) Additional Family Medical History / Comment(s): autoimmune disorder General Exam Limitations: no limitations (Well-developed, well-nourished male in no acute distress. Initial temperature 98.0, pulse 97, respirations 18, blood pressure 125/83, pulse ox 99% on room air.) General appearance: alert, in no apparent distress ENT exam: Present: normal exam, normal oropharynx, mucous membranes moist Respiratory exam: Present: normal lung sounds bilaterally. Absent: respiratory distress, wheezes, rales, rhonchi, stridor, chest wall tenderness Cardiovascular Exam: Present: regular rate, normal rhythm, normal heart sounds. Absent: systolic murmur, diastolic murmur, rubs, gallop, clicks GI/Abdominal exam: Present: soft, tenderness (tenderness upon palpation around the site of PEG tube removal in the LUQ. ), normal bowel sounds, other (patient arrives with blood saturated dressing. upon removal, there is no active drainage or bleeding. site is soft, non-erythematous, and appears to be well-healing.). Absent: distended, guarding, rebound, rigid Extremities exam: Present: normal inspection, full ROM Back exam: Present: normal inspection, full ROM. Absent: paraspinal tenderness, vertebral tenderness Neurological exam: Present: alert, oriented X3 Psychiatric exam: Present: anxious Skin exam: Present: warm, dry, intact, normal color. Absent: rash Course Vital Signs 10/17/21 10/17/21 18:22 21:25 Temperature 98.0 F Pulse Rate 97 93 Respiratory 18 16 Rate Blood Pressure 125/83 116/73 O2 Sat by Pulse 99 100 Oximetry - Reevaluation(s) Reevaluation #1: 10/17/21 22:50 Upon reassessment, patient continues to complain of ongoing pain and nausea, though does appear more comfortable at this time. Additional dose of pain medication will be ordered. Awaiting CT results. Dressing remains clean and dry with no active bleeding at this time. 10/18/21 00:05 Informed by the nurse that patient's abdominal wound dressing was saturated as s he was preparing to discharge him. I reassessed the site and was unable to elicit or reproduce any additional bleeding with palpation or position change. Clean dressing was applied. I did speak with my attending who recommends contacting patient's surgeon at [facility] for further direction. 10/18/21 00:[address] Workman regarding physical exam findings and bleeding from site. As patient is hemodynamically stable and bleeding is intermittent, he suggests discharge home and outpatient follow up as scheduled. Medical Decision Making - Medical Decision Making This is a 41-year-old male who is well-known to this department presenting with complaints of bleeding from site of PEG tube that was removed on Monday. Upon exam, patient is well-appearing and in no acute distress. Vital signs are stable. He complains of pain around the left side of his mid to upper abdomen stating that it feels as if he has been "repeatedly punched." After initial saturated dressing was removed there was no active bleeding or drainage from the site. During his stay, patient developed epigastric discomfort accompanied by vomiting. EKG was obtained showing sinus rhythm with no ectopy or ST segment changes. Troponin was negative. CT of the abdomen and pelvis was obtained and was unremarkable. Patient was given IV fluids, pain medicine, and Zofran with some improvement. Just prior to departure patient reported another episode of b leeding. Site was again examined, palpated, and patient was repositioned, but the bleeding could not be replicated. I did speak with the patient's surgeon at [facility] who is very familiar with this patient. As patient is hemodynamically stable he will be discharged home to follow up on an outpatient basis. He was prescribed Zofran for his nausea. States he is no longer taking pain medication and his last dose of Oxy was 4 weeks ago. Return parameters were discussed in detail. Patient verbalizes understanding and agrees with this plan. Attending: Luis. - Lab Data Result diagrams: 10/17/21 20:00 10/17/21 20:00 Lab Results 10/17/21 10/17/21 10/17/21 Range/Units 20:00 20:00 20:00 WBC 8.2 (3.8-10.6) k/uL RBC 4.76 (4.30-5.90) m/uL Hgb 13.4 (13.0-17.5) gm/dL Hct 42.0 (39.0-53.0) % MCV 88.3 (80.0-100.0) fL MCH 28.1 (25.0-35.0) pg MCHC 31.8 (31.0-37.0) g/dL RDW 16.7 H (11.5-15.5) % Plt Count 265 (150-450) k/uL MPV 8.0 Neutrophils % 65 % Lymphocytes % 26 % Monocytes % 7 % Eosinophils % 1 % Basophils % 1 % Neutrophils # 5.4 (1.3-7.7) k/uL Lymphocytes # 2.1 (1.0-4.8) k/uL Monocytes # 0.5 (0-1.0) k/uL Eosinophils # 0.1 (0-0.7) k/uL Basophils # 0.1 (0-0.2) k/uL Anisocytosis Slight Sodium 139 (137-145) mmol/L Potassium 3.9 (3.5-5.1) mmol/L Chloride 106 (98-107) mmol/L Carbon Dioxide 22 (22-30) mmol/L Anion Gap 11 mmol/L BUN 17 (9-20) mg/dL Creatinine 0.72 (0.66-1.25) mg/dL Est GFR (CKD-EPI)AfAm >90 (>60 ml/min/1.73 sqM) Est GFR (CKD-EPI)NonAf >90 (>60 ml/min/1.73 sqM) Glucose 119 H (74-99) mg/dL Calcium 9.2 (8.4-10.2) mg/dL Troponin I <0.012 (0.000-0.034) ng/mL - EKG Data EKG shows normal: sinus rhythm Rate: normal EKG Comments: EKG was obtained at 2102 showing sinus rhythm with possible right ventricular conduction delay. Ventricular rate 90, ND interval 179, QRS duration 86, QT/QTC 345/393. Interpretation borderline ECG. - Radiology Data Radiology results: report reviewed, image reviewed CT of the abdomen and pelvis without contrast was obtained. Report was reviewed in its entirety. Impression per Dr. Hicks is previous surgery. No acute abnormality in the abdomen and pelvis. No adverse change compared to old exam. Disposition Clinical Impression: Abdominal pain, Increased wound drainage, Nausea & vomiting Disposition: HOME SELF-CARE Condition: Stable Instructions (If sedation given, give patient instructions): Abdominal Pain (ED) Additional Instructions: May take Zofran for nausea. Continue taking your home medications as prescribed. Apply clean dressing as needed. Avoid trauma or injury to abdominal area. Call your surgeon in the morning to schedule a follow-up appointment. Return to the emergency department with any new, worsening, or concerning symptoms. Prescriptions: Ondansetron Odt [Zofran Odt] 4 mg PO Q8HR PRN #10 tab PRN Reason: Nausea Is patient prescribed a controlled substance at d/c from ED?: No Referrals: Huma Soria MD [Primary Care Provider] - 1-2 days Time of Disposition: 23:26
[2021-10-17] MEDS ORDERED: MORPHINE SULFATE 4 MG/ML SYRINGE IVP STA (23:08)
--- NOTE | 2021-10-17 23:09 | CT ---
EXAMINATION TYPE: CT abdomen pelvis wo con DATE OF EXAM: 10/17/2021 COMPARISON: 08/01/2021 HISTORY: feeding tube problems CT DLP: 1139.4 mGycm Automated exposure control for dose reduction was used. Images obtained from the diaphragm to the floor the pelvis with no contrast. There is some mild atelectasis left lung base. There is hilar hernia. There is previous gastric surge ry. Liver is intact. The bile ducts are not dilated. Gallbladder is absent. There are clips from chol ecystectomy. Spleen is intact. No pancreatic mass. There is no adrenal mass. Kidneys show normal size and contour. No hydronephrosis. Ureters are not di lated. Bladder distends smoothly. No inguinal hernia. No free fluid in the pelvis. No pelvic mass. Th ere is posterior fusion surgery at L5-S1. No lumbar compression fracture. Bony pelvis is intact. The hip joints are intact. Appendix not seen. No sign of thickened appendix. No mesenteric edema. No ascites or free air. No sign of a bowel obstruction. IMPRESSION: Previous surgery. No acute abnormality in the abdomen and pelvis. No adverse change compared to old e xam.
[2021-10-18 01:02] VITALS: BP 116/73; PULSE 93; RESP 16
== END 2021-10-18 01:05 | disposition home or self-care (01) ==
LOC: EC 17:12
DX: K94.21 Gastrostomy hemorrhage (principal); R10.12 Left upper quadrant pain; R11.2 Nausea with vomiting, unspecified; K21.9 Gastro-esophageal reflux disease without esophagitis; Z79.899 Other long term (current) drug therapy
CPT/HCPCS: 36415; 93005; 80048; 84484; 85025; 74176; 99284; 96374; 96375; 96376 ×2; 96361; J2270 ×2; J2405

== ENCOUNTER 2021-10-19 13:34 | Emergency (ER) | payer OTHER ==
[2021-10-19] MEDS ORDERED: SODIUM CHLORIDE 0.9% 1,000 ML IV STA (14:14)
[2021-10-19] MEDS ORDERED: METOCLOPRAMIDE 5 MG/ML 2 ML VIAL IVP STA (14:14)
[2021-10-19] MEDS ORDERED: MORPHINE SULFATE 4 MG/ML SYRINGE IV STA (14:14)
[2021-10-19] MEDS ORDERED: FAMOTIDINE 20 MG/2 ML VIAL IV STA (14:15)
--- NOTE | 2021-10-19 14:17 | ED ---
General Adult HPI - General Chief complaint: Chest Pain Stated complaint: abd pain Time Seen by Provider: 10/19/21 13:35 Source: patient, EMS, RN notes reviewed Mode of arrival: EMS Limitations: no limitations - History of Present Illness Initial comments: Patient is a pleasant 41-year-old male presenting to the emergency Department with abdominal discomfort. Onset of symptoms was yesterday. Patient does have history of previous removal of half of his stomach surgery in May. Patient has had similar symptoms previously. Patient has nausea and has vomited. Patient has some discomfort that radiates up towards the chest. Patient requests pain and nausea medicine. No fevers. No constipation or diarrhea. - Related Data Home Medications Medication Instructions Recorded Confirmed traZODone HCL [Desyrel] 200 mg PO HS 05/23/21 10/19/21 Allergies Allergy/AdvReac Type Severity Reaction Status Date / Time hydromorphone [From Dilaudid] Allergy Rash/Hives Verified 10/19/21 14:07 latex Allergy Rash/Hives Verified 10/19/21 14:07 meperidine [From Demerol] Allergy Rash/Hives Verified 10/19/21 14:07 Review of Systems ROS Statement: Those systems with pertinent positive or pertinent negative responses have been documented in the HPI. ROS Other: All systems not noted in ROS Statement are negative. Constitutional: Denies: fever Eyes: Denies: eye pain ENT: Denies: ear pain Respiratory: Denies: cough, dyspnea Cardiovascular: Reports: as per HPI Endocrine: Denies: fatigue Gastrointestinal: Reports: as per HPI, abdominal pain, nausea, vomiting Genitourinary: Denies: dysuria Musculoskeletal: Denies: back pain Skin: Denies: rash Neurological: Denies: weakness Past Medical History Past Medical History: GERD/Reflux Additional Past Medical History / Comment(s): multiple dislocation of rt shoulder, hiatal hernia, hx migraines, IBS History of Any Multi-Drug Resistant Organisms: None Reported Past Surgical History: Appendectomy, Back Surgery, Cholecystectomy, Orthopedic Surgery, Tonsillectomy Additional Past Surgical History / Comment(s): rt shoulder arthroscopy, left shoulder fusion, hiatal hernia surgery. Peg tube Past Anesthesia/Blood Transfusion Reactions: No Reported Reaction Past Psychological History: No Psychological Hx Reported Smoking Status: Never smoker Past Alcohol Use History: None Reported Past Drug Use History: None Reported - Past Family History Mother Additional Family Medical History / Comment(s): lupus, Father History Unknown: Yes Brother(s) Additional Family Medical History / Comment(s): autoimmune disorder General Exam Limitations: no limitations General appearance: alert Head exam: Present: normocephalic Eye exam: Present: normal appearance Neck exam: Present: normal inspection Respiratory exam: Present: normal lung sounds bilaterally Cardiovascular Exam: Present: regular rate, normal rhythm Expanded Peripheral pulses: 2+: Radial (R), Radial (L), Dorsalis Pedis (R), Dorsalis Pedis (L) GI/Abdominal exam: Present: soft, tenderness (Mild epigastric tenderness to palpation). Absent: distended Extremities exam: Present: normal inspection Neurological exam: Present: alert Psychiatric exam: Present: normal affect, normal mood Skin exam: Present: normal color Course Vital Signs 10/19/21 10/19/21 14:05 15:57 Temperature 98.9 F Pulse Rate 64 64 Respiratory 20 18 Rate Blood Pressure 117/87 137/76 O2 Sat by Pulse 97 99 Oximetry EKG Findings - EKG Comments: EKG Findings:: Sinus bradycardia with a rate of 58. OK 165. QRS 85. QT 416. QTc 414. Normal axis. Normal QRS. No acute ST change. Medical Decision Making - Medical Decision Making Case was discussed with Dr. Barcenas covering with Dr. Soria. He is familiar with this patient from multiple previous visits. He feels he is unable to help with this patient as a patient has refused to see him previously. Patient reevaluated and resting comfortably in bed. Patient has continued symptoms. Prior records reviews. Patient now admits that he actually has had similar symptoms multiple times previously. Patient requests further medication. Patient will be provided or antiemetic prior to discharge. - Lab Data Result diagrams: 10/19/21 14:24 10/19/21 14:24 Lab Results 10/19/21 10/19/21 10/19/21 Range/Units 14:24 14:24 14:24 WBC 11.3 H (3.8-10.6) k/uL RBC 5.10 (4.30-5.90) m/uL Hgb 14.7 (13.0-17.5) gm/dL Hct 45.6 (39.0-53.0) % MCV 89.3 (80.0-100.0) fL MCH 28.8 (25.0-35.0) pg MCHC 32.2 (31.0-37.0) g/dL RDW 16.6 H (11.5-15.5) % Plt Count 293 (150-450) k/uL MPV 8.0 Neutrophils % 88 % Lymphocytes % 8 % Monocytes % 3 % Eosinophils % 0 % Basophils % 0 % Neutrophils # 10.0 H (1.3-7.7) k/uL Lymphocytes # 0.9 L (1.0-4.8) k/uL Monocytes # 0.4 (0-1.0) k/uL Eosinophils # 0.0 (0-0.7) k/uL Basophils # 0.0 (0-0.2) k/uL Anisocytosis Slight PT 11.0 (9.0-12.0) sec INR 1.0 (<1.2) APTT 23.4 (22.0-30.0) sec D-Dimer 0.48 (<0.60) mg/L FEU Sodium 142 (137-145) mmol/L Potassium 3.5 (3.5-5.1) mmol/L Chloride 106 (98-107) mmol/L Carbon Dioxide 21 L (22-30) mmol/L Anion Gap 15 mmol/L BUN 16 (9-20) mg/dL Creatinine 0.82 (0.66-1.25) mg/dL Est GFR (CKD-EPI)AfAm >90 (>60 ml/min/1.73 sqM) Est GFR (CKD-EPI)NonAf >90 (>60 ml/min/1.73 sqM) Glucose 116 H (74-99) mg/dL Calcium 9.7 (8.4-10.2) mg/dL Total Bilirubin 0.6 (0.2-1.3) mg/dL AST 121 H (17-59) U/L ALT 234 H (4-49) U/L Alkaline Phosphatase 215 H (38-126) U/L Troponin I (0.000-0.034) ng/mL Total Protein 7.8 (6.3-8.2) g/dL Albumin 4.8 (3.5-5.0) g/dL Amylase 156 H (30-110) U/L Lipase 135 (23-300) U/L 10/19/21 Range/Units 14:24 WBC (3.8-10.6) k/uL RBC (4.30-5.90) m/uL Hgb (13.0-17.5) gm/dL Hct (39.0-53.0) % MCV (80.0-100.0) fL MCH (25.0-35.0) pg MCHC (31.0-37.0) g/dL RDW (11.5-15.5) % Plt Count (150-450) k/uL MPV Neutrophils % % Lymphocytes % % Monocytes % % Eosinophils % % Basophils % % Neutrophils # (1.3-7.7) k/uL Lymphocytes # (1.0-4.8) k/uL Monocytes # (0-1.0) k/uL Eosinophils # (0-0.7) k/uL Basophils # (0-0.2) k/uL Anisocytosis PT (9.0-12.0) sec INR (<1.2) APTT (22.0-30.0) sec D-Dimer (<0.60) mg/L FEU Sodium (137-145) mmol/L Potassium (3.5-5.1) mmol/L Chloride (98-107) mmol/L Carbon Dioxide (22-30) mmol/L Anion Gap mmol/L BUN (9-20) mg/dL Creatinine (0.66-1.25) mg/dL Est GFR (CKD-EPI)AfAm (>60 ml/min/1.73 sqM) Est GFR (CKD-EPI)NonAf (>60 ml/min/1.73 sqM) Glucose (74-99) mg/dL Calcium (8.4-10.2) mg/dL Total Bilirubin (0.2-1.3) mg/dL AST (17-59) U/L ALT (4-49) U/L Alkaline Phosphatase (38-126) U/L Troponin I <0.012 (0.000-0.034) ng/mL Total Protein (6.3-8.2) g/dL Albumin (3.5-5.0) g/dL Amylase (30-110) U/L Lipase (23-300) U/L - Radiology Data Radiology results: report reviewed (CT of abdomen and pelvis does not reveal acute abnormality.) Disposition Clinical Impression: Vomiting, Abdominal pain Disposition: HOME SELF-CARE Condition: Stable Instructions (If sedation given, give patient instructions): Abdominal Pain (ED), Acute Nausea and Vomiting (ED) Additional Instructions: Please follow-up with primary care physician in the next day or 2 for recheck. Please also follow-up with your surgeon in the next day or 2 for recheck. Return for uncontrolled vomiting, fever, worsening pain, not telling fluids, worsening symptoms or other concerns. Is patient prescribed a controlled substance at d/c from ED?: No Referrals: Huma Soria MD [Primary Care Provider] - 1-2 days Time of Disposition: 18:07
[2021-10-19 14:32] LABS: Anisocytosis Slight; Basophils % (A) 0 %; Eosinophils % (A) 0 %; HCT 45.6 % (39.0-53.0); HGB 14.7 gm/dL (13.0-17.5); Lymphocytes # (A) 0.9 k/uL (1.0-4.8); Lymphocytes % (A) 8 %; MCH 28.8 pg (25.0-35.0); MCHC 32.2 g/dL (31.0-37.0); MCV 89.3 fL (80.0-100.0); Monocytes # (A) 0.4 k/uL (0-1.0); Monocytes % (A) 3 %; Neutrophils % (A) 88 %; Platelet Count 293 k/uL (150-450); RDW 16.6 % (11.5-15.5); WBC 11.3 k/uL (3.8-10.6)
[2021-10-19 14:44] LABS: AST 121 U/L (17-59); African American GFR (CKD) >90 (>60 ml/min/1.73 sqM); Albumin 4.8 g/dL (3.5-5.0); Alkaline Phosphatase 215 U/L (38-126); Amylase 156 U/L (30-110); Anion Gap 15 mmol/L; Blood Urea Nitrogen 16 mg/dL (9-20); Calcium 9.7 mg/dL (8.4-10.2); Carbon Dioxide 21 mmol/L (22-30); Chloride 106 mmol/L (98-107); Glucose 116 mg/dL (74-99); Lipase 135 U/L (23-300); Non-African American GFR(CKD) >90 (>60 ml/min/1.73 sqM); Potassium 3.5 mmol/L (3.5-5.1); Sodium 142 mmol/L (137-145); Total Bilirubin 0.6 mg/dL (0.2-1.3); Total Protein 7.8 g/dL (6.3-8.2)
[2021-10-19 15:04] LABS: ALT 234 U/L (4-49)
[2021-10-19 15:10] LABS: Partial Thromboplastin Time 23.4 sec (22.0-30.0)
[2021-10-19] MEDS ORDERED: IOPAMIDOL CONTRAST (ORAL USE) VIAL PO PRN (15:28)
--- NOTE | 2021-10-19 15:32 | XR ---
EXAMINATION TYPE: XR KUB DATE OF EXAM: 10/19/2021 Comparison: 08/29/[address] 10/17/2021 Clinical History: 41-year-old male abdominal pain Findings: Chest reported separately. No dilated small bowel. Supine imaging limited for assessment of free air. Scattered colonic air exte nding distally to the rectum. Mild overall snowboarding. No suspicious calcifications. Surgical mater ial at the GE junction. Some of the surgical material is located at the left base suggesting an under lying hiatal hernia. Post surgical change of L5-S1 posterior and interbody fusion. 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 Some surgical material proje cts at the left base compatible with known hiatal hernia. Nonobstructive bowel gas pattern. Mild over all stool burden.
--- NOTE | 2021-10-19 15:34 | XR ---
EXAMINATION TYPE: XR chest 2V DATE OF EXAM: 10/19/2021 COMPARISON: 06/26/2021 HISTORY: 41-year-old male abdominal pain TECHNIQUE: PA and lateral views FINDINGS: Patient's left hand projects over the periphery of the left upper lobe. Heart normal size. Air lucenc ies and surgical material projecting at the left base compatible with known hiatal hernia. Resurfacin g right shoulder plasty. No mraiama consolidation or pleural effusion seen. IMPRESSION: No definite acute process. Known underlying hiatal hernia and postsurgical change of Jeannie-en-Y gastri c bypass.
[2021-10-19] MEDS ORDERED: ONDANSETRON 4 MG/2 ML VIAL IVP STA ×2 (15:50→17:50)
[2021-10-19] MEDS ORDERED: MORPHINE SULFATE 4 MG/ML SYRINGE IVP STA (15:50)
[2021-10-19 15:58] VITALS: RESP 18
--- NOTE | 2021-10-19 17:26 | CT ---
EXAMINATION TYPE: CT abdomen pelvis w con DATE OF EXAM: 10/19/2021 COMPARISON: 10/17/2021 HISTORY: abdominal pain and vomiting CT DLP: 1485.9 mGycm Automated exposure control for dose reduction was used. CONTRAST: Performed with IV Contrast, patient injected with 100 mL of Isovue 300. Images obtained from the diaphragm to the floor of the pelvis with no contrast. There is some mild atelectasis at the left lung base. Unchanged. There is hiatal hernia. There is pre vious gastric surgery. Stomach is intact. There is fatty infiltration of the liver. The bile ducts ar e not dilated. Gallbladder appears absent. Spleen is intact. No pancreatic mass. There is no adrenal mass. There is linear density in the left upper quadrant from previous gastrostom y tube. Kidneys show satisfactory contrast opacification. There is no hydronephrosis. Bladder distend s smoothly. No pelvic mass. No inguinal hernia. No free fluid in the pelvis. There is no mesenteric edema. No ascites. No evidence of free air in the abdomen. The lumbar vertebra show normal alignment. There is posterior fusion surgery at L5-S1. No compression fracture. Bony pelvis is intact. Hip joints are intact. Appendix not clearly seen. No sign of thicke jesus appendix. IMPRESSION: No acute abnormality within the abdomen pelvis. No significant change compared to old exam.
[2021-10-19 18:23] VITALS: BP 122/88; PULSE 62; TEMP 98
== END 2021-10-19 18:30 | disposition home or self-care (01) ==
LOC: EC 13:34
DX: R10.9 Unspecified abdominal pain (principal); R11.10 Vomiting, unspecified; Z91.040 Latex allergy status; Z88.5 Allergy status to narcotic agent
CPT/HCPCS: 99285; 96375; 96376; 96361; 96374; 36415; 93005; 85379; 80053; 82150; 83690; 84484; 85025; 85610; 85730; 71046; 74018; 74177; J2270; J2765; J2405; Q9967

== ENCOUNTER 2021-11-25 09:32 | Observation (INO) | payer OTHER ==
[2021-11-25] MEDS ORDERED: ASPIRIN 81 MG PO STA (09:53)
[2021-11-25] MEDS ORDERED: LORazepam 2 MG/ML INJ IV STA (09:53)
--- NOTE | 2021-11-25 10:20 | ED ---
Chest Pain HPI - General Chief Complaint: Chest Pain Stated Complaint: chest pain Time Seen by Provider: 11/25/21 09:38 Source: patient, RN notes reviewed Mode of arrival: ambulatory Limitations: no limitations - History of Present Illness Initial Comments: 41-year-old male presents emergency Department with tumor chest pain. Patient states that he has a monitor on right now and states that he did receive multiple phone calls with the night stating that he is in A. fib that he was having multiple episodes of tachycardia in need to present emergency department. Patient deteriorated since morning present. He still complaint left-sided chest pain, left shoulder pain. Patient denies any significant prior headache historypresents no history of hypertension hyperlipidemia. - Related Data Home Medications Medication Instructions Recorded Confirmed traZODone HCL [Desyrel] 200 mg PO HS 05/23/21 10/19/21 Allergies Allergy/AdvReac Type Severity Reaction Status Date / Time hydromorphone [From Dilaudid] Allergy Rash/Hives Verified 11/25/21 09:36 latex Allergy Rash/Hives Verified 11/25/21 09:36 meperidine [From Demerol] Allergy Rash/Hives Verified 11/25/21 09:36 Review of Systems ROS Statement: Those systems with pertinent positive or pertinent negative responses have been documented in the HPI. ROS Other: All systems not noted in ROS Statement are negative. EKG Findings - EKG Comments: EKG Findings:: EKG performed at 9:40 sinus rhythm rate of 77 MD 186 QRS 92 QT status QTC 365/397 Past Medical History Past Medical History: GERD/Reflux Additional Past Medical History / Comment(s): multiple dislocation of rt shoulder, hiatal hernia, hx migraines, IBS History of Any Multi-Drug Resistant Organisms: None Reported Past Surgical History: Appendectomy, Back Surgery, Cholecystectomy, Orthopedic Surgery, Tonsillectomy Additional Past Surgical History / Comment(s): rt shoulder arthroscopy, left shoulder fusion, hiatal hernia surgery. Peg tube Past Anesthesia/Blood Transfusion Reactions: No Reported Reaction Past Psychological History: No Psychological Hx Reported Smoking Status: Never smoker Past Alcohol Use History: None Reported Past Drug Use History: None Reported - Past Family History Mother Additional Family Medical History / Comment(s): lupus, Father History Unknown: Yes Brother(s) Additional Family Medical History / Comment(s): autoimmune disorder General Exam Limitations: no limitations General appearance: alert, in no apparent distress Head exam: Present: atraumatic, normocephalic, normal inspection Eye exam: Present: normal appearance, PERRL, EOMI. Absent: scleral icterus, conjunctival injection, periorbital swelling ENT exam: Present: normal exam, normal oropharynx, mucous membranes moist Neck exam: Present: normal inspection. Absent: tenderness, meningismus, lymphadenopathy Respiratory exam: Present: normal lung sounds bilaterally. Absent: respiratory distress, wheezes, rales, rhonchi, stridor Cardiovascular Exam: Present: regular rate, normal rhythm, normal heart sounds. Absent: systolic murmur, diastolic murmur, rubs, gallop, clicks GI/Abdominal exam: Present: soft, normal bowel sounds. Absent: distended, tenderness, guarding, rebound, rigid Course Vital Signs 11/25/21 11/25/21 09:33 09:50 Temperature 97.7 F Pulse Rate 89 Pulse Rate [ 87 [employer] ] Respiratory 18 Rate Blood Pressure 128/82 O2 Sat by Pulse 99 Oximetry Chest Pain MDM - MDM 41-year-old presented for possible arrhythmia chest pain. Patient admitted for cardiac rule out initial workup was negative. Disposition Clinical Impression: Chest pain Disposition: ADMITTED IP TO THIS HOSP Referrals: Huma Soria MD [Primary Care Provider] - 1-2 days Time of Disposition: 12:03
[2021-11-25 11:21] LABS: Basophils % (A) 0 %; Eosinophils # (A) 0.1 k/uL (0-0.7); Eosinophils % (A) 1 %; HCT 42.8 % (39.0-53.0); HGB 13.9 gm/dL (13.0-17.5); Lymphocytes % (A) 28 %; MCH 29.3 pg (25.0-35.0); MCHC 32.5 g/dL (31.0-37.0); MCV 90.1 fL (80.0-100.0); Mean Platelet Volume 7.4; Monocytes # (A) 0.2 k/uL (0-1.0); Monocytes % (A) 4 %; Neutrophils # (A) 2.4 k/uL (1.3-7.7); Neutrophils % (A) 64 %; Platelet Count 251 k/uL (150-450); RBC 4.75 m/uL (4.30-5.90); RDW 14.9 % (11.5-15.5); WBC 3.7 k/uL (3.8-10.6)
--- NOTE | 2021-11-25 11:22 | XR ---
EXAMINATION TYPE: XR chest 2V DATE OF EXAM: 11/25/2021 11:15 AM COMPARISON: Chest radiographs from 10/19/2021 TECHNIQUE: XR chest 2V Frontal and lateral views of the chest. CLINICAL INDICATION:Male, 41 years old with history of Chest Pain; FINDINGS: Lungs/Pleura: There is no evidence of pleural effusion, focal consolidation, or pneumothorax. Pulmonary vascularity: Unremarkable. Heart/mediastinum: Cardiomediastinal silhouette is unremarkable. Musculoskeletal: No acute osseous pathology. Right shoulder arthroplasty changes IMPRESSION: No acute cardiopulmonary disease/process, no significant change from prior
[2021-11-25 11:28] LABS: Partial Thromboplastin Time 22.6 sec (22.0-30.0); Prothrombin Time 11.2 sec (9.0-12.0)
[2021-11-25 11:36] LABS: ALT 16 U/L (4-49); AST 25 U/L (17-59); African American GFR (CKD) >90 (>60 ml/min/1.73 sqM); Albumin 3.7 g/dL (3.5-5.0); Alkaline Phosphatase 101 U/L (38-126); Anion Gap 3 mmol/L; Blood Urea Nitrogen 12 mg/dL (9-20); Calcium 9.2 mg/dL (8.4-10.2); Carbon Dioxide 28 mmol/L (22-30); Chloride 108 mmol/L (98-107); Glucose 86 mg/dL (74-99); Lipase 68 U/L (23-300); Magnesium 2.1 mg/dL (1.6-2.3); Non-African American GFR(CKD) >90 (>60 ml/min/1.73 sqM); Potassium 4.2 mmol/L (3.5-5.1); Sodium 139 mmol/L (137-145); Total Bilirubin 0.5 mg/dL (0.2-1.3); Total Protein 6.4 g/dL (6.3-8.2)
[2021-11-25] MEDS ORDERED: KETOROLAC 15 MG/ML 1 ML VIAL IVP STA (11:50)
[2021-11-25] MEDS ORDERED: NITROGLYCERIN SL TABS 0.4 MG TAB SUBLINGUAL PRN (12:03)
[2021-11-25] MEDS ORDERED: CYCLOBENZAPRINE 10 MG TAB PO PRN (12:46)
[2021-11-25] MEDS ORDERED: ACETAMINOPHEN TAB 325 MG TAB PO PRN (19:19)
[2021-11-25] MEDS: ONDANSETRON 4 MG/2 ML VIAL IVP PRN (19:52)
[2021-11-25] MEDS: traZODone HCL 100 MG TAB PO SCH (19:53)
[2021-11-25] MEDS: METOPROLOL TARTRATE 12.5 MG TAB PO SCH (19:53)
[2021-11-26] MEDS: ONDANSETRON 4 MG/2 ML VIAL IVP PRN ×2 (01:45→06:33)
[2021-11-26 05:27] LABS: Basophils % (A) 1 %; Eosinophils # (A) 0.1 k/uL (0-0.7); Eosinophils % (A) 1 %; HCT 40.7 % (39.0-53.0); HGB 13.7 gm/dL (13.0-17.5); Lymphocytes # (A) 1.1 k/uL (1.0-4.8); Lymphocytes % (A) 22 %; MCH 29.9 pg (25.0-35.0); MCHC 33.6 g/dL (31.0-37.0); MCV 88.9 fL (80.0-100.0); Mean Platelet Volume 8.4; Monocytes # (A) 0.2 k/uL (0-1.0); Monocytes % (A) 5 %; Neutrophils # (A) 3.3 k/uL (1.3-7.7); Neutrophils % (A) 70 %; Platelet Count 259 k/uL (150-450); RBC 4.58 m/uL (4.30-5.90); RDW 14.7 % (11.5-15.5); WBC 4.8 k/uL (3.8-10.6)
[2021-11-26 05:36] LABS: African American GFR (CKD) >90 (>60 ml/min/1.73 sqM); Anion Gap 10 mmol/L; Blood Urea Nitrogen 13 mg/dL (9-20); Calcium 9.1 mg/dL (8.4-10.2); Carbon Dioxide 19 mmol/L (22-30); Chloride 109 mmol/L (98-107); Glucose 99 mg/dL (74-99); Non-African American GFR(CKD) >90 (>60 ml/min/1.73 sqM); Sodium 138 mmol/L (137-145)
[2021-11-26 05:37] LABS: Potassium 4.1 mmol/L (3.5-5.1)
[2021-11-26] MEDS ORDERED: NITROGLYCERIN OINT 1 INCH/GM PACKET TOPICAL SCH (06:00)
--- NOTE | 2021-11-26 08:31 | HP ---
HISTORY AND PHYSICAL CHIEF COMPLAINT: Chest pain. HISTORY OF PRESENT ILLNESS: This is a 41-year-old gentleman, with a past medical history of GERD, multiple medical problems, also being followed by Dr. Soria in the outpatient setting. The patient was having atrial fibrillation with fast ventricular rate overnight. The patient complains of chest pain, which was felt in the anterior part of chest. Because of severe symptoms, the patient came to [facility] and was admitted for evaluation and treatment. There is no history of fever, rigors, or chills at this time. Troponins are negative. The admission EKG shows incomplete right bundle branch block. The patient is currently in normal sinus rhythm at this time. PAST MEDICAL HISTORY: Reviewed and include, GERD, multiple shoulder. HOME MEDICATIONS: Reviewed and include, trazodone. Dose and rest of medications reviewed. ALLERGIES: Dilaudid. FAMILY HISTORY: History of lupus. SOCIAL HISTORY: No history of smoking or alcohol intake. REVIEW OF SYSTEMS: A 14-point review of systems is negative as mentioned earlier. PHYSICAL EXAMINATION: VITAL SIGNS: Pulse 85, blood pressure 90/60, respirations 20. HEENT: Conjunctivae normal. NECK: No jugular venous distention. CARDIOVASCULAR: S1, S2, normal, regular. CHEST: Clear to auscultation. ABDOMEN: Soft. NERVOUS SYSTEM: No focal deficits. JOINTS: No active deforming arthropathy. LYMPHATICS: No lymph nodes. SKIN: No ulcer or bleeding. LABORATORY DATA: CBC, CMP, noted and normal. ASSESSMENT: 1. Paroxysmal atrial fibrillation. 2. Chest pain for evaluation to rule out coronary artery disease. 3. History of gastroesophageal reflux disease. 4. Multiple medical issues. RECOMMENDATIONS AND DISCUSSION: This is a 41-year-old gentleman who presented with multiple complex medical issues. We will monitor the patient closely. Resume the home medications, and Cardiology consultation and telemetry. Prognosis guarded. Further recommendations to follow. See orders for details. MMODL / IJN: [id number] /
[2021-11-26] MEDS ORDERED: ASPIRIN 325 MG TAB PO SCH (09:00)
[2021-11-26] MEDS ORDERED: PROCHLORPERAZINE INJ 10 MG/2 ML VIAL IVP STA (09:07)
[2021-11-26] MEDS: METOPROLOL TARTRATE 12.5 MG TAB PO SCH ×2 (09:32→20:07)
[2021-11-26] MEDS: SODIUM CHLORIDE 0.9% 1,000 ML IV SCH ×2 (09:37→23:31)
--- NOTE | 2021-11-26 09:42 | CA ---
Transthoracic Echo Report Name: Connor Sanchez Age: 41 Gender: M : 1980 Exam Date: 11/25/2021 13:28 Exam Location: [facility] Ht (in): 68 Wt (lb): 181 Ordering Physician: Joel Burton PAC Attending/Referring Phys: [id number], Micheal [employer] Brinda Collins, NBA Procedure CPT: Indications: Chest Pain Cardiac Hx: Technical Quality: Good Contrast 1: Total Dose (mL): Contrast 2: Total Dose (mL): MEASUREMENTS (Male / Female) Normal Values 2D ECHO LV Diastolic Diameter PLAX 4.4 cm 4.2 - 5.9 / 3.9 - 5.3 cm LV Systolic Diameter PLAX 2.4 cm IVS Diastolic Thickness 1.0 cm 0.6 - 1.0 / 0.6 - 0.9 cm LVPW Diastolic Thickness 0.9 cm 0.6 - 1.0 / 0.6 - 0.9 cm LV Relative Wall Thickness 0.4 RV Internal Dim ED PLAX 3.3 cm LA Systolic Diameter LX 3.5 cm 3.0 - 4.0 / 2.7 - 3.8 cm LA Volume 41.2 cm??? 18 - 58 / 22 - 52 cm??? M-MODE Aortic Root Diameter MM 2.9 cm MV E Point Septal Separation 0.6 cm AV Cusp Separation MM 2.1 cm DOPPLER AV Peak Velocity 135.1 cm/s AV Peak Gradient 7.3 mmHg MV Area PHT 3.5 cm??? Mitral E Point Velocity 95.5 cm/s Mitral A Point Velocity 82.0 cm/s Mitral E to A Ratio 1.2 MV Deceleration Time 218.3 ms MV E' Velocity 8.2 cm/s Mitral E to MV E' Ratio 11.7 FINDINGS Left Ventricle Left ventricular ejection fraction is estimated at 60-65 %. Left ventricular cavity size normal. Left ventricular wall thickness normal. Right Ventricle Mild right ventricular dilatation. No TR, Unable to estimate the right ventricular systolic pressure. Right Atrium Normal right atrial size. Left Atrium Normal left atrial size. No evidence for an atrial septal defect. Mitral Valve Structurally normal mitral valve. Trace mitral regurgitation. Aortic Valve Trileaflet aortic valve. No aortic valve stenosis or regurgitation. Tricuspid Valve Structurally normal tricuspid valve. Pulmonic Valve Trace pulmonic regurgitation. Pericardium Normal pericardium. No pericardial effusion. Aorta Normal size aortic root and proximal ascending aorta. CONCLUSIONS Normal LV systolic function Mildly dilated right ventricle Normal IVC collapse No tricuspid regurgitation Previewed by: Dr. Haile Harris MD (Electronically Signed) Final Date: 26 November 2021 09:42
--- NOTE | 2021-11-26 10:36 | P.PN ---
Progress Note - Text Diagnosis Chest pain Dizziness Patient presented to the emergency room stating that someone called him to go to the hospital for tachycardia and atrial fibrillation When I interviewed and examined him he was nauseous and throwing up. He had a basin that contained vomitus Nitroglycerin was discontinued Twelve-lead EKG shows sinus mechanism 77 beats a minute Event monitor from our office was reviewed Patient claims that he had atrial fibrillation and was called and told he had atrial fibrillation and he needed to go to the hospital Vitals stable blood pressure 128/82 mmHg Pulse rate 89 beats a minute Twelve-lead EKG shows sinus rhythm normal NM incomplete right bundle branch block normal ST segments Second EKG shows sinus mechanism 89 beats a minute incomplete right bundle branch block pattern nonspecific ST-T changes 2-D echo shows normal LV systolic function with a mildly enlarged right ventricle Event monitor shows sinus rhythm with IVCD Sinus tachycardia No significant bradycardia No arrhythmias Specifically I do not see any atrial fibrillation The patient is also claimed that in the past someone in [facility] told him he had atrial fibrillation After reviewing the available strips, I explained to the patient that there was no evidence for atrial fibrillation on this event monitor Please see full consultation by this practitioner
[2021-11-26 11:31] VITALS: BMI 27.5
--- NOTE | 2021-11-26 11:35 | P.CRDCN ---
History of Present Illness Consult date: 11/26/21 History of present illness: HISTORY OF PRESENT ILLNESS: This is a 41-year-old male with a past medical history significant for chronic chest pain, chronic pain, and hernia repair. Patient follows in the office with Dr. Harris. We have been asked to see the patient in consultation for chest pain. Patient examined at the bedside. Patient was recently seen in the outpatient setting on 11/17/2021. At that time he discussed with the cardiology nurse practitioner that he was told he had atrial fibrillation previously after a surgical procedure. A 30 day event monitor was placed at that time. The patient states he was called multiple times yesterday by the event monitor company telling the patient he was having atrial fibrillation and significant tachycardia and he did come to the emergency room. Telemetry tracings from event monitor did not reveal any atrial fibrillation. Patient did have episodes of sinus tachycardia with a heart rate in the 140s. The patient does report he has been vomiting at home. The patient continues to be nauseous this morning and states he has been vomiting this morning. * EKG reveals sinus mechanism with a heart rate of 77. No signs of acute ischemia * Chest xray no acute cardiopulmonary process * Laboratory data: WBC 4.8. Hemoglobin 13.7. Plavix count 259. Sodium 138. Potassium 4.1. BUN 13. Creatinine 0.75. Troponin negative 3. * Current home cardiac medications include metoprolol tartrate 12.5 mg twice a day. * Echocardiogram completed revealing ejection fraction 60-65%, trace MR, mildly enlarged RV * Patient underwent stress echocardiogram in July 2020 which was negative for ischemia REVIEW OF SYSTEMS: At the time of my exam: CONSTITUTIONAL: Denies fever or chills. HEENT: Denies blurred vision, vision changes, or eye pain. Denies hemoptysis CARDIOVASCULAR: Denies chest pain. Denies orthopnea. Denies PND. Denies palpitations RESPIRATORY: Denies shortness of breath. GASTROINTESTINAL: Denies abdominal pain. Denies nausea or vomiting. HEMATOLOGIC: Denies bleeding disorders. GENITOURINARY: Denies any blood in urine. SKIN: Denies pruitis. Denies rash. PHYSICAL EXAM: VITAL SIGNS: Reviewed. GENERAL: Well-developed in no acute distress. HEENT: Head is normocephalic. Pupils are equal, round. Sclerae anicteric. Mucous membranes of the mouth are moist. Neck supple. No JVD or thyromegaly LUNGS: Respirations even and unlabored. Lungs essentially clear to auscultation bilaterally. HEART: Regular rate and rhythm. S1 and S2 heard. ABDOMEN: Soft. Nondistended. Nontender. EXTREMITIES: Normal range of motion. No clubbing or cyanosis. Peripheral pulses intact. No lower extremity edema NEUROLOGIC: Awake and alert. Oriented x 3. ASSESSMENT: Chest pain, troponin negative x 3 Atrial fibrillation, ruled out thus far, no evidence of afib on event monitor Sinus tachycardia, likely secondary to nausea and vomiting, HR currently controlled Chronic pain History of hernia repair PLAN: An acute coronary event has been ruled out Continue metoprolol and Patient may be discharged home today from a cardiac standpoint and follow up on an outpatient basis We will sign off. Please reconsult if needed. Nurse practitioner note has been reviewed by physician. Signing provider agrees with the documented findings, assessment, and plan of care. Past Medical History Past Medical History: Atrial Fibrillation, GERD/Reflux Additional Past Medical History / Comment(s): Pt states difficulty with abdominal pain/nausea and vomiting when eating since surgery for hiatal hernia/peg tube, afib during [facility] hospitalization for jeannie en Y/peg tube surgery, R shoulder dislocations, pt states recent EKG at Dr. Soria's office showed MS at some time, chronic low back pain History of Any Multi-Drug Resistant Organisms: None Reported Past Surgical History: Appendectomy, Back Surgery, Cholecystectomy, Hernia Repair, Orthopedic Surgery, Tonsillectomy Additional Past Surgical History / Comment(s): Lysis of abdominal adhesions then transfetted to [facility] for Jeannie en Y, peg tube insertion, EGD, diaphragmatic hernia repair, lumbar fusion, R shoulder arthroscopy, L shoulder fusion. Past Anesthesia/Blood Transfusion Reactions: No Reported Reaction Smoking Status: Never smoker - Past Family History Mother Additional Family Medical History / Comment(s): Mother is , she had lupus. Father History Unknown: Yes Brother(s) Additional Family Medical History / Comment(s): autoimmune disorder Medications and Allergies Home Medications Medication Instructions Recorded Confirmed Type Cyclobenzaprine [Flexeril] 10 mg PO HS PRN 11/25/21 11/25/21 History Metoprolol Tartrate [Lopressor] 12.5 mg PO BID 11/25/21 11/25/21 History oxyCODONE HCL [OxyIR] 5 mg PO Q6H PRN 11/25/21 11/25/21 History traZODone HCL 300 mg PO HS 11/25/21 11/25/21 History Allergies Allergy/AdvReac Type Severity Reaction Status Date / Time hydromorphone [From Dilaudid] Allergy Rash/Hives, Verified 11/25/21 12:21 can take with Benadryl per patient latex Allergy Rash/Hives Verified 11/25/21 12:21 meperidine [From Demerol] Allergy Rash/Hives Verified 11/25/21 12:21 Physical Exam Vitals: Vital Signs Temp Pulse Pulse Resp BP BP Pulse Ox 11/26/21 08:06 98 11/26/21 07:00 98 F 66 18 118/70 98 11/26/21 03:16 97.9 F 97 17 133/79 98 11/25/21 19:56 98.3 F 50 L 19 135/86 100 11/25/21 14:30 97.8 F 50 L 20 139/85 100 11/25/21 12:30 98.1 F 85 20 91/63 100 Intake and Output 11/25/21 11/26/21 11/26/21 22:59 06:59 14:59 Other: Voiding Method Toilet Toilet # Voids 1 1 Results 11/26/21 04:51 11/26/21 04:51 Cardiac Enzymes 11/25/21 11/25/21 11/25/21 Range/Units 10:56 10:56 14:52 AST 25 (17-59) U/L Troponin I <0.012 <0.012 (0.000-0.034) ng/mL 11/25/21 Range/Units 17:26 AST (17-59) U/L Troponin I <0.012 (0.000-0.034) ng/mL Coagulation 11/25/21 Range/Units 10:56 PT 11.2 (9.0-12.0) sec APTT 22.6 (22.0-30.0) sec Lipids 11/26/21 Range/Units 04:51 Triglycerides Cancelled Cholesterol Cancelled HDL Cholesterol Cancelled Cholesterol/HDL Ratio Cancelled CBC 11/26/21 Range/Units 04:51 WBC 4.8 (3.8-10.6) k/uL RBC 4.58 (4.30-5.90) m/uL Hgb 13.7 (13.0-17.5) gm/dL Hct 40.7 (39.0-53.0) % Plt Count 259 (150-450) k/uL Comprehensive Metabolic Panel 11/25/21 11/26/21 Range/Units 10:56 04:51 Sodium 139 138 (137-145) mmol/L Potassium 4.2 4.1 (3.5-5.1) mmol/L Chloride 108 H 109 H (98-107) mmol/L Carbon Dioxide 28 19 L (22-30) mmol/L BUN 12 13 (9-20) mg/dL Creatinine 0.78 0.75 (0.66-1.25) mg/dL Glucose 86 99 (74-99) mg/dL Calcium 9.2 9.1 (8.4-10.2) mg/dL AST 25 (17-59) U/L ALT 16 (4-49) U/L Alkaline Phosphatase 101 (38-126) U/L Total Protein 6.4 (6.3-8.2) g/dL Albumin 3.7 (3.5-5.0) g/dL Current Medications Generic Name Dose Route Start Last Admin Trade Name Freq PRN Reason Stop Dose Admin Acetaminophen 325 mg 11/25/21 19:19 11/25/21 19:52 Acetaminophen Tab 325 Mg Tab PO 325 mg Q6HR PRN Administration Fever and/ or Pain Cyclobenzaprine HCl 10 mg 11/25/21 12:46 Cyclobenzaprine 10 Mg Tab PO HS PRN Muscle Spasm Sodium Chloride 1,000 mls @ 75 mls/hr 11/26/21 08:45 11/26/21 09:37 Saline 0.9% IV 75 mls/hr .[id number] SANDI Administration Metoprolol Tartrate 12.5 mg 11/25/21 21:00 11/26/21 09:32 Metoprolol Tartrate 12.5 Mg Tab PO Not Given BID SANDI Nitroglycerin 0.4 mg 11/25/21 12:03 11/25/21 17:06 Nitroglycerin Sl Tabs 0.4 Mg Tab SUBLINGUAL 0.4 mg Q5M PRN Administration Chest Pain Ondansetron HCl 4 mg 11/25/21 19:20 11/26/21 06:33 Ondansetron 4 Mg/2 Ml Vial IVP 4 mg Q6HR PRN Administration Nausea And Vomiting Oxycodone HCl 5 mg 11/25/21 12:46 11/26/21 01:42 Oxycodone Hcl 5 Mg Tab PO 5 mg Q6H PRN Administration Pain Trazodone HCl 300 mg 11/25/21 21:00 11/25/21 19:53 Trazodone Hcl 100 Mg Tab PO 300 mg HS SANDI Administration Intake and Output 11/25/21 11/26/21 11/26/21 22:59 06:59 14:59 Other: Voiding Method Toilet Toilet # Voids 1 1 11/26/21 04:51 11/26/21 04:51
[2021-11-26 14:17] LABS: HDL Cholesterol 35.2 mg/dL (40.00-60.00); Triglycerides 95.9 mg/dL (0.00-149.00)
[2021-11-26] MEDS: PROCHLORPERAZINE INJ 10 MG/2 ML VIAL IVP PRN ×2 (16:58→23:32)
[2021-11-26] MEDS: HYDROmorphone 0.5 MG/0.5 ML SYRINGE IVP PRN ×2 (16:59→21:22)
--- NOTE | 2021-11-26 17:45 | CT ---
EXAMINATION TYPE: CT abdomen pelvis wo con DATE OF EXAM: 11/26/2021 COMPARISON: 10/19/2021 HISTORY: Intractable vomiting/abd pain CT DLP: 676.0 mGycm Automated exposure control for dose reduction was used. Lung bases are clear. There is left posterior rib deformities. There is previous gastric surgery. The re is hiatal hernia. Heart size is normal. No pericardial effusion. Liver is intact. No evidence of a splenic mass. There is no pancreatic mass. Gallbladder appears absent. The bile ducts are not dilate d. There is no adrenal mass. Kidneys have normal size. No hydronephrosis. There is no retroperitoneal ad enopathy. Ureters are not dilated. Bladder distends smoothly. There is no inguinal hernia. No free fl uid in the pelvis. No pelvic mass. Appendix is not seen. There is no mesenteric edema. There is no ascites or free air. No bowel obstruction. There is some co ntrast material in the large bowel. There is posterior fusion surgery at L5-S1. No lumbar compression fracture. Bony pelvis is intact. Hip joints are intact. Sacroiliac joints are intact. IMPRESSION: Subsegmental atelectasis at the left lung base. Hiatal hernia. No acute abnormality in the abdomen an d pelvis. Previous surgery. No significant change.
--- NOTE | 2021-11-26 18:48 | P.PN ---
Subjective Progress Note Date: 11/26/21 41-year-old male with a past medical history significant for chronic chest pain, chronic pain, and hernia repair. Patient follows in the office with Dr. Harris. We have been asked to see the patient in consultation for chest pain. Patient examined at the bedside. Patient was recently seen in the outpatient setting on 11/17/2021. At that time he discussed with the cardiology nurse practitioner that he was told he had atrial fibrillation previously after a surgical procedure. A 30 day event monitor was placed at that time. The patient states he was called multiple times yesterday by the event monitor company telling the patient he was having atrial fibrillation and significant tachycardia and he did come to the emergency room. Telemetry tracings from event monitor did not reveal any atrial fibrillation. Patient did have episodes of sinus tachycardia with a heart rate in the 140s. The patient does report he has been vomiting at home. The patient continues to be nauseous this morning and states he has been vomiting this morning. Objective - Vital Signs Vital signs: Vital Signs Temp 98.3 F 11/26/21 14:59 Pulse 63 11/26/21 14:59 Resp 20 11/26/21 14:59 BP 127/86 11/26/21 14:59 Pulse Ox 98 11/26/21 14:59 FiO2 Intake & Output 11/25/21 11/26/21 11/26/21 18:59 06:59 18:59 Weight 82.1 kg 82.1 kg Other: Voiding Method Toilet Toilet Toilet # Voids 1 1 0 - Exam PHYSICAL EXAMINATION: GENERAL: The patient is alert and oriented x3, not in any acute distress. Well developed, well nourished. HEENT: Pupils are round and equally reacting to light. EOMI. No scleral icterus. No conjunctival pallor. Normocephalic, atraumatic. No pharyngeal erythema. No thyromegaly. CARDIOVASCULAR: S1 and S2 present. No murmurs, rubs, or gallops. PULMONARY: Chest is clear to auscultation, no wheezing or crackles. ABDOMEN: Soft, nontender, nondistended, normoactive bowel sounds. No palpable organomegaly. MUSCULOSKELETAL: No joint swelling or deformity. EXTREMITIES: No cyanosis, clubbing, or pedal edema. NEUROLOGICAL: Gross neurological examination did not reveal any focal deficits. SKIN: No rashes. - Labs CBC & Chem 7: 11/26/21 04:51 11/26/21 04:51 Labs: Abnormal Lab Results - Last 24 Hours (Table) 11/25/21 11/26/21 Range/Units 10:56 04:51 Chloride 109 H (98-107) mmol/L Carbon Dioxide 19 L (22-30) mmol/L HDL Cholesterol 35.20 L (40.00-60.00) mg/dL Assessment and Plan Assessment: Chest pain, troponin negative x 3 Intractable nausea and vomiting/abdominal pain; we will order stat CT of the abdomen; patient has been placed on IV Zofran for nausea and vomiting; we will keep patient nothing by mouth; patient requesting IV pain medications for abdominal; Dilaudid 0.5 mg every 6 hours when necessary; further recommendations once CAT scan results are available Atrial fibrillation, ruled out thus far, no evidence of afib on event monitor Sinus tachycardia, likely secondary to nausea and vomiting, HR currently controlled Chronic pain History of hernia repair PLAN: An acute coronary event has been ruled out Continue metoprolol and
[2021-11-26] MEDS: diphenhydrAMINE 50 MG/ML 1 ML VIAL IVP PRN (20:07)
[2021-11-26] MEDS: traZODone HCL 100 MG TAB PO SCH (20:07)
[2021-11-26 23:46] LABS: Urine Alcohol Negative (Negative); Urine Barbiturate Negative (Negative); Urine Cocaine Negative (Negative); Urine Methadone Negative (Negative); Urine Opiates Negative (Negative); Urine Phencyclidine Negative (Negative)
[2021-11-27] MEDS: HYDROmorphone 0.5 MG/0.5 ML SYRINGE IVP PRN ×3 (02:00→11:35)
[2021-11-27 04:22] VITALS: TEMP 98.5
[2021-11-27] MEDS: PROCHLORPERAZINE INJ 10 MG/2 ML VIAL IVP PRN (05:18)
[2021-11-27 07:05] LABS: African American GFR (CKD) >90 (>60 ml/min/1.73 sqM); Anion Gap 12 mmol/L; Blood Urea Nitrogen 11 mg/dL (9-20); Calcium 8.9 mg/dL (8.4-10.2); Carbon Dioxide 18 mmol/L (22-30); Chloride 110 mmol/L (98-107); Glucose 102 mg/dL (74-99); Non-African American GFR(CKD) >90 (>60 ml/min/1.73 sqM); Potassium 4.6 mmol/L (3.5-5.1); Sodium 140 mmol/L (137-145)
[2021-11-27] MEDS: METOPROLOL TARTRATE 12.5 MG TAB PO SCH (07:05)
[2021-11-27 07:30] VITALS: BP 121/79; PULSE 113; RESP 18
[2021-11-27] MEDS: diphenhydrAMINE 50 MG/ML 1 ML VIAL IVP PRN (09:48)
[2021-11-27] MEDS: SODIUM CHLORIDE 0.9% 1,000 ML IV SCH (11:07)
== END 2021-11-27 14:43 | disposition home or self-care (01) ==
LOC: EC 09:32 → 6NMEDSUR 11:59
PROVIDERS: ADMIT Hospitalist; ATTEND Hospitalist
DX: R07.89 Other chest pain (principal); R00.0 Tachycardia, unspecified; R11.2 Nausea with vomiting, unspecified; R10.9 Unspecified abdominal pain; R42 Dizziness and giddiness; G89.29 Other chronic pain; M54.50 Low back pain, unspecified; M25.512 Pain in left shoulder; K21.9 Gastro-esophageal reflux disease without esophagitis; G43.909 Migraine, unspecified, not intractable, without status migrainosus; K58.9 Irritable bowel syndrome, unspecified; I45.10 Unspecified right bundle-branch block; K44.9 Diaphragmatic hernia without obstruction or gangrene; J98.11 Atelectasis; Z79.899 Other long term (current) drug therapy; Z91.040 Latex allergy status; Z88.5 Allergy status to narcotic agent; Z90.49 Acquired absence of other specified parts of digestive tract; Z98.1 Arthrodesis status; Z96.611 Presence of right artificial shoulder joint; Z98.890 Other specified postprocedural states; Z83.2 Family history of diseases of the blood and blood-forming organs and certain disorders involving the immune mechanism
CPT/HCPCS: 96376 ×2; 96361 ×2; 96375 ×3; 96374; 99285; 36415; 94760; 93005; 93306; 80053; 80048 ×2; 82465; 83718; 83690; 83735; 84478; 84484; 85025 ×2; 85610; 85730; 80306; 71046; 74176; G0378 ×3; J2060; J1200 ×2; J0780 ×2; J2405 ×2; J1885; J1170 ×2

== ENCOUNTER 2021-11-28 18:10 | Emergency (ER) | payer OTHER ==
[2021-11-28 18:16] VITALS: BP 159/75; PULSE 74; RESP 16; TEMP 98.3
[2021-11-28] MEDS ORDERED: HYDROmorphone 0.5 MG/0.5 ML SYRINGE IVP STA (18:40)
[2021-11-28] MEDS ORDERED: SODIUM CHLORIDE 0.9% 1,000 ML IV STA ×2 (18:40→20:04)
[2021-11-28] MEDS ORDERED: METOCLOPRAMIDE 5 MG/ML 2 ML VIAL IVP STA (18:40)
[2021-11-28] MEDS ORDERED: FAMOTIDINE 20 MG/2 ML VIAL IV STA (18:41)
--- NOTE | 2021-11-28 18:44 | ED ---
General Adult HPI - General Chief complaint: Nausea/Vomiting/Diarrhea Stated complaint: vomiting Time Seen by Provider: 11/28/21 18:21 Source: patient, RN notes reviewed Mode of arrival: wheelchair Limitations: no limitations - History of Present Illness Initial comments: Patient is a pleasant 41-year-old male presenting to the emergency department with concerns with nausea vomiting. Patient admits this is a chronic problem for him. Patient states he did have surgery a different facility back in May. Patient has followed up with them as well and he states they are unclear how to help him. Patient specifically requests Dilaudid and Compazine. Patient states if seen is available. Requests Phenergan. Patient does have abdominal discomfort which is chronic and unchanged. Patient denies chest pain. - Related Data Home Medications Medication Instructions Recorded Confirmed Cyclobenzaprine [Flexeril] 10 mg PO HS PRN 11/25/21 11/28/21 Metoprolol Tartrate [Lopressor] 12.5 mg PO BID 11/25/21 11/28/21 oxyCODONE HCL [OxyIR] 5 mg PO Q6H PRN 11/25/21 11/28/21 traZODone HCL 300 mg PO HS 11/25/21 11/28/21 Previous Rx's Medication Instructions Recorded Famotidine [Pepcid] 20 mg PO BID #30 tablet 11/28/21 Allergies Allergy/AdvReac Type Severity Reaction Status Date / Time latex Allergy Rash/Hives Verified 11/28/21 19:18 meperidine [From Demerol] Allergy Rash/Hives Verified 11/28/21 19:18 Review of Systems ROS Statement: Those systems with pertinent positive or pertinent negative responses have been documented in the HPI. ROS Other: All systems not noted in ROS Statement are negative. Constitutional: Denies: fever Eyes: Denies: eye pain ENT: Denies: ear pain Respiratory: Denies: cough Cardiovascular: Denies: chest pain Endocrine: Denies: fatigue Gastrointestinal: Reports: as per HPI, abdominal pain, nausea, vomiting Genitourinary: Denies: dysuria Musculoskeletal: Denies: back pain Skin: Denies: rash Neurological: Denies: weakness Past Medical History Past Medical History: Atrial Fibrillation, GERD/Reflux Additional Past Medical History / Comment(s): Pt states difficulty with abdominal pain/nausea and vomiting when eating since surgery for hiatal hernia/peg tube, afib during [facility] hospitalization for jeannie en Y/peg tube surgery, R shoulder dislocations, pt states recent EKG at Dr. Soria's office showed MS at some time, chronic low back pain History of Any Multi-Drug Resistant Organisms: None Reported Past Surgical History: Appendectomy, Back Surgery, Cholecystectomy, Hernia Repair, Orthopedic Surgery, Tonsillectomy Additional Past Surgical History / Comment(s): Lysis of abdominal adhesions then transfetted to [facility] for Jeannie en Y, peg tube insertion, EGD, diaphragmatic hernia repair, lumbar fusion, R shoulder arthroscopy, L shoulder fusion. Past Anesthesia/Blood Transfusion Reactions: No Reported Reaction Past Psychological History: No Psychological Hx Reported Smoking Status: Never smoker Past Alcohol Use History: None Reported Past Drug Use History: None Reported - Past Family History Mother Additional Family Medical History / Comment(s): Mother is , she had lupus. Father History Unknown: Yes Brother(s) Additional Family Medical History / Comment(s): autoimmune disorder General Exam Limitations: no limitations General appearance: alert, in no apparent distress Head exam: Present: normocephalic Eye exam: Present: normal appearance ENT exam: Present: normal oropharynx Neck exam: Present: normal inspection Respiratory exam: Present: normal lung sounds bilaterally Cardiovascular Exam: Present: regular rate, normal rhythm GI/Abdominal exam: Present: soft. Absent: distended, tenderness, guarding, rebound, rigid, pulsatile mass Extremities exam: Present: normal inspection Neurological exam: Present: alert Psychiatric exam: Present: normal affect, normal mood Skin exam: Present: normal color Course Vital Signs 11/28/21 18:13 Temperature 98.3 F Pulse Rate 74 Respiratory 16 Rate Blood Pressure 159/75 O2 Sat by Pulse 100 Oximetry Medical Decision Making - Medical Decision Making Patient reevaluated and resting comfortably in bed. Patient still has some nausea and is receptive to repeat nausea medication. Patient updated on results and need for follow-up. Patient requests prescription for Pepcid. - Lab Data Result diagrams: 11/28/21 19:32 11/28/21 19:32 Lab Results 11/28/21 11/28/21 Range/Units 19:32 19:32 WBC 6.6 (3.8-10.6) k/uL RBC 4.88 (4.30-5.90) m/uL Hgb 14.5 (13.0-17.5) gm/dL Hct 45.7 (39.0-53.0) % MCV 93.5 (80.0-100.0) fL MCH 29.8 (25.0-35.0) pg MCHC 31.9 (31.0-37.0) g/dL RDW 14.6 (11.5-15.5) % Plt Count 246 (150-450) k/uL MPV 7.8 Neutrophils % 85 % Lymphocytes % 10 % Monocytes % 4 % Eosinophils % 1 % Basophils % 1 % Neutrophils # 5.6 (1.3-7.7) k/uL Lymphocytes # 0.6 L (1.0-4.8) k/uL Monocytes # 0.3 (0-1.0) k/uL Eosinophils # 0.0 (0-0.7) k/uL Basophils # 0.0 (0-0.2) k/uL Hypochromasia Slight Sodium 137 (137-145) mmol/L Potassium 3.9 (3.5-5.1) mmol/L Chloride 102 (98-107) mmol/L Carbon Dioxide 16 L (22-30) mmol/L Anion Gap 19 mmol/L BUN 10 (9-20) mg/dL Creatinine 0.64 L (0.66-1.25) mg/dL Est GFR (CKD-EPI)AfAm >90 (>60 ml/min/1.73 sqM) Est GFR (CKD-EPI)NonAf >90 (>60 ml/min/1.73 sqM) Glucose 88 (74-99) mg/dL Calcium 9.4 (8.4-10.2) mg/dL Total Bilirubin 1.0 (0.2-1.3) mg/dL AST 22 (17-59) U/L ALT 14 (4-49) U/L Alkaline Phosphatase 118 (38-126) U/L Total Protein 7.4 (6.3-8.2) g/dL Albumin 4.5 (3.5-5.0) g/dL Amylase 176 H (30-110) U/L Lipase 50 (23-300) U/L - Radiology Data Radiology results: image reviewed (Abdominal x-ray reveals no acute process) Disposition Clinical Impression: Chronic vomiting Disposition: HOME SELF-CARE Condition: Stable Instructions (If sedation given, give patient instructions): Acute Nausea and Vomiting (ED) Additional Instructions: Please follow-up with primary care physician in the next day or 2 for recheck. Please also do follow-up with your surgeon. Return for increased pain, vomiting, fever, worsening or changing symptoms or other concerns. Prescriptions: Famotidine [Pepcid] 20 mg PO BID #30 tablet Is patient prescribed a controlled substance at d/c from ED?: No Referrals: Huma Soria MD [Primary Care Provider] - 1-2 days Time of Disposition: 20:46
[2021-11-28 19:44] LABS: Basophils % (A) 1 %; Eosinophils % (A) 1 %; HCT 45.7 % (39.0-53.0); HGB 14.5 gm/dL (13.0-17.5); Hypochromasia Slight; Lymphocytes # (A) 0.6 k/uL (1.0-4.8); Lymphocytes % (A) 10 %; MCH 29.8 pg (25.0-35.0); MCHC 31.9 g/dL (31.0-37.0); MCV 93.5 fL (80.0-100.0); Mean Platelet Volume 7.8; Monocytes # (A) 0.3 k/uL (0-1.0); Monocytes % (A) 4 %; Neutrophils # (A) 5.6 k/uL (1.3-7.7); Neutrophils % (A) 85 %; Platelet Count 246 k/uL (150-450); RBC 4.88 m/uL (4.30-5.90); RDW 14.6 % (11.5-15.5); WBC 6.6 k/uL (3.8-10.6)
--- NOTE | 2021-11-28 19:45 | XR ---
EXAMINATION TYPE: XR KUB DATE OF EXAM: 11/28/2021 COMPARISON: 10/19/2021 HISTORY: Abnormal pain TECHNIQUE: FINDINGS: There is no sign of intestinal obstruction or pneumoperitoneum. Fecal pattern is normal. Th ere is posterior fusion surgery in the lower lumbar spine. Lung bases are clear of consolidation. IMPRESSION: Nonacute abdomen. No change compared to old exam.
[2021-11-28 20:01] LABS: ALT 14 U/L (4-49); AST 22 U/L (17-59); African American GFR (CKD) >90 (>60 ml/min/1.73 sqM); Albumin 4.5 g/dL (3.5-5.0); Alkaline Phosphatase 118 U/L (38-126); Amylase 176 U/L (30-110); Anion Gap 19 mmol/L; Blood Urea Nitrogen 10 mg/dL (9-20); Calcium 9.4 mg/dL (8.4-10.2); Carbon Dioxide 16 mmol/L (22-30); Chloride 102 mmol/L (98-107); Glucose 88 mg/dL (74-99); Lipase 50 U/L (23-300); Non-African American GFR(CKD) >90 (>60 ml/min/1.73 sqM); Potassium 3.9 mmol/L (3.5-5.1); Sodium 137 mmol/L (137-145); Total Protein 7.4 g/dL (6.3-8.2)
[2021-11-28] MEDS ORDERED: ONDANSETRON 4 MG/2 ML VIAL IVP STA (20:45)
== END 2021-11-28 23:18 | disposition home or self-care (01) ==
LOC: EC 18:10
DX: R11.2 Nausea with vomiting, unspecified (principal); K21.9 Gastro-esophageal reflux disease without esophagitis; I48.91 Unspecified atrial fibrillation; Z91.040 Latex allergy status; Z88.5 Allergy status to narcotic agent; Z79.899 Other long term (current) drug therapy
CPT/HCPCS: 36415; 80053; 82150; 83690; 85025; 74018; 99284; 96374; 96375 ×3; J2765; J2405; J1170

== ENCOUNTER 2021-11-30 10:29 | Emergency (ER) | payer OTHER ==
[2021-11-30 10:50] VITALS: RESP 18
[2021-11-30] MEDS ORDERED: ONDANSETRON 4 MG/2 ML VIAL IVP STA (12:00)
[2021-11-30] MEDS ORDERED: KETOROLAC 15 MG/ML 1 ML VIAL IVP STA (12:19)
[2021-11-30 12:20] LABS: Basophils % (A) 1 %; Eosinophils # (A) 0.1 k/uL (0-0.7); Eosinophils % (A) 1 %; HCT 42.4 % (39.0-53.0); HGB 13.9 gm/dL (13.0-17.5); Lymphocytes # (A) 0.8 k/uL (1.0-4.8); Lymphocytes % (A) 16 %; MCH 28.7 pg (25.0-35.0); MCHC 32.8 g/dL (31.0-37.0); Mean Platelet Volume 7.2; Monocytes # (A) 0.4 k/uL (0-1.0); Monocytes % (A) 8 %; Neutrophils # (A) 3.9 k/uL (1.3-7.7); Neutrophils % (A) 74 %; Platelet Count 233 k/uL (150-450); RBC 4.85 m/uL (4.30-5.90); RDW 14.2 % (11.5-15.5); WBC 5.3 k/uL (3.8-10.6)
[2021-11-30 12:35] LABS: ALT 13 U/L (4-49); AST 18 U/L (17-59); African American GFR (CKD) >90 (>60 ml/min/1.73 sqM); Albumin 4.2 g/dL (3.5-5.0); Alkaline Phosphatase 102 U/L (38-126); Anion Gap 18 mmol/L; Blood Urea Nitrogen 6 mg/dL (9-20); Calcium 9.2 mg/dL (8.4-10.2); Carbon Dioxide 19 mmol/L (22-30); Chloride 101 mmol/L (98-107); Glucose 99 mg/dL (74-99); Lipase 64 U/L (23-300); Magnesium 1.8 mg/dL (1.6-2.3); Non-African American GFR(CKD) >90 (>60 ml/min/1.73 sqM); Potassium 3.3 mmol/L (3.5-5.1); Sodium 138 mmol/L (137-145); Total Bilirubin 1.1 mg/dL (0.2-1.3)
[2021-11-30 12:39] LABS: INR 1.1 (<1.2); Prothrombin Time 11.7 sec (9.0-12.0)
[2021-11-30 12:42] LABS: Partial Thromboplastin Time 20.1 sec (22.0-30.0)
--- NOTE | 2021-11-30 12:43 | XR ---
EXAMINATION TYPE: XR chest 2V DATE OF EXAM: 11/30/2021 COMPARISON: 11/25/2021 TECHNIQUE: PA and lateral views submitted. HISTORY: Chest pain FINDINGS: The lungs are clear and there is no pneumothorax, pleural effusion, or focal pneumonia. Chronic-catarino earing changes of the left shoulder was questionable joint. Surgical changes in the right COPD suspected. Heart size normal. Degenerative change of the spine. Small hiatal hernia seen linear changes left lung base. IMPRESSION: 1. Left basilar subsegmental consolidation with very minimal blunting of the left costophrenic angle. Atelectasis with tiny effusion favored over early infiltrate correlate clinically. 2. Correlate for COPD...
[2021-11-30 12:53] LABS: MCV 87.5 fL (80.0-100.0)
[2021-11-30] MEDS ORDERED: HYDROmorphone 0.5 MG/0.5 ML SYRINGE IVP STA (13:41)
[2021-11-30] MEDS ORDERED: METOCLOPRAMIDE 5 MG/ML 2 ML VIAL IVP STA (13:41)
[2021-11-30] MEDS ORDERED: FAMOTIDINE 20 MG/2 ML VIAL IV STA (13:41)
--- NOTE | 2021-11-30 13:42 | ED ---
Chest Pain HPI - General Chief Complaint: Chest Pain Stated Complaint: chest pain, vomiting Time Seen by Provider: 11/30/21 10:55 Source: patient Mode of arrival: wheelchair - History of Present Illness Initial Comments: 41-year-old male with past medical history of Jeannie-en-Y, chronic nausea and vomiting since hiatal hernia surgery, chronic back pain on narcotics presents to the emergency department with nausea and vomiting. Patient has been seen in the emergency department for similar complaints. Patient presents that he is currently wearing a heart monitor and a company called him earlier this morning. States that he had to go immediately into the emergency room in for evaluation as his manager cardiac cath was showing an irregular heart rhythm. Patient had concern that he was in A. fib and she does have a history. She also admits to nausea and vomiting. Recently the emergency room for similar complaint. States that this has been chronic since his surgery however has not made contact with his surgeon. No fevers. No hematemesis. No other alleviating, precipitating or modifying factors - Related Data Home Medications Medication Instructions Recorded Confirmed Cyclobenzaprine [Flexeril] 10 mg PO HS PRN 11/25/21 11/30/21 Metoprolol Tartrate [Lopressor] 12.5 mg PO BID 11/25/21 11/30/21 oxyCODONE HCL [OxyIR] 5 mg PO Q6H PRN 11/25/21 11/30/21 traZODone HCL 300 mg PO HS 11/25/21 11/30/21 Previous Rx's Medication Instructions Recorded Famotidine [Pepcid] 20 mg PO BID #30 tablet 11/28/21 Allergies Allergy/AdvReac Type Severity Reaction Status Date / Time latex Allergy Rash/Hives Verified 12/02/21 15:33 meperidine [From Demerol] Allergy Rash/Hives Verified 12/02/21 15:33 Review of Systems ROS Statement: Those systems with pertinent positive or pertinent negative responses have been documented in the HPI. ROS Other: All systems not noted in ROS Statement are negative. EKG Findings - EKG Comments: EKG Findings:: EKG demonstrates sinus rhythm with a rate of 91. CT interval 144. QRS 95. QTC of 418. No acute ST segment elevations or depressions Past Medical History Past Medical History: Atrial Fibrillation, GERD/Reflux Additional Past Medical History / Comment(s): Pt states difficulty with abdominal pain/nausea and vomiting when eating since surgery for hiatal hernia/peg tube, afib during [facility] hospitalization for jeannie en Y/peg tube surgery, R shoulder dislocations, pt states recent EKG at Dr. Soria's office showed [place] at some time, chronic low back pain History of Any Multi-Drug Resistant Organisms: None Reported Past Surgical History: Appendectomy, Back Surgery, Cholecystectomy, Hernia Repair, Orthopedic Surgery, Tonsillectomy Additional Past Surgical History / Comment(s): Lysis of abdominal adhesions then transfetted to [facility] for Jeannie en Y, peg tube insertion, EGD, diaphragmatic hernia repair, lumbar fusion, R shoulder arthroscopy, L shoulder fusion. Past Anesthesia/Blood Transfusion Reactions: No Reported Reaction Past Psychological History: No Psychological Hx Reported Smoking Status: Never smoker Past Alcohol Use History: None Reported Past Drug Use History: None Reported - Past Family History Mother Additional Family Medical History / Comment(s): Mother is , she had lupus. Father History Unknown: Yes Brother(s) Additional Family Medical History / Comment(s): autoimmune disorder General Exam General appearance: alert, in no apparent distress Head exam: Present: atraumatic, normocephalic, normal inspection Eye exam: Present: normal appearance, PERRL, EOMI. Absent: scleral icterus, conjunctival injection, periorbital swelling ENT exam: Present: normal exam, mucous membranes moist Neck exam: Present: normal inspection. Absent: tenderness, meningismus, lymphadenopathy Respiratory exam: Present: normal lung sounds bilaterally. Absent: respiratory distress, wheezes, rales, rhonchi, stridor Cardiovascular Exam: Present: normal rhythm, tachycardia, normal heart sounds. Absent: systolic murmur, diastolic murmur, rubs, gallop, clicks GI/Abdominal exam: Present: soft, normal bowel sounds. Absent: distended, tenderness, guarding, rebound, rigid Extremities exam: Present: normal inspection, full ROM, normal capillary refill. Absent: tenderness, pedal edema, joint swelling, calf tenderness Back exam: Present: normal inspection Neurological exam: Present: alert, oriented X3, CN II-XII intact Psychiatric exam: Present: normal affect, normal mood Skin exam: Present: warm, dry, intact, normal color. Absent: rash Course Vital Signs 11/30/21 11/30/21 11/30/21 10:47 10:55 11:04 Temperature 98 F Pulse Rate 108 H 64 Pulse Rate [ 79 Child Care Worker ] Respiratory 18 18 Rate Blood Pressure 145/98 170/79 O2 Sat by Pulse 98 99 Oximetry 11/30/21 11/30/21 11/30/21 11:40 12:17 13:12 Temperature Pulse Rate 62 70 100 Pulse Rate [ Child Care Worker ] Respiratory 18 18 18 Rate Blood Pressure 151/135 158/89 154/103 O2 Sat by Pulse 97 97 97 Oximetry 11/30/21 14:03 Temperature 98.4 F Pulse Rate 64 Pulse Rate [ Child Care Worker ] Respiratory 18 Rate Blood Pressure 143/103 O2 Sat by Pulse 98 Oximetry Chest Pain MDM - MDM Upon arrival patient was placed in trauma 1. Thorough and history of physical exam was performed. IV established. Laboratory studies were conducted. EKG is performed. Patient was given Toradol and Zofran for pain and nausea. He is repetitively requesting narcotic pain medications. I did call and speak with the heart monitor company. They state that the patient has not had any transmissions from his heart monitor since the . He reports that the left a message with the patient however states that they never talked to the patient and they did not directed to going to the emergency department. I reviewed the patient's CT which demonstrated no intra-abdominal finding. Inform the patient that he will be discharged home and needs to follow-up with the surgeon for his chronic issue. Patient agreeable and discharged home in stable condition Disposition Clinical Impression: Vomiting, Epigastric abdominal pain Disposition: HOME SELF-CARE Condition: Stable Instructions (If sedation given, give patient instructions): Abdominal Pain (ED) Additional Instructions: Call your GI doctor for further treatment. Is patient prescribed a controlled substance at d/c from ED?: No Referrals: Huma Soria MD [Primary Care Provider] - 1-2 days Time of Disposition: 13:42
[2021-11-30 14:05] VITALS: BP 143/103; PULSE 64; TEMP 98.4
== END 2021-11-30 14:05 | disposition home or self-care (01) ==
LOC: EC 10:29
DX: R10.13 Epigastric pain (principal); R11.2 Nausea with vomiting, unspecified; I48.91 Unspecified atrial fibrillation; K21.9 Gastro-esophageal reflux disease without esophagitis; Z91.040 Latex allergy status; Z88.5 Allergy status to narcotic agent; Z79.899 Other long term (current) drug therapy
CPT/HCPCS: 99285 ×2; 96374 ×2; 96375 ×5; 36415; 93005; 80053; 83690; 83735; 84484; 85025; 85610; 85730; 71046; J2765; J2405; J1885; J1170

== ENCOUNTER 2021-12-31 11:12 | Emergency (ER) | payer OTHER ==
[2021-12-31] MEDS ORDERED: SODIUM CHLORIDE 0.9% 1,000 ML IV ONE (12:16)
[2021-12-31] MEDS ORDERED: HYDROmorphone 0.5 MG/0.5 ML SYRINGE IVP STA (12:16)
--- NOTE | 2021-12-31 12:20 | ED ---
Abdominal Pain HPI - General Chief Complaint: Abdominal Pain Stated Complaint: chest pain Time Seen by Provider: 12/31/21 12:00 Source: patient, RN notes reviewed, old records reviewed Mode of arrival: ambulatory Limitations: no limitations - History of Present Illness Initial Comments: This is a 41-year-old male, alert and oriented 4 presenting with left upper quadrant abdominal pain today. He was sent by his primary care doctor for elevated heart rate and increasing abdominal pain. Patient states that he did have a large hiatal hernia repair at [facility] in May of this year and he has pain ever since. He does have a history of cholecystectomy and appendectomy. He was requested to follow up with Dr. Orozco after endoscopy 2 mo nths ago at [facility]. 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 Patient denies any fevers, no nausea vomiting or diarrhea. MD Complaint: abdominal pain (left upper) -: days(s) (1) Location: [facility]Q Severity scale (1-10): 10 Consistency: constant Improves With: nothing Associated Symptoms: denies other symptoms - Related Data Home Medications Medication Instructions Recorded Confirmed Metoprolol Tartrate [Lopressor] 12.5 mg PO BID 11/25/21 12/31/21 traZODone HCL 300 mg PO HS 11/25/21 12/31/21 Cyclobenzaprine [Flexeril] 5 mg PO BID PRN 12/31/21 12/31/21 Metoclopramide [Reglan] 5 mg PO ACHS 12/31/21 12/31/21 Mirtazapine 7.5 mg PO HS 12/31/21 12/31/21 Ondansetron Odt [Zofran Odt] 8 mg PO Q8H PRN 12/31/21 12/31/21 Previous Rx's Medication Instructions Recorded Famotidine [Pepcid] 20 mg PO BID #30 tablet 11/28/21 Allergies Allergy/AdvReac Type Severity Reaction Status Date / Time latex Allergy Rash/Hives Verified 12/31/21 13:07 meperidine [From Demerol] Allergy Rash/Hives Verified 12/31/21 13:07 Review of Systems ROS Statement: Those systems with pertinent positive or pertinent negative responses have been documented in the HPI. ROS Other: All systems not noted in ROS Statement are negative. Past Medical History Past Medical History: Atrial Fibrillation, GERD/Reflux Additional Past Medical History / Comment(s): Pt states difficulty with abdominal pain/nausea and vomiting when eating since surgery for hiatal hernia/peg tube, afib during [facility] hospitalization for avery en Y/peg tube surgery, R shoulder dislocations, pt states recent EKG at Dr. Soria's office showed [place] at some time, chronic low back pain History of Any Multi-Drug Resistant Organisms: None Reported Past Surgical History: Appendectomy, Back Surgery, Cholecystectomy, Hernia Repair, Orthopedic Surgery, Tonsillectomy Additional Past Surgical History / Comment(s): Lysis of abdominal adhesions then transfetted to [facility] for Avery en Y, peg tube insertion, EGD, diaphragmatic hernia repair, lumbar fusion, R shoulder arthroscopy, L shoulder fusion. Past Anesthesia/Blood Transfusion Reactions: No Reported Reaction Past Psychological History: No Psychological Hx Reported Smoking Status: Never smoker Past Alcohol Use History: None Reported Past Drug Use History: None Reported - Past Family History Mother Additional Family Medical History / Comment(s): Mother is , she had lupus. Father History Unknown: Yes Brother(s) Additional Family Medical History / Comment(s): autoimmune disorder General Exam Limitations: no limitations General appearance: alert, in no apparent distress Head exam: Present: atraumatic Eye exam: Absent: scleral icterus, conjunctival injection, periorbital swelling ENT exam: Present: mucous membranes moist Neck exam: Present: full ROM. Absent: meningismus Respiratory exam: Present: normal lung sounds bilaterally. Absent: respiratory distress, wheezes, rales, rhonchi, stridor, accessory muscle use Cardiovascular Exam: Present: tachycardia GI/Abdominal exam: Present: soft, tenderness (luq), other (midline scar). Absent: distended, guarding, rebound, rigid Extremities exam: Present: normal capillary refill. Absent: pedal edema Back exam: Present: normal inspection, full ROM. Absent: tenderness, CVA tenderness (R), CVA tenderness (L), rash noted Neurological exam: Present: alert, oriented X3 Psychiatric exam: Present: normal affect, normal mood Skin exam: Present: warm, dry, normal color. Absent: cyanosis, diaphoretic Course Vital Signs 12/31/21 12/31/21 11:27 14:33 Temperature 98.4 F Pulse Rate 120 H 95 Respiratory 24 18 Rate Blood Pressure 126/83 125/77 O2 Sat by Pulse 97 100 Oximetry Medical Decision Making - Medical Decision Making Patient presents with left upper quadrant pain chronic since May worsening today. He denies any fevers. No nausea vomiting or diarrhea. CT abdomen and pelvis with contrast shows a previous gastric bypass procedure with hiatal hernia noted. No evidence of obstruction or free air. There are several small bowel loops mildly distended which may represent enteritis. Labs show no evidence of leukocytosis. Lactic acid is 1.2. Patient was given multiple doses of Dilaudid in the ER. Patient's abdominal surgeries were performed at [facility] in May of this year. He states that they will no longer will see him in the ER and states when he goes there they just send him home. At this time I do not have a source for his severe pain. We did discuss the possibility of adhesions versus hiatal hernia pain. He does have an appointment coming up with Dr. 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 Patient was directed to keep his appointment with Dr. Orozco and return to the emergency room with any new or concerning symptoms. VSS. He is agreeable to discharge. Case discussed with Dr. Razo. - Lab Data Result diagrams: 12/31/21 11:40 12/31/21 11:40 Lab Results 12/31/21 12/31/21 12/31/21 Range/Units 11:40 11:40 11:40 WBC 6.2 (3.8-10.6) k/uL RBC 4.43 (4.30-5.90) m/uL Hgb 13.0 (13.0-17.5) gm/dL Hct 40.6 (39.0-53.0) % MCV 91.6 (80.0-100.0) fL MCH 29.3 (25.0-35.0) pg MCHC 31.9 (31.0-37.0) g/dL RDW 14.5 (11.5-15.5) % Plt Count 271 (150-450) k/uL MPV 7.4 Neutrophils % 80 % Lymphocytes % 13 % Monocytes % 6 % Eosinophils % 0 % Basophils % 1 % Neutrophils # 4.9 (1.3-7.7) k/uL Lymphocytes # 0.8 L (1.0-4.8) k/uL Monocytes # 0.4 (0-1.0) k/uL Eosinophils # 0.0 (0-0.7) k/uL Basophils # 0.0 (0-0.2) k/uL PT 10.2 (9.0-12.0) sec INR 0.9 (<1.2) APTT 23.4 (22.0-30.0) sec Sodium 139 (137-145) mmol/L Potassium 3.8 (3.5-5.1) mmol/L Chloride 105 (98-107) mmol/L Carbon Dioxide 24 (22-30) mmol/L Anion Gap 10 mmol/L BUN 7 L (9-20) mg/dL Creatinine 0.67 (0.66-1.25) mg/dL Est GFR (CKD-EPI)AfAm >90 (>60 ml/min/1.73 sqM) Est GFR (CKD-EPI)NonAf >90 (>60 ml/min/1.73 sqM) Glucose 103 H (74-99) mg/dL Plasma Lactic Acid Jacob (0.7-2.0) mmol/L Calcium 8.7 (8.4-10.2) mg/dL Total Bilirubin 0.4 (0.2-1.3) mg/dL AST 77 H (17-59) U/L ALT 193 H (4-49) U/L Alkaline Phosphatase 174 H (38-126) U/L Troponin I (0.000-0.034) ng/mL Total Protein 6.4 (6.3-8.2) g/dL Albumin 4.0 (3.5-5.0) g/dL Lipase 91 (23-300) U/L 12/31/21 12/31/21 Range/Units 11:40 12:32 WBC (3.8-10.6) k/uL RBC (4.30-5.90) m/uL Hgb (13.0-17.5) gm/dL Hct (39.0-53.0) % MCV (80.0-100.0) fL MCH (25.0-35.0) pg MCHC (31.0-37.0) g/dL RDW (11.5-15.5) % Plt Count (150-450) k/uL MPV Neutrophils % % Lymphocytes % % Monocytes % % Eosinophils % % Basophils % % Neutrophils # (1.3-7.7) k/uL Lymphocytes # (1.0-4.8) k/uL Monocytes # (0-1.0) k/uL Eosinophils # (0-0.7) k/uL Basophils # (0-0.2) k/uL PT (9.0-12.0) sec INR (<1.2) APTT (22.0-30.0) sec Sodium (137-145) mmol/L Potassium (3.5-5.1) mmol/L Chloride (98-107) mmol/L Carbon Dioxide (22-30) mmol/L Anion Gap mmol/L BUN (9-20) mg/dL Creatinine (0.66-1.25) mg/dL Est GFR (CKD-EPI)AfAm (>60 ml/min/1.73 sqM) Est GFR (CKD-EPI)NonAf (>60 ml/min/1.73 sqM) Glucose (74-99) mg/dL Plasma Lactic Acid Jacob 1.2 (0.7-2.0) mmol/L Calcium (8.4-10.2) mg/dL Total Bilirubin (0.2-1.3) mg/dL AST (17-59) U/L ALT (4-49) U/L Alkaline Phosphatase (38-126) U/L Troponin I <0.012 (0.000-0.034) ng/mL Total Protein (6.3-8.2) g/dL Albumin (3.5-5.0) g/dL Lipase (23-300) U/L - EKG Data EKG shows normal: sinus rhythm (Ventricular rate 108, QRS 0.89, QTC 0.394) Disposition Clinical Impression: Abdominal pain Disposition: HOME SELF-CARE Condition: Good Instructions (If sedation given, give patient instructions): Abdominal Pain (ED) Additional Instructions: At this time I do not see any abnormalities in your blood work. Your abdominal CT scan does not show any signs of obstruction. There is a hiatal hernia which you are aware of. I do not have a cause for your abdominal pain today. It may be related to adhesions versus hiatal hernia pain. Follow-up with primary care doctor. Keep your appointment with Dr. Orozco as scheduled in February 02. Return to emergency room with any new or concerning symptoms Is patient prescribed a controlled substance at d/c from ED?: No Referrals: Huma Soria MD [Primary Care Provider] - 1-2 days Time of Disposition: 14:36
[2021-12-31 12:30] LABS: Basophils % (A) 1 %; Eosinophils % (A) 0 %; HCT 40.6 % (39.0-53.0); Lymphocytes # (A) 0.8 k/uL (1.0-4.8); Lymphocytes % (A) 13 %; MCH 29.3 pg (25.0-35.0); MCHC 31.9 g/dL (31.0-37.0); MCV 91.6 fL (80.0-100.0); Mean Platelet Volume 7.4; Monocytes # (A) 0.4 k/uL (0-1.0); Monocytes % (A) 6 %; Neutrophils # (A) 4.9 k/uL (1.3-7.7); Neutrophils % (A) 80 %; Platelet Count 271 k/uL (150-450); RBC 4.43 m/uL (4.30-5.90); RDW 14.5 % (11.5-15.5); WBC 6.2 k/uL (3.8-10.6)
[2021-12-31 12:36] LABS: INR 0.9 (<1.2); Partial Thromboplastin Time 23.4 sec (22.0-30.0); Prothrombin Time 10.2 sec (9.0-12.0)
[2021-12-31 12:41] LABS: ALT 193 U/L (4-49); AST 77 U/L (17-59); African American GFR (CKD) >90 (>60 ml/min/1.73 sqM); Alkaline Phosphatase 174 U/L (38-126); Anion Gap 10 mmol/L; Blood Urea Nitrogen 7 mg/dL (9-20); Calcium 8.7 mg/dL (8.4-10.2); Carbon Dioxide 24 mmol/L (22-30); Chloride 105 mmol/L (98-107); Glucose 103 mg/dL (74-99); Lipase 91 U/L (23-300); Non-African American GFR(CKD) >90 (>60 ml/min/1.73 sqM); Potassium 3.8 mmol/L (3.5-5.1); Sodium 139 mmol/L (137-145); Total Bilirubin 0.4 mg/dL (0.2-1.3); Total Protein 6.4 g/dL (6.3-8.2)
[2021-12-31] MEDS ORDERED: HYDROmorphone 1 MG/ML 1 ML SYRINGE IVP STA (13:28)
--- NOTE | 2021-12-31 14:25 | CT ---
EXAMINATION TYPE: CT abdomen pelvis w con DATE OF EXAM: 12/31/2021 COMPARISON: 11/26/2021 HISTORY: Lt sided pain CT DLP: 1247.6 mGycm CONTRAST: CT scan of the abdomen and pelvis is performed without Oral Contrast and with IV Contrast, patient in jected with 100 mL of Isovue 300. FINDINGS: LUNG BASES-: No visible nodule. No infiltrate. LIVER/GB: The gallbladder is surgically absent. No space occupying hepatic lesion. Biliary tree is of normal caliber. PANCREAS: No inflammation. No distinct mass. SPLEEN: No splenic enlargement. No lesion seen. ADRENALS: No nodule. No thickening. KIDNEYS/BLADDER: No hydronephrosis. No nephrolithiasis. No distinct renal mass. Urinary bladder g rossly unremarkable. BOWEL: Hiatal hernia noted. Previous gastric bypass procedure seen. There is evidence for postoperati ve change involving left-sided jejunal loops. Several of the small bowel loops demonstrate mild diste ntion with fluid opacification which may reflect enteritis. Correlate clinically. Small bowel appears to be of normal caliber. No evidence for free air or abscess. GENITAL ORGANS: No gross abnormality. LYMPH NODES: No greater than 1cm abdominal or pelvic lymph nodes are appreciated. AORTA: No significant abnormality. OSSEOUS STRUCTURES: Postoperative changes of fusion involving L5-S1. OTHER: No significant additional abnormality is seen. IMPRESSION: 1. Correlate for small bowel enteritis.
[2021-12-31 14:35] VITALS: RESP 18
[2021-12-31 15:05] VITALS: BP 126/78; PULSE 92; TEMP 97.8
== END 2021-12-31 15:01 | disposition home or self-care (01) ==
LOC: EC 11:12
DX: R10.11 Right upper quadrant pain (principal); K21.9 Gastro-esophageal reflux disease without esophagitis; I48.91 Unspecified atrial fibrillation; Z91.040 Latex allergy status; Z88.5 Allergy status to narcotic agent; Z79.899 Other long term (current) drug therapy
CPT/HCPCS: 96361; 96374; 96375; 99285; 36415; 93005; 80053; 83605; 83690; 84484; 85025; 85610; 85730; 74177; J1170 ×2; Q9967; 96376

== ENCOUNTER 2022-01-02 12:35 | Inpatient (IN) | payer OTHER ==
--- NOTE | 2022-01-02 16:23 | ED ---
Abdominal Pain HPI - General Chief Complaint: Abdominal Pain Stated Complaint: abd pain, vomiting Time Seen by Provider: 01/02/22 16:19 Source: patient, RN notes reviewed, old records reviewed Mode of arrival: ambulatory Limitations: no limitations - History of Present Illness Initial Comments: 41-year-old male presents for his second visit this week for abdominal pain with nausea after eating. Patient does have history of hiatal hernia with gastric bypass that was done at [facility] by a Dr. Workman. 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 Patient states his surgeon disagrees and told him there is nothing more he can do for him. He does have an appointment scheduled with Dr. Orozco February 02. He states he is here for pain medication. He denies any fevers. He is nauseate d but denies vomiting. MD Complaint: abdominal pain -: month(s) (7) Location: diffuse Severity scale (1-10): 10 Consistency: constant Improves With: nothing Worsens With: eating Context: recent surgery/procedure (may 2021 gastric bypass Jeannie-en-Y [facility] Dr. Workman) Associated Symptoms: nausea - Related Data Home Medications Medication Instructions Recorded Confirmed Metoprolol Tartrate [Lopressor] 12.5 mg PO BID 11/25/21 01/02/22 traZODone HCL 300 mg PO HS 11/25/21 01/02/22 Mirtazapine 7.5 mg PO HS 12/31/21 01/02/22 Ondansetron Odt [Zofran Odt] 8 mg PO Q8H PRN 12/31/21 01/02/22 Aripiprazole Lauroxil [Aristada] 882 mg IM Q28D 01/02/22 01/02/22 Cyclobenzaprine [Flexeril] 10 mg PO HS PRN 01/02/22 01/02/22 Dicyclomine [Bentyl] 10 mg PO QID PRN 01/02/22 01/02/22 Metoclopramide [Reglan] 10 mg PO TID PRN 01/02/22 01/02/22 Previous Rx's Medication Instructions Recorded Famotidine [Pepcid] 20 mg PO BID #30 tablet 11/28/21 Allergies Allergy/AdvReac Type Severity Reaction Status Date / Time latex Allergy Rash/Hives Verified 01/02/22 14:25 meperidine [From Demerol] Allergy Rash/Hives Verified 01/02/22 14:25 Review of Systems ROS Statement: Those systems with pertinent positive or pertinent negative responses have been documented in the HPI. ROS Other: All systems not noted in ROS Statement are negative. Past Medical History Past Medical History: Atrial Fibrillation, GERD/Reflux Additional Past Medical History / Comment(s): Pt states difficulty with abdominal pain/nausea and vomiting when eating since surgery for hiatal hernia/peg tube, afib during [facility] hospitalization for jeannie en Y/peg tube surgery, R shoulder dislocations, pt states recent EKG at Dr. Soria's office showed OK at some time, chronic low back pain History of Any Multi-Drug Resistant Organisms: None Reported Past Surgical History: Appendectomy, Back Surgery, Cholecystectomy, Hernia Repair, Orthopedic Surgery, Tonsillectomy Additional Past Surgical History / Comment(s): Lysis of abdominal adhesions then transfetted to [facility] for Jeannie en Y, peg tube insertion, EGD, diaphragmatic hernia repair, lumbar fusion, R shoulder arthroscopy, L shoulder fusion. Past Anesthesia/Blood Transfusion Reactions: No Reported Reaction Past Psychological History: No Psychological Hx Reported Smoking Status: Never smoker Past Alcohol Use History: None Reported Past Drug Use History: None Reported - Past Family History Mother Additional Family Medical History / Comment(s): Mother is , she had lupus. Father History Unknown: Yes Brother(s) Additional Family Medical History / Comment(s): autoimmune disorder General Exam Limitations: no limitations General appearance: alert, in no apparent distress Head exam: Present: atraumatic Eye exam: Present: normal appearance. Absent: scleral icterus, conjunctival injection, periorbital swelling Respiratory exam: Absent: respiratory distress, accessory muscle use Cardiovascular Exam: Present: regular rate GI/Abdominal exam: Present: soft, tenderness. Absent: rigid Extremities exam: Present: normal capillary refill Neurological exam: Present: alert, oriented X3 Psychiatric exam: Present: normal affect, normal mood Skin exam: Present: warm, dry, normal color. Absent: cyanosis, diaphoretic, petechiae, pallor Course Vital Signs 01/02/22 01/02/22 01/02/22 14:23 17:01 18:10 Temperature 98.6 F 100.3 F H 99.6 F Pulse Rate 98 88 78 Respiratory 20 17 18 Rate Blood Pressure 125/77 147/103 151/110 O2 Sat by Pulse 99 100 98 Oximetry 01/02/22 19:16 Temperature 98.8 F Pulse Rate 77 Respiratory 20 Rate Blood Pressure 155/108 O2 Sat by Pulse 100 Oximetry Medical Decision Making - Medical Decision Making Patient was seen by me 2 days ago for same pain. Patient did undergo gastric bypass surgery May 2021 at [facility] and is being evaluated for possible candycane syndrome. A CT scan was done on 12/31/21 that showed several small bowel loops mildly distended with no evidence of obstruction or free air. Labs were unremarkable. KUB x-ray today shows no evidence of free air. There is some gas-filled diste nded small bowel in the left upper quadrant that could be an ileus. Labs show no evidence of leukocytosis. Hemoglobin and hematocrit are stable. Electrolytes are unremarkable. No evidence of lactic acidosis. Case discussed with Dr. Mujica, patient will be admitted with surgical consult. Patient is agreeable to this plan of care. - Lab Data Result diagrams: 01/02/22 16:53 01/02/22 16:53 Lab Results 01/02/22 01/02/22 01/02/22 Range/Units 16:53 16:53 16:53 WBC 5.9 (3.8-10.6) k/uL RBC 4.49 (4.30-5.90) m/uL Hgb 12.9 L (13.0-17.5) gm/dL Hct 41.3 (39.0-53.0) % MCV 91.8 (80.0-100.0) fL MCH 28.8 (25.0-35.0) pg MCHC 31.3 (31.0-37.0) g/dL RDW 14.5 (11.5-15.5) % Plt Count 278 (150-450) k/uL MPV 7.2 Neutrophils % 67 % Lymphocytes % 24 % Monocytes % 6 % Eosinophils % 1 % Basophils % 1 % Neutrophils # 3.9 (1.3-7.7) k/uL Lymphocytes # 1.4 (1.0-4.8) k/uL Monocytes # 0.4 (0-1.0) k/uL Eosinophils # 0.1 (0-0.7) k/uL Basophils # 0.0 (0-0.2) k/uL Sodium 138 (137-145) mmol/L Potassium 3.7 (3.5-5.1) mmol/L Chloride 103 (98-107) mmol/L Carbon Dioxide 25 (22-30) mmol/L Anion Gap 10 mmol/L BUN 4 L (9-20) mg/dL Creatinine 0.61 L (0.66-1.25) mg/dL Est GFR (CKD-EPI)AfAm >90 (>60 ml/min/1.73 sqM) Est GFR (CKD-EPI)NonAf >90 (>60 ml/min/1.73 sqM) Glucose 86 (74-99) mg/dL Plasma Lactic Acid Jacob 1.2 (0.7-2.0) mmol/L Calcium 8.8 (8.4-10.2) mg/dL Total Bilirubin 0.6 (0.2-1.3) mg/dL AST 26 (17-59) U/L ALT 90 H (4-49) U/L Alkaline Phosphatase 153 H (38-126) U/L Total Protein 6.4 (6.3-8.2) g/dL Albumin 4.0 (3.5-5.0) g/dL Amylase 86 (30-110) U/L Lipase 76 (23-300) U/L Coronavirus (PCR) (Not Detectd) 01/02/22 Range/Units 18:00 WBC (3.8-10.6) k/uL RBC (4.30-5.90) m/uL Hgb (13.0-17.5) gm/dL Hct (39.0-53.0) % MCV (80.0-100.0) fL MCH (25.0-35.0) pg MCHC (31.0-37.0) g/dL RDW (11.5-15.5) % Plt Count (150-450) k/uL MPV Neutrophils % % Lymphocytes % % Monocytes % % Eosinophils % % Basophils % % Neutrophils # (1.3-7.7) k/uL Lymphocytes # (1.0-4.8) k/uL Monocytes # (0-1.0) k/uL Eosinophils # (0-0.7) k/uL Basophils # (0-0.2) k/uL Sodium (137-145) mmol/L Potassium (3.5-5.1) mmol/L Chloride (98-107) mmol/L Carbon Dioxide (22-30) mmol/L Anion Gap mmol/L BUN (9-20) mg/dL Creatinine (0.66-1.25) mg/dL Est GFR (CKD-EPI)AfAm (>60 ml/min/1.73 sqM) Est GFR (CKD-EPI)NonAf (>60 ml/min/1.73 sqM) Glucose (74-99) mg/dL Plasma Lactic Acid Jacob (0.7-2.0) mmol/L Calcium (8.4-10.2) mg/dL Total Bilirubin (0.2-1.3) mg/dL AST (17-59) U/L ALT (4-49) U/L Alkaline Phosphatase (38-126) U/L Total Protein (6.3-8.2) g/dL Albumin (3.5-5.0) g/dL Amylase (30-110) U/L Lipase (23-300) U/L Coronavirus (PCR) Not Detected (Not Detectd) Disposition Clinical Impression: Abdominal pain, Ileus Disposition: ADMITTED IP TO THIS [facility] Decision Date: 01/02/22 Decision Time: 18:47
[2022-01-02] MEDS ORDERED: diphenhydrAMINE 50 MG/ML 1 ML VIAL IVP STA (16:34)
[2022-01-02] MEDS ORDERED: SODIUM CHLORIDE 0.9% 1,000 ML IV STA (16:34)
[2022-01-02] MEDS ORDERED: HYDROmorphone 0.5 MG/0.5 ML SYRINGE IVP STA (16:34)
[2022-01-02] MEDS ORDERED: METOCLOPRAMIDE 5 MG/ML 2 ML VIAL IVP STA (16:35)
[2022-01-02] MEDS ORDERED: ACETAMINOPHEN TAB 325 MG TAB PO STA (17:07)
[2022-01-02 17:08] LABS: Basophils % (A) 1 %; Eosinophils # (A) 0.1 k/uL (0-0.7); Eosinophils % (A) 1 %; HCT 41.3 % (39.0-53.0); HGB 12.9 gm/dL (13.0-17.5); Lymphocytes # (A) 1.4 k/uL (1.0-4.8); Lymphocytes % (A) 24 %; MCH 28.8 pg (25.0-35.0); MCHC 31.3 g/dL (31.0-37.0); MCV 91.8 fL (80.0-100.0); Mean Platelet Volume 7.2; Monocytes # (A) 0.4 k/uL (0-1.0); Monocytes % (A) 6 %; Neutrophils # (A) 3.9 k/uL (1.3-7.7); Neutrophils % (A) 67 %; Platelet Count 278 k/uL (150-450); RBC 4.49 m/uL (4.30-5.90); RDW 14.5 % (11.5-15.5); WBC 5.9 k/uL (3.8-10.6)
[2022-01-02 17:26] LABS: ALT 90 U/L (4-49); AST 26 U/L (17-59); African American GFR (CKD) >90 (>60 ml/min/1.73 sqM); Alkaline Phosphatase 153 U/L (38-126); Amylase 86 U/L (30-110); Anion Gap 10 mmol/L; Blood Urea Nitrogen 4 mg/dL (9-20); Calcium 8.8 mg/dL (8.4-10.2); Carbon Dioxide 25 mmol/L (22-30); Chloride 103 mmol/L (98-107); Glucose 86 mg/dL (74-99); Lipase 76 U/L (23-300); Non-African American GFR(CKD) >90 (>60 ml/min/1.73 sqM); Sodium 138 mmol/L (137-145); Total Bilirubin 0.6 mg/dL (0.2-1.3); Total Protein 6.4 g/dL (6.3-8.2)
[2022-01-02 17:38] LABS: Potassium 3.7 mmol/L (3.5-5.1)
--- NOTE | 2022-01-02 17:55 | XR ---
EXAMINATION TYPE: XR KUB DATE OF EXAM: 01/02/2022 COMPARISON: 11/28/2021 HISTORY: Abdominal pain TECHNIQUE: 2 views upright FINDINGS: There is posterior fusion surgery in the lower lumbar spine. There is no evidence of free a ir. There is some gas-filled distended small bowel in the left upper quadrant. No pathologic calcific ation seen over the kidneys. IMPRESSION: Gas-distended small bowel could be ileus. No free air. This is a change compared to old e melissa.
[2022-01-02] MEDS ORDERED: KETOROLAC 15 MG/ML 1 ML VIAL IVP STA (18:17)
[2022-01-02] MEDS ORDERED: NALOXONE 0.4 MG/ML 1 ML VIAL IV PRN (19:00)
[2022-01-02] MEDS ORDERED: ACETAMINOPHEN TAB 325 MG TAB PO PRN (19:00)
[2022-01-02] MEDS ORDERED: DICYCLOMINE 10 MG CAP PO PRN (19:02)
[2022-01-02] MEDS: SODIUM CHLORIDE 0.9% 1,000 ML IV SCH (19:11)
[2022-01-02] MEDS ORDERED: NON FORMULARY DRUG (Aripiprazole Lauroxil [Aristada] 882 MG/3.2 ML Suser.Syr) IM SCH (19:15)
[2022-01-02] MEDS: METOPROLOL TARTRATE 25 MG TAB PO SCH (20:07)
[2022-01-02] MEDS: traZODone HCL 100 MG TAB PO SCH (20:07)
[2022-01-02] MEDS: FAMOTIDINE 20 MG TAB PO SCH (20:08)
[2022-01-02] MEDS: MIRTAZAPINE 15 MG TAB PO SCH (20:09)
[2022-01-02] MEDS: HYDROmorphone 1 MG/ML 1 ML SYRINGE IVP PRN ×2 (20:10→23:13)
[2022-01-03] MEDS: HYDROmorphone 1 MG/ML 1 ML SYRINGE IVP PRN ×7 (02:22→21:47)
[2022-01-03] MEDS: ONDANSETRON 4 MG/2 ML VIAL IVP PRN ×2 (06:14→17:55)
[2022-01-03] MEDS: FAMOTIDINE 20 MG TAB PO SCH ×2 (08:09→21:45)
[2022-01-03] MEDS: METOPROLOL TARTRATE 25 MG TAB PO SCH ×2 (08:10→21:45)
[2022-01-03] MEDS: SODIUM CHLORIDE 0.9% 1,000 ML IV SCH ×2 (08:10→21:49)
--- NOTE | 2022-01-03 11:54 | P.GSCN ---
History of Present Illness Consult date: 01/03/22 History of present illness: CHIEF COMPLAINT: Abdominal pain with vomiting HISTORY OF PRESENT ILLNESS: This is a 41-year-old male who presented to the hospital with complaints of abdominal pain mostly in the left upper abdomen where his had his previous feeding tube site. Patient has prior abdominal surgeries. His last surgery was a Jeannie-en-Y procedure at [facility] in May 2021 due to a hiatal hernia. Also has had cholecystectomy and lysis of adhesions. Patient has had 5 ER visits due to this abdominal pain with vomiting. He reports that since May surgery he has had chronic pain with nausea and vomiting. He reports that lately the pain is just become very severe and uncontrollable. He is unable to eat. He's had low-grade temp of 100.3. KUB x-ray did show evidence of ileus. He was able to tolerate clear liquids this morning. 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 Patient reports having regular bowel movements. Discussed case and findings with Dr. lin PAST MEDICAL HISTORY: Atrial Fibrillation, GERD/Reflux PAST SURGICAL HISTORY: See list. MEDICATIONS: See list. ALLERGIES: See list. SOCIAL HISTORY: No illicit drug use. REVIEW OF SYSTEMS: CONSTITUTIONAL: Denies fever or chills. HEENT: Denies blurred vision, vision changes, or eye pain. Denies hemoptysis CARDIOVASCULAR: Denies chest pain or pressure. RESPIRATORY: No shortness of breath. GASTROINTESTINAL: See HPI for pertinent findings HEMATOLOGIC: Denies bleeding disorders. GENITOURINARY: Denies any blood in urine or increased urinary frequency. SKIN: Denies pruitis. Denies rash. PHYSICAL EXAM: VITAL SIGNS: Reviewed GENERAL: Well-developed in no acute distress. HEENT: No sclera icterus. Extraocular movements grossly intact. Moist buccal mucosa. Head is atraumatic, normocephalic. No nasal drainage. ABDOMEN: Soft. Nondistended. Patient has midline scar. Also scar to the left old PEG tube. Patient is tender with palpation in that area. No drainage noted. NEUROLOGIC: Alert and oriented. Cranial nerves II through XII grossly intact. LABORATORY DATA: IMAGING: KUB x-ray showing Gas distended small bowel could be ileus. no free air Computed tomography scan abdomen and pelvis from 12/31/2021 correlate for small bowel enteritis ASSESSMENT: 1. Abdominal pain with nausea and vomiting 2. History of Jeannie-en-Y surgery for hiatal hernia 3. Multiple abdominal surgeries 4. History of candycane syndrome PLAN: -Discussed case and findings with Dr. lin. Dr. Lin recommends that ant quintanilla be transferred to [facility] where he had his Jeannie-en-Y surgery in May -Continue clear liquid diet -Continue IV fluids -Continue supportive care Thank you for this consultation Physician Process Safety Engineer note has been reviewed by physician. Signing provider agrees with the documented findings, assessment, and plan of care. Past Medical History Past Medical History: Atrial Fibrillation, GERD/Reflux Additional Past Medical History / Comment(s): Pt states difficulty with abdominal pain/nausea and vomiting when eating since surgery for hiatal hernia/peg tube, afib during [facility] hospitalization for jeannie en Y/peg tube surgery, R shoulder dislocations, pt states recent EKG at Dr. Soria's office showed SD at some time, chronic low back pain History of Any Multi-Drug Resistant Organisms: None Reported Past Surgical History: Appendectomy, Back Surgery, Cholecystectomy, Hernia Repair, Orthopedic Surgery, Tonsillectomy Additional Past Surgical History / Comment(s): Lysis of abdominal adhesions then transfetted to [facility] for Jeannie en Y, peg tube insertion, EGD, diaphragmatic hernia repair, lumbar fusion, R shoulder arthroscopy, L shoulder fusion. Past Anesthesia/Blood Transfusion Reactions: No Reported Reaction Past Psychological History: No Psychological Hx Reported Smoking Status: Never smoker Past Alcohol Use History: None Reported Past Drug Use History: None Reported - Past Family History Mother Additional Family Medical History / Comment(s): Mother is , she had lupus. Father History Unknown: Yes Brother(s) Additional Family Medical History / Comment(s): autoimmune disorder Medications and Allergies Home Medications Medication Instructions Recorded Confirmed Type Metoprolol Tartrate [Lopressor] 12.5 mg PO BID 11/25/21 01/02/22 History traZODone HCL 300 mg PO HS 11/25/21 01/02/22 History Famotidine [Pepcid] 20 mg PO BID #30 tablet 11/28/21 01/02/22 Rx Mirtazapine 7.5 mg PO HS 12/31/21 01/02/22 History Ondansetron Odt [Zofran Odt] 8 mg PO Q8H PRN 12/31/21 01/02/22 History Aripiprazole Lauroxil [Aristada] 882 mg IM Q28D 01/02/22 01/02/22 History Cyclobenzaprine [Flexeril] 10 mg PO HS PRN 01/02/22 01/02/22 History Dicyclomine [Bentyl] 10 mg PO QID PRN 01/02/22 01/02/22 History Metoclopramide [Reglan] 10 mg PO TID PRN 01/02/22 01/02/22 History Allergies Allergy/AdvReac Type Severity Reaction Status Date / Time latex Allergy Rash/Hives Verified 01/02/22 14:25 meperidine [From Demerol] Allergy Rash/Hives Verified 01/02/22 14:25 Surgical - Exam Vital Signs Temp Pulse Resp BP Pulse Ox 98.6 F 98 20 125/77 99 01/02/22 14:23 01/02/22 14:23 01/02/22 14:23 01/02/22 14:23 01/02/22 14:23 Results - Labs 01/02/22 16:53 01/02/22 16:53 Abnormal Lab Results - Last 24 Hours (Table) 01/02/22 01/02/22 Range/Units 16:53 16:53 Hgb 12.9 L (13.0-17.5) gm/dL BUN 4 L (9-20) mg/dL Creatinine 0.61 L (0.66-1.25) mg/dL ALT 90 H (4-49) U/L Alkaline Phosphatase 153 H (38-126) U/L Diabetes panel 01/02/22 Range/Units 16:53 Sodium 138 (137-145) mmol/L Potassium 3.7 (3.5-5.1) mmol/L Chloride 103 (98-107) mmol/L Carbon Dioxide 25 (22-30) mmol/L BUN 4 L (9-20) mg/dL Creatinine 0.61 L (0.66-1.25) mg/dL Glucose 86 (74-99) mg/dL Calcium 8.8 (8.4-10.2) mg/dL AST 26 (17-59) U/L ALT 90 H (4-49) U/L Alkaline Phosphatase 153 H (38-126) U/L Total Protein 6.4 (6.3-8.2) g/dL Albumin 4.0 (3.5-5.0) g/dL Calcium panel 01/02/22 Range/Units 16:53 Calcium 8.8 (8.4-10.2) mg/dL Albumin 4.0 (3.5-5.0) g/dL Pituitary panel 01/02/22 Range/Units 16:53 Sodium 138 (137-145) mmol/L Potassium 3.7 (3.5-5.1) mmol/L Chloride 103 (98-107) mmol/L Carbon Dioxide 25 (22-30) mmol/L BUN 4 L (9-20) mg/dL Creatinine 0.61 L (0.66-1.25) mg/dL Glucose 86 (74-99) mg/dL Calcium 8.8 (8.4-10.2) mg/dL Adrenal panel 01/02/22 Range/Units 16:53 Sodium 138 (137-145) mmol/L Potassium 3.7 (3.5-5.1) mmol/L Chloride 103 (98-107) mmol/L Carbon Dioxide 25 (22-30) mmol/L BUN 4 L (9-20) mg/dL Creatinine 0.61 L (0.66-1.25) mg/dL Glucose 86 (74-99) mg/dL Calcium 8.8 (8.4-10.2) mg/dL Total Bilirubin 0.6 (0.2-1.3) mg/dL AST 26 (17-59) U/L ALT 90 H (4-49) U/L Alkaline Phosphatase 153 H (38-126) U/L Total Protein 6.4 (6.3-8.2) g/dL Albumin 4.0 (3.5-5.0) g/dL
--- NOTE | 2022-01-03 12:12 | P.CONS ---
History of Present Illness - Reason for Consult Consult date: 01/03/22 Abdominal pain, ileus Requesting physician: Aly Rowan - Chief Complaint Abdominal pain - History of Present Illness This is a 41-year-old male who presented to the emergency department with complaints of abdominal pain, with nausea and vomiting after eating. Patient states this has been a chronic problem since May. He had a Avery-en-Y surgery for large hiatal hernia with gastric bypass that was done at [facility] by Dr. Workman in May of this year. He states since that time he has had continued abdominal pain with difficulty eating. He states he's had a 70 pound weight loss since the surgery. 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 He had not followed up with anybody through [place] due to travel difficulty. States he has been out of work due to complications post surgery and his grandparents drive him to his appointments. He states he does have appointment with Dr. Orozco in January. He does state that he has difficulty with liquids and solids and often feels that he has to vomit or will go down. He is on clear liquids currently and has not had any vomiting. States he had a bowel movement yesterday, he usually has bowel movements every 3 days. He had an x-ray of the abdomen that showed gas- distended small bowel could be ileus. No free air. Gastroenterology was consulted for ileus. She denies any previous colonoscopy. Patient did have a low-grade temp on admission of 100.3. Home meds include Bentyl 10 mg 4 times a day as needed as well as Pepcid 20 mg twice a day Reglan 10 mg by mouth 3 times a day as needed Patient was seen in the emergency room with complaints of chest pain/abdominal pain on 12/31/2021. At that time he had a CT of the abdomen and pelvis that stated correlate for small bowel enteritis. The patient has been seen multiple times, looks like monthly since May in the emergency room and has had multiple CAT scans of the abdomen and pelvis as well as abdominal x-rays. WBC 8.9 hemoglobin 12.9 hematocrit 41 platelet count 278,000 sodium 138 potassium 3.7 BUN 4 creatinine 0.6 total bilirubin 0.6 AST 26 ALT 90 alkaline phosphatase 153 amylase 86 lipase 76 Review of Systems REVIEW OF SYSTEMS: CARDIOPULMONARY: No chest pain or shortness of breath. Gastrointestinal: Abdominal pain, left upper quadrant. Nausea/vomiting, dysphagia with eating and drinking. No hematemesis, coffee-ground emesis. No rectal bleeding, or melena. GENITOURINARY: No dysuria or hematuria. MUSCULOSKELETAL: Reports normal range of motion., Joint pain. SKIN: No rashes. No jaundice. ENDOCRINE: No chills, fevers. No excessive weight gain or loss. No polydipsia or polyuria. PSYCHIATRIC: Unremarkable. NEUROLOGY: No change in mental status. Denies dizziness, headache. ENT: Vision unremarkable. CONSTITUTIONAL: Complaints of 70 pound weight loss since May.. No fever, chills, night sweats. Past Medical History Past Medical History: Atrial Fibrillation, GERD/Reflux Additional Past Medical History / Comment(s): Pt states difficulty with abdominal pain/nausea and vomiting when eating since surgery for hiatal hernia/peg tube, afib during [facility] hospitalization for avery en Y/peg tube surgery, R shoulder dislocations, pt states recent EKG at Dr. Soria's office showed CT at some time, chronic low back pain History of Any Multi-Drug Resistant Organisms: None Reported Past Surgical History: Appendectomy, Back Surgery, Cholecystectomy, Hernia Repair, Orthopedic Surgery, Tonsillectomy Additional Past Surgical History / Comment(s): Lysis of abdominal adhesions then transfetted to [facility] for Avery en Y, peg tube insertion, EGD, diaphragmatic hernia repair, lumbar fusion, R shoulder arthroscopy, L shoulder fusion. Past Anesthesia/Blood Transfusion Reactions: No Reported Reaction Past Psychological History: No Psychological Hx Reported Smoking Status: Never smoker Past Alcohol Use History: None Reported Past Drug Use History: None Reported - Past Family History Mother Additional Family Medical History / Comment(s): Mother is , she had lupus. Father History Unknown: Yes Brother(s) Additional Family Medical History / Comment(s): autoimmune disorder Medications and Allergies Home Medications Medication Instructions Recorded Confirmed Type Metoprolol Tartrate [Lopressor] 12.5 mg PO BID 11/25/21 01/02/22 History traZODone HCL 300 mg PO HS 11/25/21 01/02/22 History Famotidine [Pepcid] 20 mg PO BID #30 tablet 11/28/21 01/02/22 Rx Mirtazapine 7.5 mg PO HS 12/31/21 01/02/22 History Ondansetron Odt [Zofran Odt] 8 mg PO Q8H PRN 12/31/21 01/02/22 History Aripiprazole Lauroxil [Aristada] 882 mg IM Q28D 01/02/22 01/02/22 History Cyclobenzaprine [Flexeril] 10 mg PO HS PRN 01/02/22 01/02/22 History Dicyclomine [Bentyl] 10 mg PO QID PRN 01/02/22 01/02/22 History Metoclopramide [Reglan] 10 mg PO TID PRN 01/02/22 01/02/22 History Allergies Allergy/AdvReac Type Severity Reaction Status Date / Time latex Allergy Rash/Hives Verified 01/02/22 14:25 meperidine [From Demerol] Allergy Rash/Hives Verified 01/02/22 14:25 Physical Exam Vitals: Vital Signs Temp Pulse Pulse Resp BP BP Pulse Ox 01/03/22 08:27 98 F 72 18 137/92 98 01/03/22 02:00 97.9 F 70 18 150/108 98 01/02/22 22:09 98.9 F 75 16 98 01/02/22 20:11 99.8 F H 01/02/22 19:16 98.8 F 77 20 155/108 100 01/02/22 18:10 99.6 F 78 18 151/110 98 01/02/22 17:01 100.3 F H 88 17 147/103 100 01/02/22 14:23 98.6 F 98 20 125/77 99 Intake and Output 01/02/22 01/03/22 01/03/22 22:59 06:59 14:59 Other: # Voids 1 Weight 78.471 kg General appearance: The patient is alert, oriented, appears in no acute distress. HET: Head is normocephalic and atraumatic. Conjunctiva pink. Sclera anicteric. Neck: Supple without lymphadenopathy. Trachea midline. Heart: S1 S2. Regular rate and rhythm. Lungs: Clear to auscultation. Abdomen: Soft, left upper quadrant tenderness, nondistended with bowel sounds. No guarding or rigidity. Skin: No rashes. No jaundice. Extremities: Normal skin color and turgor. No pedal edema. Neurological: No focal deficits. Alert and oriented x3. Results CBC & Chem 7: 01/02/22 16:53 01/02/22 16:53 Labs: Abnormal Lab Results - Last 24 Hours (Table) 01/02/22 01/02/22 Range/Units 16:53 16:53 Hgb 12.9 L (13.0-17.5) gm/dL BUN 4 L (9-20) mg/dL Creatinine 0.61 L (0.66-1.25) mg/dL ALT 90 H (4-49) U/L Alkaline Phosphatase 153 H (38-126) U/L Abdominal x-ray: report reviewed (Gas-distended small bowel could be ileus. No free air. This is a change compared to old exams.) Assessment and Plan (1) Abdominal pain Narrative/Plan: 41-year-old male with a history of a large hiatal hernia who underwent Avery-en-Y gastric bypass surgery in May of this year done by Dr. Workman out of [facility]. Patient states since then he's had recurrent abdominal pain with difficulty eating. He states he has recurrent nausea and vomiting following liquids or eating. He complains of weight loss of approximately 70 pounds since May. He last followed up with Dr. 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 Patient does have an appointment with Dr. Orozco in January of this year. He continues to have recurrent symptoms since surgery. He has had multiple emergency room visits along with multiple CT of the abdomen and pelvis as well as abdominal x-rays. His most recent abdominal x-ray showing possible ileus. He did have a CT of the abdomen and pelvis done on 12/31/2021 when he was seen in the emergency room and subsequently discharged. At that time showed possible small bowel enteritis. No previous colonoscopy. Gen. surgery is recommending transfer to [facility] to patient's known general surgeon who performed Avery-en-Y gastric bypass, gastroenterology agrees with transfer. No plan for an endoscopic evaluation due to patient's history of Avery-en-Y bypass, recommend advance gastroenterology or general surgeon. Current Visit: Yes Status: Acute Code(s): R10.9 - UNSPECIFIED ABDOMINAL PAIN SNOMED Code(s): 14374377 (2) Nausea and vomiting Current Visit: Yes Status: Acute Code(s): R11.2 - NAUSEA WITH VOMITING, UNSPECIFIED SNOMED Code(s): 32543363 (3) History of Avery-en-Y gastric bypass Current Visit: Yes Status: Acute Code(s): Z98.84 - BARIATRIC SURGERY STATUS SNOMED Code(s): 873477042 Plan: 1. Continue symptomatic and supportive care 2. Continue antiemetics 3. Continue Pepcid 20 mg twice a day 4. Please obtain records from [facility] for surgery as well as recent EGD 5. Appreciate recommendations from general surgery 6. Continue clear liquid diet 7. No plans on endoscopic evaluation 8. Recommend transfer to [facility] for further evaluation from patient's general surgeon and advanced tray filler. However it would be reasonable if patient's symptoms improve that patient be discharged home with outpatient follow-up. Thank you for this consultation, we will continue to follow. Dr. Frida Orozco I agree with the dictator's note, documented as a scribe by Lottie Barnett.
[2022-01-03] MEDS: METOCLOPRAMIDE 10 MG TAB PO PRN ×2 (13:07→20:34)
[2022-01-03] MEDS: MIRTAZAPINE 15 MG TAB PO SCH (21:45)
[2022-01-03] MEDS: traZODone HCL 100 MG TAB PO SCH (21:46)
--- NOTE | 2022-01-04 01:00 | P.HPIM ---
History of Present Illness H&P Date: 01/03/22 Chief Complaint: Abdominal pain Patient is a 41-year-old male with a known history of GERD, history of hiatal hernia surgery and Avery-en-Y procedure done at [facility] in May 2021 due to hiatal hernia. Also has history of cholecystectomy and lysis of additions. Patient is has been coming to the hospital for the past recent 5 visits due to complaints of abdominal pain and vomiting. Patient states that he has been having nausea and episodes of vomiting and abdominal pain since surgery. Patient was previously transferred to [facility] and could not see his surgeon at that time. Patient was upset that he has to wait for 6 hours in the ER there. Patient was admitted to the hospital last night. On admission T-max 100.3. Tachycardic with pulse. 98 and pulse ox 99% on room air. Patient otherwise denied any complaints of chest pain or shortness of breath. No diarrhea. Laboratory test showed WBC 5.9 hemoglobin 12.9 and platelets 278 Sodium 138 potassium 3.7 chloride 103 bicarb 25 BUN 14 creatinine 0.6 AST 26 ALT 19 alk phos 143 albumin 4.0 lipase 76. Coronavirus PCR not detected. KUB x-ray showed gas distended small bowel could be ileus. No free air. Review of Systems Constitutional: Patient denies any fever or chills . no Generalized weakness. Abdomen: Patient complains of nausea vomiting and abdominal pain. Cardiovascular: Patient denies any chest pain or short of breath no palpitations. Respiratory: patient denied any cough is from production. No shortness of breath Neurologic: Patient denied any numbness or tingling headache. Musculoskeletal: Patient denies any complaints of joint swelling or deformity. Skin: Negative Psychiatric: Negative Endocrine: No heat or cold intolerance. No recent weight gain. Genitourinary: No dysuria or hematuria. All other 14 point ROS negative except the above Past Medical History Past Medical History: Atrial Fibrillation, GERD/Reflux Additional Past Medical History / Comment(s): Pt states difficulty with abdominal pain/nausea and vomiting when eating since surgery for hiatal jairon ia/peg tube, afib during [facility] hospitalization for avery en Y/peg tube surgery, R shoulder dislocations, pt states recent EKG at Dr. Soria's office showed RI at some time, chronic low back pain History of Any Multi-Drug Resistant Organisms: None Reported Past Surgical History: Appendectomy, Back Surgery, Cholecystectomy, Hernia Repair, Orthopedic Surgery, Tonsillectomy Additional Past Surgical History / Comment(s): Lysis of abdominal adhesions then transfetted to [facility] for Avery en Y, peg tube insertion, EGD, diaphragmatic hernia repair, lumbar fusion, R shoulder arthroscopy, L shoulder fusion. Past Anesthesia/Blood Transfusion Reactions: No Reported Reaction Past Psychological History: No Psychological Hx Reported Smoking Status: Never smoker Past Alcohol Use History: None Reported Past Drug Use History: None Reported - Past Family History Mother Additional Family Medical History / Comment(s): Mother is , she had lupus. Father History Unknown: Yes Brother(s) Additional Family Medical History / Comment(s): autoimmune disorder Medications and Allergies Home Medications Medication Instructions Recorded Confirmed Type Metoprolol Tartrate [Lopressor] 12.5 mg PO BID 11/25/21 01/02/22 History traZODone HCL 300 mg PO HS 11/25/21 01/02/22 History Famotidine [Pepcid] 20 mg PO BID #30 tablet 11/28/21 01/02/22 Rx Mirtazapine 7.5 mg PO HS 12/31/21 01/02/22 History Ondansetron Odt [Zofran Odt] 8 mg PO Q8H PRN 12/31/21 01/02/22 History Aripiprazole Lauroxil [Aristada] 882 mg IM Q28D 01/02/22 01/02/22 History Cyclobenzaprine [Flexeril] 10 mg PO HS PRN 01/02/22 01/02/22 History Dicyclomine [Bentyl] 10 mg PO QID PRN 01/02/22 01/02/22 History Metoclopramide [Reglan] 10 mg PO TID PRN 01/02/22 01/02/22 History Allergies Allergy/AdvReac Type Severity Reaction Status Date / Time latex Allergy Rash/Hives Verified 01/02/22 14:25 meperidine [From Demerol] Allergy Rash/Hives Verified 01/02/22 14:25 Physical Exam Vitals: Vital Signs Temp Pulse Pulse Resp BP BP Pulse Ox 01/03/22 13:52 99.7 F H 101 H 19 166/84 100 01/03/22 08:27 98 F 72 18 137/92 98 01/03/22 08:00 70 01/03/22 02:00 97.9 F 70 18 150/108 98 01/02/22 22:09 98.9 F 75 16 98 01/02/22 20:11 99.8 F H 01/02/22 19:16 98.8 F 77 20 155/108 100 01/02/22 18:10 99.6 F 78 18 151/110 98 01/02/22 17:01 100.3 F H 88 17 147/103 100 01/02/22 14:23 98.6 F 98 20 125/77 99 Intake and Output 01/02/22 01/03/22 01/03/22 22:59 06:59 14:59 Other: # Voids 1 Weight 78.471 kg PHYSICAL EXAMINATION: Patient is lying in the bed comfortably, no acute distress, awake alert and oriented.. HEENT: Normocephalic. Neck is supple. Pupils reactive. Nostrils clear. Oral cavity is moist. Neck reveals no JVD, carotid bruits, or thyromegaly. CHEST EXAMINATION: Trachea is central. Symmetrical expansion. Lung mon clear to auscultation and percussion. CARDIAC: Normal S1, S2 with no gallops. No murmurs ABDOMEN: Soft. Bowel sounds present. Nontender. No guarding or rigidity. No organomegaly. No abdominal bruits. Extremities: reveal no edema. No clubbing or cyanosis Neurologically awake, alert, oriented x3 with well-coordinated movements. No focal deficits noted Skin: No rash or skin lesions. Psychiatric: Coperative. Nonsuicidal,, anxious. Musculoskeletal: No joint swelling or deformity. Normal range of motion. Results CBC & Chem 7: 01/02/22 16:53 01/02/22 16:53 Labs: Abnormal Lab Results - Last 24 Hours (Table) 01/02/22 01/02/22 Range/Units 16:53 16:53 Hgb 12.9 L (13.0-17.5) gm/dL BUN 4 L (9-20) mg/dL Creatinine 0.61 L (0.66-1.25) mg/dL ALT 90 H (4-49) U/L Alkaline Phosphatase 153 H (38-126) U/L Thrombosis Risk Factor Assmnt - DVT/VTE Prophylaxis DVT/VTE Prophylaxis: Pharmacologic Prophylaxis ordered - Choose All That Apply Any of the Below Risk Factors Present?: Yes Each Factor Represents 1 point: Age 41-60 years, Obesity (BMI >25) Other Risk Factors: No Other congenital or acquired thrombophilia - If yes, enter type in comment: No Thrombosis Risk Factor Assessment Total Risk Factor Score: 2 Thrombosis Risk Factor Assessment Level: Low Risk Assessment and Plan Assessment: Nausea vomiting and abdominal pain unable to tolerate oral diet Ileus with gas distended small bowel History of Avery-en-Y procedure in [place] 2021 due to hiatal hernia History of PEG tube placement and reversal History of cholecystectomy History of multiple abdominal surgeries and lysis of additions. History of candycane syndrome History of atrial fibrillation post Avery-en-Y procedure. Currently in sinus rhythm. Not on anticoagulation. Chronic low back pain Anxiety GERD DVT prophylaxis and GI prophylaxis Plan: Patient will be continued on symptomatic management for nausea and vomiting. Continue with dicyclomine, Pepcid and Reglan. Pain management with Dilaudid IV and continue with metoprolol. IV hydration. Samara has seen the patient and recommended to transfer the patient to [facility] where he had prior surgery. Patient refused to be transferred. We will continue symptomatic management and conservative therapy at this time and possible discharge if symptomatically improved. GI is on madeline becky. Time with Patient: Greater than 30
[2022-01-04] MEDS: HYDROmorphone 1 MG/ML 1 ML SYRINGE IVP PRN ×6 (01:29→18:21)
[2022-01-04] MEDS: SODIUM CHLORIDE 0.9% 1,000 ML IV SCH ×2 (01:30→05:49)
[2022-01-04 08:55] LABS: Basophils # (A) 0.03 X 10*3/uL (0.00-0.10); Basophils % (A) 0.8 %; Eosinophils # (A) 0.05 X 10*3/uL (0.04-0.35); Eosinophils % (A) 1.4 %; HCT 38.4 % (39.6-50.0); HGB 12.4 g/dL (13.0-17.0); Immature Grans, Automated 0.3 %; Lymphocytes # (A) 1.29 X 10*3/uL (0.90-5.00); Lymphocytes % (A) 35.1 %; MCH 29.4 pg (27.0-32.0); MCHC 32.3 g/dL (32.0-37.0); Mean Platelet Volume 9.8 fL (9.5-12.2); Monocytes # (A) 0.46 X 10*3/uL (0.20-1.00); Monocytes % (A) 12.5 %; NRBC Per 100 WBC 0 /100 WBCS (0.0-0.0); Neutrophils # (A) 1.83 X 10*3/uL (1.80-7.70); Neutrophils % (A) 49.9 %; Platelet Count 278 X 10*3/uL (140-440); RBC 4.22 X 10*6/uL (4.40-5.60); RDW 14.4 % (11.5-14.5); WBC 3.67 X 10*3/uL (4.50-10.00)
[2022-01-04] MEDS ORDERED: ENOXAPARIN 40 MG/0.4 ML SYRINGE SQ SCH (09:00)
[2022-01-04 09:02] VITALS: RESP 16
[2022-01-04 09:08] LABS: African American GFR (CKD) 134.9 (60.0-200.0); Anion Gap 12.8 mmol/L (10.00-18.00); BUN/Creat Ratio 4.86 Ratio (12.00-20.00); Blood Urea Nitrogen 3.4 mg/dL (9.0-27.0); Calcium 8.9 mg/dL (8.7-10.3); Carbon Dioxide 25.2 mmol/L (20.0-27.5); Non-African American GFR(CKD) 116.4 (60.0-200.0); Potassium 3.6 mmol/L (3.5-5.5)
[2022-01-04] MEDS: METOPROLOL TARTRATE 25 MG TAB PO SCH (09:25)
[2022-01-04] MEDS: FAMOTIDINE 20 MG TAB PO SCH (09:25)
[2022-01-04 12:51] VITALS: BP 144/96; PULSE 67; TEMP 98.5
[2022-01-04] MEDS ORDERED: ALPRAZolam 0.25 MG TAB PO STA (13:26)
[2022-01-04] MEDS ORDERED: diphenhydrAMINE 25 MG CAP PO STA (13:26)
--- NOTE | 2022-01-04 14:34 | P.PN ---
Subjective Progress Note Date: 01/04/22 CHIEF COMPLAINT: Abdominal pain and vomiting HISTORY OF PRESENT ILLNESS: Patient reports that he is feeling about the same. He did have vomiting yesterday. Abdominal pain remains the same. He tried to e at Jell-O and had nausea. He reports a diminished appetite. He did have a loose bowel movement today. They're working on transferring patient to [facility] where he has had his previous surgery and also a diagnosis of complicated pain syndrome. Afebrile. Currently on a clear liquid diet. WBC 3.67 Hgb 12.4 Patient seen and examined with Dr. lin PHYSICAL EXAM: VITAL SIGNS: Reviewed. GENERAL: Well-developed in no acute distress. HEENT: No sclera icterus. Extraocular movements grossly intact. Moist buccal mucosa. Head is atraumatic, normocephalic. ABDOMEN: Soft. Nondistended. Tenderness left side abdomen near old PEG tube site NEUROLOGIC: Alert and oriented. Cranial nerves II through XII grossly intact. ASSESSMENT: 1. Abdominal pain with nausea and vomiting 2. History of Jeannie-en-Y surgery for hiatal hernia 3. Multiple abdominal surgeries 4. History of candycane syndrome PLAN: -Dr. Lin recommends that patient be transferred to [facility] where he had his previous Jeannie-en-Y surgery in May of this year -Continue supportive care Physician Patient Assistant note has been reviewed by physician. Signing provider agrees with the documented findings, assessment, and plan of care. Objective - Vital Signs Vital signs: Vital Signs Temp 98.5 F 01/04/22 12:40 Pulse 67 01/04/22 12:40 Resp 16 01/04/22 12:40 BP 144/96 01/04/22 12:40 Pulse Ox 97 01/04/22 12:40 FiO2 Intake & Output 01/03/22 01/04/22 01/04/22 18:59 06:59 18:59 Intake Total 900 Balance 900 Intake: Intake, IV Titration 900 Amount Sodium Chloride 0.9% 1, 900 000 ml @ 75 mls/hr IV . [id number] [facility] Rx#:[id number] - Labs CBC & Chem 7: 01/04/22 05:37 01/04/22 05:37 Labs: Abnormal Lab Results - Last 24 Hours (Table) 01/04/22 01/04/22 Range/Units 05:37 05:37 WBC 3.67 L (4.50-10.00) X 10*3/uL RBC 4.22 L (4.40-5.60) X 10*6/uL Hgb 12.4 L (13.0-17.0) g/dL Hct 38.4 L (39.6-50.0) % BUN 3.4 L (9.0-27.0) mg/dL BUN/Creatinine Ratio 4.86 L (12.00-20.00) Ratio
--- NOTE | 2022-01-04 16:08 | P.PN ---
Subjective Progress Note Date: 01/04/22 Principal diagnosis: Abdominal pain, nausea vomiting This is a 41-year-old male who presented to the emergency department with complaints of abdominal pain, with nausea and vomiting after eating. Patient states this has been a chronic problem since May. He had a Jeannie-en-Y surgery for large hiatal hernia with gastric bypass that was done at [facility] by Dr. Workman in May of this year. He states since that time he has had continued abdominal pain with difficulty eating. He states he's had a 70 pound weight loss since the surgery. 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 He had not followed up with anybody through [place] due to travel difficulty. States he has been out of work due to complications post surgery and his grandparents drive him to his appointments. He states he does have appointment with Dr. Orozco in January. He does state that he has difficulty with liquids and solids and often feels that he has to vomit or will go down. He is on clear liquids currently and has not had any vomiting. States he had a bowel movement yesterday, he usually has bowel movements every 3 days. He had an x-ray of the abdomen that showed gas- distended small bowel could be ileus. No free air. Gastroenterology was consulted for ileus. She denies any previous colonoscopy. Patient did have a low-grade temp on admission of 100.3. Home meds include Bentyl 10 mg 4 times a day as needed as well as Pepcid 20 mg twice a day Reglan 10 mg by mouth 3 times a day as needed Patient was seen in the emergency room with complaints of chest pain/abdominal pain on 12/31/2021. At that time he had a CT of the abdomen and pelvis that stated correlate for small bowel enteritis. The patient has been seen multiple times, looks like monthly since May in the emergency room and has had multiple CAT scans of the abdomen and pelvis as well as abdominal x-rays. 01/04/2022: Patient seen and examined as a follow-up. He continues to state that he has abdominal pain and discomfort. States that he is having some liquids and tolerating however does not feel like having popsicles and states he does not tolerate carbonated bed beverages due to gastric bypass. He is having some nausea, no vomiting at this time. Patient states plan is to continue to transfer to [facility] where he had his previous surgery. Objective - Vital Signs Vital signs: Vital Signs Temp 98.5 F 01/04/22 12:40 Pulse 67 01/04/22 12:40 Resp 16 01/04/22 12:40 BP 144/96 01/04/22 12:40 Pulse Ox 97 01/04/22 12:40 FiO2 Intake & Output 01/03/22 01/04/22 01/04/22 18:59 06:59 18:59 Intake Total 900 Balance 900 Intake: Intake, IV Titration 900 Amount Sodium Chloride 0.9% 1, 900 000 ml @ 75 mls/hr IV . [id number] [facility] Rx#:[id number] - Exam General appearance: The patient is alert, oriented, appears in no acute distress. HET: Head is normocephalic and atraumatic. Conjunctiva pink. Sclera anicteric. Neck: Supple without lymphadenopathy. Abdomen: Soft, epigastric and right upper quadrant tenderness, nondistended with bowel sounds. No guarding or rigidity. Extremities: Normal skin color and turgor. No pedal edema Skin: No rashes, no jaundice Neurological: No focal deficits. Alert and oriented -3. - Labs CBC & Chem 7: 01/04/22 05:37 01/04/22 05:37 Labs: Abnormal Lab Results - Last 24 Hours (Table) 01/04/22 01/04/22 Range/Units 05:37 05:37 WBC 3.67 L (4.50-10.00) X 10*3/uL RBC 4.22 L (4.40-5.60) X 10*6/uL Hgb 12.4 L (13.0-17.0) g/dL Hct 38.4 L (39.6-50.0) % BUN 3.4 L (9.0-27.0) mg/dL BUN/Creatinine Ratio 4.86 L (12.00-20.00) Ratio Assessment and Plan (1) Abdominal pain Narrative/Plan: 41-year-old male with a history of a large hiatal hernia who underwent Jeannie-en-Y gastric bypass surgery in May of this year done by Dr. Workman out of [facility]. Patient states since then he's had recurrent abdominal pain with difficulty eating. He states he has recurrent nausea and vomiting following liquids or eating. He complains of weight loss of approximately 70 pounds since May. He last followed up with Dr. 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 Patient does have an appointment with Dr. Orozco in January of this year. He continues to have recurrent symptoms since surgery. He has had multiple emergency room visits along with multiple CT of the abdomen and pelvis as well as abdominal x-rays. His most recent abdominal x-ray showing possible ileus. He did have a CT of the abdomen and pelvis done on 12/31/2021 when he was seen in the emergency room and subsequently discharged. At that time showed possible small bowel enteritis. No previous colonoscopy. Gen. surgery is recommending transfer to [facility] to patient's known general surgeon who performed Jeannie-en-Y gastric bypass, gastroenterology agrees with transfer. No plan for an endoscopic evaluation due to patient's history of Jeannie-en-Y bypass, recommend advance gastroenterology or general surgeon. Current Visit: Yes Status: Acute Code(s): R10.9 - UNSPECIFIED ABDOMINAL PAIN SNOMED Code(s): 95574657 (2) Nausea and vomiting Current Visit: Yes Status: Acute Code(s): R11.2 - NAUSEA WITH VOMITING, UNSPECIFIED SNOMED Code(s): 56737716 (3) History of Jeannie-en-Y gastric bypass Current Visit: Yes Status: Acute Code(s): Z98.84 - BARIATRIC SURGERY STATUS SNOMED Code(s): 343280700 Plan: 1. Continue symptomatic and supportive care 2. Continue antiemetics 3. Continue Pepcid 20 mg twice a day 4. Please obtain records from [facility] for surgery as well as recent EGD 5. Appreciate recommendations from general surgery 6. Continue clear liquid diet 7. No plans on endoscopic evaluation 8. Recommend transfer to [facility] for further evaluation from patient's general surgeon and advanced refrigerating engineer head. However it would be reasonable if patient's symptoms improve that patient be discharged home with outpatient follow-up. Thank you for this consultation, we will continue to follow. Dr. Frida Orozco I agree with the dictator's note, documented as a scribe by Lottie Barnett.
[2022-01-04] MEDS ORDERED: HYDROcodone/APAP 5-325MG 1 EACH TAB PO PRN (16:16)
--- NOTE | 2022-01-04 16:22 | P.PN ---
Subjective Progress Note Date: 01/04/22 Patient is a 41-year-old male with a known history of GERD, history of hiatal hernia surgery and Jeannie-en-Y procedure done at [facility] in May 2021 due to hiatal hernia. Also has history of cholecystectomy and lysis of additions. Patient is has been coming to the hospital for the past recent 5 visits due to complaints of abdominal pain and vomiting. Patient states that he has been having nausea and episodes of vomiting and abdominal pain since surgery. Patient was previously transferred to [facility] and could not see his surgeon at that time. Patient was upset that he has to wait for 6 hours in the ER there. Patient was admitted to the hospital last night. On admission T-max 100.3. Tachycardic with pulse. 98 and pulse ox 99% on room air. Patient otherwise denied any complaints of chest pain or shortness of breath. No diarrhea. Laboratory test showed WBC 5.9 hemoglobin 12.9 and platelets 278 Sodium 138 potassium 3.7 chloride 103 bicarb 25 BUN 14 creatinine 0.6 AST 26 ALT 19 alk phos 143 albumin 4.0 lipase 76. Coronavirus PCR not detected. KUB x-ray showed gas distended small bowel could be ileus. No free air. 01/04/2022 Patient today is laying in bed, states his abdominal pain is 8/10. He also states he has had nausea this morning and last night. He did vomit twice this morning. No hematemesis noted. He is receiving dilaudid and states his pain only improves to 5/10 after pain meds. hgb is stable at 12.4. Potassium is 3.6, BUN 3.4 creatinine 0.7. He is being followed by GI and surgical services. Both consultations recommending transfer back to [facility] for further evaluation by his surgeon. Patient is agreeable for transfer. He has not followed with surgeon outpatient. Last seen him in July at [place]. For now he is being symptomatically treated with liquid diet and IV fluids as well as pain management and antiemetics. He is afebrile, blood pressure 115/76. Review of Systems Constitutional: Denied any fatigue denied any fever. Cardio vascular: denied any chest pain, palpitations Gastrointestinal: denied any nausea, vomiting, diarrhea Pulmonary: Denied any shortness of breath cough Neurologic denied any new focal deficits All inpatient medications were reviewed and appropriate changes in these medications as dictated in the interval history and assessment and plan. PHYSICAL EXAMINATION: GENERAL: The patient is alert and oriented x3, has some facial grimacing. Well developed, well nourished. HEENT: Pupils are round and equally reacting to light. EOMI. No scleral icterus. No conjunctival pallor. Normocephalic, atraumatic. No pharyngeal erythema. No thyromegaly. CARDIOVASCULAR: S1 and S2 present. No murmurs, rubs, or gallops. PULMONARY: Chest is clear to auscultation, no wheezing or crackles. ABDOMEN: Soft, tender, nondistended, normoactive bowel sounds. No palpable organomegaly. MUSCULOSKELETAL: No joint swelling or deformity. EXTREMITIES: No cyanosis, clubbing, or pedal edema. NEUROLOGICAL: Gross neurological examination did not reveal any focal deficits. SKIN: No rashes. Assessment and Plan Assessment Nausea vomiting and abdominal pain unable to tolerate oral diet Possible Ileus with gas distended small bowel patient is having bowel movements History of Jeannie-en-Y procedure in 2021 secondary to hiatal hernia History of PEG tube placement and reversal History of cholecystectomy History of multiple abdominal surgeries and lysis of additions. History of candycane syndrome History of atrial fibrillation post Jeannie-en-Y procedure. Currently in sinus rhythm. Not on anticoagulation. Chronic low back pain Anxiety GERD DVT prophylaxis and GI prophylaxis Plan: Patient will be continued on symptomatic management for nausea and vomiting. Continue with dicyclomine, Pepcid and Reglan. Patient is also on zofran. Pain management with Dilaudid IV, added norco 5 every 6 hours. IV hydration and clear liquid diet. GI services as well as general surgery have evaluated the patient and recommending transfer to [facility] where patient had surgery. He is agreeable at this time. Continue with symptomatic care, pain management, antiemetics. Patient received a one time dose of benadryl for itching and also a dose of xanax today. Case management has started the transfer process. The impression and plan of care has been dictated by Yanna Richards Nurse Practitioner as directed. Dr. Elisa MD I have performed a history and physical examination and medical decision making of this patient, discussed the same with the dictator, and agree with the dic tators assessment and plan as written, documented as a scribe. Based on total visit time, I have performed more than 50% of this visit. Objective - Vital Signs Vital signs: Vital Signs Temp 98.1 F 01/04/22 04:15 Pulse 76 01/04/22 10:26 Resp 16 01/04/22 09:01 BP 115/76 01/04/22 09:01 Pulse Ox 96 01/04/22 09:01 FiO2 Intake & Output 01/03/22 01/04/22 01/04/22 18:59 06:59 18:59 Intake Total 900 Balance 900 Intake: Intake, IV Titration 900 Amount Sodium Chloride 0.9% 1, 900 000 ml @ 75 mls/hr IV . [id number] COUNTS INCLUDE 234 BEDS AT [facility] Rx#:[id number] - Labs CBC & Chem 7: 01/04/22 05:37 01/04/22 05:37 Labs: Abnormal Lab Results - Last 24 Hours (Table) 01/04/22 01/04/22 Range/Units 05:37 05:37 WBC 3.67 L (4.50-10.00) X 10*3/uL RBC 4.22 L (4.40-5.60) X 10*6/uL Hgb 12.4 L (13.0-17.0) g/dL Hct 38.4 L (39.6-50.0) % BUN 3.4 L (9.0-27.0) mg/dL BUN/Creatinine Ratio 4.86 L (12.00-20.00) Ratio Assessment and Plan Time with Patient: Less than 30
--- NOTE | 2022-01-05 15:57 | P.DS ---
Providers Date of admission: 01/02/22 19:04 Attending physician: Jasper Adler Consults: 01/02/22 19:00 Consult Physician Routine Consulting Provider: Lobito Kirkland Consult Reason/Comments: ileus Do you want consulting provider notified?: Yes, Notify in am Consult Physician Routine Consulting Provider: Lynne Orozco Consult Reason/Comments: ileus Do you want consulting provider notified?: Yes, Notify in am Primary care physician: Huma Soria Hospital Course: Diagnosis Nausea vomiting and abdominal pain unable to tolerate oral diet Possible Ileus with gas distended small bowel patient is having bowel movements History of Avery-en-Y procedure in 2021 secondary to hiatal hernia History of PEG tube placement and reversal History of cholecystectomy History of multiple abdominal surgeries and lysis of additions. History of candycane syndrome History of atrial fibrillation post Avery-en-Y procedure. Currently in sinus rhythm. Not on anticoagulation. Chronic low back pain Anxiety GERD DVT prophylaxis and GI prophylaxis Full Code Patient transferred to [facility] to resume care under surgeon known to him. He was not evaluated today as he had been transferred in the evening of 01/04/2022. Hospital Course This is a 41 year old male with history of avery en y procedure earlier this year secondary to hiatal hernia, patient has also had multiple abdominal surgeries for lysis of adhesions. Patient follows with surgeon at [facility] who did his procedure and he has been diagnosed with candycane syndrome there. He has multiple admission for nasuea vomiting and abdominal pain that is intractible and difficult to treat. He has been receiving a combination of dilaudid, norco, bentyl, pepcid, reglan, zofran and continues with abdominal pain describes as sharp and cramp like. Patient had KUB showing gas distended small bowel possible ileus. He is having bowel movements. He also had abdominal pelvis CT on 01/02/2022 prior admission showing possible small bowel enteritis with hiatal hernia noted. He has been evaluated by GI services and General Surgery who are recommending to transfer patient to [facility] and patient has agreed to transfer. Please see progress note for 01/04/2022 for additional information. Patient has not been evaluated today as he was transferred to [facility] on 01/04/2022. Thank you for allowing us to participate in the care of this patient. The impression and plan of care has been dictated by Yanna Richards, Nurse Practitioner as directed. Dr. Elisa MD I have performed a history and physical examination and medical decision making of this patient, discussed the same with the dictator, and agree with the dictators assessment and plan as written, documented as a scribe. Based on total visit time, I have performed more than 50% of this visit. Plan - Discharge Summary Discharge Rx Participant: No New Discharge Prescriptions: No Action Metoprolol Tartrate [Lopressor] 12.5 mg PO BID Famotidine [Pepcid] 20 mg PO BID #30 tablet Mirtazapine 7.5 mg PO HS Cyclobenzaprine [Flexeril] 10 mg PO HS PRN PRN Reason: Muscle Spasm Metoclopramide [Reglan] 10 mg PO TID PRN PRN Reason: Nausea Aripiprazole Lauroxil [Aristada] 882 mg IM Q28D Dicyclomine [Bentyl] 10 mg PO QID PRN PRN Reason: cramps traZODone HCL 300 mg PO HS Ondansetron Odt [Zofran Odt] 8 mg PO Q8H PRN PRN Reason: Nausea Discharge Medication List Metoprolol Tartrate [Lopressor] 12.5 mg PO BID 11/25/21 [History] traZODone HCL 300 mg PO HS 11/25/21 [History] Famotidine [Pepcid] 20 mg PO BID #30 tablet 11/28/21 [Rx] Mirtazapine 7.5 mg PO HS 12/31/21 [History] Ondansetron Odt [Zofran Odt] 8 mg PO Q8H PRN 12/31/21 [History] Aripiprazole Lauroxil [Aristada] 882 mg IM Q28D 01/02/22 [History] Cyclobenzaprine [Flexeril] 10 mg PO HS PRN 01/02/22 [History] Dicyclomine [Bentyl] 10 mg PO QID PRN 01/02/22 [History] Metoclopramide [Reglan] 10 mg PO TID PRN 01/02/22 [History] Follow up Appointment(s)/Referral(s): Huma Soria MD [Primary Care Provider] - 1-2 days Discharge/Stand Alone Forms: Who Do I Call?, Community Resources Discharge Disposition: TRANSFER TO SHORT TERM HOSP
== END 2022-01-04 18:00 | disposition short-term general hospital (02) | DRG 390 ==
LOC: EC 12:35 → 5NMEDONC 19:04
PROVIDERS: ADMIT Hospitalist; ATTEND Hospitalist
DX: K56.7 Ileus, unspecified (principal); R11.2 Nausea with vomiting, unspecified; F41.9 Anxiety disorder, unspecified; G89.29 Other chronic pain; I48.91 Unspecified atrial fibrillation; R50.9 Fever, unspecified; M54.9 Dorsalgia, unspecified; K52.9 Noninfective gastroenteritis and colitis, unspecified; K21.9 Gastro-esophageal reflux disease without esophagitis; K44.9 Diaphragmatic hernia without obstruction or gangrene; Z90.49 Acquired absence of other specified parts of digestive tract; Z93.1 Gastrostomy status; Z98.84 Bariatric surgery status; Z87.19 Personal history of other diseases of the digestive system; Z91.040 Latex allergy status; Z88.5 Allergy status to narcotic agent
CPT/HCPCS: 36415; 74018; 80048; 80053; 82150; 83605; 83690; 85025; 87635; 96361; 96374; 96375; 96376; 99285

== ENCOUNTER 2022-01-19 05:19 | Emergency (ER) | payer OTHER ==
[2022-01-19 05:26] VITALS: TEMP 98.1
[2022-01-19] MEDS ORDERED: SODIUM CHLORIDE 0.9% 1,000 ML IV STA (05:58)
[2022-01-19] MEDS ORDERED: diphenhydrAMINE 50 MG/ML 1 ML VIAL IVP STA (05:59)
--- NOTE | 2022-01-19 07:16 | ED ---
General Adult HPI - General Chief complaint: Chest Pain Stated complaint: vomiting Time Seen by Provider: 01/19/22 05:57 Source: patient, RN notes reviewed Mode of arrival: ambulatory Limitations: no limitations - History of Present Illness Initial comments: 41-year-old male presents emergency from chief complaint abdominal pain. This is chronic in nature. Patient states he had gastric bypass surgery at [place] states she's had pain ever since. Patient has had multiple ER visits for same complaint. Patient states started vomiting last night patient states that he is not on current pain meds though he has filled prescriptions he said. Patient was on prior chronic narcotic medication and is requesting Dilaudid by name. Patient states pain is left upper quadrant a denies any current chest pain shortness of breath fevers or chills no dysuria no hematuria. - Related Data Home Medications Medication Instructions Recorded Confirmed Metoprolol Tartrate [Lopressor] 12.5 mg PO BID 11/25/21 01/02/22 traZODone HCL 300 mg PO HS 11/25/21 01/02/22 Mirtazapine 7.5 mg PO HS 12/31/21 01/02/22 Ondansetron Odt [Zofran Odt] 8 mg PO Q8H PRN 12/31/21 01/02/22 Aripiprazole Lauroxil [Aristada] 882 mg IM Q28D 01/02/22 01/02/22 Cyclobenzaprine [Flexeril] 10 mg PO HS PRN 01/02/22 01/02/22 Dicyclomine [Bentyl] 10 mg PO QID PRN 01/02/22 01/02/22 Metoclopramide [Reglan] 10 mg PO TID PRN 01/02/22 01/02/22 Previous Rx's Medication Instructions Recorded Famotidine [Pepcid] 20 mg PO BID #30 tablet 11/28/21 Ondansetron Odt [Zofran Odt] 4 mg PO Q8HR PRN #10 tab 01/19/22 Allergies Allergy/AdvReac Type Severity Reaction Status Date / Time latex Allergy Rash/Hives Verified 01/19/22 05:27 meperidine [From Demerol] Allergy Rash/Hives Verified 01/19/22 05:27 Review of Systems ROS Statement: Those systems with pertinent positive or pertinent negative responses have been documented in the HPI. ROS Other: All systems not noted in ROS Statement are negative. Past Medical History Past Medical History: Atrial Fibrillation, GERD/Reflux Additional Past Medical History / Comment(s): Pt states difficulty with abdominal pain/nausea and vomiting when eating since surgery for hiatal hernia/peg tube, afib during [facility] hospitalization for jeannie en Y/peg tube surgery, R shoulder dislocations, pt states recent EKG at Dr. Soria's office showed NE at some time, chronic low back pain History of Any Multi-Drug Resistant Organisms: None Reported Past Surgical History: Appendectomy, Back Surgery, Cholecystectomy, Hernia Repair, Orthopedic Surgery, Tonsillectomy Additional Past Surgical History / Comment(s): Lysis of abdominal adhesions then transfetted to [facility] for Jeannie en Y, peg tube insertion, EGD, diaphragmatic hernia repair, lumbar fusion, R shoulder arthroscopy, L shoulder fusion. Past Anesthesia/Blood Transfusion Reactions: No Reported Reaction Past Psychological History: No Psychological Hx Reported Smoking Status: Never smoker Past Alcohol Use History: None Reported Past Drug Use History: None Reported - Past Family History Mother Additional Family Medical History / Comment(s): Mother is , she had lupus. Father History Unknown: Yes Brother(s) Additional Family Medical History / Comment(s): autoimmune disorder General Exam General appearance: alert, in no apparent distress Head exam: Present: atraumatic, normocephalic, normal inspection Eye exam: Present: normal appearance, PERRL, EOMI. Absent: scleral icterus, conjunctival injection, periorbital swelling Respiratory exam: Present: normal lung sounds bilaterally. Absent: respiratory distress, wheezes, rales, rhonchi, stridor Cardiovascular Exam: Present: regular rate, normal rhythm, normal heart sounds. Absent: systolic murmur, diastolic murmur, rubs, gallop, clicks GI/Abdominal exam: Present: soft, tenderness, normal bowel sounds. Absent: distended, guarding, rebound, rigid Back exam: Absent: CVA tenderness (R), CVA tenderness (L) Course Vital Signs 01/19/22 01/19/22 05:23 06:30 Temperature 98.1 F Pulse Rate 98 Pulse Rate [ 78 Apical] Respiratory 20 Rate Blood Pressure 128/84 O2 Sat by Pulse 98 Oximetry Medical Decision Making - Medical Decision Making 41-year-old presented for abdominal pain. This is chronic from gastric bypass surgery has seen a surgeon told him that having is fine though he continues to have pain. Patient has had multiple prescriptions filled of recent. Patient slept unremarkable be discharged advised to follow-up. - Lab Data Result diagrams: 01/19/22 06:30 01/19/22 06:30 Lab Results 01/19/22 01/19/22 01/19/22 Range/Units 06:30 06:30 06:30 WBC 6.2 (3.8-10.6) k/uL RBC 4.28 L (4.30-5.90) m/uL Hgb 12.7 L (13.0-17.5) gm/dL Hct 38.9 L (39.0-53.0) % MCV 90.9 (80.0-100.0) fL MCH 29.7 (25.0-35.0) pg MCHC 32.7 (31.0-37.0) g/dL RDW 14.1 (11.5-15.5) % Plt Count 282 (150-450) k/uL MPV 8.0 Neutrophils % 64 % Lymphocytes % 26 % Monocytes % 6 % Eosinophils % 1 % Basophils % 1 % Neutrophils # 4.0 (1.3-7.7) k/uL Lymphocytes # 1.6 (1.0-4.8) k/uL Monocytes # 0.4 (0-1.0) k/uL Eosinophils # 0.0 (0-0.7) k/uL Basophils # 0.0 (0-0.2) k/uL Sodium 139 (137-145) mmol/L Potassium 3.4 L (3.5-5.1) mmol/L Chloride 101 (98-107) mmol/L Carbon Dioxide 29 (22-30) mmol/L Anion Gap 9 mmol/L BUN 9 (9-20) mg/dL Creatinine 0.82 (0.66-1.25) mg/dL Est GFR (CKD-EPI)AfAm >90 (>60 ml/min/1.73 sqM) Est GFR (CKD-EPI)NonAf >90 (>60 ml/min/1.73 sqM) Glucose 83 (74-99) mg/dL Calcium 8.8 (8.4-10.2) mg/dL Total Bilirubin 0.3 (0.2-1.3) mg/dL AST 26 (17-59) U/L ALT 51 H (4-49) U/L Alkaline Phosphatase 157 H (38-126) U/L Troponin I <0.012 (0.000-0.034) ng/mL Total Protein 6.1 L (6.3-8.2) g/dL Albumin 3.8 (3.5-5.0) g/dL Amylase 61 (30-110) U/L Lipase 86 (23-300) U/L Disposition Clinical Impression: Chronic abdominal pain Disposition: HOME SELF-CARE Condition: Stable Instructions (If sedation given, give patient instructions): Abdominal Pain (ED) Additional Instructions: Follow-up with your surgeon as directed.Please return to the Emergency Department if symptoms worsen or any other concerns. Prescriptions: Ondansetron Odt [Zofran Odt] 4 mg PO Q8HR PRN #10 tab PRN Reason: Nausea Is patient prescribed a controlled substance at d/c from ED?: No Referrals: Huma Sorai MD [Primary Care Provider] - 1-2 days Time of Disposition: 08:41
[2022-01-19] MEDS ORDERED: MAG HYDROX/AL HYDROX/SIMETH 30 ML, HYOSCYAMINE ELIXIR 10 ML, LIDOCAINE VISCOUS 2% 10 ML PO STA ×3 (07:50)
[2022-01-19 08:00] LABS: Basophils % (A) 1 %; Eosinophils % (A) 1 %; HCT 38.9 % (39.0-53.0); HGB 12.7 gm/dL (13.0-17.5); Lymphocytes # (A) 1.6 k/uL (1.0-4.8); Lymphocytes % (A) 26 %; MCH 29.7 pg (25.0-35.0); MCHC 32.7 g/dL (31.0-37.0); MCV 90.9 fL (80.0-100.0); Monocytes # (A) 0.4 k/uL (0-1.0); Monocytes % (A) 6 %; Neutrophils % (A) 64 %; Platelet Count 282 k/uL (150-450); RBC 4.28 m/uL (4.30-5.90); RDW 14.1 % (11.5-15.5); WBC 6.2 k/uL (3.8-10.6)
[2022-01-19 08:09] LABS: ALT 51 U/L (4-49); AST 26 U/L (17-59); African American GFR (CKD) >90 (>60 ml/min/1.73 sqM); Albumin 3.8 g/dL (3.5-5.0); Alkaline Phosphatase 157 U/L (38-126); Amylase 61 U/L (30-110); Anion Gap 9 mmol/L; Blood Urea Nitrogen 9 mg/dL (9-20); Calcium 8.8 mg/dL (8.4-10.2); Carbon Dioxide 29 mmol/L (22-30); Chloride 101 mmol/L (98-107); Glucose 83 mg/dL (74-99); Lipase 86 U/L (23-300); Non-African American GFR(CKD) >90 (>60 ml/min/1.73 sqM); Potassium 3.4 mmol/L (3.5-5.1); Sodium 139 mmol/L (137-145); Total Bilirubin 0.3 mg/dL (0.2-1.3); Total Protein 6.1 g/dL (6.3-8.2)
[2022-01-19] MEDS ORDERED: KETOROLAC 15 MG/ML 1 ML VIAL IVP STA (08:32)
[2022-01-19 09:08] VITALS: BP 132/84; PULSE 84; RESP 18
== END 2022-01-19 09:08 | disposition home or self-care (01) ==
LOC: EC 05:19
DX: R10.12 Left upper quadrant pain (principal); G89.29 Other chronic pain; K21.9 Gastro-esophageal reflux disease without esophagitis; Z91.040 Latex allergy status; Z88.5 Allergy status to narcotic agent; Z98.84 Bariatric surgery status
CPT/HCPCS: 36415; 93005; 80053; 82150; 83690; 84484; 85025; 99284; 96374; 96375; 96361; J1200; J1885; J1790

== ENCOUNTER 2022-03-03 07:04 | Emergency (ER) | payer OTHER ==
[2022-03-03 07:10] VITALS: TEMP 98.2
[2022-03-03] MEDS ORDERED: SODIUM CHLORIDE 0.9% 1,000 ML IV STA (07:28)
[2022-03-03 08:12] LABS: Basophils # (A) 0.1 k/uL (0-0.2); Basophils % (A) 1 %; Eosinophils # (A) 0.1 k/uL (0-0.7); Eosinophils % (A) 1 %; HCT 39.7 % (39.0-53.0); HGB 13.7 gm/dL (13.0-17.5); Lymphocytes # (A) 1.1 k/uL (1.0-4.8); Lymphocytes % (A) 29 %; MCH 30.8 pg (25.0-35.0); MCHC 34.4 g/dL (31.0-37.0); MCV 89.5 fL (80.0-100.0); Mean Platelet Volume 8.1; Monocytes # (A) 0.2 k/uL (0-1.0); Monocytes % (A) 7 %; Neutrophils # (A) 2.2 k/uL (1.3-7.7); Neutrophils % (A) 60 %; Platelet Count 223 k/uL (150-450); RBC 4.44 m/uL (4.30-5.90); RDW 13.4 % (11.5-15.5); WBC 3.7 k/uL (3.8-10.6)
[2022-03-03 08:28] LABS: Partial Thromboplastin Time 18.3 sec (22.0-30.0); Prothrombin Time 10.6 sec (9.0-12.0)
[2022-03-03 08:31] LABS: ALT 25 U/L (4-49); AST 28 U/L (17-59); African American GFR (CKD) >90 (>60 ml/min/1.73 sqM); Albumin 4.4 g/dL (3.5-5.0); Alkaline Phosphatase 95 U/L (38-126); Anion Gap 10 mmol/L; Blood Urea Nitrogen 16 mg/dL (9-20); Calcium 9.4 mg/dL (8.4-10.2); Carbon Dioxide 23 mmol/L (22-30); Chloride 105 mmol/L (98-107); Glucose 96 mg/dL (74-99); Magnesium 2.2 mg/dL (1.6-2.3); Non-African American GFR(CKD) >90 (>60 ml/min/1.73 sqM); Potassium 4.3 mmol/L (3.5-5.1); Sodium 138 mmol/L (137-145); Total Bilirubin 0.5 mg/dL (0.2-1.3); Total Protein 6.9 g/dL (6.3-8.2)
--- NOTE | 2022-03-03 08:35 | ED ---
General Adult HPI - General Chief complaint: Arrhythmia/Palpitations Stated complaint: Chest Pain, Arm Pain, Heart Palpitations, Time Seen by Provider: 03/03/22 07:11 Source: patient Mode of arrival: ambulatory Limitations: no limitations - History of Present Illness Initial comments: 41-year-old male with past medical history of A. fib, chronic abdominal pain status post Avery-en-Y who presents to the emergency department with palpitations. States that he has had palpitations since Monday and believes he is in A. fib. He takes metoprolol for rate control. Denies being on a blood thinner. He denies any chest pain. Admits to associated nausea no recent medication changes. Denies fevers or chills. Patient does have chronic abdominal pain. No history of coronary disease. No other alleviating, precipitating or modifying factors - Related Data Home Medications Medication Instructions Recorded Confirmed Metoprolol Tartrate [Lopressor] 12.5 mg PO BID 11/25/21 03/03/22 traZODone HCL 600 mg PO HS 11/25/21 03/03/22 Ondansetron Odt [Zofran Odt] 8 mg PO Q8H PRN 12/31/21 03/03/22 Cyclobenzaprine [Flexeril] 10 mg PO HS PRN 01/02/22 03/03/22 Dicyclomine [Bentyl] 10 mg PO QID PRN 01/02/22 03/03/22 Eszopiclone [Lunesta] 2 mg PO HS 03/03/22 03/03/22 Metoclopramide HCl [Reglan] 5 mg PO TID PRN 03/03/22 03/03/22 Omeprazole 20 mg PO DAILY 03/03/22 03/03/22 Allergies Allergy/AdvReac Type Severity Reaction Status Date / Time latex Allergy Rash/Hives Verified 03/03/22 09:08 meperidine [From Demerol] Allergy Rash/Hives Verified 03/03/22 09:08 Review of Systems ROS Statement: Those systems with pertinent positive or pertinent negative responses have been documented in the HPI. ROS Other: All systems not noted in ROS Statement are negative. Past Medical History Past Medical History: Atrial Fibrillation, GERD/Reflux Additional Past Medical History / Comment(s): Pt states difficulty with abdominal pain/nausea and vomiting when eating since surgery for hiatal hernia/peg tube, afib during [facility] hospitalization for avery en Y/peg tube surgery, R shoulder dislocations, pt states recent EKG at Dr. Soria's office showed [place] at some time, chronic low back pain History of Any Multi-Drug Resistant Organisms: None Reported Past Surgical History: Appendectomy, Back Surgery, Cholecystectomy, Hernia Repair, Orthopedic Surgery, Tonsillectomy Additional Past Surgical History / Comment(s): Lysis of abdominal adhesions then transfetted to [facility] for [facility], peg tube insertion, EGD, diaphragmatic hernia repair, lumbar fusion, R shoulder arthroscopy, L shoulder fusion. Past Anesthesia/Blood Transfusion Reactions: No Reported Reaction Past Psychological History: No Psychological Hx Reported Smoking Status: Never smoker Past Alcohol Use History: None Reported Past Drug Use History: None Reported - Past Family History Mother Additional Family Medical History / Comment(s): Mother is , she had lupus. Father History Unknown: Yes Brother(s) Additional Family Medical History / Comment(s): autoimmune disorder General Exam Limitations: no limitations General appearance: alert, in no apparent distress Head exam: Present: atraumatic, normocephalic, normal inspection Eye exam: Present: normal appearance, PERRL, EOMI. Absent: scleral icterus, conjunctival injection, periorbital swelling ENT exam: Present: normal exam, mucous membranes moist Neck exam: Present: normal inspection. Absent: tenderness, meningismus, lymphadenopathy Respiratory exam: Present: normal lung sounds bilaterally. Absent: respiratory distress, wheezes, rales, rhonchi, stridor Cardiovascular Exam: Present: regular rate, normal rhythm, normal heart sounds. Absent: systolic murmur, diastolic murmur, rubs, gallop, clicks GI/Abdominal exam: Present: soft, normal bowel sounds. Absent: distended, tenderness, guarding, rebound, rigid Extremities exam: Present: normal inspection, full ROM, normal capillary refill. Absent: tenderness, pedal edema, joint swelling, calf tenderness Back exam: Present: normal inspection Neurological exam: Present: alert, oriented X3, CN II-XII intact Psychiatric exam: Present: normal affect, normal mood Skin exam: Present: warm, dry, intact, normal color. Absent: rash Course Vital Signs 03/03/22 03/03/22 03/03/22 07:08 08:52 09:28 Temperature 98.2 F Pulse Rate 84 72 Pulse Rate [ 73 Sitting] Pulse Rate [ 84 Standing] Pulse Rate [ 73 Supine] Respiratory 16 18 Rate Blood Pressure 116/79 111/81 Blood Pressure 118/90 [Sitting] Blood Pressure 122/91 [Standing] Blood Pressure 120/87 [Supine] O2 Sat by Pulse 98 100 Oximetry 03/03/22 10:46 Temperature Pulse Rate 87 Pulse Rate [ Sitting] Pulse Rate [ Standing] Pulse Rate [ Supine] Respiratory 15 Rate Blood Pressure 122/93 Blood Pressure [Sitting] Blood Pressure [Standing] Blood Pressure [Supine] O2 Sat by Pulse 99 Oximetry EKG Findings - EKG Comments: EKG Findings:: EKG was interpreted by myself. Demonstrates a sinus rhythm with a rate of 83. AL interval 183. QRS 77. QTC of 388. Baseline artifact. No acute ST segment elevations or depressions Medical Decision Making - Medical Decision Making Upon arrival patient is placed in room 8. Thorough history and physical exam is performed. Patient placed on continuous pulse ox and cardiac monitoring. An EKG is obtained. IV is established and laboratory studies were conducted and reviewed. Chest x-ray is performed. Patient remains without signs of tachycardia or ectopy on child monitor. Patient requesting pain medications for his chronic pain. Patient given 1 dose the results are discussed patient. Orthostatics were performed. At this time the patient is stable for discharge home. Follow-up with associate professor of english monitoring. Follow up with his surgeon for his chronic epigastric pain and return for any new or worsening symptoms. Patient's agent telegrapher of the treatment plan and discharged home in stable condition - Lab Data Result diagrams: 03/03/22 07:36 03/03/22 07:36 Lab Results 03/03/22 03/03/22 03/03/22 Range/Units 07:36 07:36 07:36 WBC 3.7 L (3.8-10.6) k/uL RBC 4.44 (4.30-5.90) m/uL Hgb 13.7 (13.0-17.5) gm/dL Hct 39.7 (39.0-53.0) % MCV 89.5 (80.0-100.0) fL MCH 30.8 (25.0-35.0) pg MCHC 34.4 (31.0-37.0) g/dL RDW 13.4 (11.5-15.5) % Plt Count 223 (150-450) k/uL MPV 8.1 Neutrophils % 60 % Lymphocytes % 29 % Monocytes % 7 % Eosinophils % 1 % Basophils % 1 % Neutrophils # 2.2 (1.3-7.7) k/uL Lymphocytes # 1.1 (1.0-4.8) k/uL Monocytes # 0.2 (0-1.0) k/uL Eosinophils # 0.1 (0-0.7) k/uL Basophils # 0.1 (0-0.2) k/uL PT 10.6 (9.0-12.0) sec INR 1.0 (<1.2) APTT 18.3 L (22.0-30.0) sec Sodium 138 (137-145) mmol/L Potassium 4.3 (3.5-5.1) mmol/L Chloride 105 (98-107) mmol/L Carbon Dioxide 23 (22-30) mmol/L Anion Gap 10 mmol/L BUN 16 (9-20) mg/dL Creatinine 0.71 (0.66-1.25) mg/dL Est GFR (CKD-EPI)AfAm >90 (>60 ml/min/1.73 sqM) Est GFR (CKD-EPI)NonAf >90 (>60 ml/min/1.73 sqM) Glucose 96 (74-99) mg/dL POC Glucose (mg/dL) (70-110) mg/dL POC Glu Food Service Kitchen Supervisor ID Calcium 9.4 (8.4-10.2) mg/dL Magnesium 2.2 (1.6-2.3) mg/dL Total Bilirubin 0.5 (0.2-1.3) mg/dL AST 28 (17-59) U/L ALT 25 (4-49) U/L Alkaline Phosphatase 95 (38-126) U/L Troponin I (0.000-0.034) ng/mL Total Protein 6.9 (6.3-8.2) g/dL Albumin 4.4 (3.5-5.0) g/dL 03/03/22 03/03/22 Range/Units 07:36 08:51 WBC (3.8-10.6) k/uL RBC (4.30-5.90) m/uL Hgb (13.0-17.5) gm/dL Hct (39.0-53.0) % MCV (80.0-100.0) fL MCH (25.0-35.0) pg MCHC (31.0-37.0) g/dL RDW (11.5-15.5) % Plt Count (150-450) k/uL MPV Neutrophils % % Lymphocytes % % Monocytes % % Eosinophils % % Basophils % % Neutrophils # (1.3-7.7) k/uL Lymphocytes # (1.0-4.8) k/uL Monocytes # (0-1.0) k/uL Eosinophils # (0-0.7) k/uL Basophils # (0-0.2) k/uL PT (9.0-12.0) sec INR (<1.2) APTT (22.0-30.0) sec Sodium (137-145) mmol/L Potassium (3.5-5.1) mmol/L Chloride (98-107) mmol/L Carbon Dioxide (22-30) mmol/L Anion Gap mmol/L BUN (9-20) mg/dL Creatinine (0.66-1.25) mg/dL Est GFR (CKD-EPI)AfAm (>60 ml/min/1.73 sqM) Est GFR (CKD-EPI)NonAf (>60 ml/min/1.73 sqM) Glucose (74-99) mg/dL POC Glucose (mg/dL) 79 (70-110) mg/dL POC Glu Food Service Kitchen Supervisor ID Padilla, Rodolfo Calcium (8.4-10.2) mg/dL Magnesium (1.6-2.3) mg/dL Total Bilirubin (0.2-1.3) mg/dL AST (17-59) U/L ALT (4-49) U/L Alkaline Phosphatase (38-126) U/L Troponin I <0.012 (0.000-0.034) ng/mL Total Protein (6.3-8.2) g/dL Albumin (3.5-5.0) g/dL Disposition Clinical Impression: Chest pain, Palpitations Disposition: HOME SELF-CARE Condition: Stable Instructions (If sedation given, give patient instructions): Heart Palpitations (ED) Additional Instructions: Call and make an appointment with [facility]. You should have H olter monitoring if you feel that you are going into A. fib. Return for any new or worsening symptoms Is patient prescribed a controlled substance at d/c from ED?: No Referrals: Huma Soria MD [Primary Care Provider] - 1-2 days [facility] [Provider [facility]] - 1-2 days Time of Disposition: 09:27
[2022-03-03 08:51] LABS: Glucose,Whole Blood 79 mg/dL (70-110)
--- NOTE | 2022-03-03 08:53 | XR ---
EXAMINATION TYPE: XR chest 2V DATE OF EXAM: 03/03/2022 COMPARISON: Chest x-ray November 30, 2021 HISTORY: Dysrhythmia. TECHNIQUE: Frontal and lateral views of the chest are obtained. FINDINGS: Elevated left hemidiaphragm redemonstrated. Surgical clips project near left hilum on fron kayla view with suspected scarring near this level, less well seen on lateral view. Right lung is clear .. The cardiac silhouette size is stable and within normal limits. Surgical changes right humeral he ad is partially imaged. Advanced degenerative change left glenohumeral joint redemonstrated. IMPRESSION: Chronic changes without acute pulmonary process.
[2022-03-03] MEDS ORDERED: HYDROmorphone 1 MG/ML 1 ML SYRINGE IVP STA (09:18)
[2022-03-03] MEDS ORDERED: ONDANSETRON 4 MG/2 ML VIAL IVP STA (09:24)
[2022-03-03 10:47] VITALS: BP 122/93; PULSE 87; RESP 15
== END 2022-03-03 10:47 | disposition home or self-care (01) ==
LOC: EC 07:04
DX: R00.2 Palpitations (principal); I48.91 Unspecified atrial fibrillation; K21.9 Gastro-esophageal reflux disease without esophagitis; Z91.040 Latex allergy status; Z88.5 Allergy status to narcotic agent; Z79.899 Other long term (current) drug therapy
CPT/HCPCS: 36415; 93005; 80053; 83735; 84484; 85025; 85610; 85730; 71046; 99285; 96374; 96375; 96361; J2405; J1170

== ENCOUNTER 2022-03-13 14:02 | Emergency (ER) | payer OTHER ==
[2022-03-13 14:06] VITALS: TEMP 97.6
[2022-03-13] MEDS ORDERED: SODIUM CHLORIDE 0.9% 500 ML 500 ML IV STA (14:24)
[2022-03-13] MEDS ORDERED: ASPIRIN 81 MG PO STA (14:24)
[2022-03-13] MEDS ORDERED: NITROGLYCERIN SL TABS 0.4 MG TAB SUBLINGUAL STA (14:24)
--- NOTE | 2022-03-13 14:31 | ED ---
General Adult HPI - General Chief complaint: Chest Pain Stated complaint: chest pain Time Seen by Provider: 03/13/22 14:17 Source: patient, RN notes reviewed, old records reviewed Mode of arrival: ambulatory Limitations: no limitations - History of Present Illness Initial comments: 41-year-old non-toxic appearing male presents to the emergency room with complaints of sharp, tight, pressure in his chest since he woke up this morning. States that it became worse at [facility] and he did not feel well. Denies any nausea vomiting diarrhea. No cough. No fevers. States does have a history of A. fib, GERD, back pain, appendectomy, cholecystectomy, hernia repair with adhesions. Patient was seen in the hospital earlier this month and directed to follow up with cardiology but states he was unable to get an appointment. -: hour(s) Location: chest Radiation: neck (jaw) Severity scale (1-10): 10 Quality: constant, other (tight pressure) Consistency: constant Improves with: none Associated Symptoms: denies other symptoms - Related Data Home Medications Medication Instructions Recorded Confirmed Metoprolol Tartrate [Lopressor] 12.5 mg PO BID 11/25/21 03/03/22 traZODone HCL 600 mg PO HS 11/25/21 03/03/22 Ondansetron Odt [Zofran Odt] 8 mg PO Q8H PRN 12/31/21 03/03/22 Cyclobenzaprine [Flexeril] 10 mg PO HS PRN 01/02/22 03/03/22 Dicyclomine [Bentyl] 10 mg PO QID PRN 01/02/22 03/03/22 Eszopiclone [Lunesta] 2 mg PO HS 03/03/22 03/03/22 Metoclopramide HCl [Reglan] 5 mg PO TID PRN 03/03/22 03/03/22 Omeprazole 20 mg PO DAILY 03/03/22 03/03/22 Allergies Allergy/AdvReac Type Severity Reaction Status Date / Time latex Allergy Rash/Hives Verified 03/13/22 14:06 meperidine [From Demerol] Allergy Rash/Hives Verified 03/13/22 14:06 Review of Systems ROS Statement: Those systems with pertinent positive or pertinent negative responses have been documented in the HPI. ROS Other: All systems not noted in ROS Statement are negative. Past Medical History Past Medical History: Atrial Fibrillation, GERD/Reflux Additional Past Medical History / Comment(s): Pt states difficulty with abdominal pain/nausea and vomiting when eating since surgery for hiatal hernia/peg tube, afib during [facility] hospitalization for avery en Y/peg tube surgery, R shoulder dislocations, pt states recent EKG at Dr. Soria's office showed [place] at some time, chronic low back pain History of Any Multi-Drug Resistant Organisms: None Reported Past Surgical History: Appendectomy, Back Surgery, Cholecystectomy, Hernia Repair, Orthopedic Surgery, Tonsillectomy Additional Past Surgical History / Comment(s): Lysis of abdominal adhesions then transfetted to [facility] for [facility], peg tube insertion, EGD, diaphragmatic hernia repair, lumbar fusion, R shoulder arthroscopy, L shoulder fusion. Past Anesthesia/Blood Transfusion Reactions: No Reported Reaction Past Psychological History: No Psychological Hx Reported Smoking Status: Never smoker Past Alcohol Use History: None Reported Past Drug Use History: None Reported - Past Family History Mother Additional Family Medical History / Comment(s): Mother is , she had lupus. Father History Unknown: Yes Brother(s) Additional Family Medical History / Comment(s): autoimmune disorder General Exam Limitations: no limitations General appearance: alert, in no apparent distress Head exam: Present: atraumatic, normocephalic Eye exam: Absent: scleral icterus, conjunctival injection, periorbital swelling ENT exam: Present: mucous membranes moist Neck exam: Absent: meningismus Respiratory exam: Present: normal lung sounds bilaterally. Absent: respiratory distress, wheezes, rales, rhonchi, stridor, chest wall tenderness, accessory muscle use Cardiovascular Exam: Present: tachycardia GI/Abdominal exam: Present: soft. Absent: distended, tenderness, rigid Extremities exam: Present: normal capillary refill. Absent: pedal edema Back exam: Present: normal inspection. Absent: CVA tenderness (R), CVA tende rness (L), rash noted Neurological exam: Present: alert, oriented X3 Psychiatric exam: Present: normal affect, normal mood Skin exam: Present: warm, dry, normal color. Absent: cyanosis, diaphoretic, petechiae, pallor Course Vital Signs 03/13/22 03/13/22 03/13/22 14:03 15:16 16:27 Temperature 97.6 F Pulse Rate 124 H 84 61 Respiratory 20 15 15 Rate Blood Pressure 153/77 113/79 107/63 O2 Sat by Pulse 96 100 100 Oximetry EKG Findings - EKG Results: EKG: sinus rhythm EKG shows: tachycardia (Ventricular rate 105, OR interval 0.179, QRS 0.88, QTc 0.410; normal axis) Medical Decision Making - Medical Decision Making Patient presents with chest pain that started this morning and became worse while he was at [facility]. He states has history of atrial fibrillation is not taking any blood thinners. He was seen for same 03/03/22 and directed to follow up with cardiology on an outpatient basis. Patient states unable to get an appointment. Chest x-ray interpreted by me shows no evidence of focal consolidation. No cardiomegaly. Radiologist interpretation is scarring or atelectasis left lower lobe without change compared to old exam 10 days ago dated March 03 of this year. Labs show no evidence of leukocytosis. Hemoglobin and hematocrit are stable. Electrolytes are unremarkable. D-dimer is negative at 0.29. EKG shows sinus tachycardia with a rate of 105. No ST elevation Q-wave inversions. Troponin 0.012. Patient was given aspirin and sublingual nitro with no pain relief. He was give n Toradol for continued pain along with IV fluids. Vital signs are stable at discharge no tachycardia, no evidence of atrial fibrillation. Patient has been seen multiple times for chest pain. He was worked up in consult to cardiology was done November 26. He did have an echocardiogram on November 25 tissue showing ejection fraction of 60-65%. According to cardiology note 11/26/2021, patient was on a 30 day event monitor in October and stated was called by the company telling him he was having atrial fibrillation and significant tachycardia and directed to come to the emergency room at that time. Telemetry tracings from the event monitor did not reveal any atrial fibrillation. There is no EKG on file showing history of atrial fibrillation. He'll be directed to follow up with cardiology as recommended. Patient is agreeable to this plan of care. Case discussed with Dr. Ash - Lab Data Result diagrams: 03/13/22 15:10 03/13/22 15:10 Lab Results 03/13/22 03/13/22 03/13/22 Range/Units 15:10 15:10 15:10 WBC 4.4 (3.8-10.6) k/uL RBC 4.38 (4.30-5.90) m/uL Hgb 13.3 (13.0-17.5) gm/dL Hct 40.1 (39.0-53.0) % MCV 91.7 (80.0-100.0) fL MCH 30.4 (25.0-35.0) pg MCHC 33.2 (31.0-37.0) g/dL RDW 13.6 (11.5-15.5) % Plt Count 248 (150-450) k/uL MPV 8.3 Neutrophils % 64 % Lymphocytes % 28 % Monocytes % 6 % Eosinophils % 0 % Basophils % 1 % Neutrophils # 2.8 (1.3-7.7) k/uL Lymphocytes # 1.2 (1.0-4.8) k/uL Monocytes # 0.3 (0-1.0) k/uL Eosinophils # 0.0 (0-0.7) k/uL Basophils # 0.0 (0-0.2) k/uL PT 10.9 (9.0-12.0) sec INR 1.0 (<1.2) APTT 18.7 L (22.0-30.0) sec D-Dimer 0.29 (<0.60) mg/L FEU Sodium 142 (137-145) mmol/L Potassium 3.7 (3.5-5.1) mmol/L Chloride 108 H (98-107) mmol/L Carbon Dioxide 24 (22-30) mmol/L Anion Gap 10 mmol/L BUN 10 (9-20) mg/dL Creatinine 0.64 L (0.66-1.25) mg/dL Est GFR (CKD-EPI)AfAm >90 (>60 ml/min/1.73 sqM) Est GFR (CKD-EPI)NonAf >90 (>60 ml/min/1.73 sqM) Glucose 118 H (74-99) mg/dL Calcium 9.1 (8.4-10.2) mg/dL Magnesium 2.1 (1.6-2.3) mg/dL Total Bilirubin 0.3 (0.2-1.3) mg/dL AST 26 (17-59) U/L ALT 22 (4-49) U/L Alkaline Phosphatase 86 (38-126) U/L Troponin I (0.000-0.034) ng/mL Total Protein 6.8 (6.3-8.2) g/dL Albumin 4.4 (3.5-5.0) g/dL 03/13/22 Range/Units 15:10 WBC (3.8-10.6) k/uL RBC (4.30-5.90) m/uL Hgb (13.0-17.5) gm/dL Hct (39.0-53.0) % MCV (80.0-100.0) fL MCH (25.0-35.0) pg MCHC (31.0-37.0) g/dL RDW (11.5-15.5) % Plt Count (150-450) k/uL MPV Neutrophils % % Lymphocytes % % Monocytes % % Eosinophils % % Basophils % % Neutrophils # (1.3-7.7) k/uL Lymphocytes # (1.0-4.8) k/uL Monocytes # (0-1.0) k/uL Eosinophils # (0-0.7) k/uL Basophils # (0-0.2) k/uL PT (9.0-12.0) sec INR (<1.2) APTT (22.0-30.0) sec D-Dimer (<0.60) mg/L FEU Sodium (137-145) mmol/L Potassium (3.5-5.1) mmol/L Chloride (98-107) mmol/L Carbon Dioxide (22-30) mmol/L Anion Gap mmol/L BUN (9-20) mg/dL Creatinine (0.66-1.25) mg/dL Est GFR (CKD-EPI)AfAm (>60 ml/min/1.73 sqM) Est GFR (CKD-EPI)NonAf (>60 ml/min/1.73 sqM) Glucose (74-99) mg/dL Calcium (8.4-10.2) mg/dL Magnesium (1.6-2.3) mg/dL Total Bilirubin (0.2-1.3) mg/dL AST (17-59) U/L ALT (4-49) U/L Alkaline Phosphatase (38-126) U/L Troponin I <0.012 (0.000-0.034) ng/mL Total Protein (6.3-8.2) g/dL Albumin (3.5-5.0) g/dL Disposition Clinical Impression: Atypical chest pain Disposition: HOME SELF-CARE Condition: Good Instructions (If sedation given, give patient instructions): Chest Pain (ED) Additional Instructions: Today we completed a workup for your chest pain. Your EKG shows no acute changes and your labs show no area of concern. Your chest x-ray is clear. Continue your previously prescribed medications. Follow up with cardiology as recommended at your last emergency room visit. Return to the emergency room with any new or concerning symptoms. Is patient prescribed a controlled substance at d/c from ED?: No Referrals: Huma Soria MD [Primary Care Provider] - 1-2 days Dawit Rosas MD [STAFF PHYSICIAN] - 1-2 days Time of Disposition: 16:27
[2022-03-13 15:17] VITALS: RESP 15
[2022-03-13] MEDS ORDERED: NITROGLYCERIN SL TABS 0.4 MG TAB SUBLINGUAL PRN (15:18)
[2022-03-13 15:46] LABS: Basophils % (A) 1 %; Eosinophils % (A) 0 %; HCT 40.1 % (39.0-53.0); HGB 13.3 gm/dL (13.0-17.5); Lymphocytes # (A) 1.2 k/uL (1.0-4.8); Lymphocytes % (A) 28 %; MCH 30.4 pg (25.0-35.0); MCHC 33.2 g/dL (31.0-37.0); MCV 91.7 fL (80.0-100.0); Mean Platelet Volume 8.3; Monocytes # (A) 0.3 k/uL (0-1.0); Monocytes % (A) 6 %; Neutrophils # (A) 2.8 k/uL (1.3-7.7); Neutrophils % (A) 64 %; Platelet Count 248 k/uL (150-450); RBC 4.38 m/uL (4.30-5.90); RDW 13.6 % (11.5-15.5); WBC 4.4 k/uL (3.8-10.6)
--- NOTE | 2022-03-13 15:55 | XR ---
EXAMINATION TYPE: XR chest 2V DATE OF EXAM: 03/13/2022 COMPARISON: 03/03/2022 HISTORY: Chest pain TECHNIQUE: FINDINGS: Heart is normal. There is mild linear density left lower lobe. Right lung is clear. There i s right shoulder prosthesis. There are clips in the left midlung field. There are chest leads. Bony t horax is intact. IMPRESSION: There is some scarring or atelectasis left lower lobe without change compared to old exam .
[2022-03-13 15:59] LABS: ALT 22 U/L (4-49); AST 26 U/L (17-59); African American GFR (CKD) >90 (>60 ml/min/1.73 sqM); Albumin 4.4 g/dL (3.5-5.0); Alkaline Phosphatase 86 U/L (38-126); Anion Gap 10 mmol/L; Blood Urea Nitrogen 10 mg/dL (9-20); Calcium 9.1 mg/dL (8.4-10.2); Carbon Dioxide 24 mmol/L (22-30); Chloride 108 mmol/L (98-107); Glucose 118 mg/dL (74-99); Magnesium 2.1 mg/dL (1.6-2.3); Non-African American GFR(CKD) >90 (>60 ml/min/1.73 sqM); Potassium 3.7 mmol/L (3.5-5.1); Sodium 142 mmol/L (137-145); Total Bilirubin 0.3 mg/dL (0.2-1.3); Total Protein 6.8 g/dL (6.3-8.2)
[2022-03-13 16:01] LABS: Prothrombin Time 10.9 sec (9.0-12.0)
[2022-03-13] MEDS ORDERED: KETOROLAC 15 MG/ML 1 ML VIAL IVP STA (16:20)
[2022-03-13 16:42] LABS: Partial Thromboplastin Time 18.7 sec (22.0-30.0)
[2022-03-13 17:12] VITALS: BP 122/85; PULSE 66
== END 2022-03-13 17:19 | disposition home or self-care (01) ==
LOC: EC 14:02
DX: R07.89 Other chest pain (principal); I48.91 Unspecified atrial fibrillation; K21.9 Gastro-esophageal reflux disease without esophagitis; Z91.040 Latex allergy status; Z88.5 Allergy status to narcotic agent; Z79.899 Other long term (current) drug therapy; Z79.83 Long term (current) use of bisphosphonates
CPT/HCPCS: 36415; 93005; 85379; 80053; 83735; 84484; 85025; 85610; 85730; 71046; 99285; 96374; 96361; J1885

== ENCOUNTER 2022-07-11 12:55 | Emergency (ER) | payer OTHER ==
[2022-07-11 13:28] LABS: Basophils % (A) 1 %; Eosinophils # (A) 0.1 k/uL (0-0.7); Eosinophils % (A) 1 %; HCT 40.3 % (39.0-53.0); HGB 13.1 gm/dL (13.0-17.5); Lymphocytes # (A) 1.4 k/uL (1.0-4.8); Lymphocytes % (A) 30 %; MCH 28.7 pg (25.0-35.0); MCHC 32.4 g/dL (31.0-37.0); MCV 88.6 fL (80.0-100.0); Mean Platelet Volume 7.8; Monocytes # (A) 0.3 k/uL (0-1.0); Monocytes % (A) 6 %; Neutrophils # (A) 2.9 k/uL (1.3-7.7); Neutrophils % (A) 60 %; Platelet Count 232 k/uL (150-450); RBC 4.55 m/uL (4.30-5.90); RDW 13.4 % (11.5-15.5); WBC 4.8 k/uL (3.8-10.6)
--- NOTE | 2022-07-11 14:01 | XR ---
EXAMINATION TYPE: XR chest 2V DATE OF EXAM: 07/11/2022 COMPARISON: 03/13/2022, 02/07/2021, 06/26/2021 HISTORY: 41-year-old male left lower chest pain TECHNIQUE: PA and lateral views FINDINGS: Partially visualized fixation at the right humeral head. Surgical clips project at the posterior left chest wall. Some air lucency extends along the superior aspect of the medial left hemidiaphragm. Not seen on 02/07/2021. Heart normal size. No consolidation or pleural effusion. IMPRESSION: Postsurgical changes left hemithorax. There may be a small diaphragmatic hernia or eventration medial left base. This was present back to 06/26/2021 but not clearly seen on 02/07/2021. Otherwise, no acute process seen.
[2022-07-11 14:08] LABS: ALT 19 U/L (4-49); AST 22 U/L (17-59); African American GFR (CKD) >90 (>60 ml/min/1.73 sqM); Albumin 4.7 g/dL (3.5-5.0); Alkaline Phosphatase 95 U/L (38-126); Anion Gap 9 mmol/L; Blood Urea Nitrogen 15 mg/dL (9-20); Calcium 9.3 mg/dL (8.4-10.2); Carbon Dioxide 24 mmol/L (22-30); Chloride 108 mmol/L (98-107); Glucose 85 mg/dL (74-99); Non-African American GFR(CKD) >90 (>60 ml/min/1.73 sqM); Potassium 4.3 mmol/L (3.5-5.1); Sodium 141 mmol/L (137-145); Total Bilirubin 0.6 mg/dL (0.2-1.3); Total Protein 7.7 g/dL (6.3-8.2)
[2022-07-11] MEDS ORDERED: IOPAMIDOL CONTRAST (ORAL USE) VIAL PO PRN (14:14)
[2022-07-11] MEDS ORDERED: HYDROmorphone 1 MG/ML 1 ML SYRINGE IVP STA ×2 (14:14→15:20)
[2022-07-11] MEDS ORDERED: SODIUM CHLORIDE 0.9% 1,000 ML IV STA (14:14)
[2022-07-11] MEDS ORDERED: FAMOTIDINE 20 MG/2 ML VIAL IV STA (14:14)
[2022-07-11] MEDS ORDERED: ONDANSETRON 4 MG/2 ML VIAL IVP STA (14:14)
--- NOTE | 2022-07-11 14:22 | ED ---
General Adult HPI - General Chief complaint: Abdominal Pain Stated complaint: ABD Pain Time Seen by Provider: 07/11/22 14:06 Source: patient, RN notes reviewed Mode of arrival: ambulatory Limitations: no limitations - History of Present Illness Initial comments: Patient is a pleasant 41-year-old male presenting to the emergency department with concerns for abdominal discomfort. Onset of symptoms was a couple of days ago. Patient has decreased appetite. Discomfort is epigastric however does start to radiate a little towards the chest. Patient does have history of similar symptoms previously associated with his post bariatric surgical state. Patient had stomach stapling done several years ago. This procedure was done at [facility]. - Related Data Home Medications Medication Instructions Recorded Confirmed Metoprolol Tartrate [Lopressor] 12.5 mg PO BID 11/25/21 04/07/22 traZODone HCL 600 mg PO HS 11/25/21 04/07/22 Ondansetron Odt [Zofran Odt] 8 mg PO Q8H PRN 12/31/21 04/07/22 Cyclobenzaprine [Flexeril] 10 mg PO HS PRN 01/02/22 04/07/22 Dicyclomine [Bentyl] 10 mg PO QID PRN 01/02/22 04/07/22 Eszopiclone [Lunesta] 2 mg PO HS 03/03/22 04/07/22 Omeprazole 20 mg PO DAILY 03/03/22 04/07/22 Allergies Allergy/AdvReac Type Severity Reaction Status Date / Time latex Allergy Rash/Hives Verified 07/11/22 13:03 meperidine [From Demerol] Allergy Rash/Hives Verified 07/11/22 13:03 Review of Systems ROS Statement: Those systems with pertinent positive or pertinent negative responses have been documented in the HPI. ROS Other: All systems not noted in ROS Statement are negative. Constitutional: Denies: fever Eyes: Denies: eye pain ENT: Denies: ear pain Respiratory: Denies: dyspnea Cardiovascular: Denies: palpitations Endocrine: Denies: fatigue Gastrointestinal: Reports: as per HPI, abdominal pain, nausea Genitourinary: Denies: dysuria Musculoskeletal: Denies: back pain Skin: Denies: rash Neurological: Denies: weakness Past Medical History Past Medical History: Atrial Fibrillation, GERD/Reflux, Hypertension Additional Past Medical History / Comment(s): Pt states difficulty with abdominal pain/nausea and vomiting when eating since surgery for hiatal hernia/peg tube insertion.States afib during his hospitalization for jeannie en Y/ peg tube surgery, R shoulder dislocations, pt states recent EKG at Dr. Soria's office showed UT at some time, chronic low back pain. Removal of Peg Tube. States having dizziness. See Dr. Harris's H&P. History of Any Multi-Drug Resistant Organisms: None Reported Past Surgical History: Appendectomy, Back Surgery, Cholecystectomy, Hernia Repair, Orthopedic Surgery, Tonsillectomy Additional Past Surgical History / Comment(s): Lysis of abdominal adhesions then Jeannie en Y, peg tube insertion, EGD, diaphragmatic hernia repair, lumbar fusion, R shoulder arthroscopy, L shoulder fusion. States his hernia was attached to his stomach wall and this is why all the surgery. See Dr. Harris's H&P. Past Anesthesia/Blood Transfusion Reactions: No Reported Reaction Past Psychological History: No Psychological Hx Reported Smoking Status: Never smoker Past Alcohol Use History: None Reported Past Drug Use History: None Reported - Past Family History Mother Additional Family Medical History / Comment(s): Mother is , she had lupus. Father History Unknown: Yes Brother(s) Additional Family Medical History / Comment(s): autoimmune disorder General Exam Limitations: no limitations General appearance: alert, in no apparent distress Head exam: Present: normocephalic Eye exam: Present: normal appearance Neck exam: Present: normal inspection Respiratory exam: Present: normal lung sounds bilaterally Cardiovascular Exam: Present: regular rate, normal rhythm GI/Abdominal exam: Present: soft, tenderness (Mild to moderate epigastric tenderness to palpation), normal bowel sounds. Absent: guarding, rebound, rigid, pulsatile mass Extremities exam: Present: normal inspection. Absent: pedal edema, calf tenderness Neurological exam: Present: alert Psychiatric exam: Present: normal affect, normal mood Skin exam: Present: normal color Course Vital Signs 07/11/22 07/11/22 13:01 15:19 Temperature 98.4 F Pulse Rate 63 56 L Respiratory 20 18 Rate Blood Pressure 145/78 146/69 O2 Sat by Pulse 99 100 Oximetry EKG Findings - EKG Results: EKG: interpreted by ERMD, sinus rhythm, normal axis, normal QRS, normal ST/T Medical Decision Making - Medical Decision Making Was pt. sent in by a medical professional or institution (, BERNARDA, LAW FIRM RECEPTIONIST, urgent care, hospital, or [facility]...) When possible be specific @ -No Did you speak to anyone other than the patient for history (EMS, parent, family, police, friend...)? What history was obtained from this source @ -No Did you review nursing and triage notes (agree or disagree)? Why? @ -I reviewed and agree with nursing and triage notes Were old charts reviewed (outside hosp., previous admission, EMS record, old EKG, old radiological studies, urgent care reports/EKG's, [facility] records)? Report findings @ -No old charts were reviewed Differential Diagnosis (chest pain, altered mental status, abdominal pain women, abdominal pain men, vaginal bleeding, weakness, fever, dyspnea, syncope, headache, dizziness, GI bleed, back pain, seizure, CVA, palpatations, mental health)? @ -Differential Abdominal Pain Men: Appendicitis, cholecystitis, diverticulosis, ischemic bowel, pancreatitis, hepatitis, UTI, gastroenteritis, AAA, incarcerated hernia, bowel obstruction, constipation, inflammatory bowel, hepatitis, peptic ulcer disease, splenic infarction, perforated viscus, testicular torsion, this is not meant to be an all-inclusive list EKG interpreted by me (3pts min.). @ -As above X-rays interpreted by me (1pt min.). @ -None done CT interpreted by me (1pt min.). @ -Report reviewed U/S interpreted by me (1pt. min.). @ -None done What testing was considered but not performed or refused? (CT, X-rays, U/S, labs)? Why? @ -None What meds were considered but not given or refused? Why? @ -None Did you discuss the management of the patient with other professionals (professionals i.e. , BERNARDA, LAW FIRM RECEPTIONIST, lab, RT, psych nurse, social worker delinquency prevention, toe stripper, teacher, technology officer, case advocate)? Give summary @ -Case was discussed with Dr. Kirkland who states patient does need to follow- up with his surgeon for probable procedure or stretching. Was smoking cessation discussed for >3mins.? @ -No Was critical care preformed (if so, how long)? @ -No Were there social determinants of health that impacted care today? How? (Homelessness, low income, unemployed, alcoholism, drug addiction, tr ansportation, low edu. Level, literacy, decrease access to med. care, long-term, rehab)? @ -No Was there de-escalation of care discussed even if they declined (Discuss DNR or withdrawal of care, Hospice)? DNR status @ -No What co-morbidities impacted this encounter? (DM, HTN, Smoking, COPD, CAD, Cancer, CVA, ARF, Chemo, Hep., AIDS, mental health diagnosis, sleep apnea, morbid obesity)? @ -None Was patient admitted / discharged? Hospital course, mention meds given and route, prescriptions, significant lab abnormalities, going to OR and other pertinent info. @ -Patient reevaluated and updated. Patient offered transfer however he refuses stating he will follow-up on his own. Undiagnosed new problem with uncertain prognosis? @ -No Drug Therapy requiring intensive monitoring for toxicity (Heparin, Nitro, In sulin, Cardizem)? @ -No Were any procedures done? @ -No Diagnosis/symptom? @ -[Esophageal stenosis Acute, or Chronic, or Acute on Chronic? @ -Acute Uncomplicated (without systemic symptoms) or Complicated (systemic symptoms)? @ -default Side effects of treatment? @ -No Exacerbation, Progression, or Severe Exacerbation? @ -No Poses a threat to life or bodily function? How? (Chest pain, USA, UT, pneumonia, PE, COPD, DKA, ARF, appy, cholecystitis, CVA, Diverticulitis, Homicidal, Suicidal, threat to staff... and all critical care pts) @ -No - Lab Data Result diagrams: 07/11/22 13:20 07/11/22 13:20 Lab Results 07/11/22 07/11/22 07/11/22 Range/Units 13:20 13:20 13:20 WBC 4.8 (3.8-10.6) k/uL RBC 4.55 (4.30-5.90) m/uL Hgb 13.1 (13.0-17.5) gm/dL Hct 40.3 (39.0-53.0) % MCV 88.6 (80.0-100.0) fL MCH 28.7 (25.0-35.0) pg MCHC 32.4 (31.0-37.0) g/dL RDW 13.4 (11.5-15.5) % Plt Count 232 (150-450) k/uL MPV 7.8 Neutrophils % 60 % Lymphocytes % 30 % Monocytes % 6 % Eosinophils % 1 % Basophils % 1 % Neutrophils # 2.9 (1.3-7.7) k/uL Lymphocytes # 1.4 (1.0-4.8) k/uL Monocytes # 0.3 (0-1.0) k/uL Eosinophils # 0.1 (0-0.7) k/uL Basophils # 0.0 (0-0.2) k/uL Sodium 141 (137-145) mmol/L Potassium 4.3 (3.5-5.1) mmol/L Chloride 108 H (98-107) mmol/L Carbon Dioxide 24 (22-30) mmol/L Anion Gap 9 mmol/L BUN 15 (9-20) mg/dL Creatinine 0.79 (0.66-1.25) mg/dL Est GFR (CKD-EPI)AfAm >90 (>60 ml/min/1.73 sqM) Est GFR (CKD-EPI)NonAf >90 (>60 ml/min/1.73 sqM) Glucose 85 (74-99) mg/dL Calcium 9.3 (8.4-10.2) mg/dL Total Bilirubin 0.6 (0.2-1.3) mg/dL AST 22 (17-59) U/L ALT 19 (4-49) U/L Alkaline Phosphatase 95 (38-126) U/L Troponin I <0.012 (0.000-0.034) ng/mL Total Protein 7.7 (6.3-8.2) g/dL Albumin 4.7 (3.5-5.0) g/dL Disposition Clinical Impression: Esophageal stenosis Disposition: HOME SELF-CARE Condition: Stable Instructions (If sedation given, give patient instructions): Hiatal Hernia (ED), Esophageal Stricture (ED) Additional Instructions: Please do follow-up with your surgeon, as soon as tomorrow. If your having dif ficulty tolerating oral intake head directly to your surgeon. Computed tomography scan provided. Return for increased pain, vomiting, not tolerating fluids, worsening symptoms or other concerns. Is patient prescribed a controlled substance at d/c from ED?: No Referrals: Huma Soria MD [Primary Care Provider] - 1-2 days Time of Disposition: 15:48
--- NOTE | 2022-07-11 15:16 | CT ---
EXAMINATION TYPE: CT abdomen pelvis w con DATE OF EXAM: 07/11/2022 COMPARISON: Prior CT December 31, 2021 HISTORY: nausea, epigastric pain, h/o avery-en-y bypass procedure. CT DLP: 934.9 mGycm, Automated Exposure Control for Dose Reduction was Utilized. CONTRAST: CT scan of the abdomen and pelvis is performed with oral and with IV Contrast, patient injected with 100 mL of Isovue 370. FINDINGS: LUNG BASES: Focal mild posterior left basilar linear scarring is redemonstrated. LIVER/GB: Gallbladder is surgically absent. PANCREAS: No significant abnormality is seen. SPLEEN: No significant abnormality is seen. ADRENALS: No significant abnormality is seen. KIDNEYS: No significant abnormality is seen. BOWEL: Surgical changes from gastric bypass procedure are redemonstrated with herniated gastric remna nt above the diaphragm containing air-fluid level redemonstrated. Small gastric remnant below diaphra gm continues into anastomotic contrast filled small bowel loop. There are scattered small and large b owel loops throughout the remainder of the abdomen and pelvis. Mild wall thickening in portions of co logan could reflect product of uncomplicated colitis versus poor distention. No surrounding fat strandi ng is present. PROSTATE/SEMINAL VESICLES: No gross abnormality seen. LYMPH NODES: No greater than 1cm abdominal or pelvic lymph nodes are appreciated. OSSEOUS STRUCTURES: Postsurgical change lumbosacral junction is redemonstrated. Prominent Schmorl nod es superior L4 endplate redemonstrated. OTHER: No significant additional abnormality is seen. IMPRESSION: There is persistent hiatal hernia of the surgical gastric remnant. There may be focal annemarie nosis or narrowing near site of surgery as contrast is barely passing into anastomotic small bowel lo op. There is overall nonobstructive bowel gas pattern redemonstrated. Areas of mild uncomplicated col itis cannot be excluded. No significant change from most recent CT.
[2022-07-11 15:20] VITALS: RESP 18
[2022-07-11 15:53] LABS: Partial Thromboplastin Time 23.4 sec (22.0-30.0); Prothrombin Time 10.6 sec (9.0-12.0)
[2022-07-11 15:57] VITALS: BP 152/86; PULSE 84; TEMP 98.6
== END 2022-07-11 15:57 | disposition home or self-care (01) ==
LOC: EC 12:55
DX: K22.2 Esophageal obstruction (principal); I10 Essential (primary) hypertension; I48.91 Unspecified atrial fibrillation; K21.9 Gastro-esophageal reflux disease without esophagitis; Z79.899 Other long term (current) drug therapy; Z88.5 Allergy status to narcotic agent; Z91.040 Latex allergy status
CPT/HCPCS: 36415; 80053; 84484; 85025; 85610; 85730; 71046; 74177; 99285; 96374; 96375 ×2; 96376; 96361; J2405; J1170; Q9967

== ENCOUNTER 2022-07-11 22:29 | Emergency (ER) | payer OTHER ==
[2022-07-11 22:36] VITALS: RESP 18; TEMP 98.9
[2022-07-11] MEDS ORDERED: SODIUM CHLORIDE 0.9% 1,000 ML IV ONE (22:48)
[2022-07-11] MEDS ORDERED: PROCHLORPERAZINE INJ 10 MG/2 ML VIAL IVP STA (22:48)
[2022-07-11] MEDS ORDERED: diphenhydrAMINE 50 MG/ML 1 ML VIAL IVP STA (22:48)
[2022-07-11] MEDS ORDERED: HYDROmorphone 0.5 MG/0.5 ML SYRINGE IVP STA (22:48)
--- NOTE | 2022-07-11 22:53 | ED ---
General Adult HPI - General Chief complaint: Abdominal Pain Stated complaint: abd pain,vomiting Time Seen by Provider: 07/11/22 22:39 Source: patient Mode of arrival: wheelchair - History of Present Illness Initial comments: This is a 41-year-old male that is well-known to the emergency department presents emergency department once again for abdominal pain and intractable nausea and vomiting. The patient had been seen earlier in the day in the emergency department for abdominal pain with computed tomography scan was obtained and did show stenosis of his surgical site and it was recommended to transfer the patient to [facility] where he had his original procedure done however the patient was concerned about his job and would follow-up they're himself. The patient stated that when he arrived home he had continued intractable nausea and vomiting that began as well as continued abdominal pain. The patient stated that because of this EKG back to the emergency department and is now okay with being transferred to [facility]. The patient did request medications for his nausea and vomiting including asking for Dilaudid initially on arrival. The patient was vomiting on evaluation but his abdominal exam did not show any acute signs of peritonitis or surgical abdomen. The patient denied any fevers or chills as well as any other sick contacts. - Related Data Home Medications Medication Instructions Recorded Confirmed Metoprolol Tartrate [Lopressor] 12.5 mg PO BID 11/25/21 04/07/22 traZODone HCL 600 mg PO HS 11/25/21 04/07/22 Ondansetron Odt [Zofran Odt] 8 mg PO Q8H PRN 12/31/21 04/07/22 Cyclobenzaprine [Flexeril] 10 mg PO HS PRN 01/02/22 04/07/22 Dicyclomine [Bentyl] 10 mg PO QID PRN 01/02/22 04/07/22 Eszopiclone [Lunesta] 2 mg PO HS 03/03/22 04/07/22 Omeprazole 20 mg PO DAILY 03/03/22 04/07/22 Allergies Allergy/AdvReac Type Severity Reaction Status Date / Time latex Allergy Rash/Hives Verified 07/11/22 13:03 meperidine [From Demerol] Allergy Rash/Hives Verified 07/11/22 13:03 Review of Systems ROS Statement: Those systems with pertinent positive or pertinent negative responses have been documented in the HPI. ROS Other: All systems not noted in ROS Statement are negative. Past Medical History Past Medical History: Atrial Fibrillation, GERD/Reflux, Hypertension Additional Past Medical History / Comment(s): Pt states difficulty with abdominal pain/nausea and vomiting when eating since surgery for hiatal hernia/peg tube insertion.States afib during his hospitalization for jeannie en Y/peg tube surgery, R shoulder dislocations, pt states recent EKG at Dr. Soria's office showed PR at some time, chronic low back pain. Removal of Peg Tube. States having dizziness. See Dr. Harris's H&P. History of Any Multi-Drug Resistant Organisms: None Reported Past Surgical History: Appendectomy, Back Surgery, Cholecystectomy, Hernia Repair, Orthopedic Surgery, Tonsillectomy Additional Past Surgical History / Comment(s): Lysis of abdominal adhesions then Jeannie en Y, peg tube insertion, EGD, diaphragmatic hernia repair, lumbar fusion, R shoulder arthroscopy, L shoulder fusion. States his hernia was attached to his stomach wall and this is why all the surgery. See Dr. Harris's H&P. Past Anesthesia/Blood Transfusion Reactions: No Reported Reaction Past Psychological History: No Psychological Hx Reported Smoking Status: Never smoker Past Alcohol Use History: None Reported Past Drug Use History: None Reported - Past Family History Mother Additional Family Medical History / Comment(s): Mother is , she had lupus. Father History Unknown: Yes Brother(s) Additional Family Medical History / Comment(s): autoimmune disorder General Exam Limitations: no limitations General appearance: alert, in distress (Actively vomiting, complaining of abdominal pain) Head exam: Present: atraumatic, normocephalic, normal inspection Eye exam: Present: normal appearance, PERRL Pupils: Present: normal accommodation ENT exam: Present: normal exam, normal oropharynx, mucous membranes moist Neck exam: Present: normal inspection, full ROM Respiratory exam: Present: normal lung sounds bilaterally Cardiovascular Exam: Present: regular rate, normal rhythm, normal heart sounds GI/Abdominal exam: Present: soft, tenderness (Tenderness noted in the epigastric and left upper quadrant) Extremities exam: Present: normal inspection, full ROM Back exam: Present: normal inspection, full ROM Neurological exam: Present: alert, oriented X3, CN II-XII intact Psychiatric exam: Present: normal affect, normal mood Skin exam: Present: warm, dry Course Vital Signs 07/11/22 22:34 Temperature 98.9 F Pulse Rate 67 Respiratory 18 Rate Blood Pressure 133/68 O2 Sat by Pulse 100 Oximetry Medical Decision Making - Medical Decision Making Was pt. sent in by a medical professional or institution (BERNARDA Chacon, HARDWARE ENGINEERING MANAGER, urgent care, hospital, or jail...) When possible be specific @ -No Did you speak to anyone other than the patient for history (EMS, parent, family, police, friend...)? What history was obtained from this source @ -No Did you review nursing and triage notes (agree or disagree)? Why? @ -I reviewed and agree with nursing and triage notes Were old charts reviewed (outside hosp., previous admission, EMS record, old EKG, old radiological studies, urgent care reports/EKG's, jail records)? Report findings @ -Yes, previous note from the ER this morning was reviewed Differential Diagnosis (chest pain, altered mental status, abdominal pain women, abdominal pain men, vaginal bleeding, weakness, fever, dyspnea, syncope, headache, dizziness, GI bleed, back pain, seizure, CVA, palpatations, mental health)? @ -Postop complication, small bowel obstruction, intractable nausea and vomiting EKG interpreted by me (3pts min.). @ -None X-rays interpreted by me (1pt min.). @ -None done CT interpreted by me (1pt min.). @ -None done U/S interpreted by me (1pt. min.). @ -None done What testing was considered but not performed or refused? (CT, X-rays, U/S, labs)? Why? @ -Computed tomography scan was not obtained as he had a computed tomography scan less than 12 hours ago in emergency department this morning. What meds were considered but not given or refused? Why? @ -None Did you discuss the management of the patient with other professionals (professionals i.e. BERNARDA Chacon, HARDWARE ENGINEERING MANAGER, lab, RT, psych nurse, social service worker, director sales, teacher, fisheries officer, binder caser)? Give summary @ -Yes, transfer team at [facility] was contacted and the emergency department physician, Dr. Garcia was contacted and accepted the patient for transfer at [id number] Was smoking cessation discussed for >3mins.? @ -No Was critical care preformed (if so, how long)? @ -No Were there social determinants of health that impacted care today? How? (Homelessness, low income, unemployed, alcoholism, drug addiction, transportation, low edu. Level, literacy, decrease access to med. care, nursing home, rehab)? @ -No Was there de-escalation of care discussed even if they declined (Discuss DNR or withdrawal of care, Hospice)? DNR status @ -No What co-morbidities impacted this encounter? (DM, HTN, Smoking, COPD, CAD, Can cer, CVA, ARF, Chemo, Hep., AIDS, mental health diagnosis, sleep apnea, morbid obesity)? @ -Multiple previous admissions for abdominal pain, extensive abdominal surgery including Jeannie-en-Y, previous thoracotomy and hiatal hernia surgery with mesh Was patient admitted / discharged? Hospital course, mention meds given and route, prescriptions, significant lab abnormalities, going to OR and other pertinent info. @ -The patient was seen and evaluated emergency department. Physical exam, the patient was actively vomiting and acute distress secondary to abdominal pain. Vital signs were however within normal limits. The patient had a full workup obtained earlier today including a computed tomography scan. It was recommended to transfer to [facility] at that time however the patient refused. The patient did present back and was agreeable to transfer and did state that his pain was increasing as well as now having intractable nausea and vomiting. [facility] was also contacted for transfer and the emergency physician did accept the patient for transfer. The patient was agreeable to this plan and was transferred in stable condition. The patient did receive 0.5 mg of Dilaudid as well as Compazine and Benadryl for his intractable nausea and vomiting abdominal pain. Undiagnosed new problem with uncertain prognosis? @ -No Drug Therapy requiring intensive monitoring for toxicity (Heparin, Nitro, Insulin, Cardizem)? @ -No Were any procedures done? @ -No Diagnosis/symptom? @ -Intractable nausea and vomiting likely secondary to stenosis of the anastomosis surgical site. Acute, or Chronic, or Acute on Chronic? @ -Acute on chronic Uncomplicated (without systemic symptoms) or Complicated (systemic symptoms)? @ -Complicated Side effects of treatment? @ -No Exacerbation, Progression, or Severe Exacerbation? @ -No Poses a threat to life or bodily function? How? (Chest pain, USA, PR, pneumonia, PE, COPD, DKA, ARF, appy, cholecystitis, CVA, Diverticulitis, Homicidal, Suicidal, threat to staff... and all critical care pts) @ -No Disposition Clinical Impression: Intractable abdominal pain, Intractable nausea and vomiting, Post-operative complication Disposition: OTHER INSTITUTION NOT DEFINED Condition: Stable Is patient prescribed a controlled substance at d/c from ED?: No Referrals: Huma Soria MD [Primary Care Provider] - 1-2 days Time of Disposition: 22:45 - Out of Hospital Transfer - Req. Specs Out of Hospital Transfer - Requested Specifics: Other Emergency Center ([facility])
[2022-07-11 23:58] VITALS: BP 151/107; PULSE 50
[2022-07-12 00:19] LABS: Basophils # (A) 0.1 k/uL (0-0.2); Basophils % (A) 1 %; Eosinophils % (A) 0 %; HCT 39.2 % (39.0-53.0); HGB 12.8 gm/dL (13.0-17.5); Lymphocytes # (A) 0.7 k/uL (1.0-4.8); Lymphocytes % (A) 11 %; MCH 28.4 pg (25.0-35.0); MCHC 32.6 g/dL (31.0-37.0); MCV 87.1 fL (80.0-100.0); Mean Platelet Volume 8.2; Monocytes # (A) 0.4 k/uL (0-1.0); Monocytes % (A) 6 %; Neutrophils # (A) 5.4 k/uL (1.3-7.7); Neutrophils % (A) 81 %; Platelet Count 228 k/uL (150-450); RDW 13.5 % (11.5-15.5); WBC 6.6 k/uL (3.8-10.6)
[2022-07-12 00:44] LABS: ALT 333 U/L (4-49); AST 707 U/L (17-59); African American GFR (CKD) >90 (>60 ml/min/1.73 sqM); Albumin 4.7 g/dL (3.5-5.0); Alkaline Phosphatase 280 U/L (38-126); Anion Gap 13 mmol/L; Blood Urea Nitrogen 14 mg/dL (9-20); Calcium 9.6 mg/dL (8.4-10.2); Carbon Dioxide 20 mmol/L (22-30); Chloride 105 mmol/L (98-107); Glucose 129 mg/dL (74-99); Magnesium 1.8 mg/dL (1.6-2.3); Non-African American GFR(CKD) >90 (>60 ml/min/1.73 sqM); Potassium 4.1 mmol/L (3.5-5.1); Sodium 138 mmol/L (137-145); Total Bilirubin 1.4 mg/dL (0.2-1.3); Total Protein 7.6 g/dL (6.3-8.2)
[2022-07-12 00:51] LABS: Lipase 3590 U/L (23-300)
== END 2022-07-12 00:45 | disposition other institution (70) ==
LOC: EC 22:29
DX: G89.18 Other acute postprocedural pain (principal); R11.2 Nausea with vomiting, unspecified; I10 Essential (primary) hypertension; I48.91 Unspecified atrial fibrillation; K21.9 Gastro-esophageal reflux disease without esophagitis; Z79.899 Other long term (current) drug therapy; Z91.040 Latex allergy status; Z88.5 Allergy status to narcotic agent; Z90.49 Acquired absence of other specified parts of digestive tract
CPT/HCPCS: 36415; 80053; 83690; 83735; 85025; 99284; 96374; 96375 ×2; 96361; J1200; J0780; J1170

== ENCOUNTER → 2022-08-04 | Outpatient (CLI) | payer OTHER ==
[2022-08-05 03:56] LABS: African American GFR (CKD) 120.9 (60.0-200.0); Albumin 4.5 g/dL (3.8-4.9); Albumin/Globulin Ratio 1.64 (1.60-3.17); Anion Gap 11.3 mmol/L (10.00-18.00); BUN/Creat Ratio 14.7 Ratio (12.00-20.00); Blood Urea Nitrogen 13.3 mg/dL (9.0-27.0); Calcium 9.7 mg/dL (8.7-10.3); Carbon Dioxide 23.7 mmol/L (20.0-27.5); Globulin 2.8 g/dL (1.6-3.3); Non-African American GFR(CKD) 104.3 (60.0-200.0); Total Bilirubin 0.4 mg/dL (0.30-1.20); Total Protein 7.3 g/dL (6.2-8.2)
[2022-08-05 03:58] LABS: Basophils # (A) 0.03 X 10*3/uL (0.00-0.10); Basophils % (A) 0.9 %; Eosinophils # (A) 0.02 X 10*3/uL (0.04-0.35); Eosinophils % (A) 0.6 %; HCT 39.6 % (39.6-50.0); HGB 12.2 g/dL (13.0-17.0); Immature Grans, Automated 0.3 %; Lymphocytes # (A) 1.68 X 10*3/uL (0.90-5.00); Lymphocytes % (A) 48.4 %; MCH 27.3 pg (27.0-32.0); MCHC 30.8 g/dL (32.0-37.0); MCV 88.6 fL (80.0-97.0); Mean Platelet Volume 10.7 fL (9.5-12.2); Monocytes # (A) 0.23 X 10*3/uL (0.20-1.00); Monocytes % (A) 6.6 %; NRBC Per 100 WBC 0 /100 WBCS (0.0-0.0); Neutrophils % (A) 43.2 %; Platelet Count 272 X 10*3/uL (140-440); RBC 4.47 X 10*6/uL (4.40-5.60); RDW 14.2 % (11.5-14.5); WBC 3.47 X 10*3/uL (4.50-10.00)
== END | disposition home or self-care (01) ==
LOC: LABWHC1 16:06
PROVIDERS: ATTEND Nurse Practitioner Family
DX: R74.8 Abnormal levels of other serum enzymes (principal)
CPT/HCPCS: 36415; 80053; 82150; 83690; 85025

== ENCOUNTER 2022-10-02 13:59 | Observation (INO) | payer MEDICAID, OTHER ==
[2022-10-02 14:06] VITALS: TEMP 98
--- NOTE | 2022-10-02 14:13 | ED ---
Chest Pain HPI - General Source: patient Mode of arrival: ambulatory Limitations: no limitations <Anabella Taylor - Last Filed: 10/02/22 14:11> - General Source: patient, RN notes reviewed Mode of arrival: ambulatory Limitations: no limitations <Darnell Meza - Last Filed: 10/02/22 18:25> - General Chief Complaint: Chest Pain Stated Complaint: Chest pain Time Seen by Provider: 10/02/22 14:11 - History of Present Illness Initial Comments: Patient is a 42-year-old male presented to the emergency room with complaints of chest pain which is epigastric in nature and severe which began while he was eating salsa and chips approximately 20 minutes prior to his arrival to the emergency room. He reports a history of significant GERD and follows with gastroenterology out of [place]. He had a Avery-en-Y procedure completed at [place] by his gastroenterology team approximately 1 year ago. He reports that the chest pain is causing him to not be able to take in a deep breath consequently he is slightly short of breath. He reports nausea with vomiting. He denies any blood or coffee-ground emesis. He denies any diarrhea, headache, dizziness, diaphoresis, orthopnea, fevers or chills. He states that he was diagnosed with atrial fibrillation which was paroxysmal in the past at [place] but is not currently on any medication for atrial fibrillation including anticoagulants. He has a past medical history significant for hypertension. (Anabella Taylor) Patient is a pleasant 42-year-old male presenting to the emergency department with concerns with chest pain. Onset of symptoms was a couple hours ago eating. Discomfort feels like heaviness and remains persistent. Mild associated dyspnea. Patient does have nausea and did vomit once. No diaphoresis. Patient unclear if he has history of similar symptoms previous. Patient does have history of hiatal hernia however is not clear if this is similar. (Darnell Meza) - Related Data Home Medications Medication Instructions Recorded Confirmed traZODone HCL 300 mg PO HS 11/25/21 10/02/22 Eszopiclone [Lunesta] 3 mg PO HS 10/02/22 10/02/22 Allergies Allergy/AdvReac Type Severity Reaction Status Date / Time latex Allergy Rash/Hives Verified 10/02/22 17:47 meperidine [From Demerol] Allergy Rash/Hives Verified 10/02/22 17:47 Review of Systems ROS Other: All systems not noted in ROS Statement are negative. <Anabella Taylor - Last Filed: 10/02/22 14:11> ROS Other: All systems not noted in ROS Statement are negative. Constitutional: Denies: fever Eyes: Denies: eye pain ENT: Denies: ear pain Respiratory: Reports: as per HPI Cardiovascular: Reports: as per HPI, chest pain Endocrine: Denies: fatigue Gastrointestinal: Denies: abdominal pain Genitourinary: Denies: urgency Musculoskeletal: Denies: back pain Skin: Denies: rash Neurological: Denies: weakness <Darnell Meza - Last Filed: 10/02/22 18:25> ROS Statement: Those systems with pertinent positive or pertinent negative responses have been documented in the HPI. Past Medical History Past Medical History: Atrial Fibrillation, GERD/Reflux, Hypertension Additional Past Medical History / Comment(s): Pt states difficulty with abdominal pain/nausea and vomiting when eating since surgery for hiatal hernia/peg tube insertion.States afib during his hospitalization for avery en Y/peg tube surgery, R shoulder dislocations, pt states recent EKG at Dr. Soria's office showed UT at some time, chronic low back pain. Removal of Peg Tube. States having dizziness. See Dr. Harris's H&P. History of Any Multi-Drug Resistant Organisms: None Reported Past Surgical History: Appendectomy, Back Surgery, Cholecystectomy, Hernia Repair, Orthopedic Surgery, Tonsillectomy Additional Past Surgical History / Comment(s): Lysis of abdominal adhesions then Avery en Y, peg tube insertion, EGD, diaphragmatic hernia repair, lumbar fusion, R shoulder arthroscopy, L shoulder fusion. States his hernia was attached to his stomach wall and this is why all the surgery. See Dr. Harris's H&P. Past Anesthesia/Blood Transfusion Reactions: No Reported Reaction Past Psychological History: No Psychological Hx Reported Smoking Status: Never smoker Past Alcohol Use History: None Reported Past Drug Use History: None Reported - Past Family History Mother Additional Family Medical History / Comment(s): Mother is , she had lupus. Father History Unknown: Yes Brother(s) Additional Family Medical History / Comment(s): autoimmune disorder <Anabella Taylor - Last Filed: 10/02/22 14:11> General Exam Limitations: no limitations <Kody Taylora - Last Filed: 10/02/22 14:11> Limitations: no limitations General appearance: alert, in no apparent distress Head exam: Present: atraumatic Eye exam: Present: normal appearance Neck exam: Present: normal inspection Respiratory exam: Present: normal lung sounds bilaterally. Absent: chest wall tenderness Cardiovascular Exam: Present: regular rate, normal rhythm Expanded Peripheral pulses: 2+: Radial (R), Radial (L), Posterior Tibialis (R), Posterior Tibialis (L), Dorsalis Pedis (R), Dorsalis Pedis (L) GI/Abdominal exam: Present: soft. Absent: tenderness Extremities exam: Present: normal inspection. Absent: pedal edema, calf tenderness Neurological exam: Present: alert Psychiatric exam: Present: normal affect, normal mood Skin exam: Present: normal color <Darnell Meza - Last Filed: 10/02/22 18:25> - General Exam Comments Initial Comments: Visual Physical Exam Vital signs reviewed General: Well-appearing, nontoxic, no acute distress. Head: Normocephalic, atraumatic Eyes: PERRLA, EOMI ENT: Airway patent Chest: Nonlabored breathing Skin: No visual rash, normal skin tone Neuro: Alert and oriented 3 Musculoskeletal: No gross abnormalities (Anabella Taylor) Course <Darnell Meza - Last Filed: 10/02/22 18:25> Vital Signs 10/02/22 14:04 Temperature 98 F Pulse Rate 89 Respiratory 20 Rate Blood Pressure 113/73 O2 Sat by Pulse 99 Oximetry - Reevaluation(s) Reevaluation #1: 10/02/22 16:30 EKG interpreted by myself shows sinus rhythm with a rate of 90. Normal axis. Normal QRS. No acute ST change. (Darnell Meza) Chest Pain MDM <Darnell Meza - Last Filed: 10/02/22 18:25> - MDM Was pt. sent in by a medical professional or institution (Dr. PA, MULTI NEEDLE MACHINE OPERATOR, urgent care, hospital, or long-term...) When possible be specific @ -No Did you speak to anyone other than the patient for history (EMS, parent, family, police, friend...)? What history was obtained from this source @ -No Did you review nursing and triage notes (agree or disagree)? Why? @ -I reviewed and agree with nursing and triage notes Were old charts reviewed (outside hosp., previous admission, EMS record, old EKG, old radiological studies, urgent care reports/EKG's, long-term records)? Report findings @ -No old charts were reviewed Differential Diagnosis (chest pain, altered mental status, abdominal pain women, abdominal pain men, vaginal bleeding, weakness, fever, dyspnea, syncope, headache, dizziness, GI bleed, back pain, seizure, CVA, palpatations, mental health)? @ -Differential Chest Pain: Stable Angina, Unstable Angina, STEMI, NSTEMI Aortic Dissection, Pneumothorax, Musculoskeletal, Esophageal Spasm GERD, Cholecystitis, Pancreatitis, Zoster, this is not meant to be an all-inclusive list. EKG interpreted by me (3pts min.). @ -As above X-rays interpreted by me (1pt min.). @ -Chest x-ray shows no acute process CT interpreted by me (1pt min.). @ -None done U/S interpreted by me (1pt. min.). @ -None done What testing was considered but not performed or refused? (CT, X-rays, U/S, labs)? Why? @ -None What meds were considered but not given or refused? Why? @ -None Did you discuss the management of the patient with other professionals (professionals i.e. , PA, MULTI NEEDLE MACHINE OPERATOR, lab, RT, psych nurse, certified social workers in health care, overweaver, teacher, project officer, nurse case management)? Give summary @ -Case discussed with [facility] hospitalist will admit covered Dr. Soria Was smoking cessation discussed for >3mins.? @ -No Was critical care preformed (if so, how long)? @ -No Were there social determinants of health that impacted care today? How? (Homelessness, low income, unemployed, alcoholism, drug addiction, transportation, low edu. Level, literacy, decrease access to med. care, fpc, rehab)? @ -No Was there de-escalation of care discussed even if they declined (Discuss DNR or withdrawal of care, Hospice)? DNR status @ -No What co-morbidities impacted this encounter? (DM, HTN, Smoking, COPD, CAD, Cancer, CVA, ARF, Chemo, Hep., AIDS, mental health diagnosis, sleep apnea, morbid obesity)? @ -None Was patient admitted / discharged? Hospital course, mention meds given and route, prescriptions, significant lab abnormalities, going to OR and other pertinent info. @ -Patient reevaluated. Not much improvement with the initial round of medications. She will be tried with GI cocktail. Patient will be held for cardiac eval. Undiagnosed new problem with uncertain prognosis? @ -No Drug Therapy requiring intensive monitoring for toxicity (Heparin, Nitro, Insulin, Cardizem)? @ -No Were any procedures done? @ -No Diagnosis/symptom? @ -Chest pain Acute, or Chronic, or Acute on Chronic? @ -Acute Uncomplicated (without systemic symptoms) or Complicated (systemic symptoms)? @ -default Side effects of treatment? @ -No Exacerbation, Progression, or Severe Exacerbation? @ -No Poses a threat to life or bodily function? How? (Chest pain, USA, UT, pneumonia, PE, COPD, DKA, ARF, appy, cholecystitis, CVA, Diverticulitis, Homicidal, Suicidal, threat to staff... and all critical care pts) @ -No (Darnell Meza) Disposition <Anabella Taylor - Last Filed: 10/02/22 14:11> Is patient prescribed a controlled substance at d/c from ED?: No Time of Disposition: 18:25 <Darnell Meza - Last Filed: 10/02/22 18:25> Clinical Impression: Chest pain Disposition: ADMITTED IP TO THIS HOSP Referrals: Huma Soria MD [Primary Care Provider] - 1-2 days
[2022-10-02] MEDS ORDERED: PANTOPRAZOLE 40 MG/10 ML VIAL IVP STA (14:17)
--- NOTE | 2022-10-02 16:08 | XR ---
EXAMINATION TYPE: XR chest 2V DATE OF EXAM: 10/02/2022 COMPARISON: 07/11/2022 HISTORY: 42-year-old male with chest pain TECHNIQUE: PA and lateral views FINDINGS: Heart normal size. Aorta and pulmonary vasculature within normal limits. Redemonstrated moderate-size d hiatal hernia status post Jeannie-en-Y gastric bypass. Surgical clips related to prior left posterior eighth rib resection. Resurfacing right shoulder arthroplasty. No consolidation or pleural effusion seen. IMPRESSION: No acute cardiopulmonary process. Redemonstrated small to moderate sized hiatal hernia status post Ro ux-en-Y gastric bypass.
[2022-10-02 16:16] LABS: Basophils % (A) 0 %; Eosinophils # (A) 0.1 k/uL (0-0.7); Eosinophils % (A) 1 %; HCT 40.2 % (39.0-53.0); HGB 12.8 gm/dL (13.0-17.5); Lymphocytes # (A) 1.4 k/uL (1.0-4.8); Lymphocytes % (A) 14 %; MCH 27.6 pg (25.0-35.0); MCHC 31.8 g/dL (31.0-37.0); Mean Platelet Volume 7.7; Monocytes # (A) 0.7 k/uL (0-1.0); Monocytes % (A) 6 %; Neutrophils # (A) 8.1 k/uL (1.3-7.7); Neutrophils % (A) 78 %; Platelet Count 224 k/uL (150-450); RBC 4.62 m/uL (4.30-5.90); RDW 15.4 % (11.5-15.5); WBC 10.4 k/uL (3.8-10.6)
[2022-10-02 16:25] LABS: ALT 244 U/L (4-49); AST 566 U/L (17-59); African American GFR (CKD) >90 (>60 ml/min/1.73 sqM); Albumin 4.6 g/dL (3.5-5.0); Alkaline Phosphatase 146 U/L (38-126); Amylase 107 U/L (30-110); Anion Gap 11 mmol/L; Blood Urea Nitrogen 19 mg/dL (9-20); Carbon Dioxide 26 mmol/L (22-30); Chloride 105 mmol/L (98-107); Glucose 88 mg/dL (74-99); Lipase 235 U/L (23-300); Magnesium 2.1 mg/dL (1.6-2.3); Non-African American GFR(CKD) >90 (>60 ml/min/1.73 sqM); Potassium 4.1 mmol/L (3.5-5.1); Sodium 142 mmol/L (137-145); Total Bilirubin 0.6 mg/dL (0.2-1.3); Total Protein 7.8 g/dL (6.3-8.2)
[2022-10-02] MEDS ORDERED: ASPIRIN 81 MG PO STA (16:25)
[2022-10-02] MEDS ORDERED: NITROGLYCERIN SL TABS 0.4 MG TAB SUBLINGUAL STA (16:26)
[2022-10-02] MEDS ORDERED: NITROGLYCERIN SL TABS 0.4 MG TAB SUBLINGUAL PRN ×3 (16:26→18:26)
[2022-10-02 16:45] LABS: INR 0.9 (<1.2); Prothrombin Time 9.7 sec (9.0-12.0)
[2022-10-02 16:51] LABS: Partial Thromboplastin Time 20.8 sec (22.0-30.0)
[2022-10-02] MEDS ORDERED: MAG HYDROX/AL HYDROX/SIMETH 30 ML, HYOSCYAMINE ELIXIR 10 ML, LIDOCAINE 2% GLYDO JELLY 1... PO STA ×3 (18:23)
[2022-10-02 19:32] VITALS: BP 106/75; PULSE 49; RESP 22
[2022-10-02] MEDS ORDERED: MORPHINE SULFATE 4 MG/ML SYRINGE IVP STA (20:34)
[2022-10-03] MEDS ORDERED: NITROGLYCERIN OINT 1 INCH/GM PACKET TOPICAL SCH
[2022-10-03] MEDS ORDERED: ASPIRIN 325 MG TAB PO SCH (09:00)
== END 2022-10-02 20:48 | disposition left against medical advice (07) ==
LOC: EC 13:59 → 6NMEDSUR 18:26
PROVIDERS: ADMIT Internal Medicine; ATTEND Internal Medicine
DX: R07.89 Other chest pain (principal); I48.0 Paroxysmal atrial fibrillation; K21.9 Gastro-esophageal reflux disease without esophagitis; K44.9 Diaphragmatic hernia without obstruction or gangrene; I10 Essential (primary) hypertension; R11.2 Nausea with vomiting, unspecified; Z53.29 Procedure and treatment not carried out because of patient's decision for other reasons; G89.29 Other chronic pain; M54.50 Low back pain, unspecified; Z88.5 Allergy status to narcotic agent; Z91.040 Latex allergy status; Z90.49 Acquired absence of other specified parts of digestive tract; Z98.1 Arthrodesis status; Z98.84 Bariatric surgery status
CPT/HCPCS: 96374; 99285; 36415; 93005; 85379; 80053; 82150; 83690; 83735; 84484; 85025; 85610; 85730; 71046; G0378; C9113

== ENCOUNTER 2022-12-22 09:41 | Emergency (ER) | payer MEDICAID, OTHER ==
[2022-12-22] MEDS ORDERED: METOCLOPRAMIDE 5 MG/ML 2 ML VIAL IVP STA (10:15)
--- NOTE | 2022-12-22 11:25 | XR ---
EXAMINATION TYPE: XR chest 2V DATE OF EXAM: 12/22/2022 COMPARISON: 10/02/2022 TECHNIQUE: PA and lateral views submitted. HISTORY: Chest pain FINDINGS: The lungs are clear and there is no pneumothorax, pleural effusion, or focal pneumonia. Heart size normal and no overt failure. Postsurgical changes right shoulder. There is fusion of the left shoulde r. Left lower lobe subsegmental consolidation. There is a small hiatal hernia. IMPRESSION: 1. No acute process. Small hiatal hernia. Suspect the retrocardiac density is most likely related to the hiatal hernia rather than pneumonia and the finding is similar to the prior exam. Correlate clini estela.
[2022-12-22 11:40] VITALS: RESP 16
--- NOTE | 2022-12-22 12:13 | ED ---
Chest Pain HPI - General Chief Complaint: Chest Pain Stated Complaint: chest pain Time Seen by Provider: 12/22/22 09:58 Source: patient, RN notes reviewed Mode of arrival: ambulatory Limitations: no limitations - History of Present Illness Initial Comments: 42-year-old male presents emergency Department with chief complaint of chest pain, epigastric discomfort. This is an ongoing chronic problem patient states that bothers him every once in a while. Patient states that he has a hiatal hernia and which she had a prior repair but has recurred. Patient denies any fevers or chills he states he has some nausea and vomiting. Patient states he isn't current and antacids. Denies any back pain no other associated symptoms. - Related Data Home Medications Medication Instructions Recorded Confirmed traZODone HCL 300 mg PO HS 11/25/21 12/22/22 Eszopiclone [Lunesta] 3 mg PO HS 10/02/22 12/22/22 Famotidine [Pepcid] 20 mg PO DAILY 12/22/22 12/22/22 Omeprazole 20 mg PO DAILY 12/22/22 12/22/22 Allergies Allergy/AdvReac Type Severity Reaction Status Date / Time latex Allergy Rash/Hives Verified 12/22/22 09:52 meperidine [From Demerol] Allergy Rash/Hives Verified 12/22/22 09:52 Review of Systems ROS Statement: Those systems with pertinent positive or pertinent negative responses have been documented in the HPI. ROS Other: All systems not noted in ROS Statement are negative. EKG Findings - EKG Comments: EKG Findings:: EKG performed at 951 sinus bradycardia rate of 58 NV 197 QRS 102 QT/QTC 409/406 - EKG Results: EKG: interpreted by MARGARITO Past Medical History Past Medical History: Atrial Fibrillation, GERD/Reflux, Hypertension Additional Past Medical History / Comment(s): Pt states difficulty with abdominal pain/nausea and vomiting when eating since surgery for hiatal hernia/peg tube insertion.States afib during his hospitalization for jeannie en Y/peg tube surgery, R shoulder dislocations, pt states recent EKG at Dr. Soria's office showed [place] at some time, chronic low back pain. Removal of Peg Tube. States having dizziness. See Dr. Harris's H&P. History of Any Multi-Drug Resistant Organisms: None Reported Past Surgical History: Appendectomy, Back Surgery, Cholecystectomy, Hernia Repair, Orthopedic Surgery, Tonsillectomy Additional Past Surgical History / Comment(s): Lysis of abdominal adhesions then Jeannie en Y, peg tube insertion, EGD, diaphragmatic hernia repair, lumbar fusion, R shoulder arthroscopy, L shoulder fusion. States his hernia was attached to his stomach wall and this is why all the surgery. See Dr. Harris's H&P. Past Anesthesia/Blood Transfusion Reactions: No Reported Reaction Past Psychological History: No Psychological Hx Reported Smoking Status: Never smoker Past Alcohol Use History: None Reported Past Drug Use History: None Reported - Past Family History Mother Additional Family Medical History / Comment(s): Mother is , she had lupus. Father History Unknown: Yes Brother(s) Additional Family Medical History / Comment(s): autoimmune disorder General Exam Limitations: no limitations General appearance: alert, in no apparent distress Head exam: Present: atraumatic, normocephalic, normal inspection Eye exam: Present: normal appearance, PERRL, EOMI. Absent: scleral icterus, conjunctival injection, periorbital swelling ENT exam: Present: normal exam, normal oropharynx, mucous membranes moist Neck exam: Present: normal inspection, full ROM. Absent: tenderness, meningismus, lymphadenopathy Respiratory exam: Present: normal lung sounds bilaterally. Absent: respiratory distress, wheezes, rales, rhonchi, stridor Cardiovascular Exam: Present: regular rate, normal rhythm, normal heart sounds. Absent: systolic murmur, diastolic murmur, rubs, gallop, clicks GI/Abdominal exam: Present: soft, tenderness, normal bowel sounds. Absent: distended, guarding, rebound, rigid Back exam: Absent: CVA tenderness (R), CVA tenderness (L) Neurological exam: Present: alert Course Vital Signs 12/22/22 12/22/22 09:49 11:39 Temperature 98.3 F Pulse Rate 62 Respiratory 18 16 Rate Blood Pressure 104/67 O2 Sat by Pulse 100 Oximetry Chest Pain MDM - MDM Was pt. sent in by a medical professional or institution (, PA, CONTINUOUS PILLOWCASE CUTTER, urgent care, hospital, or long term...) When possible be specific @ -No Did you speak to anyone other than the patient for history (EMS, parent, family, police, friend...)? What history was obtained from this source @ -No Did you review nursing and triage notes (agree or disagree)? Why? @ -I reviewed and agree with nursing and triage notes Were old charts reviewed (outside hosp., previous admission, EMS record, old EKG, old radiological studies, urgent care reports/EKG's, long term records)? Report findings @ -Reviewed prior laboratory studies Differential Diagnosis (chest pain, altered mental status, abdominal pain women, abdominal pain men, vaginal bleeding, weakness, fever, dyspnea, syncope, headache, dizziness, GI bleed, back pain, seizure, CVA, palpatations, mental health, musculoskeletal)? @ -Differential Chest Pain: Stable Angina, Unstable Angina, STEMI, NSTEMI Aortic Dissection, Pneumothorax, Musculoskeletal, Esophageal Spasm GERD, Cholecystitis, Pancreatitis, Zoster, this is not meant to be an all-inclusive list. EKG interpreted by me (3pts min.). @ -As above X-rays interpreted by me (1pt min.). @ -Chest x-ray shows no acute processes. CT interpreted by me (1pt min.). @ -None done U/S interpreted by me (1pt. min.). @ -None done What testing was considered but not performed or refused? (CT, X-rays, U/S, labs)? Why? @ -None What meds were considered but not given or refused? Why? @ -None Did you discuss the management of the patient with other professionals (professionals i.e. , PA, CONTINUOUS PILLOWCASE CUTTER, lab, RT, psych nurse, social worker aide, adjunct instructor, teacher, access control officer, bilingual case manager)? Give summary @ -No Was smoking cessation discussed for >3mins.? @ -No Was critical care preformed (if so, how long)? @ -No Were there social determinants of health that impacted care today? How? (Homelessness, low income, unemployed, alcoholism, drug addiction, transportation, low edu. Level, literacy, decrease access to med. care, prison, rehab)? @ -No Was there de-escalation of care discussed even if they declined (Discuss DNR or withdrawal of care, Hospice)? DNR status @ -No What co-morbidities impacted this encounter? (DM, HTN, Smoking, COPD, CAD, Cancer, CVA, ARF, Chemo, Hep., AIDS, mental health diagnosis, sleep apnea, morbid obesity)? @ -None Was patient admitted / discharged? Hospital course, mention meds given and route, prescriptions, significant lab abnormalities, going to OR and other pertinent info. @ -[Discharged this is a chronic condition in nature patient has minimal elevated lipase, discharged otherwise unremarkable we discharged in stable condition return parameters were discussed. Undiagnosed new problem with uncertain prognosis? @ -No Drug Therapy requiring intensive monitoring for toxicity (Heparin, Nitro, Insulin, Cardizem)? @ -No Were any procedures done? @ -No Diagnosis/symptom? @ -Abdominal pain Acute, or Chronic, or Acute on Chronic? @ -Acute chronic Uncomplicated (without systemic symptoms) or Complicated (systemic symptoms)? @ -Uncomplicated Side effects of treatment? @ -No Exacerbation, Progression, or Severe Exacerbation? @ -No Poses a threat to life or bodily function? How? (Chest pain, [place], [place], pneumonia, PE, COPD, DKA, ARF, appy, cholecystitis, CVA, Diverticulitis, Homicidal, Suicidal, threat to staff... and all critical care pts) @ -No Disposition Clinical Impression: Abdominal pain Disposition: HOME SELF-CARE Condition: Stable Instructions (If sedation given, give patient instructions): Abdominal Pain (ED) Additional Instructions: Please return to the Emergency Department if symptoms worsen or any other concerns. Is patient prescribed a controlled substance at d/c from ED?: No Referrals: Huma Soria MD [Primary Care Provider] - 1-2 days Time of Disposition: 15:11
[2022-12-22] MEDS ORDERED: KETOROLAC 15 MG/ML 1 ML VIAL IVP STA (12:18)
[2022-12-22 14:03] LABS: Partial Thromboplastin Time 21.3 sec (22.0-30.0)
[2022-12-22 14:33] LABS: African American GFR (CKD) >90 (>60 ml/min/1.73 sqM); Albumin 3.9 g/dL (3.5-5.0); Anion Gap 9 mmol/L; Blood Urea Nitrogen 12 mg/dL (9-20); Calcium 8.9 mg/dL (8.4-10.2); Carbon Dioxide 23 mmol/L (22-30); Chloride 108 mmol/L (98-107); Glucose 79 mg/dL (74-99); Magnesium 2.1 mg/dL (1.6-2.3); Non-African American GFR(CKD) >90 (>60 ml/min/1.73 sqM); Potassium 3.6 mmol/L (3.5-5.1); Sodium 140 mmol/L (137-145); Total Bilirubin 0.6 mg/dL (0.2-1.3); Total Protein 6.7 g/dL (6.3-8.2)
[2022-12-22 14:34] LABS: ALT 18 U/L (4-49); AST 34 U/L (17-59); Alkaline Phosphatase 84 U/L (38-126); Lipase 542 U/L (23-300)
[2022-12-22 15:26] VITALS: BP 110/64; PULSE 60; TEMP 98.4
== END 2022-12-22 15:39 | disposition home or self-care (01) ==
LOC: EC 09:41
DX: R10.13 Epigastric pain (principal); I10 Essential (primary) hypertension; I48.91 Unspecified atrial fibrillation; K21.9 Gastro-esophageal reflux disease without esophagitis; Z91.040 Latex allergy status; Z88.8 Allergy status to other drugs, medicaments and biological substances; Z88.5 Allergy status to narcotic agent; Z79.899 Other long term (current) drug therapy
CPT/HCPCS: 36415; 93005; 80053; 83690; 83735; 84484; 85610; 85730; 71046; 99285; 96374; 96375; J2765; J1885

== ENCOUNTER 2023-05-30 12:00 | Emergency (ER) | payer BC ==
[2023-05-30 12:51] LABS: Basophils % (A) 0 %; Eosinophils # (A) 0.2 k/uL (0-0.7); Eosinophils % (A) 2 %; HCT 38.7 % (39.0-53.0); HGB 12.9 gm/dL (13.0-17.5); Lymphocytes # (A) 1.1 k/uL (1.0-4.8); Lymphocytes % (A) 14 %; MCH 32.3 pg (25.0-35.0); MCHC 33.4 g/dL (31.0-37.0); MCV 96.5 fL (80.0-100.0); Mean Platelet Volume 7.4; Monocytes # (A) 0.3 k/uL (0-1.0); Monocytes % (A) 4 %; Neutrophils # (A) 5.9 k/uL (1.3-7.7); Neutrophils % (A) 78 %; Platelet Count 398 k/uL (150-450); RBC 4.01 m/uL (4.30-5.90); RDW 13.8 % (11.5-15.5); WBC 7.5 k/uL (3.8-10.6)
[2023-05-30] MEDS ORDERED: ONDANSETRON 4 MG/2 ML VIAL IVP STA ×2 (13:05→18:17)
[2023-05-30] MEDS ORDERED: FAMOTIDINE 20 MG/2 ML VIAL IV STA (13:05)
[2023-05-30] MEDS ORDERED: IOPAMIDOL CONTRAST (ORAL USE) VIAL PO PRN (13:05)
[2023-05-30] MEDS ORDERED: HYDROmorphone 1 MG/ML 1 ML SYRINGE IVP STA ×5 (13:05→19:46)
--- NOTE | 2023-05-30 13:09 | ED ---
General Adult HPI - General Chief complaint: Abdominal Pain Stated complaint: PO SURGERY, PAIN Time Seen by Provider: 05/30/23 12:34 Source: patient, RN notes reviewed Mode of arrival: ambulatory Limitations: no limitations - History of Present Illness Initial comments: Patient is a pleasant 42-year-old male presented to the emergency department with concerns with abdominal discomfort. Patient is postop 3 weeks from [place] hernia surgery. Patient was found to have infection during time of surgery and had drain placed. Drain has been having purulent drainage. Drain has a little bit more blood today. Discomfort has increased. Patient has decreased oral intake, approximately half of normal for him. No fever. Discomfort is epigastric. Patient did have a surgery done at [facility] secondary to stating no surgeons here would do his procedure. - Related Data Home Medications Medication Instructions Recorded Confirmed traZODone HCL 300 mg PO HS 11/25/21 05/30/23 Eszopiclone [Lunesta] 3 mg PO HS 10/02/22 05/30/23 Amoxicillin/Potassium Clav 1 tab PO BID 05/30/23 05/30/23 [Amox-Clav 875-125 mg Tablet] Cyanocobalamin [Vitamin B-12] 500 mcg PO DAILY 05/30/23 05/30/23 Ondansetron Odt [Zofran Odt] 4 mg PO Q6H PRN 05/30/23 05/30/23 oxyCODONE HCL [Roxicodone] 5 mg PO Q6H PRN 05/30/23 05/30/23 Allergies Allergy/AdvReac Type Severity Reaction Status Date / Time latex Allergy Rash/Hives Verified 05/30/23 15:44 meperidine [From Demerol] Allergy Rash/Hives Verified 05/30/23 15:44 Review of Systems ROS Statement: Those systems with pertinent positive or pertinent negative responses have been documented in the HPI. ROS Other: All systems not noted in ROS Statement are negative. Constitutional: Denies: fever Eyes: Denies: eye pain ENT: Denies: ear pain Respiratory: Denies: cough Cardiovascular: Denies: chest pain Gastrointestinal: Reports: as per HPI, abdominal pain Skin: Denies: rash Past Medical History Past Medical History: Atrial Fibrillation, GERD/Reflux, Hypertension Additional Past Medical History / Comment(s): Pt states difficulty with abdominal pain/nausea and vomiting when eating since surgery for hiatal hernia/peg tube insertion.States afib during his hospitalization for avery en Y/peg tube surgery, R shoulder dislocations, pt states recent EKG at Dr. Soria's office showed IL at some time, chronic low back pain. Removal of Peg Tube. States having dizziness. See Dr. Harris's H&P. History of Any Multi-Drug Resistant Organisms: None Reported Past Surgical History: Appendectomy, Back Surgery, Cholecystectomy, Hernia Repair, Orthopedic Surgery, Tonsillectomy Additional Past Surgical History / Comment(s): Lysis of abdominal adhesions then Avery en Y, peg tube insertion, EGD, diaphragmatic hernia repair, lumbar fusion, R shoulder arthroscopy, L shoulder fusion. States his hernia was attached to his stomach wall and this is why all the surgery. See Dr. Harris's H&P. Past Anesthesia/Blood Transfusion Reactions: No Reported Reaction Past Psychological History: No Psychological Hx Reported Smoking Status: Never smoker Past Alcohol Use History: None Reported Past Drug Use History: None Reported - Past Family History Mother Additional Family Medical History / Comment(s): Mother is , she had lupus. Father History Unknown: Yes Brother(s) Additional Family Medical History / Comment(s): autoimmune disorder General Exam Limitations: no limitations General appearance: alert, in no apparent distress Head exam: Present: normocephalic Eye exam: Present: normal appearance Neck exam: Present: normal inspection Respiratory exam: Present: normal lung sounds bilaterally Cardiovascular Exam: Present: regular rate, normal rhythm GI/Abdominal exam: Present: soft, tenderness (Moderate epigastric tenderness. There is drain tube present with mild amount of serosanguineous fluid/blood), normal bowel sounds. Absent: distended, guarding, rebound, rigid, pulsatile mass Extremities exam: Present: normal inspection Neurological exam: Present: alert Psychiatric exam: Present: normal affect, normal mood Skin exam: Present: normal color Course Vital Signs 05/30/23 05/30/23 05/30/23 12:03 12:45 13:23 Temperature 98.5 F Pulse Rate 86 60 57 L Respiratory 16 16 17 Rate Blood Pressure 96/69 99/77 97/69 O2 Sat by Pulse 99 100 100 Oximetry 05/30/23 05/30/23 05/30/23 13:31 14:05 14:30 Temperature Pulse Rate 56 L 67 Respiratory 16 20 Rate Blood Pressure 100/66 113/80 112/72 O2 Sat by Pulse 100 100 Oximetry 05/30/23 05/30/23 15:06 15:40 Temperature Pulse Rate 65 71 Respiratory 19 17 Rate Blood Pressure 105/69 104/73 O2 Sat by Pulse 100 100 Oximetry EKG Findings - EKG Results: EKG: interpreted by ERMD (T wave inversion lead III with downward QRS), sinus rhythm, normal axis, normal QRS Medical Decision Making - Medical Decision Making Was pt. sent in by a medical professional or institution (, PA, GENERAL HOUSE WORKER, urgent care, hospital, or fdc...) When possible be specific @ -No Did you speak to anyone other than the patient for history (EMS, parent, family, police, friend...)? What history was obtained from this source @ -No Did you review nursing and triage notes (agree or disagree)? Why? @ -I reviewed and agree with nursing and triage notes Were old charts reviewed (outside hosp., previous admission, EMS record, old EKG, old radiological studies, urgent care reports/EKG's, fdc records)? Report findings @ -Previous consults reviewed Differential Diagnosis (chest pain, altered mental status, abdominal pain women, abdominal pain men, vaginal bleeding, weakness, fever, dyspnea, syncope, h eadache, dizziness, GI bleed, back pain, seizure, CVA, palpatations, mental health, musculoskeletal)? @ -Differential Abdominal Pain Men: Appendicitis, cholecystitis, diverticulosis, ischemic bowel, pancreatitis, hepatitis, UTI, gastroenteritis, AAA, incarcerated hernia, bowel obstruction, constipation, inflammatory bowel, hepatitis, peptic ulcer disease, splenic infarction, perforated viscus, testicular torsion, this is not meant to be an all-inclusive list EKG interpreted by me (3pts min.). @ -As above X-rays interpreted by me (1pt min.). @ -None done CT interpreted by me (1pt min.). @ -CT scan shows postoperative change U/S interpreted by me (1pt. min.). @ -None done What testing was considered but not performed or refused? (CT, X-rays, U/S, labs)? Why? @ -None What meds were considered but not given or refused? Why? @ -None Did you discuss the management of the patient with other professionals (professionals i.e. , PA, GENERAL HOUSE WORKER, lab, RT, psych nurse, forensic social worker, top lift and automatic window repairer, te acher, custody officer, casework supervisor)? Give summary @ -Case discussed with Dr. Gonzalez who recommends transfer to [facility] where patient had his surgery done. Case was also discussed with Dr. Jose Kohler at [facility] who will accept transfer. Was smoking cessation discussed for >3mins.? @ -No Was critical care preformed (if so, how long)? @ -No Were there social determinants of health that impacted care today? How? (Homelessness, low income, unemployed, alcoholism, drug addiction, transportation, low edu. Level, literacy, decrease access to med. care, long term, rehab)? @ -No Was there de-escalation of care discussed even if they declined (Discuss DNR or withdrawal of care, Hospice)? DNR status @ -No What co-morbidities impacted this encounter? (DM, HTN, Smoking, COPD, CAD, Cancer, CVA, ARF, Chemo, Hep., AIDS, mental health diagnosis, sleep apnea, morbid obesity)? @ -None Was patient admitted / discharged? Hospital course, mention meds given and route, prescriptions, significant lab abnormalities, going to OR and other pertinent info. @ -Patient reevaluated and updated. Call placed for [facility] for transfer. Patient on CT scan has concern for possible dehiscence of hiatal hernia repair site. Patient has continued discomfort despite pain medications Undiagnosed new problem with uncertain prognosis? @ -No Drug Therapy requiring intensive monitoring for toxicity (Heparin, Nitro, Insulin, Cardizem)? @ -No Were any procedures done? @ -No Diagnosis/symptom? @ -Wound dehiscence, hiatal hernia Acute, or Chronic, or Acute on Chronic? @ -Acute Uncomplicated (without systemic symptoms) or Complicated (systemic symptoms)? @ -Default Side effects of treatment? @ -No Exacerbation, Progression, or Severe Exacerbation? @ -No Poses a threat to life or bodily function? How? (Chest pain, [place], [place], pneumonia, PE, COPD, DKA, ARF, appy, cholecystitis, CVA, Diverticulitis, Homicidal, Suicidal, threat to staff... and all critical care pts) @ -No - Lab Data Result diagrams: 05/30/23 12:14 05/30/23 13:25 Lab Results 05/30/23 05/30/23 05/30/23 Range/Units 12:14 13:17 13:25 WBC 7.5 (3.8-10.6) k/uL RBC 4.01 L (4.30-5.90) m/uL Hgb 12.9 L (13.0-17.5) gm/dL Hct 38.7 L (39.0-53.0) % MCV 96.5 (80.0-100.0) fL MCH 32.3 (25.0-35.0) pg MCHC 33.4 (31.0-37.0) g/dL RDW 13.8 (11.5-15.5) % Plt Count 398 (150-450) k/uL MPV 7.4 Neutrophils % 78 % Lymphocytes % 14 % Monocytes % 4 % Eosinophils % 2 % Basophils % 0 % Neutrophils # 5.9 (1.3-7.7) k/uL Lymphocytes # 1.1 (1.0-4.8) k/uL Monocytes # 0.3 (0-1.0) k/uL Eosinophils # 0.2 (0-0.7) k/uL Basophils # 0.0 (0-0.2) k/uL Sodium 140 (137-145) mmol/L Potassium 3.8 (3.5-5.1) mmol/L Chloride 110 H (98-107) mmol/L Carbon Dioxide 23 (22-30) mmol/L Anion Gap 7 mmol/L BUN 16 (9-20) mg/dL Creatinine 0.65 L (0.66-1.25) mg/dL Est GFR (CKD-EPI)AfAm >90 (>60 ml/min/1.73 sqM) Est GFR (CKD-EPI)NonAf >90 (>60 ml/min/1.73 sqM) Glucose 92 (74-99) mg/dL Plasma Lactic Acid Jacob 1.5 (0.7-2.0) mmol/L Calcium 8.8 (8.4-10.2) mg/dL Total Bilirubin 0.4 (0.2-1.3) mg/dL AST 22 (17-59) U/L ALT 19 (4-49) U/L Alkaline Phosphatase 72 (38-126) U/L Total Protein 6.3 (6.3-8.2) g/dL Albumin 3.5 (3.5-5.0) g/dL Amylase 73 (30-110) U/L Lipase 179 (23-300) U/L Disposition Clinical Impression: Wound dehiscence, surgical, Hiatal hernia Disposition: OTHER INSTITUTION NOT DEFINED Is patient prescribed a controlled substance at d/c from ED?: No Referrals: Huma Soria MD [Primary Care Provider] - 1-2 days Time of Disposition: 16:21 - Out of Hospital Transfer - Req. Specs Out of Hospital Transfer - Requested Specifics: Other Emergency Center
[2023-05-30] MEDS ORDERED: HYDROmorphone 0.5 MG/0.5 ML SYRINGE IVP STA (13:23)
[2023-05-30] MEDS ORDERED: SODIUM CHLORIDE 0.9% 1,000 ML IV ONE (13:24)
[2023-05-30 13:46] LABS: ALT 19 U/L (4-49); AST 22 U/L (17-59); African American GFR (CKD) >90 (>60 ml/min/1.73 sqM); Albumin 3.5 g/dL (3.5-5.0); Alkaline Phosphatase 72 U/L (38-126); Amylase 73 U/L (30-110); Anion Gap 7 mmol/L; Blood Urea Nitrogen 16 mg/dL (9-20); Calcium 8.8 mg/dL (8.4-10.2); Carbon Dioxide 23 mmol/L (22-30); Chloride 110 mmol/L (98-107); Glucose 92 mg/dL (74-99); Lipase 179 U/L (23-300); Non-African American GFR(CKD) >90 (>60 ml/min/1.73 sqM); Potassium 3.8 mmol/L (3.5-5.1); Sodium 140 mmol/L (137-145); Total Bilirubin 0.4 mg/dL (0.2-1.3); Total Protein 6.3 g/dL (6.3-8.2)
--- NOTE | 2023-05-30 14:32 | CT ---
EXAMINATION TYPE: CT abdomen pelvis w con CT DLP: 849.1 mGycm, Automated exposure control for dose reduction was used. DATE OF EXAM: 05/30/2023 2:09 PM COMPARISON: 01/13/2023 CLINICAL INDICATION:Male, 42 years old with history of bariatric protocol, abp; Abdominal pain and na usea xfew days. Recent hiatal hernia surgery 05/08/23. TECHNIQUE: Axial CT abdomen pelvis w con;Sagittal and coronal reformats were created on a separate w orkstation. Contrast used:100ml mL of Isovue 300 with IV Contrast, (none if empty) Oral contrast used: with Oral Contrast (none if empty) FINDINGS: LOWER CHEST: Unremarkable ABDOMEN LIVER: Unremarkable GALLBLADDER AND BILE DUCTS: Unremarkable. PANCREAS: Unremarkable. SPLEEN: Unremarkable. ADRENAL GLANDS: Unremarkable. KIDNEYS AND URETERS: No evidence of hydronephrosis or renal calculus. The ureters are unremarkable. PELVIS BLADDER: Unremarkable REPRODUCTIVE: Unremarkable. ABDOMEN & PELVIS STOMACH AND BOWEL: No evidence of bowel obstruction. Postsurgical changes at the gastroesophageal joselito ction. No evidence for pneumoperitoneum. Moderate to large amount stool throughout the colon. There i s a moderate to large hiatal hernia. PERITONEUM/RETROPERITONEUM: No evidence of pneumoperitoneum or free fluid. No organizing fluid collec tions in the upper abdomen. VASCULATURE: No evidence of aortic aneurysm. MUSCULOSKELETAL: No acute osseous abnormalities, fixation hardware L5-S1 appears intact. LYMPH NODES: No gross evidence for lymphadenopathy. SOFT TISSUE/ABDOMINAL WALL: Surgical changes to the anterior abdominal wall. Drainage catheter enters the upper abdomen and terminates in the gastroesophageal junction. IMPRESSION: Moderate to large hiatal hernia with postsurgical changes at the gastroesophageal junction. No eviden ce for pneumoperitoneum. Correlate for dehiscence at the hiatal hernia repair site. Abdominal cathete r terminates near the gastroesophageal junction. There is a large amount stool in the colon. No organ izing fluid collections.
[2023-05-30 18:40] VITALS: RESP 18
[2023-05-30 20:01] VITALS: BP 110/72; PULSE 76; TEMP 99
== END 2023-05-30 19:54 | disposition other institution (70) ==
LOC: EC 12:00
DX: T81.31XA Disruption of external operation (surgical) wound, not elsewhere classified, initial encounter (principal); K44.9 Diaphragmatic hernia without obstruction or gangrene; I10 Essential (primary) hypertension; Z88.5 Allergy status to narcotic agent; Z91.040 Latex allergy status; Z90.49 Acquired absence of other specified parts of digestive tract
CPT/HCPCS: 36415; 93005; 80053; 82150; 83605; 83690; 85025; 87040; 74177; 99285; 96374; 96375 ×2; 96376 ×5; 96361 ×2; J2405; J3490; J1170 ×2; Q9967

== ENCOUNTER 2023-06-28 11:50 | Emergency (ER) | payer BC, OTHER ==
--- NOTE | 2023-06-28 13:03 | ED ---
Abdominal Pain HPI - General Source: patient, RN notes reviewed Mode of arrival: ambulatory Limitations: no limitations - History of Present Illness MD Complaint: abdominal pain <Calista Hearn - Last Filed: 06/28/23 13:01> <Milad Nichole - Last Filed: 06/28/23 19:08> - General Chief Complaint: Abdominal Pain Stated Complaint: Hernia, vomitting, chest pain Time Seen by Provider: 06/28/23 13:02 - History of Present Illness Initial Comments: Quick Note: This is a 42-year-old male who presents to the emergency department for abdominal pain, nausea, and vomiting. States that he has a hernia attached to his stomach and in his chest. He follows with thoracic surgery at the [facility]. He has had increasing pain, nausea, and vomiting over the last 2 days. He called his surgeon, who advised he come to the emergency department and discuss transfer to [facility]. (Calista Hearn) This is a 42-year-old male who presents to the emergency department complaining of abdominal pain nausea and vomiting for the last week. Patient states he had multiple abdominal surgeries. Patient states he thinks he might need another abdominal surgery but he just saw his doctor on Monday and called his physician today and the physician told him to come back to the emergency department to be evaluated. Patient denies any chest pain difficulty breathing or shortness of breath. Patient has any back pain. Patient states is the same pain he always seems to get. (Milad Nichole) - Related Data Home Medications Medication Instructions Recorded Confirmed traZODone HCL 300 mg PO HS 11/25/21 05/30/23 Eszopiclone [Lunesta] 3 mg PO HS 10/02/22 05/30/23 Amoxicillin/Potassium Clav 1 tab PO BID 05/30/23 05/30/23 [Amox-Clav 875-125 mg Tablet] Cyanocobalamin [Vitamin B-12] 500 mcg PO DAILY 05/30/23 05/30/23 Ondansetron Odt [Zofran Odt] 4 mg PO Q6H PRN 05/30/23 05/30/23 oxyCODONE HCL [Roxicodone] 5 mg PO Q6H PRN 05/30/23 05/30/23 Allergies Allergy/AdvReac Type Severity Reaction Status Date / Time latex Allergy Rash/Hives Verified 06/28/23 12:04 meperidine [From Demerol] Allergy Rash/Hives Verified 06/28/23 12:04 Review of Systems ROS Other: All systems not noted in ROS Statement are negative. <Calista Hearn - Last Filed: 06/28/23 13:01> ROS Other: All systems not noted in ROS Statement are negative. <Milad Nichole - Last Filed: 06/28/23 19:08> ROS Statement: Those systems with pertinent positive or pertinent negative responses have been documented in the HPI. Past Medical History Past Medical History: Atrial Fibrillation, GERD/Reflux, Hypertension Additional Past Medical History / Comment(s): Pt states difficulty with abdominal pain/nausea and vomiting when eating since surgery for hiatal hernia/peg tube insertion.States afib during his hospitalization for avery en Y/peg tube surgery, R shoulder dislocations, pt states recent EKG at Dr. Sroia's office showed NH at some time, chronic low back pain. Removal of Peg Tube. States having dizziness. See Dr. Harris's H&P. infection in stomach History of Any Multi-Drug Resistant Organisms: None Reported Past Surgical History: Appendectomy, Back Surgery, Cholecystectomy, Hernia Repair, Orthopedic Surgery, Tonsillectomy Additional Past Surgical History / Comment(s): Lysis of abdominal adhesions then Avery en Y, peg tube insertion, EGD, diaphragmatic hernia repair, lumbar fusion, R shoulder arthroscopy, L shoulder fusion. States his hernia was attached to his stomach wall and this is why all the surgery. See Dr. Harris's H&P. Past Anesthesia/Blood Transfusion Reactions: No Reported Reaction Past Psychological History: No Psychological Hx Reported Smoking Status: Never smoker Past Alcohol Use History: None Reported Past Drug Use History: None Reported - Past Family History Mother Additional Family Medical History / Comment(s): Mother is , she had lupus. Father History Unknown: Yes Brother(s) Additional Family Medical History / Comment(s): autoimmune disorder <Calista Hearn - Last Filed: 06/28/23 13:01> General Exam <Calista Hearn - Last Filed: 06/28/23 13:01> <Milad Nichole - Last Filed: 06/28/23 19:08> - General Exam Comments Initial Comments: Visual Physical Exam Vital signs reviewed General: Well-appearing, nontoxic, no acute distress. Head: Normocephalic, atraumatic Eyes: PERRLA, EOMI ENT: Airway patent Chest: Nonlabored breathing Skin: No visual rash, normal skin tone Neuro: Alert and oriented 3 Musculoskeletal: No gross abnormalities (Calista Hearn) GENERAL: Patient is well-developed and well-nourished. Patient is nontoxic and well- hydrated and is in mild distress. ENT: Neck is soft and supple. No significant lymphadenopathy is noted. Oropharynx is clear. Moist mucous membranes. Neck has full range of motion without eliciting any pain. T EYES: The sclera were anicteric and conjunctiva were pink and moist. Extraocular movements were intact and pupils were equal round and reactive to light. Eyelids were unremarkable. PULMONARY: Unlabored respirations. Good breath sounds bilaterally. No audible rales rhonchi or wheezing was noted. CARDIOVASCULAR: There is a regular rate and rhythm without any murmurs gallops or rubs. ABDOMEN: Patient has mild epigastric abdominal pain with no rebound SKIN: Skin is clear with no lesions or rashes and otherwise unremarkable. NEUROLOGIC: Patient is alert and oriented x3. Cranial nerves II through XII are grossly intact. Motor and sensory are also intact. Normal speech, volume and content. Symmetrical smile. MUSCULOSKELETAL: Normal extremities with adequate strength and full range of motion. No lower extremity swelling or edema. No calf tenderness. LYMPHATICS: No significant lymphadenopathy is noted PSYCHIATRIC: Normal psychiatric evaluation. (Milad Nichole) Course Vital Signs 06/28/23 06/28/23 11:57 17:20 Temperature 98.5 F 99.6 F Pulse Rate 102 H 80 Respiratory 18 14 Rate Blood Pressure 96/63 106/60 O2 Sat by Pulse 96 98 Oximetry Medical Decision Making <Calista Hearn - Last Filed: 06/28/23 13:01> - Lab Data Result diagrams: 06/28/23 13:24 06/28/23 13:24 <Milad Nichole - Last Filed: 06/28/23 19:08> - Medical Decision Making I performed the QuickNote portion of this chart. Signed Calista Hearn PA-C. (Calista Hearn) Was pt. sent in by a medical professional or institution (BERNARDA Chacon, MANAGER CORE, urgent care, hospital, or custodial...) When possible be specific @ -Patient states his surgeon sent him to the emergency department Did you speak to anyone other than the patient for history (EMS, parent, family, police, friend...)? What history was obtained from this source @ -No Did you review nursing and triage notes (agree or disagree)? Why? @ -I reviewed and agree with nursing and triage notes Were old charts reviewed (outside hosp., previous admission, EMS record, old EKG, old radiological studies, urgent care reports/EKG's, custodial records)? Report findings @ -No old charts were reviewed Differential Diagnosis (chest pain, altered mental status, abdominal pain women, abdominal pain men, vaginal bleeding, weakness, fever, dyspnea, syncope, headache, dizziness, GI bleed, back pain, seizure, CVA, palpatations, mental health, musculoskeletal)? @ -Differential Abdominal Pain Men: Appendicitis, cholecystitis, diverticulosis, ischemic bowel, pancreatitis, hepatitis, UTI, gastroenteritis, AAA, incarcerated hernia, bowel obstruction, constipation, inflammatory bowel, hepatitis, peptic ulcer disease, splenic infarction, perforated viscus, testicular torsion, this is not meant to be an all-inclusive list EKG interpreted by me (3pts min.). @ -As above X-rays interpreted by me (1pt min.). @ -No CT interpreted by me (1pt min.). @ -CT of the abdomen pelvis showed no acute abnormality there is no free air and there is a surgical site at the GE junction U/S interpreted by me (1pt. min.). @ -None done What testing was considered but not performed or refused? (CT, X-rays, U/S, labs)? Why? @ -None What meds were considered but not given or refused? Why? @ -None Did you discuss the management of the patient with other professionals (professionals i.e. BERNARDA Chacon, MANAGER CORE, lab, RT, psych nurse, healthcare social worker, snow removing supervisor, teacher, first aid officer, special education case manager)? Give summary @ -I spoke with the patient's surgeon at [facility] Dr. [place]. The surgeon said that he said he often is unable to figure out the patient's pain and felt as though the patient to be discharged home with the lab work was within normal range. Was smoking cessation discussed for >3mins.? @ -No Was critical care preformed (if so, how long)? @ -No Were there social determinants of health that impacted care today? How? (Ho melessness, low income, unemployed, alcoholism, drug addiction, transportation, low edu. Level, literacy, decrease access to med. care, [facility], rehab)? @ -No Was there de-escalation of care discussed even if they declined (Discuss DNR or withdrawal of care, Hospice)? DNR status @ -No What co-morbidities impacted this encounter? (DM, HTN, Smoking, COPD, CAD, Cancer, CVA, ARF, Chemo, Hep., AIDS, mental health diagnosis, sleep apnea, morbid obesity)? @ -None Was patient admitted / discharged? Hospital course, mention meds given and route, prescriptions, significant lab abnormalities, going to OR and other pertinent info. @ -Patient did not vomit while in the emergency department. He did continue to complain about some abdominal pain. Patient was given pain medications. Patient was given Zofran. I went by to evaluate the patient on multiple occasions and he was not vomiting and never in any distress. Patient was okay with going home and states that he will follow-up with his surgeon. Patient also received a liter and a half of fluid while in the emergency department Undiagnosed new problem with uncertain prognosis? @ -No Drug Therapy requiring intensive monitoring for toxicity (Heparin, Nitro, Insulin, Cardizem)? @ -No Were any procedures done? @ -No Diagnosis/symptom? @ -Abdominal pain Acute, or Chronic, or Acute on Chronic? @ -Chronic Uncomplicated (without systemic symptoms) or Complicated (systemic symptoms)? @ -Complicated Side effects of treatment? @ -No Exacerbation, Progression, or Severe Exacerbation? @ -No Poses a threat to life or bodily function? How? (Chest pain, USA, NH, pneumonia, PE, COPD, DKA, ARF, appy, cholecystitis, CVA, Diverticulitis, Homicidal, Suic idal, threat to staff... and all critical care pts) @ -No (Milad Nichole) - Lab Data Lab Results 06/28/23 06/28/23 06/28/23 Range/Units 13:24 13:24 13:24 WBC 2.8 L (3.8-10.6) k/uL RBC 3.86 L (4.30-5.90) m/uL Hgb 12.7 L (13.0-17.5) gm/dL Hct 37.7 L (39.0-53.0) % MCV 97.8 (80.0-100.0) fL MCH 32.9 (25.0-35.0) pg MCHC 33.7 (31.0-37.0) g/dL RDW 13.5 (11.5-15.5) % Plt Count 209 (150-450) k/uL MPV 7.6 Neutrophils % 79 % Lymphocytes % 8 % Monocytes % 8 % Eosinophils % 2 % Basophils % 0 % Neutrophils # 2.2 (1.3-7.7) k/uL Lymphocytes # 0.2 L (1.0-4.8) k/uL Monocytes # 0.2 (0-1.0) k/uL Eosinophils # 0.1 (0-0.7) k/uL Basophils # 0.0 (0-0.2) k/uL Sodium 135 L (137-145) mmol/L Potassium 4.5 (3.5-5.1) mmol/L Chloride 108 H (98-107) mmol/L Carbon Dioxide 20 L (22-30) mmol/L Anion Gap 7 mmol/L BUN 13 (9-20) mg/dL Creatinine 0.65 L (0.66-1.25) mg/dL Est GFR (CKD-EPI)AfAm >90 (>60 ml/min/1.73 sqM) Est GFR (CKD-EPI)NonAf >90 (>60 ml/min/1.73 sqM) Glucose 90 (74-99) mg/dL Plasma Lactic Acid Jacob 1.9 (0.7-2.0) mmol/L Calcium 9.0 (8.4-10.2) mg/dL Total Bilirubin 0.6 (0.2-1.3) mg/dL AST 39 (17-59) U/L ALT 43 (4-49) U/L Alkaline Phosphatase 168 H (38-126) U/L Total Protein 6.5 (6.3-8.2) g/dL Albumin 3.8 (3.5-5.0) g/dL Amylase 65 (30-110) U/L Lipase 79 (23-300) U/L Disposition <Calista Hearn - Last Filed: 06/28/23 13:01> Is patient prescribed a controlled substance at d/c from ED?: No Time of Disposition: 19:08 <Milad Nichole - Last Filed: 06/28/23 19:08> Clinical Impression: Abdominal pain Disposition: HOME SELF-CARE Condition: Good Instructions (If sedation given, give patient instructions): Abdominal Pain (ED) Additional Instructions: Patient should call his surgeon tomorrow and follow-up with him as directed Referrals: Huma Soria MD [Primary Care Provider] - 1-2 days
[2023-06-28] MEDS: HYDROmorphone 1 MG/ML 1 ML SYRINGE IM STA (14:43)
[2023-06-28] MEDS: ONDANSETRON ODT 4 MG TAB PO STA (14:44)
[2023-06-28] MEDS: HYDROmorphone 1 MG/ML 1 ML SYRINGE IVP STA (14:44)
[2023-06-28] MEDS: ONDANSETRON 4 MG/2 ML VIAL IVP STA ×2 (14:45→17:32)
[2023-06-28 14:56] LABS: Basophils % (A) 0 %; Eosinophils # (A) 0.1 k/uL (0-0.7); Eosinophils % (A) 2 %; HCT 37.7 % (39.0-53.0); HGB 12.7 gm/dL (13.0-17.5); Lymphocytes # (A) 0.2 k/uL (1.0-4.8); Lymphocytes % (A) 8 %; MCH 32.9 pg (25.0-35.0); MCHC 33.7 g/dL (31.0-37.0); MCV 97.8 fL (80.0-100.0); Mean Platelet Volume 7.6; Monocytes # (A) 0.2 k/uL (0-1.0); Monocytes % (A) 8 %; Neutrophils # (A) 2.2 k/uL (1.3-7.7); Neutrophils % (A) 79 %; Platelet Count 209 k/uL (150-450); RBC 3.86 m/uL (4.30-5.90); RDW 13.5 % (11.5-15.5); WBC 2.8 k/uL (3.8-10.6)
[2023-06-28] MEDS: SODIUM CHLORIDE 0.9% 1,000 ML IV ONE (15:27)
[2023-06-28] MEDS: SODIUM CHLORIDE 0.9% 500 ML 500 ML IV ONE (15:27)
[2023-06-28 16:03] LABS: ALT 43 U/L (4-49); AST 39 U/L (17-59); African American GFR (CKD) >90 (>60 ml/min/1.73 sqM); Albumin 3.8 g/dL (3.5-5.0); Alkaline Phosphatase 168 U/L (38-126); Amylase 65 U/L (30-110); Anion Gap 7 mmol/L; Blood Urea Nitrogen 13 mg/dL (9-20); Carbon Dioxide 20 mmol/L (22-30); Chloride 108 mmol/L (98-107); Glucose 90 mg/dL (74-99); Lipase 79 U/L (23-300); Non-African American GFR(CKD) >90 (>60 ml/min/1.73 sqM); Potassium 4.5 mmol/L (3.5-5.1); Sodium 135 mmol/L (137-145); Total Bilirubin 0.6 mg/dL (0.2-1.3); Total Protein 6.5 g/dL (6.3-8.2)
[2023-06-28] MEDS: HYDROmorphone 0.5 MG/0.5 ML SYRINGE IVP STA (17:27)
[2023-06-28 18:02] VITALS: TEMP 99.6
--- NOTE | 2023-06-28 18:15 | CT ---
EXAMINATION TYPE: CT abdomen pelvis w con DATE OF EXAM: 06/28/2023 COMPARISON: 05/30/2023 HISTORY: abdominal pain, nausea, vomiting. prior on pacs CT DLP: 930.9 mGycm CONTRAST: CT scan of the abdomen and pelvis is performed without Oral Contrast and with IV Contrast, patient in jected with 90ml mL of Isovue 300. FINDINGS: LUNG BASES-: No visible nodule. No infiltrate. LIVER/GB: No calcified gallstones. No space occupying hepatic lesion. Biliary tree is of normal ca liber. PANCREAS: No inflammation. No distinct mass. SPLEEN: No splenic enlargement. No lesion seen. ADRENALS: No nodule. No thickening. KIDNEYS/BLADDER: No hydronephrosis. No nephrolithiasis. No distinct renal mass. Urinary bladder g rossly unremarkable. BOWEL: Moderate to large hiatal hernia is redemonstrated with postsurgical changes at the GE junction . Again correlate for dehiscence at the hiatal hernia repair site. No obvious leak although contrast was not administered. No evidence of pneumoperitoneum. Moderate fecal burden. Epigastric catheter see n previously has been removed. There is no evidence for abscess or unusual collection. No evidence of bowel dilatation or wall thickening. GENITAL ORGANS: No gross abnormality. LYMPH NODES: No greater than 1cm abdominal or pelvic lymph nodes are appreciated. AORTA: No significant abnormality. OSSEOUS STRUCTURES: No significant abnormality is seen. OTHER: No significant additional abnormality is seen. IMPRESSION: 1. Moderate to large hiatal hernia is redemonstrated with postsurgical changes at the GE junction. Ag ain correlate for dehiscence at the hiatal hernia repair site. No obvious leak although contrast was not administered. No evidence of pneumoperitoneum. 2. No acute process seen
[2023-06-28 19:30] VITALS: BP 118/74; PULSE 78; RESP 18
== END 2023-06-28 19:16 | disposition home or self-care (01) ==
LOC: EC 11:50
DX: R10.13 Epigastric pain (principal); I48.91 Unspecified atrial fibrillation; I10 Essential (primary) hypertension; Z88.5 Allergy status to narcotic agent; Z91.040 Latex allergy status
CPT/HCPCS: 99284 ×2; 96374 ×2; 96375 ×2; 96361 ×2; 96372 ×2; 36415; 80053; 82150; 83605; 83690; 85025; 74177; J2405; J1170 ×2; Q9967

== ENCOUNTER 2023-08-02 10:04 | Emergency (ER) | payer BC, OTHER ==
--- NOTE | 2023-08-02 10:12 | ED ---
Abdominal Pain HPI - General Chief Complaint: Abdominal Pain Stated Complaint: abd pain Time Seen by Provider: 08/02/23 10:10 Source: patient, RN notes reviewed Mode of arrival: ambulatory Limitations: no limitations - History of Present Illness Initial Comments: This is a 42-year-old male with history of gastric bypass surgery and large hiatal hernia who presents to the ED with chief complaint of worsening abdominal pain, chest pressure, and nausea vomiting. Patient states that this morning he was attempting to eat some breakfast when he began to feel nauseous and felt a pop in his epigastric region assoicated with abdominal pain. Patient states that he has been having difficulty consuming food and liquids over the past few months due to pain from his hiatal hernia for years and was supposed to be contacted this week for potential PEG tube placement. Patient denies fevers at home, diarrhea, hematemesis, hematochezia. Endorses vomiting with an episode this morning described as green in color. He does not use any antacids or PPIs at home, is prescribed Weston for pain relief. Patient follow with CT surgery at , Dr. Nj. - Related Data Home Medications Medication Instructions Recorded Confirmed traZODone HCL 300 mg PO HS 11/25/21 08/02/23 Zolpidem [Ambien] 10 mg PO HS PRN 08/02/23 08/02/23 diphenhydrAMINE [Benadryl] 25 mg PO HS 08/02/23 08/02/23 Allergies Allergy/AdvReac Type Severity Reaction Status Date / Time latex Allergy Rash/Hives Verified 08/02/23 12:48 meperidine [From Demerol] Allergy Rash/Hives Verified 08/02/23 12:48 Review of Systems ROS Statement: Those systems with pertinent positive or pertinent negative responses have been documented in the HPI. ROS Other: All systems not noted in ROS Statement are negative. Past Medical History Past Medical History: Atrial Fibrillation, GERD/Reflux, Hypertension Additional Past Medical History / Comment(s): Pt states difficulty with abdominal pain/nausea and vomiting when eating since surgery for hiatal hernia/peg tube insertion.States afib during his hospitalization for jeannie en Y/peg tube surgery, R shoulder dislocations, pt states recent EKG at Dr. Soria's office showed CA at some time, chronic low back pain. Removal of Peg Tube. States having dizziness. See Dr. Harris's H&P. infection in stomach History of Any Multi-Drug Resistant Organisms: None Reported Past Surgical History: Appendectomy, Back Surgery, Cholecystectomy, Hernia Repair, Orthopedic Surgery, Tonsillectomy Additional Past Surgical History / Comment(s): Lysis of abdominal adhesions then Jeannie en Y, peg tube insertion, EGD, diaphragmatic hernia repair, lumbar fusion, R shoulder arthroscopy, L shoulder fusion. States his hernia was attached to his stomach wall and this is why all the surgery. See Dr. Harris's H&P. Past Anesthesia/Blood Transfusion Reactions: No Reported Reaction Past Psychological History: No Psychological Hx Reported Smoking Status: Never smoker Past Alcohol Use History: None Reported Past Drug Use History: None Reported - Past Family History Mother Additional Family Medical History / Comment(s): Mother is , she had lupus. Father History Unknown: Yes Brother(s) Additional Family Medical History / Comment(s): autoimmune disorder General Exam Limitations: no limitations General appearance: alert, in no apparent distress Head exam: Present: atraumatic, normocephalic, normal inspection Eye exam: Present: normal appearance, PERRL, EOMI. Absent: scleral icterus, conjunctival injection, periorbital swelling ENT exam: Present: normal exam, mucous membranes moist Neck exam: Present: normal inspection. Absent: tenderness, meningismus, lymphadenopathy Respiratory exam: Present: normal lung sounds bilaterally. Absent: respiratory distress, wheezes, rales, rhonchi, stridor Cardiovascular Exam: Present: regular rate, normal rhythm, normal heart sounds. Absent: systolic murmur, diastolic murmur, rubs, gallop, clicks GI/Abdominal exam: Present: soft, tenderness (epigastric, RUQ), normal bowel sounds, other (8 cm previous abdominal surgical scar, midline abdomen). Absent: distended, guarding, rebound, rigid Extremities exam: Present: normal inspection, full ROM, normal capillary refill. Absent: tenderness, pedal edema, joint swelling, calf tenderness Back exam: Present: normal inspection Neurological exam: Present: alert, oriented X3, CN II-XII intact Psychiatric exam: Present: normal affect, normal mood Skin exam: Present: warm, dry, intact, normal color. Absent: rash Course Vital Signs 08/02/23 08/02/23 08/02/23 10:05 12:06 13:34 Temperature 97.7 F Pulse Rate 83 69 70 Respiratory 18 18 16 Rate Blood Pressure 108/59 107/77 109/76 O2 Sat by Pulse 100 100 97 Oximetry Medical Decision Making - Medical Decision Making Was pt. sent in by a medical professional or institution (, PA, COMPUTER CLERK, urgent care, hospital, or shelter...) When possible be specific @ -No Did you speak to anyone other than the patient for history (EMS, parent, family, police, friend...)? What history was obtained from this source @ -No Did you review nursing and triage notes (agree or disagree)? Why? @ -Patient has a known large hiatal hernia and follows with thoracic surgery for this. Patient was not admitted at previous emergency department visit with abdominal pain, nausea, vomiting. Were old charts reviewed (outside hosp., previous admission, EMS record, old EKG, old radiological studies, urgent care reports/EKG's, shelter records)? Report findings @ -No old charts were reviewed Differential Diagnosis (chest pain, altered mental status, abdominal pain women, abdominal pain men, vaginal bleeding, weakness, fever, dyspnea, syncope, headache, dizziness, GI bleed, back pain, seizure, CVA, palpatations, mental health, musculoskeletal)? @ -Differential Abdominal Pain Men: Appendicitis, cholecystitis, diverticulosis, ischemic bowel, pancreatitis, hepatitis, UTI, gastroenteritis, AAA, incarcerated hernia, bowel obstruction, constipation, inflammatory bowel, hepatitis, peptic ulcer disease, splenic infarction, perforated viscus, testicular torsion, this is not meant to be an all-inclusive list EKG interpreted by me (3pts min.). @ -Completed at 1253, sinus rhythm, ventricular rate 64, OR interval 195, QTc 395. No acute signs of ischemia. X-rays interpreted by me (1pt min.). @ -KUB x-ray reveals a nonspecific abdomen with no evidence of obstruction and postsurgical changes with suspected hiatal hernia. CT interpreted by me (1pt min.). @ -CT with IV contrast of abdomen pelvis reveals a stable hiatal hernia with postsurgical changes within abdomen and noted prominence of the right mid small bowel loops containing fluid correlate for mild ileus with no obstruction identified U/S interpreted by me (1pt. min.). @ -None done What testing was considered but not performed or refused? (CT, X-rays, U/S, labs)? Why? @ -None What meds were considered but not given or refused? Why? @ -None Did you discuss the management of the patient with other professionals (professionals i.e. , PA, COMPUTER CLERK, lab, RT, psych nurse, older adult social work specialist, medical office clerk, teacher, investigation officer, case repairer)? Give summary @ -I discussed the management with Dr. Heredia who suggested I contact Trauma surgery, Dr. Ness for evaluation. Dr. Nazario recommends transfer to [facility] for continuation of care due to patient CT abdomen results and additional symptoms. I spoke with Dr. Ponce, ED admission physician to states that patient is not a candidate for transfer due to not having electrolyte abnormalities at this time and pain stable aside from reports of pain. Recom mend that patient follows up outpatient with CT surgeon, Dr. Nj, for further evaluation. Was smoking cessation discussed for >3mins.? @ -No Was critical care preformed (if so, how long)? @ -No Were there social determinants of health that impacted care today? How? (Homelessness, low income, unemployed, alcoholism, drug addiction, transportation, low edu. Level, literacy, decrease access to med. care, skilled nursing, rehab)? @ -No Was there de-escalation of care discussed even if they declined (Discuss DNR or withdrawal of care, Hospice)? DNR status @ -No What co-morbidities impacted this encounter? (DM, HTN, Smoking, COPD, CAD, Cancer, CVA, ARF, Chemo, Hep., AIDS, mental health diagnosis, sleep apnea, morbid obesity)? @ -None Was patient admitted / discharged? Hospital course, mention meds given and route, prescriptions, significant lab abnormalities, going to OR and other pertinent info. @ -42-year-old male with gastric pain, nausea and vomiting. On physical exam patient was noted to have tenderness to palpation over the epigastric and right upper quadrant. Patient was given IV antibiotics in addition to remaining medication and sent for x-ray KUB to rule out acute peritoneum, evaluation no signs of urinary abdomen on x-ray. Patient laboratory results sent in addition to coagulation profile and pancreatic enzymes. Patient denies any urinary symptoms therefore UA was deferred at this time. Laboratory results unremarkable on CBC for acute signs of infection, no electrolyte abnormalities noted at this time, lactate elevated at 2.5.. On reevaluation, patient states that he is still experiencing epigastric and chest discomfort that was reproducible on palpation. Patient given antacids in addition to oral GI cocktail, EKG ordered. No acute signs of ischemia, patient given second dose symptomatic patient CT results concerning for mild ileus with no signs of obstruction, Dr. Nazario consulted for potential transfer to [facility] With transfer to admitting doctor. You have orders transfer at this time and recommends follow-up outpatient with surgeon. I discussed this with the patient, who states that she will get a hold of the office today or tomorrow for outpatient follow-up. Discussed strict return parameters with patient, and he is agreeable with this patient also states that he will likely self transport himself to [facility] for further evaluation. Additionally, patient states that he has been experiencing struggles with picking up his prescriptions due to not being covered with additional prescription coverage on Medicaid. Patient given pain medication starter pack in the ED. Discussed with Dr. Heredia. Undiagnosed new problem with uncertain prognosis? @ -No Drug Therapy requiring intensive monitoring for toxicity (Heparin, Nitro, Insulin, Cardizem)? @ -No Were any procedures done? @ -No Diagnosis/symptom? @ -Hiatal hernia, ileus, abdominal pain Acute, or Chronic, or Acute on Chronic? @ -acute Uncomplicated (without systemic symptoms) or Complicated (systemic symptoms)? @ -uncomplicated Side effects of treatment? @ -No Exacerbation, Progression, or Severe Exacerbation? @ -No Poses a threat to life or bodily function? How? (Chest pain, USA, CA, pneumonia, PE, COPD, DKA, ARF, appy, cholecystitis, CVA, Diverticulitis, Homicidal, Suicidal, threat to staff... and all critical care pts) @ -No - Lab Data Result diagrams: 08/02/23 10:45 08/02/23 10:45 Lab Results 08/02/23 08/02/23 08/02/23 Range/Units 10:45 10:45 10:45 WBC 3.7 L (3.8-10.6) k/uL RBC 4.61 (4.30-5.90) m/uL Hgb 14.5 (13.0-17.5) gm/dL Hct 44.8 (39.0-53.0) % MCV 97.1 (80.0-100.0) fL MCH 31.4 (25.0-35.0) pg MCHC 32.4 (31.0-37.0) g/dL RDW 13.6 (11.5-15.5) % Plt Count 219 (150-450) k/uL MPV 7.9 Neutrophils % 58 % Lymphocytes % 31 % Monocytes % 6 % Eosinophils % 2 % Basophils % 1 % Neutrophils # 2.1 (1.3-7.7) k/uL Lymphocytes # 1.2 (1.0-4.8) k/uL Monocytes # 0.2 (0-1.0) k/uL Eosinophils # 0.1 (0-0.7) k/uL Basophils # 0.0 (0-0.2) k/uL PT 10.3 (10.0-12.5) sec INR 0.9 (<1.2) APTT 20.6 L (22.0-30.0) sec Sodium 142 (137-145) mmol/L Potassium 4.6 (3.5-5.1) mmol/L Chloride 107 (98-107) mmol/L Carbon Dioxide 21 L (22-30) mmol/L Anion Gap 14 mmol/L BUN 15 (9-20) mg/dL Creatinine 0.68 (0.66-1.25) mg/dL Est GFR (CKD-EPI)AfAm >90 (>60 ml/min/1.73 sqM) Est GFR (CKD-EPI)NonAf >90 (>60 ml/min/1.73 sqM) Glucose 110 H (74-99) mg/dL Lactic Ac Sepsis Rflx Plasma Lactic Acid Jacob (0.7-2.0) mmol/L Calcium 9.7 (8.4-10.2) mg/dL Total Bilirubin 0.5 (0.2-1.3) mg/dL AST 32 (17-59) U/L ALT 26 (4-49) U/L Alkaline Phosphatase 79 (38-126) U/L Total Protein 7.1 (6.3-8.2) g/dL Albumin 4.7 (3.5-5.0) g/dL Amylase 75 (30-110) U/L Lipase 181 (23-300) U/L 08/02/23 08/02/23 Range/Units 10:45 11:30 WBC (3.8-10.6) k/uL RBC (4.30-5.90) m/uL Hgb (13.0-17.5) gm/dL Hct (39.0-53.0) % MCV (80.0-100.0) fL MCH (25.0-35.0) pg MCHC (31.0-37.0) g/dL RDW (11.5-15.5) % Plt Count (150-450) k/uL MPV Neutrophils % % Lymphocytes % % Monocytes % % Eosinophils % % Basophils % % Neutrophils # (1.3-7.7) k/uL Lymphocytes # (1.0-4.8) k/uL Monocytes # (0-1.0) k/uL Eosinophils # (0-0.7) k/uL Basophils # (0-0.2) k/uL PT (10.0-12.5) sec INR (<1.2) APTT (22.0-30.0) sec Sodium (137-145) mmol/L Potassium (3.5-5.1) mmol/L Chloride (98-107) mmol/L Carbon Dioxide (22-30) mmol/L Anion Gap mmol/L BUN (9-20) mg/dL Creatinine (0.66-1.25) mg/dL Est GFR (CKD-EPI)AfAm (>60 ml/min/1.73 sqM) Est GFR (CKD-EPI)NonAf (>60 ml/min/1.73 sqM) Glucose (74-99) mg/dL Lactic Ac Sepsis Rflx Y Plasma Lactic Acid Jacob 2.5 H* (0.7-2.0) mmol/L Calcium (8.4-10.2) mg/dL Total Bilirubin (0.2-1.3) mg/dL AST (17-59) U/L ALT (4-49) U/L Alkaline Phosphatase (38-126) U/L Total Protein (6.3-8.2) g/dL Albumin (3.5-5.0) g/dL Amylase (30-110) U/L Lipase (23-300) U/L Disposition Clinical Impression: Hiatal hernia, Ileus, unspecified, Nausea Narrative: Please return to the Emergency Department if symptoms worsen or any other concerns. Follow-up with your CT surgeon, Dr. Nj, within the next 1 to 2 days for further evaluation. Disposition: HOME SELF-CARE Condition: Fair Instructions (If sedation given, give patient instructions): Hiatal Hernia (ED) Is patient prescribed a controlled substance at d/c from ED?: No Referrals: Huma Soria MD [Primary Care Provider] - 1-2 days Time of Disposition: 12:36
[2023-08-02 10:13] VITALS: TEMP 97.7
[2023-08-02] MEDS: ONDANSETRON 4 MG/2 ML VIAL IVP STA (10:48)
[2023-08-02] MEDS: HYDROmorphone 0.5 MG/0.5 ML SYRINGE IVP STA (10:49)
--- NOTE | 2023-08-02 10:51 | XR ---
EXAMINATION TYPE: XR KUB DATE OF EXAM: 08/02/2023 COMPARISON: 01/02/2022 HISTORY: Pain TECHNIQUE: One view abdominal series FINDINGS: Postsurgical changes lower lumbar spine. There is a hiatal hernia with postsurgical changes in the ep igastrium. No diagnostic evidence of bowel obstruction. Correlate for constipation with moderate riri ined debris. No suspicious calcifications. Diffuse osteopenia. Mild multilevel degenerative disc disease. IMPRESSION: 1. Nonspecific abdomen with no diagnostic evidence of obstruction. Correlate for constipation. 2. There are postsurgical changes in the epigastrium with a suspected hiatal hernia.
[2023-08-02 10:56] LABS: Basophils % (A) 1 %; Eosinophils # (A) 0.1 k/uL (0-0.7); Eosinophils % (A) 2 %; HCT 44.8 % (39.0-53.0); HGB 14.5 gm/dL (13.0-17.5); Lymphocytes # (A) 1.2 k/uL (1.0-4.8); Lymphocytes % (A) 31 %; MCH 31.4 pg (25.0-35.0); MCHC 32.4 g/dL (31.0-37.0); MCV 97.1 fL (80.0-100.0); Mean Platelet Volume 7.9; Monocytes # (A) 0.2 k/uL (0-1.0); Monocytes % (A) 6 %; Neutrophils # (A) 2.1 k/uL (1.3-7.7); Neutrophils % (A) 58 %; Platelet Count 219 k/uL (150-450); RBC 4.61 m/uL (4.30-5.90); RDW 13.6 % (11.5-15.5); WBC 3.7 k/uL (3.8-10.6)
[2023-08-02 11:06] LABS: ALT 26 U/L (4-49); African American GFR (CKD) >90 (>60 ml/min/1.73 sqM); Albumin 4.7 g/dL (3.5-5.0); Amylase 75 U/L (30-110); Anion Gap 14 mmol/L; Blood Urea Nitrogen 15 mg/dL (9-20); Calcium 9.7 mg/dL (8.4-10.2); Carbon Dioxide 21 mmol/L (22-30); Chloride 107 mmol/L (98-107); Glucose 110 mg/dL (74-99); Lipase 181 U/L (23-300); Non-African American GFR(CKD) >90 (>60 ml/min/1.73 sqM); Sodium 142 mmol/L (137-145); Total Bilirubin 0.5 mg/dL (0.2-1.3)
--- NOTE | 2023-08-02 11:25 | CT ---
EXAMINATION TYPE: CT abdomen pelvis w con DATE OF EXAM: 08/02/2023 COMPARISON: 06/28/2023 INDICATION: Abdominal pain DLP: 869.6 mGycm, Automated exposure control for dose reduction was used. CONTRAST: 100 ml mL of Isovue 300. Study performed without Oral Contrast TECHNIQUE: Axial images were obtained from above the diaphragm to the pubic rami in the axial plane a t 5 mm thick sections. Reconstructed images are reviewed on the computer in the coronal plane. FINDINGS: Limited CT sections are obtained the lung bases. The lung bases are clear. There is a moderate size hiatal hernia present. Postsurgical changes are within the stomach. CT ABDOMEN: Liver: Normal Spleen: Normal Pancreas: Normal Adrenal glands: The adrenal glands are normal. Gallbladder: Not identified. Correlate with surgical history. Kidneys: No masses are evident. No hydronephrosis is present. No cysts are present. Delayed images were obtained through the kidneys, which remain unremarkable. Aorta: Normal Inferior vena cava: Normal. CT PELVIS: Fecal debris is within the distal colon. The study is without oral contrast limiting bow el evaluation. There are a few mildly prominent fluid-filled small bowel loops in the right mid abdom en correlate for ileus Appendix: Not identified. No dilated tubular structure or inflammatory change is evident. Urinary bladder: Normal. Genitourinary structures: There is mild prominence of the prostate. Osseous structures: No suspicious lytic or sclerotic lesions. IMPRESSION: 1. Stable appearing moderate size hiatal hernia with postsurgical changes within the stomach. Findin gs appears stable. 2. Mild prominence of right mid small bowel loops containing fluid. Correlate for mild ileus. No obst ruction is identified.
[2023-08-02 11:26] LABS: INR 0.9 (<1.2); Prothrombin Time 10.3 sec (10.0-12.5)
[2023-08-02] MEDS: MAG HYDROX/AL HYDROX/SIMETH 30 ML, HYOSCYAMINE ELIXIR 10 ML, LIDOCAINE VISCOUS 2% 10 ML PO STA (11:28)
[2023-08-02 11:29] LABS: AST 32 U/L (17-59); Alkaline Phosphatase 79 U/L (38-126); Potassium 4.6 mmol/L (3.5-5.1); Total Protein 7.1 g/dL (6.3-8.2)
[2023-08-02] MEDS: FAMOTIDINE 20 MG/2 ML VIAL IV STA (11:29)
[2023-08-02] MEDS: PANTOPRAZOLE 40 MG/10 ML VIAL IVP STA (11:29)
[2023-08-02 11:48] LABS: Partial Thromboplastin Time 20.6 sec (22.0-30.0)
[2023-08-02] MEDS: HYDROmorphone 1 MG/ML 1 ML SYRINGE IVP STA (12:09)
[2023-08-02] MEDS: ACET/COD 300 MG/30 MG STARTER PACK 6 TAB BTL PO STA (13:08)
[2023-08-02 13:53] VITALS: BP 109/76; PULSE 70; RESP 16
== END 2023-08-02 13:35 | disposition home or self-care (01) ==
LOC: EC 10:04
DX: K44.9 Diaphragmatic hernia without obstruction or gangrene (principal); K56.7 Ileus, unspecified; R74.01 Elevation of levels of liver transaminase levels; Z88.5 Allergy status to narcotic agent; Z91.040 Latex allergy status
CPT/HCPCS: 36415; 93005; 80053; 82150; 83605; 83690; 85025; 85610; 85730; 74018; 74177; 99285; 96374; 96375 ×3; 96376; J2405; J3490; J1170 ×2; C9113; Q9967

== ENCOUNTER 2023-09-13 02:29 | Emergency (ER) | payer BC, OTHER ==
--- NOTE | 2023-09-13 03:03 | ED ---
General Adult HPI - General Source: patient, RN notes reviewed, old records reviewed Mode of arrival: ambulatory Limitations: no limitations <Rah Arcos - Last Filed: 09/13/23 06:28> <Darnell Meza - Last Filed: 09/13/23 08:54> - General Chief complaint: Extremity Injury, Upper Stated complaint: R Shoulder Dislocation Time Seen by Provider: 09/13/23 02:43 - History of Present Illness Initial comments: Patient is a 42-year-old male who presents emergency department complaining of right shoulder pain. Patient states he believes he dislocated it. Was helping his family member move objects at 2 AM. States that felt like it was dislocated and tried to put on his shirt afterwards. Denies any obvious trauma otherwise. Presents for evaluation.Also complaining of chronic nausea, vomiting, epigastric abdominal discomfort. Follows up with his surgeon at [facility]. Recent scope a few months ago that was inconclusive. Primary complaint is the right shoulder. (Rah Arcos) - Related Data Home Medications Medication Instructions Recorded Confirmed traZODone HCL 300 mg PO HS 11/25/21 08/02/23 Zolpidem [Ambien] 10 mg PO HS PRN 08/02/23 08/02/23 diphenhydrAMINE [Benadryl] 25 mg PO HS 08/02/23 08/02/23 Previous Rx's Medication Instructions Recorded Pantoprazole [Protonix] 40 mg PO DAILY #30 tab 09/13/23 Allergies Allergy/AdvReac Type Severity Reaction Status Date / Time latex Allergy Rash/Hives Verified 09/13/23 02:38 meperidine [From Demerol] Allergy Rash/Hives Verified 09/13/23 02:38 Review of Systems ROS Other: All systems not noted in ROS Statement are negative. <Rah Arcos - Last Filed: 09/13/23 06:28> ROS Other: All systems not noted in ROS Statement are negative. <Darnell Meza - Last Filed: 09/13/23 08:54> ROS Statement: Those systems with pertinent positive or pertinent negative responses have been documented in the HPI. Review of Systems: CONST: Denies fever EYES: Denies blurry vision ENT: Denies nasal congestion C/V: Denies Chest pain RESP: Denies shortness of breath GI: Denies abdominal pain : Denies dysuria SKIN: Denies rash. MSK: Endorses right shoulder pain NEURO: Denies headache (Rah Arcos) Past Medical History Past Medical History: Atrial Fibrillation, GERD/Reflux, Hypertension Additional Past Medical History / Comment(s): Pt states difficulty with abdominal pain/nausea and vomiting when eating since surgery for hiatal hernia/peg tube insertion.States afib during his hospitalization for avery en Y/peg tube surgery, R shoulder dislocations, pt states recent EKG at Dr. Soria's office showed VT at some time, chronic low back pain. Removal of Peg Tube. States having dizziness. See Dr. Harris's H&P. infection in stomach History of Any Multi-Drug Resistant Organisms: None Reported Past Surgical History: Appendectomy, Back Surgery, Cholecystectomy, Hernia Repair, Orthopedic Surgery, Tonsillectomy Additional Past Surgical History / Comment(s): Lysis of abdominal adhesions then Avery en Y, peg tube insertion and removal, EGD, diaphragmatic hernia repair, lumbar fusion, R shoulder arthroscopy, L shoulder fusion. States his hernia was attached to his stomach wall and this is why all the surgery. See Dr. Harris's H&P. Past Anesthesia/Blood Transfusion Reactions: No Reported Reaction Past Psychological History: No Psychological Hx Reported Smoking Status: Never smoker Past Alcohol Use History: None Reported Past Drug Use History: None Reported - Past Family History Mother Additional Family Medical History / Comment(s): Mother is , she had lupus. Father History Unknown: Yes Brother(s) Additional Family Medical History / Comment(s): autoimmune disorder <Rah Arcos - Last Filed: 09/13/23 06:28> General Exam Limitations: no limitations <Rah Arcos - Last Filed: 09/13/23 06:28> - General Exam Comments Initial Comments: General: Appears in no acute distress. HEAD: Normal with no signs of head trauma. EYES: EOMI ENT: Hearing grossly intact, normal oropharynx. RESPIRATORY: Clear breath sounds bilaterally. No wheezes, rales, or rhonchi. C/V: Peripheral pulses 2+ intact throughout ABD: Abdomen is nontender, soft, nondistended. No guarding. No rebound tenderness. EXT: Right shoulder appears dislocated posteriorly. No obvious other deformity appreciated. Neurovascular intact in the right upper extremity. SKIN: No rashes or lesions observed on exposed skin. NEURO: Alert and oriented x 4. (Rah Arcos) Course Vital Signs 09/13/23 09/13/23 09/13/23 02:39 04:00 04:15 Temperature 98.3 F Pulse Rate 72 86 81 Respiratory 18 18 18 Rate Blood Pressure 118/79 126/80 130/90 O2 Sat by Pulse 99 97 98 Oximetry 09/13/23 09/13/23 09/13/23 04:19 04:24 04:29 Temperature Pulse Rate 81 72 68 Respiratory 18 16 16 Rate Blood Pressure 131/90 118/79 111/71 O2 Sat by Pulse 98 94 L 94 L Oximetry 09/13/23 09/13/23 09/13/23 04:34 04:39 04:54 Temperature Pulse Rate 69 81 77 Respiratory 16 18 18 Rate Blood Pressure 127/71 111/75 103/74 O2 Sat by Pulse 94 L 100 98 Oximetry 09/13/23 09/13/23 09/13/23 05:09 05:24 05:39 Temperature Pulse Rate 87 82 88 Respiratory 18 18 18 Rate Blood Pressure 113/84 105/73 112/78 O2 Sat by Pulse 97 98 99 Oximetry 09/13/23 09/13/23 09/13/23 06:09 06:39 08:07 Temperature Pulse Rate 69 69 78 Respiratory 18 18 20 Rate Blood Pressure 111/62 115/62 116/80 O2 Sat by Pulse 98 98 99 Oximetry Procedures - Orthopedic Joint Reduction Joint #1 Consent Obtained: verbal consent Side: right Joint Reduction Location: shoulder Analgesia: procedural sedation Shoulder Technique Used (if applicable): traction/counter-traction Post-Reduction Neuro Exam: intact Post-Reduction Vascular Exam: intact Post Reduction X-Ray Obtained: Yes Post Reduction X-Ray Results: reduced Patient Tolerated Procedure: well - Procedural Sedation *Procedural Sedation Start Time: 04:19 *Procedural Sedation Stop Time: 04:35 *Risks,benefits, and alternative therapies discussed?: Yes *Patient indicates understanding of risk/benefit discussion?: Yes *Indications: fracture/dislocation reduction *Previous Adverse Reaction to Anesthesia/Sedation?: No *ASA Class: I *Mallampati Airway Score: 2 *Time of Last PO Intake: 18:00 Preparation: battery checker applied, pulse oximeter, capnometry used, supplemental O2 applied, suction/airway equipment at bedside, IV secured Ketamine: IV Ketamine Dose: 33 IV Propofol Dose (mgs): 52 Complications: none Patient Tolerated Procedure: well <Rah Arcos - Last Filed: 09/13/23 06:28> - Orthopedic Joint Reduction Joint #1 Additional Comments: placed in shoulder immobilizer (Rah Arcos) Medical Decision Making - Lab Data Result diagrams: 09/13/23 04:04 09/13/23 04:04 <Rah Arcos - Last Filed: 09/13/23 06:28> - Lab Data Result diagrams: 09/13/23 04:04 09/13/23 04:04 <DerrickDarnell - Last Filed: 09/13/23 08:54> - Medical Decision Making Was pt. sent in by a medical professional or institution (, PA, BAKERY SUPERVISOR, urgent care, hospital, or halfway...) When possible be specific @ -No Did you speak to anyone other than the patient for history (EMS, parent, family, police, friend...)? What history was obtained from this source @ -No Did you review nursing and triage notes (agree or disagree)? Why? @ -I reviewed and agree with nursing and triage notes Were old charts reviewed (outside hosp., previous admission, EMS record, old EKG, old radiological studies, urgent care reports/EKG's, halfway records)? Report findings @ -No old charts were reviewed Differential Diagnosis (chest pain, altered mental status, abdominal pain women, abdominal pain men, vaginal bleeding, weakness, fever, dyspnea, syncope, headache, dizziness, GI bleed, back pain, seizure, CVA, palpatations, mental hea lth, musculoskeletal)? @ -Differential Musculoskeletal Muscular strain, contusion, ligament sprain, fracture, arthritis, septic arthritis, bursitis, cellulitis, muscle spasm, nerve compression, DVT, arterial occlusion, herpes zoster, electrolyte abnormality, tumor.... This is not meant to be in all inclusive list EKG interpreted by me (3pts min.). @ -None done X-rays interpreted by me (1pt min.). @ -X-ray read by radiology as showing no evidence of shoulder dislocation however this is similar to previous presentation when clinically the patient presents as a posterior shoulder dislocation and has history for shoulder replacement complicates the x-rays. CT interpreted by me (1pt min.). @ -None done U/S interpreted by me (1pt. min.). @ -None done What testing was considered but not performed or refused? (CT, X-rays, U/S, labs)? Why? @ -None What meds were considered but not given or refused? Why? @ -None Did you discuss the management of the patient with other professionals (prof swanson i.e. , PA, BAKERY SUPERVISOR, lab, RT, psych nurse, social welfare research worker, trackless trolley driver, teacher, postal delivery officer, protective services case worker)? Give summary @ -No Was smoking cessation discussed for >3mins.? @ -No Was critical care preformed (if so, how long)? @ -No Were there social determinants of health that impacted care today? How? (Homelessness, low income, unemployed, alcoholism, drug addiction, transportation, low edu. Level, literacy, decrease access to med. care, intermediate, rehab)? @ -No Was there de-escalation of care discussed even if they declined (Discuss DNR or withdrawal of care, Hospice)? DNR status @ -No What co-morbidities impacted this encounter? (DM, HTN, Smoking, COPD, CAD, Cancer, CVA, ARF, Chemo, Hep., AIDS, mental health diagnosis, sleep apnea, morbid obesity)? @ -None Was patient admitted / discharged? Hospital course, mention meds given and route, prescriptions, significant lab abnormalities, going to OR and other pertinent info. @ -Patient presents with right shoulder pain. Has a history of right shoulder surgery. Concerned he may have dislocated it. Will obtain x-ray. IV access w ill be obtained patient will be given Dilaudid and IV fluids. Patient was in agreement this plan. Is also complaining of nausea, vomiting, decreased oral intake as the patient does have a history of a hiatal hernia which is causing him issues. States he is not on medications for it. We will obtain basic labs. At this time I discussed the results with the patient of the x-ray. As he is clinically presenting as a shoulder dislocation despite the x-ray being read as different, and with my comparison of prior x-ray of that shoulder, we will proceed with procedural sedation and shoulder reduction. Patient was in agreement this plan. States this is what normally happens when he has this po sterior shoulder dislocation concerning it looks abnormal due to the type of shoulder surgery he had. Procedural sedation with ketamine and propofol completed. See additional note. Patient tolerated reduction well. Placed in a older immobilizer. Clinically, shoulder appears to have been reduced. X-ray supports this as well as the anatomic position appears normal. I updated the patient. Laboratory studies unremarkable. Overall patient is feeling improved with some mild pain now in the shoulder but he states it feels like it is back into place. In agreement. I believe it is safer to be discharged home at this time. Surgeon that performed the surgery on her shoulder was out of [place] 17 years ago. I recommended follow-up with orthopedic surgery as this seems to be a recurrent issue. He was in agreement this plan. He already has GI follow-up at [facility] which I recommended he call. He was in agreement this plan. Patient was in agreement discharge but wanted to attempt to eat something prior to discharge. Has a history of numerous abdominal surgeries with hiatal hernia. States that when he ate something, it feels like it is getting stuck. Has been having this issue for a few days. Now that his shoulder is faxed he would like this evaluated. Labs we discussed were unremarkable however he is asking for a CT of his abdomen pelvis at this time. Due to his history of multiple GI surgeries in the past and also consideration for removing his entire stomach at one point, I do agree this is a reasonable request and we will obtain a CT abdomen pelvis. Exam remains unremarkable. No episodes of nausea or vomiting here in the department. Did tolerate the small amount of oral intake that he had. At this time as seen in my shift. Patient will be signed out to Dr. Meza pending results of CT. Undiagnosed new problem with uncertain prognosis? @ -No Drug Therapy requiring intensive monitoring for toxicity (Heparin, Nitro, Insulin, Cardizem)? @ -No Were any procedures done? @ -No Diagnosis/symptom? @ -Right shoulder dislocation status postreduction, chronic abdominal pain/ nausea Acute, or Chronic, or Acute on Chronic? @ -Acute on chronic Uncomplicated (without systemic symptoms) or Complicated (systemic symptoms)? @ -Uncomplicated Side effects of treatment? @ -None Exacerbation, Progression, or Severe Exacerbation] @ -No Poses a threat to life or bodily function? @ -Unlikely (Rah Arcos) CT scan interpreted by myself shows mild gastritis. Patient reevaluated and resting comfortably in bed. Patient is updated on results and need for follow-up. Patient states he is not currently on any medication for his stomach and would be interested in refilling his Protonix prescription. Patient is recommended follow-up with his surgeon as well as primary care doctor and orthopedic. (Darnell Meza) - Lab Data Lab Results 09/13/23 09/13/23 Range/Units 04:04 04:04 WBC 5.7 (3.8-10.6) k/uL RBC 4.76 (4.30-5.90) m/uL Hgb 14.8 (13.0-17.5) gm/dL Hct 45.0 (39.0-53.0) % MCV 94.6 (80.0-100.0) fL MCH 31.1 (25.0-35.0) pg MCHC 32.9 (31.0-37.0) g/dL RDW 13.1 (11.5-15.5) % Plt Count 215 (150-450) k/uL MPV 7.6 Neutrophils % 55 % Lymphocytes % 34 % Monocytes % 7 % Eosinophils % 2 % Basophils % 1 % Neutrophils # 3.1 (1.3-7.7) k/uL Lymphocytes # 2.0 (1.0-4.8) k/uL Monocytes # 0.4 (0-1.0) k/uL Eosinophils # 0.1 (0-0.7) k/uL Basophils # 0.0 (0-0.2) k/uL Sodium 138 (137-145) mmol/L Potassium 4.5 (3.5-5.1) mmol/L Chloride 107 (98-107) mmol/L Carbon Dioxide 26 (22-30) mmol/L Anion Gap 5 mmol/L BUN 20 (9-20) mg/dL Creatinine 0.65 L (0.66-1.25) mg/dL Est GFR (CKD-EPI)AfAm >90 (>60 ml/min/1.73 sqM) Est GFR (CKD-EPI)NonAf >90 (>60 ml/min/1.73 sqM) Glucose 92 (74-99) mg/dL Calcium 8.8 (8.4-10.2) mg/dL Total Bilirubin 0.5 (0.2-1.3) mg/dL AST 179 H (17-59) U/L ALT 77 H (4-49) U/L Alkaline Phosphatase 88 (38-126) U/L Total Protein 6.7 (6.3-8.2) g/dL Albumin 4.0 (3.5-5.0) g/dL Disposition Is patient prescribed a controlled substance at d/c from ED?: No <Rah Arcos - Last Filed: 09/13/23 06:28> Is patient prescribed a controlled substance at d/c from ED?: No Time of Disposition: 08:53 <Darnell Meza - Last Filed: 09/13/23 08:54> Clinical Impression: Recurrent dislocation, right shoulder, Chronic nausea, Chronic abdominal pain Disposition: HOME SELF-CARE Condition: Stable Instructions (If sedation given, give patient instructions): Shoulder Dislocation (ED), Moderate Sedation (ED), Abdominal Pain (ED) Additional Instructions: Please follow-up with your primary care physician, orthopedic physician and surgeon for your stomach in the next couple of days for recheck. Prescription for Protonix has been sent to pharmacy. Return for increased pain, vomiting, not tolerating oral intake, worsening or changing symptoms or other concerns. Prescriptions: Pantoprazole [Protonix] 40 mg PO DAILY #30 tab Referrals: Huma Soria MD [Primary Care Provider] - 1-2 days Gorge Layne DO [Doctor of Osteopathic Medicine] - 1-2 days
[2023-09-13] MEDS: HYDROmorphone 1 MG/ML 1 ML SYRINGE IVP STA (03:26)
[2023-09-13] MEDS: SODIUM CHLORIDE 0.9% 1,000 ML IV STA (03:28)
--- NOTE | 2023-09-13 03:57 | XR ---
EXAM: XR Right Shoulder Complete, 2 or More Views CLINICAL HISTORY: ITS.REASON XR Reason: r/o disolocation TECHNIQUE: Two or more views of the right shoulder. COMPARISON: 05/23/2021 FINDINGS: Bones/joints: No acute fracture. No dislocation. Hardware intact. Soft tissues: Unremarkable. IMPRESSION: No acute osseous abnormalities.
[2023-09-13] MEDS: ONDANSETRON 4 MG/2 ML VIAL IVP STA (04:06)
[2023-09-13] MEDS: PROPOFOL 10 MG/ML 20 ML VIAL IV ONE ×2 (04:06→04:27)
[2023-09-13] MEDS: PANTOPRAZOLE 40 MG/10 ML VIAL IVP STA (04:06)
[2023-09-13] MEDS: KETAMINE 10 MG/ML 20 ML VIAL IV ONE (04:24)
[2023-09-13 04:27] LABS: Basophils % (A) 1 %; Eosinophils # (A) 0.1 k/uL (0-0.7); Eosinophils % (A) 2 %; HGB 14.8 gm/dL (13.0-17.5); Lymphocytes % (A) 34 %; MCH 31.1 pg (25.0-35.0); MCHC 32.9 g/dL (31.0-37.0); MCV 94.6 fL (80.0-100.0); Mean Platelet Volume 7.6; Monocytes # (A) 0.4 k/uL (0-1.0); Monocytes % (A) 7 %; Neutrophils # (A) 3.1 k/uL (1.3-7.7); Neutrophils % (A) 55 %; Platelet Count 215 k/uL (150-450); RBC 4.76 m/uL (4.30-5.90); RDW 13.1 % (11.5-15.5); WBC 5.7 k/uL (3.8-10.6)
[2023-09-13 04:52] LABS: ALT 77 U/L (4-49); AST 179 U/L (17-59); African American GFR (CKD) >90 (>60 ml/min/1.73 sqM); Alkaline Phosphatase 88 U/L (38-126); Anion Gap 5 mmol/L; Blood Urea Nitrogen 20 mg/dL (9-20); Calcium 8.8 mg/dL (8.4-10.2); Carbon Dioxide 26 mmol/L (22-30); Chloride 107 mmol/L (98-107); Glucose 92 mg/dL (74-99); Non-African American GFR(CKD) >90 (>60 ml/min/1.73 sqM); Potassium 4.5 mmol/L (3.5-5.1); Sodium 138 mmol/L (137-145); Total Bilirubin 0.5 mg/dL (0.2-1.3); Total Protein 6.7 g/dL (6.3-8.2)
[2023-09-13] MEDS: ACET/COD 300 MG/30 MG STARTER PACK 6 TAB BTL PO STA (05:26)
[2023-09-13] MEDS: MORPHINE SULFATE 4 MG/ML SYRINGE IVP STA (05:26)
--- NOTE | 2023-09-13 05:52 | XR ---
EXAMINATION TYPE: XR shoulder limited RT DATE OF EXAM: 09/13/2023 CLINICAL HISTORY: Postreduction TECHNIQUE: 2 views of the right shoulder are obtained. COMPARISON: Prior right shoulder x-rays September 13, 2023 FINDINGS: Surgical change to superior aspect of the humeral head and osseous glenoid are redemonstrat ed. No acute fracture or dislocation is seen. Acromioclavicular joint is maintained. Visualized ribs are intact. No significant change from most recent prior. IMPRESSION: As above.
--- NOTE | 2023-09-13 08:38 | CT ---
EXAMINATION TYPE: CT abdomen pelvis w con CT DLP: 859.6 mGycm, Automated exposure control for dose reduction was used. DATE OF EXAM: 09/13/2023 7:53 AM COMPARISON: 08/02/2023 CLINICAL INDICATION:Male, 42 years old with history of abd pain, numerous prior surgeries; Abdominal pain, numerous prior surgeries TECHNIQUE: Axial CT abdomen pelvis w con;Sagittal and coronal reformats were created on a separate w orkstation. Contrast used:100 ml mL of Isovue 300 with IV Contrast, (none if empty) Oral contrast used: without Oral Contrast (none if empty) FINDINGS: LOWER CHEST: Unremarkable ABDOMEN LIVER: Unremarkable GALLBLADDER AND BILE DUCTS: Unremarkable. PANCREAS: Unremarkable. SPLEEN: Unremarkable. ADRENAL GLANDS: Unremarkable. KIDNEYS AND URETERS: No evidence of hydronephrosis or renal calculus. The ureters are unremarkable. PELVIS BLADDER: Unremarkable REPRODUCTIVE: Unremarkable. ABDOMEN & PELVIS STOMACH AND BOWEL: No evidence of bowel obstruction. Moderate hiatal hernia is present with its posts urgical sutures are identified. There is multiple is a bowel containing suture. PERITONEUM/RETROPERITONEUM: No evidence of pneumoperitoneum or free fluid. VASCULATURE: No evidence of aortic aneurysm. MUSCULOSKELETAL: No acute osseous abnormalities, postsurgical changes to the spine. Hardware L5 and S 1 appears intact. LYMPH NODES: No gross evidence for lymphadenopathy. SOFT TISSUE/ABDOMINAL WALL: Unremarkable IMPRESSION: There is some mild fat stranding wall thickening of the stomach in the thorax possibly representing g astritis. Otherwise no significant change from priors with moderate hiatal hernia postsurgical change s of bowel.
[2023-09-13] MEDS: FAMOTIDINE 20 MG/2 ML VIAL IV STA (09:12)
[2023-09-13 09:43] VITALS: BP 128/93; PULSE 71; RESP 18; TEMP 98.5
== END 2023-09-13 09:21 | disposition home or self-care (01) ==
LOC: EC 02:29
DX: M24.411 Recurrent dislocation, right shoulder (principal); K44.9 Diaphragmatic hernia without obstruction or gangrene; Z91.040 Latex allergy status; Z88.8 Allergy status to other drugs, medicaments and biological substances
CPT/HCPCS: 36415; 80053; 85025; 73020; 73030; 74177; 99284; 96374; 96375 ×5; 96361 ×2; 99152; 23650; J2270; J2405; J3490; J1170; J2704; C9113; Q9967

== ENCOUNTER 2023-10-04 01:36 | Emergency (ER) | payer OTHER ==
--- NOTE | 2023-10-04 02:24 | ED ---
General Adult HPI - General Chief complaint: Extremity Injury, Upper Stated complaint: R shoulder disloacted Time Seen by Provider: 10/04/23 01:49 Source: patient Mode of arrival: ambulatory Limitations: no limitations - History of Present Illness Initial comments: Dictation was produced using [employer] dictation software. please excuse any grammatical, word or spelling errors. Chief Complaint: 43-year-old male presents to the ER for right shoulder dislocation History of Present Illness: Patient is a 43-year-old male he has past medical history of right shoulder surgery. He has had multiple dislocations in the past. States that his right shoulder was dislocated posteriorly. He was moving some things for his significant other when he felt it pop out of place. Patient has had relocations performed on multiple occasions. Patient states that when this happens he is unable to bend at his elbow. States that his surgeon has moved out of state 17 years ago. He has not followed up with the [facility] yet. The ROS documented in this emergency department record has been reviewed and confirmed by me. Those systems with pertinent positive or negative responses have been documented in the HPI. All other systems are other negative and/or noncontributory. - Related Data Home Medications Medication Instructions Recorded Confirmed traZODone HCL 300 mg PO HS 11/25/21 08/02/23 Zolpidem [Ambien] 10 mg PO HS PRN 08/02/23 08/02/23 diphenhydrAMINE [Benadryl] 25 mg PO HS 08/02/23 08/02/23 Previous Rx's Medication Instructions Recorded Pantoprazole [Protonix] 40 mg PO DAILY #30 tab 09/13/23 Allergies Allergy/AdvReac Type Severity Reaction Status Date / Time latex Allergy Rash/Hives Verified 09/13/23 02:38 meperidine [From Demerol] Allergy Rash/Hives Verified 09/13/23 02:38 Review of Systems ROS Statement: Those systems with pertinent positive or pertinent negative responses have been documented in the HPI. ROS Other: All systems not noted in ROS Statement are negative. Past Medical History Past Medical History: Atrial Fibrillation, GERD/Reflux, Hypertension Additional Past Medical History / Comment(s): Pt states difficulty with abdominal pain/nausea and vomiting when eating since surgery for hiatal hernia/peg tube insertion.States afib during his hospitalization for jeannie en Y/peg tube surgery, R shoulder dislocations, pt states recent EKG at Dr. Soria's office showed NV at some time, chronic low back pain. Removal of Peg Tube. States having dizziness. See Dr. Harris's H&P. infection in stomach History of Any Multi-Drug Resistant Organisms: None Reported Past Surgical History: Appendectomy, Back Surgery, Cholecystectomy, Hernia Repair, Orthopedic Surgery, Tonsillectomy Additional Past Surgical History / Comment(s): Lysis of abdominal adhesions then Jeannie en Y, peg tube insertion and removal, EGD, diaphragmatic hernia repair, lumbar fusion, R shoulder arthroscopy, L shoulder fusion. States his hernia was attached to his stomach wall and this is why all the surgery. See Dr. Harris's H&P. Past Anesthesia/Blood Transfusion Reactions: No Reported Reaction Past Psychological History: No Psychological Hx Reported Smoking Status: Never smoker Past Alcohol Use History: None Reported Past Drug Use History: None Reported - Past Family History Mother Additional Family Medical History / Comment(s): Mother is , she had lupus. Father History Unknown: Yes Brother(s) Additional Family Medical History / Comment(s): autoimmune disorder General Exam - General Exam Comments Initial Comments: General: Acute distress secondary to pain Head: Normocephalic, atraumatic Eyes: PERRLA, EOMI ENT: Airway patent Chest: Nonlabored breathing Skin: No visual rash, normal skin tone Neuro: Alert and oriented 3 Musculoskeletal: No gross abnormalities Right shoulder: Decreased passive and active range of motion at the right shoulder and right elbow, no obvious deformities Limitations: no limitations Course Vital Signs 10/04/23 10/04/23 10/04/23 01:44 02:49 02:55 Temperature 98.2 F Pulse Rate 85 75 80 Respiratory 18 16 18 Rate Blood Pressure 141/98 114/87 126/87 O2 Sat by Pulse 98 100 100 Oximetry 10/04/23 10/04/23 10/04/23 02:56 03:11 03:26 Temperature Pulse Rate 76 79 73 Respiratory 18 16 18 Rate Blood Pressure 130/92 113/72 133/82 O2 Sat by Pulse 100 100 100 Oximetry 10/04/23 10/04/23 10/04/23 03:41 03:56 04:26 Temperature Pulse Rate 73 87 70 Respiratory 16 16 18 Rate Blood Pressure 123/81 128/82 132/72 O2 Sat by Pulse 100 100 100 Oximetry Procedures - Orthopedic Joint Reduction Joint #1 Consent Obtained: verbal consent, written consent, emergent situation Side: right Joint Reduction Location: shoulder Analgesia: procedural sedation Shoulder Technique Used (if applicable): traction/counter-traction Technique Used: traction/counter-traction Post-Reduction Neuro Exam: intact Post-Reduction Vascular Exam: intact Post Reduction X-Ray Obtained: Yes Post Reduction X-Ray Results: reduced Splint Applied: Yes Patient Tolerated Procedure: well - Procedural Sedation *Procedural Sedation Start Time: 02:50 *Procedural Sedation Stop Time: 02:56 *Risks,benefits, and alternative therapies discussed?: Yes *Patient indicates understanding of risk/benefit discussion?: Yes *Indications: fracture/dislocation reduction *Previous Adverse Reaction to Anesthesia/Sedation?: No *ASA Class: I Preparation: playground monitor applied, pulse oximeter, capnometry used, supplemental O2 applied IV Propofol Dose (mgs): 100 Complications: none Patient Tolerated Procedure: well Medical Decision Making - Medical Decision Making Was pt. sent in by a medical professional or institution (Dr. PA, BRICK SETTER OPERATOR, urgent care, hospital, or care home...) When possible be specific @ -No Did you speak to anyone other than the patient for history (EMS, parent, family, police, friend...)? What history was obtained from this source @ -No Did you review nursing and triage notes (agree or disagree)? Why? @ -I reviewed and agree with nursing and triage notes Were old charts reviewed (outside hosp., previous admission, EMS record, old EKG, old radiological studies, urgent care reports/EKG's, care home records)? Report findings @ -No old charts were reviewed Differential Diagnosis (chest pain, altered mental status, abdominal pain women, abdominal pain men, vaginal bleeding, musculoskeletal, weakness, fever, dyspnea, syncope, headache, dizziness, GI bleed, back pain, seizure, CVA, palpatations, mental health)? @ -Shoulder dislocation, shoulder fracture, shoulder sprain EKG interpreted by me (3pts min.). @ -None done X-rays interpreted by me (1pt min.). @ -X-rays shows still in alignment to previous shoulder x-rays. There is no fractures or any other acute other acute processes. CT interpreted by me (1pt min.). @ -None done U/S interpreted by me (1pt. min.). @ -None done What testing was considered but not performed or refused? (CT, X-rays, U/S, labs)? Why? @ -None What meds were considered but not given or refused? Why? @ -None Did you discuss the management of the patient with other professionals (professionals i.e. Dr., PA, BRICK SETTER OPERATOR, lab, RT, psych nurse, social welfare research worker, fence installer foreman, teacher, chief technology officer, immigration case worker)? Give summary @ -No Was smoking cessation discussed for >3mins.? @ -No Was critical care preformed (if so, how long)? @ -No Were there social determinants of health that impacted care today? How? (Homelessness, low income, unemployed, alcoholism, drug addiction, transpo rtation, low edu. Level, literacy, decrease access to med. care, [facility], rehab)? @ -No Was there de-escalation of care discussed even if they declined (Discuss DNR or withdrawal of care, Hospice)? DNR status @ -No What co-morbidities impacted this encounter? (DM, HTN, Smoking, COPD, CAD, Cancer, CVA, ARF, Chemo, Hep., AIDS, mental health diagnosis, sleep apnea, morbid obesity)? @ -None Was patient admitted / discharged? Hospital course, mention meds given and route, prescriptions, significant lab abnormalities, going to OR and other pertinent info. @ -43-year-old male with history of humeral head shoulder surgery performed several years ago presents to the ER with concerns of shoulder dislocation. Vital signs upon arrival are within acceptable limits. Procedural sedation was performed. Arm was manipulated to movement which felt rather smooth. There is no clunking. Patient's arm was relocated to a more anatomical/neutral position. He woke complaining of persistent pain. Patient given more analgesics with improvement of symptoms. At this point patient cleared for discharge he is advised to follow-up with [facility] like he was initially instructed. Chart was reviewed patient had been in the emergency department multiple occasions for this. There is some concern that perhaps patient is exhibiting drug-seeking behavior. Undiagnosed new problem with uncertain prognosis? @ -No Drug Therapy requiring intensive monitoring for toxicity (Heparin, Nitro, Insulin, Cardizem)? @ -No Were any procedures done? @ -See above Diagnosis/symptom? Acute, or Chronic, or Acute on Chronic? Uncomplicated (without systemic symptoms) or Complicated (systemic symptoms)? @ -Shoulder pain, no obvious source Side effects of treatment? @ -No Exacerbation, Progression, or Severe Exacerbation? @ -No Poses a threat to life or bodily function? How? (Chest pain, USA, NV, pneumonia, PE, COPD, DKA, ARF, appy, cholecystitis, CVA, Diverticulitis, Homicidal, Suicidal, threat to staff... and all critical care pts) @ -yes Disposition Clinical Impression: Shoulder pain Disposition: HOME SELF-CARE Condition: Fair Instructions (If sedation given, give patient instructions): Shoulder Pain (ED) Is patient prescribed a controlled substance at d/c from ED?: No Referrals: Huma Soria MD [Primary Care Provider] - 1-2 days Time of Disposition: 04:42
[2023-10-04] MEDS: SODIUM CHLORIDE 0.9% 1,000 ML IV STA (02:37)
[2023-10-04] MEDS: MORPHINE SULFATE 4 MG/ML SYRINGE IV STA (02:38)
[2023-10-04] MEDS: PROPOFOL 10 MG/ML 20 ML VIAL IV ONE (02:50)
[2023-10-04] MEDS: HYDROmorphone 1 MG/ML 1 ML SYRINGE IVP STA (03:00)
--- NOTE | 2023-10-04 03:42 | XR ---
EXAM: XR Right Shoulder Complete, 2 or More Views CLINICAL HISTORY: ITS.REASON XR Reason: shoulder dislocation TECHNIQUE: Two or more views of the right shoulder. COMPARISON: October 04, 2023. FINDINGS: Bones/joints: RIGHT shoulder arthroplasty with 3 screws traversing the glenoid. Correlate with surgical history. Overall, similar when compared to radiographs from October 04, 2023. No acute fracture. No dislocation. Soft tissues: Unremarkable. IMPRESSION: Postoperative changes.
--- NOTE | 2023-10-04 04:31 | XR ---
EXAM: XR Right Shoulder Complete, 2 or More Views CLINICAL HISTORY: XR Reason: relocation TECHNIQUE: Two or more views of the right shoulder. COMPARISON: October 04, 2023 at 0206 hrs. and September 13, 2023 FINDINGS: Bones/joints: Previous humeral head arthroplasty. There are several screws in the glenoid. The interface between the humeral head and glenoid rim is obscured. The distal clavicles intact and normally aligned with respect to the acromion. No acute fracture. No dislocation. Soft tissues: Unremarkable. IMPRESSION: Previous humeral head arthroplasty. There are several screws in the glenoid. The interface between the humeral head and glenoid rim is obscured. The positioning appears similar to September 13, 2023 which was not considered dislocated.
[2023-10-04 04:35] VITALS: RESP 18
[2023-10-04] MEDS: HYDROmorphone 0.5 MG/0.5 ML SYRINGE IVP STA (04:54)
[2023-10-04] MEDS: ACET/COD 300 MG/30 MG STARTER PACK 6 TAB BTL PO STA (04:55)
[2023-10-04 06:37] VITALS: BP 143/94; PULSE 89; TEMP 97.6
== END 2023-10-04 05:04 | disposition home or self-care (01) ==
LOC: EC 01:36
DX: S43.004A Unspecified dislocation of right shoulder joint, initial encounter (principal); Z88.5 Allergy status to narcotic agent; Z91.040 Latex allergy status; X50.9XXA Other and unspecified overexertion or strenuous movements or postures, initial encounter
CPT/HCPCS: 99284; 23650; 99152; 96374; 96375; 96376; 96361; 73020; L3670; J2270; J1170 ×2; J2704

== ENCOUNTER 2023-11-29 05:00 | Emergency (ER) | payer OTHER ==
[2023-11-29] MEDS ORDERED: PROPOFOL 10 MG/ML 20 ML VIAL IV ONE (06:25)
[2023-11-29] MEDS ORDERED: KETOROLAC 15 MG/ML 1 ML VIAL ONE ×2 (06:25→08:41)
[2023-11-29] MEDS ORDERED: SODIUM CHLORIDE 0.9% 1,000 ML BAG ONE (06:30)
--- NOTE | 2023-12-21 12:56 | XR ---
EXAMINATION TYPE: XR shoulder limited RT DATE OF EXAM: 12/21/2023 12:20 PM INDICATION: Patient age:Male; 43 years old; Reason for study: POST REDUCTION; COMPARISON: Right shoulder radiograph the same day. TECHNIQUE: The right shoulder was examined in single AP projection. FINDINGS: Right shoulder arthroplasty changes with 3 screws traversing the glenoid. No acute fracture. Postredu ction AC joint is maintained. Visualized ribs are intact. IMPRESSION: Post reduction right shoulder arthroplasty.
--- NOTE | 2023-12-28 17:45 | XR ---
Patient: Connor Collier J Ordering Physician: Unknown, Unknown ID: [id number] Phone, Pager: Phone: N /A Pager: N/A : [phone] Age/Gender: 43Y, M Primary Location: N/A Procedure: XR shoulder complete RT Study Date: 11/29/2023 5:50:23 AM EXAMINATION TYPE: XR shoulder complete RT DATE OF EXAM: 12/17/2023 10:47 AM CLINICAL INDICATION: Pain COMPARISON: None TECHNIQUE: XR shoulder complete RT; examined in AP, internally rotated and scapular Y projections. FINDINGS: Arthroplasty changes hardware appears intact. No evidence of acute osseous pathology, joint dislocation, or soft tissue swelling. The remaining portions of the visualized chest are unremarkab le. IMPRESSION: Post arthroplasty changes without evidence of fracture.
== END 2023-11-29 08:50 | disposition home or self-care (01) ==
LOC: EC 05:00
CPT/HCPCS: 23650; 96361; 96374; 96375; 99283